=== PATIENT | male | born 1935 | race Caucasian/White ===

== ENCOUNTER 2019-10-06 12:22 | Inpatient (IN) | payer MEDICARE, OTHER ==
[2019-10-06] VITALS (13 sets, daily range): BP systolic 126–143; BP diastolic 75–106
[2019-10-06] MEDS ORDERED: AMIODARONE HCL 150 MG in IV 1 EA IV STA ×2 (12:45→15:21)
[2019-10-06] MEDS ORDERED: NS 2,060 ML in IV 1 EA IV ONE (13:00)
[2019-10-06 13:07] LABS: HEMATOCRIT 55.6 % (42.0-52.0); HEMOGLOBIN 19.9 g/dl (13.5-17.5); MEAN CORPUSCULAR HEMOGLOBIN 33.1 pg (27.0-33.0); MEAN CORPUSCULAR HGB CONC 35.8 g/dl (32.0-36.5); MEAN CORPUSCULAR VOLUME 92.5 fl (80.0-96.0); PLATELET COUNT, AUTOMATED 260 10^3/uL (150-450); RED BLOOD COUNT 6.01 10^6/uL (4.30-6.10)
[2019-10-06 13:21] LABS: INR 1.77; PARTIAL THROMBOPLASTIN TIME 27.9 SECONDS (25.0-38.4); PROTHROMBIN TIME 20.4 SECONDS (11.8-14.0)
[2019-10-06 13:23] LABS: WHITE BLOOD COUNT 40.6 10^3/uL (4.0-10.0)
[2019-10-06 13:24] LABS: ABG BASE EXCESS -12.2 (-2.0-2.0); ABG HCO3 9.7 MEQ/L (22.0-26.0); ABG O2 SATURATION 96.6 % (95.0-99.0); ABG PARTIAL PRESSURE O2 89.2 mmHg (75.0-100.0); ABG STANDARD HCO3 15.4 MEQ/L (22.0-26.0); ABG TOTAL CO2 10.3 MEQ/L (23.0-31.0); ABG pH (ARTERIAL) 7.357 UNITS (7.350-7.450)
[2019-10-06 13:27] LABS: ABG PARTIAL PRESSURE CO2 17.7 mmHg (35.0-45.0)
[2019-10-06] MEDS ORDERED: PIPERACILLIN/TAZOBACTAM SOD 3.375 GM in D5W MINI-BAG PLUS 50 ML IV ONE ×2 (13:30→15:45)
[2019-10-06] MEDS ORDERED: NS 1,000 ML IV ONE ×3 (13:30→18:45)
[2019-10-06 13:50] LABS: LYMPHOCYTES 4 % (16-44); MONOCYTES 2 % (0-5); NEUTROPHILS 88 % (28-66); PLATELET ESTIMATE NORMAL (NORMAL)
[2019-10-06 13:51] LABS: ANISOCYTOSIS 1+
[2019-10-06 14:30] LABS: CREATININE,RANDOM URINE 97.5 MG/DL
[2019-10-06] MEDS ORDERED: SODIUM BICARBONATE 75 MEQ in NS 0.45% 1,000 ML IV SCH (14:30)
--- NOTE | 2019-10-06 14:36 | REP ---
CT BRAIN WITHOUT CONTRAST: HISTORY: Possible fall. No comparison CT study. FINDINGS: Preliminary digital junior mechanical engineer radiograph is unremarkable. The patient is edentulous. On bone window settings, there is heavy vascular calcification in the distal internal carotid arteries bilaterally. The bony calvarium is intact. No skull fractures seen. No scalp hematoma is appreciated. On soft tissue window settings, there is mild to moderate generalized volume loss. There is no evidence of intracranial hemorrhage. No acute infarction, mass, or midline shift is seen. There are some small vessel changes in the periventricular white matter in the frontal lobes, left more so than right. IMPRESSION: No skull fracture or acute intracranial injury. Vascular calcification and generalized volume loss. Electronically Signed by Vishnu Fernandez MD 10/06/2019 05:16 P
--- NOTE | 2019-10-06 14:37 | REP ---
CT STUDY OF THE CERVICAL SPINE WITHOUT CONTRAST: HISTORY: Injury in a fall. No comparison cervical spine CT study. TECHNIQUE: Helical scanning is acquired and overlapping 2 mm high resolution axial images were generated and reviewed at bone and soft tissue window settings. Coronal and sagittal multiplanar re-formations images are generated. CT FINDINGS: There are degenerative disc and osteoarthritic facet changes. There is degenerative change between the dens and the anterior arch of C1. There is no evidence of cervical spine element fracture. No skull base fracture is seen. Cervical vertebral body heights are preserved. Alignment is normal. Facet joints are normally aligned bilaterally at each cervical level on multiplanar re-formations images. There is no evidence of intraspinal or paraspinal hematoma. No extra vertebral abnormality is seen. IMPRESSION: Degenerative spondylosis changes. Otherwise negative CT study of the cervical spine without contrast. No fracture seen. Electronically Signed by Vishnu Fernandez MD 10/06/2019 05:18 P
--- NOTE | 2019-10-06 14:37 | REP ---
CT STUDY OF THE CHEST WITHOUT CONTRAST: HISTORY: Injury in a fall. FINDINGS: Preliminary digital cable mechanic radiograph of the chest demonstrates monitoring electrodes. The patient's arms apparently could not be raised out of the scanned field. There is no evidence of mediastinal hematoma. Thoracic aorta is normal in contour and caliber. There is a small quantity of pericardial fluid. This is seen adjacent to the ascending aorta. There is mild fluid seen in the esophagus as well. No mass lesion is observed. There is no evidence of pneumothorax or hemothorax. Minimal linear fibrosis changes are seen in the lower lobes bilaterally. There are degenerative disc changes in the thoracic spine. There is no evidence of sternal, thoracic spine, shoulder girdle, or rib fracture. IMPRESSION: No active cardiopulmonary disease. Fluid-filled esophagus. Question reflux. There is an air containing bolus in the left lower lobe superior segment. No traumatic abnormality noted. Electronically Signed by Vishnu Fernandez MD 10/06/2019 05:18 P
--- NOTE | 2019-10-06 14:41 | REP ---
CT ABDOMEN AND PELVIS WITHOUT IV OR ORAL CONTRAST: HISTORY: Abdominal pain. History of a fall. No comparison study. FINDINGS: Preliminary digital canteen manager radiograph demonstrates gaseous distension of small and large bowel loops, consistent with ileus. The patient's arms apparently could not be raised out of the scan field. Axial CT images demonstrate a peripherally calcified hepatic cyst in the central liver 4.3 cm in greatest diameter. Gallbladder is normal in appearance. Spleen is normal in size, homogeneous in texture. No adrenal lesion is seen. No evidence of hydronephrosis, cyst, or mass in either kidney. No retroperitoneal mass or adenopathy is observed. A Carvalho catheter is noted in place in the urinary bladder. Bladder fonseca appear diffusely thickened. The prostate is moderately enlarged. There are left posterior bladder diverticula. There is perivesical fat streaking along the superior aspect of the urinary bladder leading upwards to the umbilicus along the course of the urachal duct. There is an umbilical hernia transmitting a small quantity of fat at the cranial margin of this indurated perivesical fat. There is also edematous fat along the left pelvic sidewall. A normal appendix is seen. There is diverticulosis of the sigmoid colon. There is no evidence of free intraperitoneal air. No other abnormal fluid collection is seen. IMPRESSION: Ileus pattern in the bowel gas. Diffuse thickening of the bladder wall with Carvalho catheter in place. Left pelvic sidewall and perivesical fat streaking extending along the course of the urachal duct. Question bladder injury. Bladder diverticula. Correlation with clinical history. There is an umbilical hernia transmitting a small quantity of fat. Left colonic diverticulosis. Electronically Signed by Vishnu Fernandez MD 10/06/2019 05:19 P
[2019-10-06] MEDS ORDERED: PIPERACILLIN/TAZOBACTAM SOD 3.375 GM in D5W MINI-BAG PLUS 50 ML IV SCH (15:30)
[2019-10-06] MEDS: SODIUM BICARBONATE 75 MEQ in NS 0.45% 1,000 ML IV SCH (15:30)
[2019-10-06 15:34] LABS: ALBUMIN 1.8 GM/DL (3.2-5.2); ALT/SGPT 37 U/L (12-78); AMYLASE 90 U/L (25-115); BILIRUBIN,DIRECT 0.9 MG/DL (0.0-0.2); BILIRUBIN,TOTAL 1.5 MG/DL (0.2-1.0); CPK CREATINE PHOSPHOKINASE 77 U/L (39-308); LIPASE 17 U/L (73-393); MB/CK RELATIVE INDEX 6.49 (< OR =4); TOTAL PROTEIN 4.9 GM/DL (6.4-8.2); TROPONIN I < 0.02 NG/ML (< 0.10)
[2019-10-06] MEDS ORDERED: VANCOMYCIN INTERMITTENT/PULSE DOSING BY CLINICAL PHARMACIST PER DOSING PROTOCOL XX SCH (15:45)
[2019-10-06] MEDS ORDERED: PIPERACILLIN/TAZOBACTAM SOD 2.25 GM in D5W MINI-BAG PLUS 50 ML IV SCH (15:45)
[2019-10-06] MEDS ORDERED: VANCOMYCIN HCL 1,000 MG, VIAL MATE ADAPTER 1 EACH in D5W 250 ML IV ONE (16:00)
--- NOTE | 2019-10-06 16:45 | HPEPDOC ---
General Date of Admission Oct 06, 2019 at 15:21 Date of Service: Oct 06, 2019 Chief Complaint The patient is a 84-year-old male admitted Who was brought ER with confusion / weakness History of Present Illness Patient is an 84 year old female with a PMHx Remote history of Angina, HTN, Hx of PNA and Prior alcohol abuse history who presented to [facility] ER. Patient had EMS visit him yesterday after he had some confusion and couldnt get into bed. Patients had EMS called to evaluate. Patient was found to be oriented and refused to be taken. Today patient was having confusion, slurred speech and weakness. EMS was called for evaluation and patient was taken to ER for further evaluation. Patient is a poor historian and the majority of the medical information was collected through healthcare proxy, patients , Bella Raines. 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 Review of Systems Other systems 10 point review of systems complete, all negative otherwise stated in HPI Vital Signs - Vitals: BP 124/86, HR 149, RR 22, Sat 96%NC2L, Temp 97.8F - General: Lying in bed, appears to be in pain Awake / Alert; not oriented to person, place or time - HEENT: NC, AT, PERRLA - CVS: Tachycardic, +S1S2 - Lungs: Poor inspiratory effort bilaterally, No appreciable wheezing / rales / rhonchi - Abdomen: Soft, Non-distended, Non-tender - Extremities: No lower extremity edema, No calf tenderness - Neuro: Moving all 4 extremities - Skin: No visible rashes Laboratory Data Labs 24H Laboratory Tests 2 10/06/19 12:45: Neutrophils (%) (Auto) , Nucleated Red Blood Cells % (auto) 0.1H, Neutrophils 88H, Band Neutrophils 6, Lymphocytes (Manual) 4L, Monocytes (Manual) 2, Anisocytosis 1+, Platelet Estimate NORMAL, Prothrombin Time 20.4H, Prothromb Time International Ratio 1.77, Activated Partial Thromboplast Time 27.9, Lactic Acid Level 6.1*H 10/06/19 13:04: Blood Gas Bicarbonate Standard 15.4L, Arterial Blood pH 7.357, Arterial Blood Partial Pressure CO2 17.7*L, Arterial Blood Partial Pressure O2 89.2, Arterial Blood Total CO2 10.3L, Arterial Blood HCO3 9.7L, Arterial Blood Base Excess - 12.2L, Arterial Blood Oxygen Saturation 96.6 10/06/19 13:28: Urine Random Creatinine 97.5, Urine Random Sodium 42 10/06/19 13:34: POC Glucose (Misc Panel) 176H, POC Sodium (Misc Panel) 137, POC Potassium (Misc Panel) 4.2, POC Chloride (Misc Panel) 104, POC Total CO2 (Misc Panel) 13.0L, POC Blood Urea Nitrogen (Misc Panel > 140H, POC Ionized Calcium (Misc Panel) 3.7L, POC Creatinine (Misc Panel) 6.9H, POC Hematocrit (Misc Panel) 54.0H 10/06/19 14:13: Urine Color YELLOW, Urine Appearance TURBIDH, Urine pH 6.0, Urine Specific [place] 1.013, Urine Protein 2+H, Urine Glucose (UA) NEGATIVE, Urine Ketones NEGATIVE, Urine Blood 3+H, Urine Nitrite NEGATIVE, Urine Bilirubin NEGATIVE, Urine Urobilinogen 0.2, Urine Leukocyte Esterase 2+H, Urine WBC (Auto) TNTCH, Urine RBC (Auto) 89H, Urine Hyaline Casts (Auto) 0, Urine Bacteria (Auto) 3+H, Urine Squamous Epithelial Cells 0, Urine Sperm (Auto) 10/06/19 14:43: Total Bilirubin 1.5H, Direct Bilirubin 0.9H, Aspartate Amino Transf (AST/SGOT) 33, Alanine Aminotransferase (ALT/SGPT) 37, Alkaline Phosphatase 89, Total Creatine Kinase 77, Creatine Kinase MB 5.0H, Creatine Kinase MB Relative Index 6.49H, Troponin I < 0.02, Total Protein 4.9L, Albumin 1.8L, Albumin/Globulin Ra fabio 0.6, Amylase Level 90, Lipase 17L 10/06/19 16:14: CBC/BMP Laboratory Tests 10/06/19 12:45 Microbiology Microbiology 10/06/19 Urine Culture, Received Pending 10/06/19 Blood Culture, Received Pending 10/06/19 Blood Culture, Received Pending Plan / VTE VTE Prophylaxis Ordered?: Yes Plan Plan Sepsis - Patient presented to the emergency room after he was found to be confused and weak at home - EMS had visited him yesterday and patient had refused to come to the emergency room for further evaluation - Currently patient has leukocytosis of 40.6 with neutrophil predominance and bandemia - Urine analysis noted to be significantly abnormal - CT Chest 10/05: No active cardiopulmonary disease. Fluid-filled esophagus. Question reflux. There is an air containing bolus in the left lower lobe superior segment. No traumatic abnormality noted. - CT abdomen / pelvis 10/05: Ileus pattern in the bowel gas. Diffuse thickening of the bladder wall with Carvalho catheter in place. Left pelvic sidewall and perivesical fat streaking extending along the course of the urachal duct. Question bladder injury. Bladder diverticula. Correlation with clinical history. There is an umbilical hernia transmitting a small quantity of fat. Left colonic diverticulosis. - Will check blood cultures, urine cultures atone and repeat lactic acid - Will start sepsis protocol with aggressive IV fluid hydration and broad- spectrum antibiotics with vancomycin and Zosyn Acute renal failure - No baseline kidney function to compare against - Patient has significant elevation of creatinine with acidosis - s/p Carvalho catheter placement - c/w IV fluid hydration and bicarbonate drip - Nephrology has been consulted Acute metabolic encephalopathy - likely 2/2 above (Uremia) - Patient is not oriented to person, place or time - Physical reveals he is moving all 4 extremities - CT head 10/05: No skull fracture or acute intracranial injury. Vascular calcif ication and generalized volume loss. - CT cervical spine 10/05: Degenerative spondylosis changes. Otherwise negative CT study of the cervical spine without contrast. No fracture seen. - See above Atrial fibrillation - Emergency room, patient was found to have a significant elevated heart rate in 200s - EKG does reveal atrophic relation - s/p Amiodarone x 1 dose; rate has improved - Will check ECHO - Will give additional dose of Amiodarone - Will trend troponins and continue with telemetry monitoring - Discussed with Cardiology, Dr. Singh, will be on consultation; Will start Eliquis; Metabolic acidosis - likely 2/2 Lactic acidosis and renal failure - c/w IV fluid hydration and bicarbonate drip DVT prophylaxis - Will start Heparin Code status: - Discussed case in detail with healthcare proxy/; patient is currently full code ARTIE AUGUSTE MD Oct 06, 2019 16:45
[2019-10-06 17:21] LABS: ALBUMIN 1.7 GM/DL (3.2-5.2); ALT/SGPT 38 U/L (12-78); BILIRUBIN,TOTAL 1.5 MG/DL (0.2-1.0); BLOOD UREA NITROGEN 149 MG/DL (7-18); CALCIUM LEVEL 7.8 MG/DL (8.8-10.2); CARBON DIOXIDE LEVEL 13 MEQ/L (21-32); CHLORIDE LEVEL 107 MEQ/L (98-107); CK-MB VALUE MASS 5.7 NG/ML (<3.6); CPK CREATINE PHOSPHOKINASE 94 U/L (39-308); CREATININE FOR GFR 6.27 MG/DL (0.70-1.30); GLOMERULAR FILTRATION RATE 9.2 (>35); GLUCOSE, FASTING 176 MG/DL (70-100); MB/CK RELATIVE INDEX 6.06 (< OR =4); POTASSIUM SERUM 4.2 MEQ/L (3.5-5.1); SODIUM LEVEL 139 MEQ/L (136-145); TOTAL PROTEIN 4.8 GM/DL (6.4-8.2); TROPONIN I < 0.02 NG/ML (< 0.10)
[2019-10-06 17:39] LABS: BASO # 0.2 10^3/uL (0.0-0.2); BASO % 0.5 % (0.0-1.0); HEMATOCRIT 48.7 % (42.0-52.0); LYMPH # 0.8 10^3/uL (1.5-5.0); MEAN CORPUSCULAR HEMOGLOBIN 32.6 pg (27.0-33.0); MEAN CORPUSCULAR HGB CONC 35.1 g/dl (32.0-36.5); MEAN CORPUSCULAR VOLUME 92.8 fl (80.0-96.0); MONO # 1.8 10^3/uL (0.0-0.8); MONO % 4.8 % (0.0-5.0); NEUTROPHILS # 33.4 10^3/uL (1.5-8.5); NEUTROPHILS % 89.8 % (36.0-66.0); PLATELET COUNT, AUTOMATED 214 10^3/uL (150-450); RED BLOOD COUNT 5.25 10^6/uL (4.30-6.10)
[2019-10-06 17:41] LABS: WHITE BLOOD COUNT 37.2 10^3/uL (4.0-10.0)
[2019-10-06 17:42] LABS: HEMOGLOBIN 17.1 g/dl (13.5-17.5)
[2019-10-06 17:58] LABS: HEMOGLOBIN A1c 5.9 %
[2019-10-06 17:59] LABS: MAGNESIUM LEVEL 2.5 MG/DL (1.8-2.4); PHOSPHORUS LEVEL 5.5 MG/DL (2.5-4.9)
[2019-10-06] MEDS ORDERED: METOPROLOL 5 MG/5 ML VIAL IV STA (19:18)
[2019-10-06] MEDS ORDERED: AMIODARONE HCL 360 MG in IV 1 EA IV SCH (19:30)
[2019-10-06 20:00] LABS: CHOLESTEROL LEVEL 95 MG/DL (<200); CHOLESTEROL RISK RATIO 10.555 (<5); HDL CHOLESTEROL 9 MG/DL (>40); LDL CHOLESTEROL 57 MG/DL (<100); NON-HDL-C 86 MG/DL; TRIGLYCERIDES LEVEL 145 MG/DL (<150)
[2019-10-06] MEDS: PIPERACILLIN/TAZOBACTAM SOD 2.25 GM in D5W MINI-BAG PLUS 50 ML IV SCH (20:31)
[2019-10-06] MEDS: APIXABAN 2.5 MG TAB (ELIQUIS) PO SCH (20:31)
[2019-10-06 21:47] LABS: BLOOD UREA NITROGEN 141 MG/DL (7-18); CALCIUM LEVEL 6.7 MG/DL (8.8-10.2); CARBON DIOXIDE LEVEL 17 MEQ/L (21-32); CHLORIDE LEVEL 112 MEQ/L (98-107); CK-MB VALUE MASS 6.5 NG/ML (<3.6); CPK CREATINE PHOSPHOKINASE 65 U/L (39-308); CREATININE FOR GFR 4.98 MG/DL (0.70-1.30); GLOMERULAR FILTRATION RATE 11.9 (>35); GLUCOSE, FASTING 199 MG/DL (70-100); MAGNESIUM LEVEL 2.3 MG/DL (1.8-2.4); PHOSPHORUS LEVEL 4.5 MG/DL (2.5-4.9); POTASSIUM SERUM 3.6 MEQ/L (3.5-5.1); SODIUM LEVEL 143 MEQ/L (136-145); TROPONIN I < 0.02 NG/ML (< 0.10)
[2019-10-06] MEDS ORDERED: HEPARIN SOD (PORCINE) 5000UNITS/ML VIAL (J1644 PER 1000UNITS) SC SCH (22:00)
[2019-10-07] VITALS (37 sets, daily range): BP systolic 93–178; BP diastolic 60–126
[2019-10-07] MEDS: SODIUM BICARBONATE 75 MEQ in NS 0.45% 1,000 ML IV SCH ×3 (00:26→16:08)
--- NOTE | 2019-10-07 01:22 | ECGEPIP ---
[facility] - ED Test Date: 2019-10-06 Pat Name: NINO VILLALOBOS Department: Room: - Gender: Male Helper Teacher: aaron langford : 1935 Requested By: TYLER Peoples Order Number: [id number] Reading MD: Lionel Jack Measurements Intervals [place] Rate: 179 P: VT: 0 QRS: -19 QRSD: 94 T: 94 QT: 244 QTc: 422 Interpretive Statements ATRIAL FIBRILLATION WITH RAPID VENTRICULAR RESPONSE SEPTAL MYOCARDIAL INFARCTION, PROBABLY OLD Comparison tracing not on file Electronically Signed on 10-07-2019 1:22:41 EDT by Lionel Jack
[2019-10-07] MEDS: AMIODARONE HCL 360 MG in IV 1 EA IV SCH ×3 (01:33→16:07)
[2019-10-07 01:40] LABS: CALCIUM LEVEL 7.1 MG/DL (8.8-10.2); CREATININE FOR GFR 4.56 MG/DL (0.70-1.30); GLOMERULAR FILTRATION RATE 13.2 (>35); MAGNESIUM LEVEL 2.3 MG/DL (1.8-2.4); PHOSPHORUS LEVEL 4.2 MG/DL (2.5-4.9); POTASSIUM SERUM 3.5 MEQ/L (3.5-5.1)
[2019-10-07 05:19] LABS: HEMATOCRIT 46.8 % (42.0-52.0); HEMOGLOBIN 16.6 g/dl (13.5-17.5); MEAN CORPUSCULAR HEMOGLOBIN 31.8 pg (27.0-33.0); MEAN CORPUSCULAR HGB CONC 35.5 g/dl (32.0-36.5); MEAN CORPUSCULAR VOLUME 89.7 fl (80.0-96.0); PLATELET COUNT, AUTOMATED 184 10^3/uL (150-450); RED BLOOD COUNT 5.22 10^6/uL (4.30-6.10)
[2019-10-07 05:22] LABS: WHITE BLOOD COUNT 34.9 10^3/uL (4.0-10.0)
[2019-10-07] MEDS: PIPERACILLIN/TAZOBACTAM SOD 2.25 GM in D5W MINI-BAG PLUS 50 ML IV SCH ×3 (05:26→21:26)
[2019-10-07 05:45] LABS: LYMPHOCYTES 1 % (16-44); MONOCYTES 6 % (0-5); NEUTROPHILS 92 % (28-66)
[2019-10-07 05:46] LABS: CRENATED RBC 1+; PLATELET ESTIMATE NORMAL (NORMAL); TOXIC VACUOLATION 1+
[2019-10-07 05:49] LABS: ALBUMIN 1.6 GM/DL (3.2-5.2); BILIRUBIN,TOTAL 1.1 MG/DL (0.2-1.0); CALCIUM LEVEL 7.1 MG/DL (8.8-10.2); CREATININE FOR GFR 4.22 MG/DL (0.70-1.30); GLOMERULAR FILTRATION RATE 14.5 (>35); MAGNESIUM LEVEL 2.2 MG/DL (1.8-2.4); POTASSIUM SERUM 3.4 MEQ/L (3.5-5.1); TOTAL PROTEIN 4.6 GM/DL (6.4-8.2); VANCOMYCIN RANDOM 10.7 UG/ML
[2019-10-07] MEDS ORDERED: VANCOMYCIN HCL 1,000 MG, VIAL MATE ADAPTER 1 EACH in D5W 250 ML IV ONE (06:00)
--- NOTE | 2019-10-07 08:06 | CR ---
DATE OF CONSULTATION: 10/06/2019 REQUESTING PHYSICIAN: Dr. Jack in the emergency room. CONSULTING PHYSICIAN: Dr. Mccord REASON FOR CONSULTATION: Management of renal failure and metabolic acidosis. CHIEF COMPLAINT: The patient was brought into the emergency room with confusion and weakness. NOTE: History was obtained from the patient's chart and from the ER physician. The patient himself was unable to provide any reliable history. HISTORY OF PRESENT ILLNESS: Mr. Marino Raines is an 84-year-old male with past medical history of hypertension, angina, and history of alcohol abuse in the past. He was having progressive weakness and confusion. He was unable to get into the bed yesterday. His called EMS yesterday, but when EMS arrived to evaluate him he refused to go with the ambulance and again today the patient was getting more and more confused with slurred speech, weakness and inability to walk, so the patient's called EMS again and the patient was brought to the emergency room. In the emergency room, the patient was confused and obtunded. He was very tachycardia with pulse rate close to 200. He was found to have urinary retention on clinical exam. A Carvalho catheter was placed. Very cloudy urine came out through the Carvalho catheter. Further lab evaluation in the emergency room showed that the patient was in acute renal failure with a creatinine of 6.27 and a BUN of 149. He was in severe sepsis with a white cell count of 40.6. The patient was in metabolic acidosis with a pH of 7.37, pCO2 of 37 and bicarb of 9.7 only on the ABG. The emergency room physician called the nephrology service for an emergent consult. I discussed the patient myself with the ER physician Dr. Jack. Decision was made to initially hydrate the patient according to sepsis protocol and after that start the patient on bicarb containing fluids. The patient needed my immediate attention. I saw and evaluated the patient myself at the bedside in the intensive care unit (ICU) today evening. Since the initial bolus of hydration, the patient is starting to make more urine and his urine is getting more clear. He was given initial empiric IV antibiotics including Zosyn and vancomycin. PAST MEDICAL HISTORY: Past medical history of angina, history of hypertension and not taking any medications, history of pneumonia, prior history of alcohol abuse, and he has not seen a physician in more than 30 years. PAST SURGICAL HISTORY: History of lower back mass which was resected in the 1970s. ALLERGIES: NO KNOWN DRUG ALLERGIES. FAMILY HISTORY: No known family history of end-stage renal disease. SOCIAL HISTORY: The patient lives with his . He has not seen a physician in three decades. 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 There is remote history of alcohol abuse in the past. REVIEW OF SYSTEMS: I was unable to do any reliable review of systems in the patient. He is obtunded, answers very few questions, he came in with confusion, and he was brought to the ER by EMS. PHYSICAL EXAMINATION: General: The patient is awake, but very obtunded. Follows some commands. He is not able to do conversation. Vital Signs: Temperature at this time is 97 degrees Fahrenheit, blood pressure is 130/90, pulse is 131, respiratory rate of 26, saturating 98% on 2 liters via nasal cannula. Head and Neck Exam: Extraocular muscles intact. Pupils are equally round and reactive to light. Mucous membranes are very dry. Neck is supple. There is no jugular venous distention (JVD). Cardiovascular: S1, S2. Tachycardia. No edema of the bilateral lower extremities. Respiratory: No active rales or rhonchi. Chest is clear to auscultation bilaterally. Abdomen is soft. It is tender to deep palpation in the suprapubic region and the patient is not allowing the clinical exam at this time. Genitourinary: He has an indwelling Carvalho catheter. Urine in the bag is getting clear. There is some debris in the Carvalho catheter. Musculoskeletal: No clubbing or cyanosis at this time. Skin: No rashes or ulcers. HEALTHCARE FINANCIAL ANALYST: The patient is obtunded and confused. He moves extremities and follows very few commands. LAB REVIEW: CBC done on arrival showed a WBC of 40.6. Repeat CBC done showed a WBC of 37.2, hemoglobin 17.1 and platelets of 214. INR is 1.77. Urinalysis done initially showed it was very turbid with 2+ protein, 3+ blood, 2+ leukocyte esterase, too numerous to count WBCs and 3+ bacteria. ABG done in the ER showed a pH of 7.35, pCO2 of 17.7, pO2 of 89, bicarb is 9.7, and O2 sat was 96%. BMP showed sodium 139, potassium 4.2, chloride 107, bicarb 13, BUN 149, creatinine 6.2, glucose 176, lactic acid 6.1, calcium 7.8, total bilirubin 1.5, AST 33, ALT 37, alkaline phosphatase 89. Troponin was less than 0.02. Albumin was 1.8. Amylase was 90. Lipase was 17. Lactic acid initially was 6.1 and repeat one was 4.1 after hydration. Hemoglobin A1c is 5.9. Phosphorus 5.5. Magnesium is 2.5. Microbiology: Blood culture and urine culture are pending. IMAGING STUDIES: CT scan of the cervical spine did not show any acute pathology apart from degenerative spondylosis. CT of the chest was done which showed no acute cardiopulmonary disease. CT scan of the head was done which showed no skull fracture or acute intracranial injury. CT scan of the abdomen and pelvis was done which showed ileus pattern in the bowel gas, diffuse thickening of the bladder wall with Carvalho catheter in place. There were bladder diverticula. HOME MEDICATIONS: The patient was not taking any home medications. CURRENT INPATIENT MEDICATIONS: The patient has been given amiodarone 150 mg IV x2 doses. He has been started on amiodarone infusion because of atrial fibrillation. He has been given normal saline at 3 liter bolus IV. He is also getting half-normal saline with the 75 mEq of bicarbonate at 100 mL an hour. I have increased the rate to 150 mL an hour. The patient is getting Zosyn 2.25 grams IV every 8 hours. He was given vancomycin 1 gram IV x1 dose. He has been started on Eliquis 2.5 mg twice a day. He was also given metoprolol 5 mg IV x1 dose. ASSESSMENT: 84-year-old male with severe sepsis secondary to urinary tract infection and obstructive uropathy, acute renal failure, severe metabolic acidosis, and atrial fibrillation with rapid ventricular rate. PLAN: 1. Severe sepsis. The patient got 3 liters of normal saline bolus. He is getting IV bicarb containing fluid. I have increased the rate to 150 mL an hour. He is not requiring any pressors. He is empirically covered with vancomycin and Zosyn. White cell count is improving. 2. Acute renal failure. It is secondary to obstructive uropathy. The patient got a Carvalho catheter placed. There is no urgent need of dialysis. Patient is making urine after fluid hydration and placement of Carvalho catheter. 3. High anion gap metabolic acidosis. It is secondary to a combination of acute renal failure and lactic acidosis. The patient is getting bicarb containing fluids. With improvement in the blood pressure, his lactic acidosis should get better. With improvement in the renal function, his serum bicarb level should get better as well. 4. Urinary tract infection with obstructive uropathy. The patient has an indwelling Carvalho catheter at this time. He is empirically covered with antibiotics. Urine cultures are pending. Urine is getting more clear with fluid hydration and antibiotics. 5. Atrial fibrillation with rapid ventricular rate. The patient has been given IV amiodarone boluses and he has been started on amiodarone infusion. He is anticoagulated with Eliquis. He was already seen by cardiology today evening and I appreciate their recommendations. 6. Metabolic encephalopathy. It is secondary to a combination of sepsis secondary to urinary tract infection, metabolic acidosis and acute renal failure with uremia. I am hopeful that with improvement in his renal function and sepsis, his mental status should improve over the next 24-48 hours. Thank you for involving me in the care of this patient. I shall be happy to follow the patient along with you tomorrow morning. Total critical care time spent in the management of this patient today evening in the ICU was 1 hour and 15 minutes, excluding all the procedures. JEAN-PAUL
[2019-10-07] MEDS: APIXABAN 2.5 MG TAB (ELIQUIS) PO SCH ×2 (08:21→21:27)
[2019-10-07] MEDS: METOPROLOL 5 MG/5 ML VIAL IV SCH ×3 (08:21→19:17)
[2019-10-07 08:28] LABS: AMPHETAMINES LEVEL URINE NEGATIVE (NEGATIVE); BARBITURATES URINE NEGATIVE (NEGATIVE); BENZODIAZEPINES URINE NEGATIVE (NEGATIVE); CANNABINOIDS URINE NEGATIVE (NEGATIVE); COCAINE METABOLITE URINE NEGATIVE (NEGATIVE); METHADONE URINE NEGATIVE (NEGATIVE); OPIATES URINE NEGATIVE (NEGATIVE); PHENCYCLIDINE URINE NEGATIVE (NEGATIVE)
[2019-10-07] MEDS: KCL 10MEQ/100ML SWI (KRUN) 10 MEQ in IV 1 EA IV SCH ×2 (11:05→13:10)
--- NOTE | 2019-10-07 12:20 | REP ---
PORTABLE CHEST SEMI-ERECT AP VIEW: HISTORY: Shortness of breath. Sepsis. Comparison chest x-ray: July 20, 2008. FINDINGS: There is an air density beneath the right hemidiaphragm on today's semi-erect AP radiograph. This is a change from the CT study findings from October 06, 2019. Possible free intraperitoneal air. No infiltrate is seen. Heart is borderline. Lungs are exposed at a relatively low level of inspiration. There is a skin fold projecting along the left lateral chest. IMPRESSION: Possible pneumoperitoneum under the right hemidiaphragm as a new finding. Question free air. Otherwise no acute disease. These findings were telephoned to the referring provider at the time of this dictation. Electronically Signed by Vishnu Fernandez MD 10/07/2019 01:36 P
--- NOTE | 2019-10-07 14:21 | REP ---
CT ABDOMEN AND PELVIS WITHOUT ORAL CONTRAST: HISTORY: Possible bowel perforation. Evidence of free subdiaphragmatic air under the right hemidiaphragm on today's chest x-ray. Comparison is made with the previous day's CT study of the abdomen and pelvis. FINDINGS: Digital preliminary barge engineer radiograph demonstrates mild persistent ileus although this appears somewhat improved. Axial CT images show no evidence of free intraperitoneal air. Lung window settings on coronal and sagittal MPR images demonstrate that the radiographic appearance is due to a fissure in the right lower lobe projecting just over the right hemidiaphragm and not a collection of peritoneal air or subpulmonic pneumothorax. The liver and spleen are unchanged. There is a mild ileus pattern in the bowel gas slightly improved. There is no distension of the stomach today. There is left colonic diverticulosis. There is some fluid in the pericolic gutter in the left lower quadrant. Bladder diverticula are seen. There is some air and a Carvalho catheter in the urinary bladder. There is diffuse bladder wall thickening. Some perivesical fat streaking persists. Umbilical hernia transmitting a small quantity of abdominal fat is again seen. IMPRESSION: There is no evidence of free intraperitoneal air. A atypically oriented pleural fissure produces a false positive appearance of free subdiaphragmatic air in the right lung base on today's chest x-ray. Ileus pattern in the bowel gas somewhat improved. Other findings unchanged. Electronically Signed by Vishnu Fernandez MD 10/07/2019 03:01 P
--- NOTE | 2019-10-07 14:21 | REP ---
CT CHEST WITHOUT CONTRAST: HISTORY: Question free subdiaphragmatic air. CT FINDINGS: There is no evidence of pneumothorax. A sliver of pleural air is seen in the posterior pleural angles bilaterally. There is discoid atelectasis in the right lower lobe. There is no evidence of free intraperitoneal air in the upper abdomen. False positive portable chest x-ray due to an atypically positioned fissure in the right base. Cardiomegaly is observed. No pericardial effusion is seen. No hilar or mediastinal mass or adenopathy is observed. IMPRESSION: No evidence of free air. Discoid atelectasis right base. Tiny sliver of pleural fluid bilaterally. Otherwise no acute disease. Cardiomegaly is observed. Electronically Signed by Vishnu Fernandez MD 10/07/2019 03:02 P
--- NOTE | 2019-10-07 14:43 | IPNPDOC ---
Text Note Date of Service The patient was seen on 10/07/19. NOTE Subjective: Patient awake but not oriented in the morning. He follows simple commands. Objective: VITAL SIGNS: Please see below. GENERAL: Ill looking male, obtunded HEENT: NCAT, anicteric sclera, ALMA NECK: supple, no JVD CARDIOVASCULAR EXAMINATION: NS1S2, regular rate/rhythm RESPIRATORY EXAMINATION: CTA b/l, no wheezes/rales/rhonchi ABDOMINAL EXAMINATION: Tender over left lower quadrant, no rebound EXTREMITIES: no cyanosis, clubbing, edema SKIN: Right shoulder open wound 3-4 cm stage II NEUROLOGICAL EXAMINATION: Follows simple commands, no nuchal rigidity Patient is 84 years old male with past history of coronary artery diseases, hypertension, alcoholism presented to hospital with severe sepsis and altered mental status. Patient was found to have pyuria and acute kidney injury. Severe sepsis Patient had tachycardia, leukocytosis, pyuria and blood culture positive for gram-positive cocci Continue IV fluid Continue vancomycin IV and Zosyn IV Lactic acidosis improved CT negative for active cardiopulmonary diseases CT of abdomen and pelvis showed Diffuse thickening of the bladder wall with bladder diverticula We will repeat blood culture Appreciate/agree with infectious diseases consult SHARRON Post renal. 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 If patient continues to be confused will proceed with spinal tap Most likely secondary to sepsis complicated by kidney failure There is also possibility for alcohol withdrawal given history of ETOH abuse [facility] I will check urine tox VS,Fishbone, I+O VS, Fishbone, I+O Laboratory Tests 10/06/19 16:14 10/06/19 17:20 10/06/19 21:03 10/07/19 01:00 10/07/19 05:03 Vital Signs Date Time Temp Pulse Resp B/P (MAP) Pulse Ox O2 Delivery O2 Flow Rate FiO2 10/07/19 10:01 122 124/61 (82) 97 Room Air 10/07/19 08:05 97.4 26 10/06/19 23:00 2.0 I&O- Last 24 Hours up to 6 AM 10/07/19 06:00 Intake Total 5211.6 ml Output Total 2215 ml Balance 2996.6 ml ELIZA PINEDA DO Oct 07, 2019 14:43
--- NOTE | 2019-10-07 16:01 | CCN ---
DATE: 10/07/2019 SUBJECTIVE: The patient was seen and examined at the bedside today morning in the ICU. He continues to been on IV fluid hydration. Last 24-hour events were noted. The patient's blood cultures times two came back positive for gram-positive cocci. He continues to be in atrial fibrillation with RVR with IV amiodarone infusion. He was going to get his echocardiogram done when I saw him in the morning. He continues to be obtunded, answers very few questions. However, he is nonoliguric and making almost 100 mL of urine per hour. Renal function is very slowly improving and creatinine is slightly trending down. OBJECTIVE: Vital signs: Temperature is 97.4 degrees Fahrenheit, blood pressure 124/61, pulse is 122, respiratory rate of 26, saturating 96% on room air. Intake and output: Urine output recorded is 1.8 liters yesterday, 750 mL so far today since overnight. Weight in the bed scale is 71.2 kg. PHYSICAL EXAMINATION: General: The patient is very obtunded and drowsy. He is oriented times one only. Head and neck exam: Pupils are equally round and reactive to light. Mucous membranes are very dry. He has a dry tongue. Neck is supple. There is no JVD. Cardiovascular: S1, S2, tachycardia, irregularly irregular rate. No edema of the bilateral lower extremities. Respiratory: Mildly decreased breath sounds at the bases. He does not have any active rales or rhonchi. He has secretions in the upper respiratory airway. Abdomen: Soft, is tender to deep palpation. The patient does not let us examine his belly. Genitourinary: He has an indwelling Carvalho catheter. Urine in the bag is clear. Musculoskeletal: No clubbing or cyanosis. Pulses are 2+. GLASSWARE SELECTOR: Patient is obtunded, otherwise he moves extremities and follows few commands. LABORATORY REVIEW: CBC showed WBC of 34.9, hemoglobin 16.6, platelets of 184. BMP done today morning showed sodium 144, potassium 3.4, chloride 112, bicarbonate 17, BUN 138, creatinine is 4.2, glucose 165, lactic acid today morning is 1.9, total bilirubin is 1.1, albumin is 1.6. Microbiology: Blood cultures two out of two are growing gram-positive cocci in pairs and chains and clusters. Urine culture is still pending. IMAGING STUDIES: Repeat chest x-ray was done today morning. CURRENT INPATIENT MEDICATIONS: The patient's medications were all reviewed by myself. He continues to be on IV amiodarone infusion. I have ordered 2 runs of IV KCl today morning. He continues to be on IV bicarbonate containing fluid. I have decreased the fluid rate to 100 mL/hour. He also got another dose of vancomycin today. The patient was also started on metoprolol 5 mg IV every 6 hours today morning. ASSESSMENT/PLAN: 1. Severe sepsis secondary to gram-positive cocci bacteremia. The patient continues to be on IV fluid hydration. He is not requiring pressors at this time. He continues to be on vancomycin and Zosyn which adequately covers for gram positive infection. Final sensitivity results are still pending. Leukocytosis is slightly getting better. 2. Acute nonoliguric renal failure. The patient had obstructive uropathy and he has severe sepsis now. Renal function is very slowly improving. Continue the IV fluid hydration. However, I have decreased the fluid rate to 100 mL/hour now. Continue the Carvalho catheter. No urgent need to dialyze the patient today. 3. High anion gap metabolic acidosis. It is secondary to renal failure. The patient continues to be on IV bicarbonate containing fluid. Lactic acidosis has improved. 4. Hypokalemia. The patient has been given potassium chloride 10 mEq times two doses. 5. Atrial fibrillation with rapid ventricular rate. The patient is on amiodarone infusion and he is also getting every 6 hours IV metoprolol. He is anticoagulated with Eliquis and he is being seen by cardiology. 6. Urinary tract infection with obstructive uropathy. He continues to be on IV antibiotics. He has a Carvalho catheter. Urine is clearing now. 7. Abdominal pain and ileus on the abdominal imaging. The patient still has tenderness on the abdominal exam. I am going to have the NGT placed and NGT will be attached to low intermittent suctioning. 8. Metabolic encephalopathy. The patient is still encephalopathic because of combination of metabolic acidosis, gram-positive bacteremia, and acute renal failure. Total critical care time spent in the management of this patient today morning in the ICU excluding all the procedures was 50 minutes.
[2019-10-07] MEDS ORDERED: FLUCONAZOLE 200 MG in IV 1 EA IV ONE (17:00)
--- NOTE | 2019-10-07 18:05 | CR ---
DATE OF CONSULTATION: 10/07/2019 Asked to consult by Dr. Palencia for evaluation of gram-positive bacteremia and confusion. HISTORY OF PRESENT ILLNESS: Mr. Raines is an 84-year-old white gentleman who was brought in by ambulance because he was very confused with slurred speech and weakness. The day prior to admission she had also called the ambulance for a similar episode, but the patient refused to go to the hospital, as by the time the emergency medical services (EMS) had been there, he was doing better. The patient is not able to give me any history, as he just responds yes or no to a few questions. He has a mild cough. He has a Carvalho catheter in place with cloudy urine, and he is in acute kidney injury. The patient has had no fever or chills since admission. He has an abscess on his right upper back. He has erythema and a rash around his groin area and ulceration around his penis. He has not gotten care since 2008. PAST MEDICAL HISTORY: 1. Angina in 1989. 2. Hypertension, not treated with medication. 3. History of pneumonia. 4. history of alcohol abuse, but the patient quit. PAST SURGICAL HISTORY: Back surgery in 1969. HOME MEDICATIONS: None. Currently: - metoprolol 5 mg intravenous (IV) every 6 hours - amiodarone IV - Zosyn 2.25 grams IV every 8 hours - apixaban 2.5 mg by mouth twice a day - Tylenol as needed - sodium bicarb IV. ALLERGIES: No known drug allergies. LABORATORY DATA: White count was 40.6 on October 05 and today was 34.9, hemoglobin 16.6, hematocrit 46.8, platelets 184, 92% neutrophils, 1% bands, 6% monocytes. Sodium 144, potassium 3.4, chloride 112, bicarbonate 17, BUN 138, creatinine 4.22, glucose 165, lactic acid 2.3, down to 1.9, calcium 7.1, phosphorus 4, magnesium 2.2. AST 30, ALT 37, alkaline phosphatase 84, total protein 4.6, albumin 1.6. Blood cultures, two sets, were done on October 05 and are positive for gram- positive cocci in pairs, chains, and clusters. Urine culture is pending. Blood culture from October 06 is pending. Urinalysis: Leukocytes and positive blood. CT abdomen and pelvis shows an ileus pattern in the bowel somewhat improved from the day before. CT chest: No evidence of free air. Discoid atelectasis at the right base with small pleural fluid bilaterally. No acute disease. Cardiomegaly is noted. PHYSICAL EXAMINATION: He is an elderly gentleman. Eyes are open. He does not seem to be in any distress but does not respond appropriately. Temperature is 97, pulse 136, in atrial fibrillation, respirations 24, blood pressure 161/199; was up to 178/115. Oxygen saturation 95% on room air. HEART: Normal S1, S2, irregular. Distant. No murmurs appreciated. LUNGS: A few exterior rhonchi bilaterally. No wheezes or crackles. ABDOMEN: Soft, mildly distended, tender in the lower quadrant. Bowel sounds present. GROIN: Bilateral erythematous rashes. Scaly rash around the penile area with ulceration. A small condyloma at the right groin. Perirectal area: No ulcerations noted. There is a healed scar in the lumbosacral area. EXTREMITIES: No clubbing, cyanosis, or edema. No calf tenderness. No rashes. No petechial lesions. NEUROLOGIC: Cranial nerves: Right eye with lateral deviation. Otherwise, cranial nerves seem to be intact. He does move both the upper and lower extremities. The patient responds yes or no to some questions and few words. He definitely has generalized stiffness but not necessarily only his neck, but also he has some kind of rigidity of his upper arms as well. SKIN: No rashes noted. Poor hygiene. Rash in the groin area suggestive of candidiasis. Right upper back has an ulcerated wound with three different openings with purulent discharge, measuring about 2 cm with no fluctuance. There is pus draining. HEAD/ENT: No jugular venous distention (JVD). No bruits. Oropharynx very dry. No lesions noted. The patient has no teeth. He has an nasogastric (NG) tube in place with bloody, black drainage. IMPRESSION: This is an 84-year-old gentleman, admitted with acute kidney injury, dehydration, and sepsis. The patient looks like he has a urinary tract infection with cloudy urine and bacteremia with gram-positive cocci in pairs, chains, and clusters. Most likely the patient will have Enterococcus faecalis on blood cultures. He has been on IV vancomycin and Zosyn, which is appropriate for the time being until we have final identification of pathogen. His mental status changes are probably related to sepsis and not to meningitis. He does not seem to be having any headache. His confusion is probably also related to sepsis. He also has an ileus, and NG tube had been placed. The patient may benefit from an IV proton pump inhibitor (PPI), as drainage looks brown, discolored, possibly old blood. PLAN: 1. Continue with IV vancomycin and Zosyn until final identification of blood cultures tomorrow and urine culture. 2. The patient does not need a lumbar puncture. If mental status does not improve, would suggest obtaining MRI of brain without contrast, as his creatinine is quite high. 3. The patient needs treatment of candidiasis. He will receive one dose of Diflucan 200 mg IV followed by Mycostatin powder to the groin area. Wound culture from his back was obtained as well. Thank you for consultation. JEAN-PAUL
[2019-10-07] MEDS: NITROGLYCERIN 2% OINT 1 GM *U/D* PKT TOP SCH (19:42)
[2019-10-07 20:38] LABS: ALBUMIN 1.6 GM/DL (3.2-5.2); CALCIUM LEVEL 7.6 MG/DL (8.8-10.2); CREATININE FOR GFR 3.07 MG/DL (0.70-1.30); GLOMERULAR FILTRATION RATE 20.9 (>35); PHOSPHORUS LEVEL 3.8 MG/DL (2.5-4.9); POTASSIUM SERUM 3.3 MEQ/L (3.5-5.1)
[2019-10-07] MEDS ORDERED: METOPROLOL 5 MG/5 ML VIAL IV STA (21:14)
[2019-10-07] MEDS ORDERED: METOPROLOL 5 MG/5 ML VIAL As Ordered ONE (21:20)
[2019-10-07] MEDS: NYSTATIN 100,000 UNITS/GM TOPICAL PWD 15 GM TOP SCH (21:27)
--- NOTE | 2019-10-07 23:51 | ECHO ---
DATE OF PROCEDURE: 10/07/2019 DATE OF : 1935 AGE: 84 REFERRING PHYSICIAN: Dr. Waqas Ramirez PATIENT LOCATION: Room 3202 REASON FOR THE STUDY: Atrial fibrillation, sepsis. 2D MEASUREMENTS: IVS: 1.3 cm LV: 3.5 cm LVPW: 1.2 cm LA: 4.4 cm Aorta: 3.0 cm IVC: 2.1 cm DOPPLER MEASUREMENTS Peak velocity across the aortic valve: 1.3 meters per second Peak velocity across the LVOT: 0.7 meters per second. Maximum tricuspid valve velocity: 3.0 meters per second. 2D COMMENTS: 1. Normal left ventricular size with mildly increased left ventricular wall thickness. Left ventricular systolic function is mildly to moderately depressed, left ventricular ejection fraction (LVEF) is estimated at 40-45%. 2. Mildly enlarged left atrium. The right atrium and the right ventricle appeared to be normal in size. 3. The atrial septum appeared to be normal without evidence of defect or shunt 4. Normal aortic root. 5. No pericardial effusion seen. 6. Mildly calcified aortic valve with normal leaflet excursion. Mildly calcified mitral annulus with normal anterior mitral valve leaflet motion. Normal tricuspid valve and pulmonic valve. The proximal pulmonary artery branches were not well visualized. 7. The inferior vena cava was mildly enlarged, central venous pressure might be elevated. DOPPLER: It detects moderate mitral regurgitation, mild tricuspid regurgitation. The calculated pulmonary artery systolic pressure varies between 40-50 mmHg. Assessment of the left ventricular diastolic function was limited in view of the underlying atrial fibrillation. IMPRESSION: 1. Mildly to moderately depressed global left ventricular systolic function with diffuse hypokinesis but normal left ventricular size and preserved left ventricular wall thickness. 2. Mildly enlarged left atrium with mitral annulus calcification and moderate mitral regurgitation. 3. Aortic valve sclerosis without stenosis or aortic regurgitation. 4. Mild tricuspid regurgitation with probably moderate pulmonary hypertension. MTDD
[2019-10-08] VITALS (20 sets, daily range): BP systolic 143–177; BP diastolic 82–110
[2019-10-08] MEDS: METOPROLOL 5 MG/5 ML VIAL IV SCH ×7 (00:06→23:59)
[2019-10-08] MEDS: NITROGLYCERIN 2% OINT 1 GM *U/D* PKT TOP SCH ×4 (00:07→18:17)
[2019-10-08] MEDS: SODIUM BICARBONATE 75 MEQ in NS 0.45% 1,000 ML IV SCH (02:42)
[2019-10-08] MEDS: PIPERACILLIN/TAZOBACTAM SOD 2.25 GM in D5W MINI-BAG PLUS 50 ML IV SCH (04:08)
[2019-10-08 05:04] LABS: HEMATOCRIT 46.5 % (42.0-52.0); HEMOGLOBIN 16.6 g/dl (13.5-17.5); MEAN CORPUSCULAR HEMOGLOBIN 31.7 pg (27.0-33.0); MEAN CORPUSCULAR HGB CONC 35.7 g/dl (32.0-36.5); MEAN CORPUSCULAR VOLUME 88.9 fl (80.0-96.0); PLATELET COUNT, AUTOMATED 127 10^3/uL (150-450); RED BLOOD COUNT 5.23 10^6/uL (4.30-6.10); WHITE BLOOD COUNT 28.2 10^3/uL (4.0-10.0)
[2019-10-08 05:29] LABS: ALBUMIN 1.4 GM/DL (3.2-5.2); BILIRUBIN,TOTAL 1.4 MG/DL (0.2-1.0); CALCIUM LEVEL 7.4 MG/DL (8.8-10.2); CREATININE FOR GFR 2.59 MG/DL (0.70-1.30); GLOMERULAR FILTRATION RATE 25.4 (>35); MAGNESIUM LEVEL 2.1 MG/DL (1.8-2.4); POTASSIUM SERUM 3.3 MEQ/L (3.5-5.1); TOTAL PROTEIN 4.7 GM/DL (6.4-8.2); VANCOMYCIN RANDOM 12.1 UG/ML
[2019-10-08 05:43] LABS: MONOCYTES 4 % (0-5); NEUTROPHILS 96 % (28-66)
[2019-10-08 05:47] LABS: ANISOCYTOSIS 1+; PLATELET ESTIMATE DECREASED (NORMAL); POIKILOCYTOSIS 1+; TOXIC VACUOLATION 1+
[2019-10-08 05:48] LABS: TOXIC GRANULATION 1+
[2019-10-08] MEDS ORDERED: VANCOMYCIN HCL 1,000 MG, VIAL MATE ADAPTER 1 EACH in D5W 250 ML IV ONE (06:00)
--- NOTE | 2019-10-08 07:52 | IPNPDOC ---
Text Note Date of Service The patient was seen on 10/08/19. NOTE No acute events overnight. He is still not answering any of my questions, and he is pushing me away when I press on his abdomen. VSSAF no pressors NAD abd - soft, TTP diffuse, no rebound, positive guarding labs - below A) 84y/o male with gram positive bacteremia likely secondary to pyelonephritis that is slowly resolving LUCIANO resolving ileus secondary to above P)npo IVF abx NGT to LIS await return of bowel function Burton Shah DO VS,Lamin, I+O VS, Lamin, I+O Laboratory Tests 10/07/19 19:58 10/08/19 04:19 Vital Signs Date Time Temp Pulse Resp B/P (MAP) Pulse Ox O2 Delivery O2 Flow Rate FiO2 10/08/19 07:33 134 151/104 10/08/19 06:00 22 95 Room Air 10/08/19 04:00 98.2 10/06/19 23:00 2.0 I&O- Last 24 Hours up to 6 AM 10/08/19 06:00 Intake Total 3465 ml Output Total 2815 ml Balance 650 ml CHU SHAH DO Oct 08, 2019 07:52
[2019-10-08] MEDS ORDERED: KCL 10MEQ/100ML SWI (KRUN) 10 MEQ in IV 1 EA IV ONE (08:00)
--- NOTE | 2019-10-08 08:27 | REP ---
Portable chest x-ray: Single view. History: Check NG tube placement. Findings: Portable upright AP view centered at the diaphragms demonstrates a nasogastric tube in good position in the left upper quadrant. Dilated air-filled small bowel loops persist in the central abdomen. There is no evidence of free subdiaphragmatic air on today's radiograph. Electronically Signed by Vishnu Fernandez MD 10/08/2019 08:18 A
[2019-10-08] MEDS: PANTOPRAZOLE 40MG VIAL (C9113 PER 1) IV SCH ×2 (09:12→19:50)
[2019-10-08] MEDS: NYSTATIN 100,000 UNITS/GM TOPICAL PWD 15 GM TOP SCH ×2 (09:12→19:51)
[2019-10-08] MEDS: APIXABAN 2.5 MG TAB (ELIQUIS) PO SCH (09:13)
[2019-10-08] MEDS: AMIODARONE HCL 150 MG in IV 1 EA IV SCH ×2 (09:13→19:51)
--- NOTE | 2019-10-08 09:25 | IPN ---
DATE: 10/08/2019 INPATIENT CARDIAC PROGRESS NOTE: Mr. Marino Raines was seen earlier this evening, he was supine in bed in no acute distress and his nurse was at bedside. He was initially seen on 10/06/2019 for atrial fibrillation with a rapid ventricular rate. He was started on IV amiodarone. He has been nothing by mouth. His heart rate has improved, but he continues to be tachycardiac and earlier in the morning of 10/07/2019 he was started on IV beta-raul. He continues to be on the IV amiodarone. When I saw him this evening, his blood pressure was markedly elevated and his heart rate was about 130 beats per minute. He appears to be more alert and awake. He continues to have discomfort in his lower abdomen on palpation. There is no report of chest pain. There is no syncope or near syncope. There is no focal manifestation. When I saw him, he was alert and awake with mild shortness of breath at rest, but in no distress. Blood pressure was 162/110 with a pulse that varied between 123-132, respirations 22 and his maximum temperature was 97 degrees Fahrenheit with an oxygen saturation of 97% on room air. He had a positive fluid balance for 10/06/2019 of about 2.5 liters. Examination of the head, atraumatic. Neck is supple, and no jugular venous distention (JVD) appreciated. The lungs did not reveal any wheezing or crackles. Heart examination revealed irregular heart sounds, tachycardiac. The point of maximum impulse (PMI) is slightly displaced inferiorly. There is no rub. Abdomen is distended and tender. Extremities: No pedal edema. Neurological examination was not assessed. LABORATORY DATA: Complete blood count (CBC) done today revealed a WBC of 34.9, hemoglobin 16.6, hematocrit 46.8, and platelets 154,000. On admission, WBC was 40.6. BMP today revealed a sodium of 144 with a potassium of 3.4, chloride 112, CO2 17, BUN 13, creatinine 4.2, GFR 14.5, and glucose 165. Serum calcium was 7.1. Serum magnesium was 2.2. Liver enzymes revealed a total bilirubin of 1.1, AST 30, ALT 37, alkaline phosphatase 84, total protein 4.6, albumin 1.6. Toxicology has been negative. MRSA was not detected. IMPRESSION: 1. Atrial fibrillation with uncontrolled ventricular rate. 2. Uncontrolled hypertension. 3. Sepsis with gram-positive cocci and bacteremia. 4. Acute renal failure. 5. Electrolytes abnormalities with hypokalemia. 6. Abdominal pain. 7. Urosepsis. Mr. Raines's heart rate continues to be elevated and he will continue with the IV amiodarone, but I have increased his beta-raul and this hopefully will help in controlling his heart rate and his blood pressure. He was started yesterday on apixaban for prevention of thromboembolic events and will continue same. In order to better control his blood pressure, I have started on nitro paste. We are unable to give IV angiotensin-converting enzyme (RAE) inhibitor at this present time in view of his underlying renal function. We will see how he responds to the nitrate and the beta-raul. Not mentioned above, he had an echocardiogram done and it will be reviewed and further recommendation will be given. It was a pleasure to participate in the care of Mr. Marino Raines for his underlying cardiac condition. I will continue to monitor him along issue while in the hospital. Please do not hesitate to call if any questions. JEAN-PAUL
[2019-10-08] MEDS: KCL 20MEQ IN D5/0.45NS 1000ML 1,000 ML IV SCH ×2 (10:35→18:15)
--- NOTE | 2019-10-08 10:35 | IPNPDOC ---
Text Note Date of Service The patient was seen on 10/08/19. NOTE Subjective: No any acute events overnight. NG tube was placed, Patient pulled it out, NG tube was replaced, serosanguineous discharge. Patient awake but not oriented in the morning. He follows simple commands. Objective: VITAL SIGNS: Please see below. GENERAL: Ill looking male, obtunded HEENT: NCAT, anicteric sclera, ALMA NECK: supple, no JVD CARDIOVASCULAR EXAMINATION: NS1S2, regular rate/rhythm RESPIRATORY EXAMINATION: CTA b/l, no wheezes/rales/rhonchi ABDOMINAL EXAMINATION: Tender over left lower quadrant, no rebound EXTREMITIES: no cyanosis, clubbing, edema SKIN: Right shoulder open wound 3-4 cm stage II, rash in the groin area NEUROLOGICAL EXAMINATION: Follows simple commands, no nuchal rigidity, right lateral eye deviation with bilateral horizontal nystagmus Patient is 84 years old male with past history of coronary artery diseases, hypertension, alcoholism presented to hospital with severe sepsis and altered mental status. Patient was found to have pyuria and acute kidney injury. Severe sepsis Patient had tachycardia, leukocytosis, pyuria and blood culture positive for Staphylococcus aureus UA positive for staph aureus Continue IV fluid Continue vancomycin IV and Zosyn IV CT negative for active cardiopulmonary diseases CT of abdomen and pelvis showed Diffuse thickening of the bladder wall with bladder diverticula Await wound culture of the right shoulder SHARRON Post renal. 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 Dr. Beltran recommended MRI of the brain if patient continues to be encephalopathic. There is right eye deviation with horizontal nystagmus. Will proceed with MRI CT head negative for stroke or bleeding. Most likely secondary to sepsis complicated by kidney failure There is also possibility for alcohol withdrawal given history of ETOH abuse urine tox negative for alcohol Candidiasis Diflucan 200 mg IV followed by Mycostatin powder to the groin area Ileus NG tube was placed, serosanguineous discharge PPI started Nothing by mouth for now VS,Fishbone, I+O VS, Fishbone, I+O Laboratory Tests 10/07/19 19:58 10/08/19 04:19 Vital Signs Date Time Temp Pulse Resp B/P (MAP) Pulse Ox O2 Delivery O2 Flow Rate FiO2 10/08/19 09:00 134 158/95 (116) 96 Room Air 10/08/19 08:00 98.7 21 10/06/19 23:00 2.0 I&O- Last 24 Hours up to 6 AM 10/08/19 06:00 Intake Total 3465 ml Output Total 2815 ml Balance 650 ml ELIZA PINEDA DO Oct 08, 2019 10:35
[2019-10-08] MEDS: amLODIPine 5 MG TAB PO SCH (10:49)
--- NOTE | 2019-10-08 11:33 | CR ---
DATE OF CONSULTATION: 10/07/2019 REASON FOR CONSULTATION: Leukocytosis and possible free air. HISTORY OF PRESENT ILLNESS: The patient is an 84-year-old male who does not seek medical care very frequently. He presented to the emergency room by ambulance after his called them for him being very confused and not being able to get back into bed. They showed up the first time and he refused care and then [facility] ([facility] was called a second time and he was brought back in. He is very poor historian and most of the information was obtained in the emergency room by his . I also called her to talk to her myself to confirm all the history. Per the , he is commonly confused, frequently does not know what month or year it is or even the day of the week. He only seeks medical care if absolutely necessary. Does not followup with anyone on a regular basis. He became slightly confused at home and that is why she called the ambulance I was called in today because chest x-ray this morning shows free air underneath the right side of the diaphragm. Emergent CT abdomen, pelvis, and chest was then obtained. I have reviewed the films with the radiologist and the free air finding was an over read on the chest x-ray and actually was just placement of the fissure on the right that made it appeared like there was free air there. PAST MEDICAL HISTORY: 1. Angina. 2. Hypertension. 3. Pneumonia. 4. Alcohol abuse. PAST SURGICAL HISTORY: Low back mass resection. FAMILY HISTORY: Unable to be obtained. SOCIAL HISTORY: Denies drug, alcohol, or tobacco abuse. REVIEW OF SYSTEMS: Unable to obtain at this time. ALLERGIES: NONE. HOME MEDICATIONS: Please see med rec. PHYSICAL EXAMINATION: GENERL: The patient is awake and alert, not oriented to person, place or time currently. VITAL SIGNS: Temperature 97.3, pulse 125, respirations 24, blood pressure 134/90, positive 97% room air. HEENT: Pupils equal, round, react to light and accommodation. HEART: S1, S2, tachycardiac. LUNGS: Clear to auscultation bilaterally. ABDOMEN: Soft, distended. Tender to palpation diffusely. Positive guarding. EXTREMITIES: Bilateral lower extremity edema. LABORATORY DATA: White count 34.9, hemoglobin 16.6, platelets 184, neutrophils 92. Potassium 3.4, creatinine 4.22, total bilirubin 1.1, albumin 1.6. IMAGING: The chest x-ray shows possible pneumoperitoneum under the right hemidiaphragm, questionable free air, otherwise no acute disease. CT abdomen and pelvis that was just completed shows no evidence of free air, atypical oriented pleural fissure produces a false-positive appearance of free subdiaphragmatic air on the chest x-ray. Ileus pattern of bowel gas is somewhat improving. Other findings are unchanged. ASSESSMENT/PLAN: The patient is an 84-year-old male with gram positive bacteremia likely secondary to pyelonephritis. There was an x-ray suspicious for pneumoperitoneum but CT confirms that it was false. He is definitely distended, tender abdomen showing signs of ileus likely secondary to his infection. Recommendation is continue with IV fluids, antibiotics, place a nasogastric (NG) tube to low mid suction, continue to treat his infection and once his infection is cleared up and electrolytes are stable his ileus will likely resolve on its own. There is no indication for any surgical intervention at this time. Thank you for the consult and I follow the patient with you.
[2019-10-08] MEDS: NAFCILLIN SOD 2 GM in D5W MINI-BAG PLUS 50 ML IV SCH ×3 (12:23→19:48)
[2019-10-08 14:23] LABS: HEMATOCRIT 44.8 % (42.0-52.0); HEMOGLOBIN 16.3 g/dl (13.5-17.5)
--- NOTE | 2019-10-08 16:06 | IPN ---
DATE OF SERVICE: 10/08/2019 SUBJECTIVE: The patient was seen and examined at the bedside today morning in the progressive care unit. He has been downgraded out of the intensive care unit (ICU). Last 24-hour events were noted. The patient was found to have persistent small bowel ileus. He got the nasogastric (NG) tube placed, which was attached to low intermittent suctioning. He continues to be on IV fluid hydration. Renal function is gradually improving. Creatinine is down to 2.5 today. He continues to have good urine output of more than 100 mL/h. Leukocytosis is also getting better. Cultures all came back positive for Staphylococcus aureus in the urine and blood cultures. Blood pressures are persistently high and he is persistently in atrial fibrillation (AFib) with heart rate in 120s to 130s. OBJECTIVE: Vital Signs: Temperature is 97.7 degrees Fahrenheit, blood pressure 172/108, pulse is 120, respiratory rate of 20, saturating 94% on room air. Intake/Output: Urine output recorded is 2.3 liters yesterday, 1.2 liters so far today since overnight. Weight in the bed scale is 75 kg. PHYSICAL EXAMINATION: General: The patient is still drowsy, answers very few questions, laying in bed, has a nasogastric tube (NGT) which is attached to suctioning. There is some blood in the NG tube. Mucous membranes are moist today. Neck is supple. There is no jugular venous distention (JVD). Cardiovascular: S1, S2, regular rate. No edema of the bilateral lower extremities. Respiratory: Chest is clear to auscultation bilaterally. Bilateral equal air entry. No rales or rhonchi. Abdomen is soft, decreased bowel sounds. Tenderness is decreased today as compared with yesterday. He has mild tenderness in the left lower quadrant to deep palpation today. Genitourinary: He has an indwelling Carvalho catheter. Urine in the bag is much more clear today. Musculoskeletal: No clubbing or cyanosis. Pulses are 2+. 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 LAB REVIEW: Complete blood count (CBC) showed WBC of 28.2, hemoglobin is 16.6, platelets are 127. Basic metabolic panel (BMP) showed sodium 145, potassium 3.3, chloride 111, bicarbonate 23, BUN 100, creatinine is 2.5, calcium 7.4, total bilirubin 1.4, AST 43, ALT 35, alkaline phosphatase is 102, albumin is 1.4. MICROBIOLOGY: Blood cultures and urine cultures from 10/06/2019 all came back positive for Staphylococcus aureus, which is sensitive to vancomycin. CURRENT INPATIENT MEDICATIONS: The patient's medications were all reviewed by myself. He has been started on fluconazole. He continues to been IV fluid but I have changed the IV fluids to KCl 20 mEq in D5 half-normal saline at 125 mL/h. He has been started on nafcillin 2 gram IV every 4 hour. Zosyn has been stopped. He is on amlodipine 5 mg daily. Metoprolol has been changed to 5 mg IV every 4 hours. No other change in the medications today as compared with yesterday. ASSESSMENT/PLAN: 1. Sepsis secondary to Staphylococcus aureus bacteremia and urinary tract infection (UTI). The patient's antibiotic has been changed to nafcillin. He already got a dose of vancomycin today as well. Zosyn has been stopped. Clinically, he is much more stable. Leukocytosis is slowly improving. 2. Acute nonoliguric renal failure. It was secondary to Staphylococcus aureus pyelonephritis and obstructive uropathy. The patient is adequately covered with IV antibiotics. He has an indwelling Carvalho catheter. Urine output is very good. He continues to been IV fluid hydration. Renal function is gradually improving. 3. Metabolic acidosis. It is significantly better with improvement in the renal function and IV bicarb containing fluid. Bicarb is being stopped now. 4. Hypokalemia. The patient has persistent hypokalemia. He was given IV potassium. I have added the potassium to the IV fluids now. 5. Atrial fibrillation with rapid ventricular rate. The patient is on amiodarone and metoprolol as per cardiology recommendations. Anticoagulation is with Eliquis. 6. Abdominal pain and ileus. The patient was seen by surgical service. He continues to be on IV fluids. He has an NGT, which is attached to low intermittent suctioning. Clinically, he is better today as compared with yesterday. 7. Metabolic encephalopathy. It is secondary to combination of acute renal failure, bacteremia and sepsis. Clinically, he is better today as compared with yesterday. [facility]
--- NOTE | 2019-10-08 18:59 | IPN ---
DATE OF CONSULTATION: 10/08/2019 INFECTIOUS DISEASE PROGRESS NOTE Mr. Raines seems to be doing better. He was transferred from intensive care unit (ICU) to progressive care unit (PCU). He seems to be a little bit more aware and tried to make conversation. He is not oriented. He does follow commands. Nasogastric (NG) tube was replaced because he pulled it out. It has bloody drainage from his right nostril. He remains afebrile throughout this admission for the past 48 hours. Temperature is 97.7, pulse 130, respirations 20, blood pressure 150/101, oxygen saturation (O2 sat) 94% on room air. Heart: Normal S1, S2, irregular, distant. Lungs: A few expiratory rhonchi. Good air entry. No wheezes or crackles. Abdomen is soft, nontender. No hepatosplenomegaly. Extremities: No clubbing, cyanosis or edema. No calf tenderness. No rashes. Genitourinary (): Bilateral groin erythema with scaling and penile excoriation with few ulcerations. He has a Carvalho catheter in place. Urine output has improved with an output of 2375 yesterday, today 1590. It is less cloudy. NG tube in the left nostril. Right nostril has bloody discharge. The patient does not have any neck stiffness today. He had good upper extremity strength. MEDICATIONS: - nafcillin 2 grams IV every 4 hours day #1 - vancomycin was discontinued - amiodarone 150 mg IV every 12 hours - metoprolol 5 mg IV every 4 hours LABORATORY DATA: White count 28.2, hemoglobin 16.6, hematocrit 46.5, platelets 127, 96% neutrophils, 4% monocytes. Sodium 145, potassium 3.3, chloride 111, bicarbonate 23, BUN 100, creatinine 2.59, glucose 111, calcium 7.4, magnesium 2.1, bilirubin 1.4, AST 43, ALT 35, alkaline phosphatase 102, total protein 4.7, albumin 1.4. Blood cultures were positive for Staphylococcus (staph) aureus two sets on 10/06/2019. On 10/07/2019, blood culture was negative. Urine catheter, Carvalho catheter also had staph aureus, methicillin-sensitive Staphylococcus aureus (MSSA), resistant to penicillin, erythromycin. Wound culture from right side of the back is pending. Gram stain had few red cells, few epithelial cells, no organisms seen. Chest x-ray done on 10/08/2019 upright AP: NG tube in good position. Air-filled small bowel loops. No evidence of free subdiaphragmatic air. CT abdomen and pelvis done on 10/07/2019 shows no evidence of intraperitoneal air, ileus improved. IMPRESSION: 1. 84-year-old admitted with sepsis, acute kidney injury and dehydration with culture positive for staph aureus. Urine culture is positive for MSSA. Blood culture susceptibility are still pending. Source of infection could be urinary origin, but endocarditis needs to be ruled out due to the fact that he had bacteremia. The good news is that he is afebrile. He has no hardware, and he has no defibrillators. He also had clearance of his bacteremia within 24 hours. The patient will be switched from vancomycin and Zosyn to nafcillin 2 grams IV every 4 hours. The patient will need a TE to rule out endocarditis. 2. Mucocutaneous candidiasis. The patient received one dose of fluconazole IV, is currently on Nystatin powder in the groin area. 3. Atrial fibrillation with rapid ventricular response, on IV amiodarone and metoprolol. 4. 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 I am not sure if this is old or new. This needs to be discussed with his family. But due to confusion and staph aureus bacteremia, I would suggest getting an MRI of brain to rule out metastatic infection from staph aureus bacteremia. Head CT done on 10/06/2019 shows no acute findings. PLAN: Start nafcillin 2 grams IV every 4 hours, currently day #2 of appropriate antibiotics. First negative culture was 10/07/2019. Obtain MRI of brain once the patient clinically able to tolerate an MRI and kidney function improves. Transesophageal echocardiogram for next week.
[2019-10-08 20:25] LABS: HEMATOCRIT 45.9 % (42.0-52.0); HEMOGLOBIN 16.2 g/dl (13.5-17.5)
[2019-10-09] VITALS: BP 158/90
[2019-10-09] MEDS: NAFCILLIN SOD 2 GM in D5W MINI-BAG PLUS 50 ML IV SCH ×6 (00:01→20:18)
[2019-10-09 02:08] LABS: HEMATOCRIT 48.7 % (42.0-52.0); HEMOGLOBIN 17.3 g/dl (13.5-17.5)
[2019-10-09] MEDS: KCL 20MEQ IN D5/0.45NS 1000ML 1,000 ML IV SCH (02:20)
[2019-10-09] MEDS: METOPROLOL 5 MG/5 ML VIAL IV SCH ×3 (03:39→11:46)
[2019-10-09 04:00] VITALS: BP 172/98
[2019-10-09 06:22] LABS: BASO # 0.2 10^3/uL (0.0-0.2); BASO % 0.8 % (0.0-1.0); EOS # 0.1 10^3/uL (0.0-0.5); EOS % 0.4 % (0.0-3.0); HEMATOCRIT 49.3 % (42.0-52.0); HEMOGLOBIN 17.5 g/dl (13.5-17.5); LYMPH # 0.8 10^3/uL (1.5-5.0); MEAN CORPUSCULAR HEMOGLOBIN 32.1 pg (27.0-33.0); MEAN CORPUSCULAR HGB CONC 35.5 g/dl (32.0-36.5); MEAN CORPUSCULAR VOLUME 90.3 fl (80.0-96.0); MONO # 0.7 10^3/uL (0.0-0.8); MONO % 3.8 % (0.0-5.0); NEUTROPHILS # 16.3 10^3/uL (1.5-8.5); PLATELET COUNT, AUTOMATED 109 10^3/uL (150-450); RED BLOOD COUNT 5.46 10^6/uL (4.30-6.10); WHITE BLOOD COUNT 18.9 10^3/uL (4.0-10.0)
[2019-10-09] MEDS: NITROGLYCERIN 2% OINT 1 GM *U/D* PKT TOP SCH ×3 (06:37→11:44)
[2019-10-09 06:45] LABS: ALBUMIN 1.5 GM/DL (3.2-5.2); BILIRUBIN,TOTAL 3.4 MG/DL (0.2-1.0); CALCIUM LEVEL 7.2 MG/DL (8.8-10.2); CREATININE FOR GFR 1.93 MG/DL (0.70-1.30); GLOMERULAR FILTRATION RATE 35.7 (>35); TOTAL PROTEIN 4.9 GM/DL (6.4-8.2)
[2019-10-09 08:00] VITALS: BP 152/94
[2019-10-09] MEDS: PANTOPRAZOLE 40MG VIAL (C9113 PER 1) IV SCH ×2 (08:57→20:18)
[2019-10-09] MEDS: AMIODARONE HCL 150 MG in IV 1 EA IV SCH (08:59)
[2019-10-09] MEDS: NYSTATIN 100,000 UNITS/GM TOPICAL PWD 15 GM TOP SCH ×2 (09:00→20:18)
[2019-10-09] MEDS: amLODIPine 5 MG TAB PO SCH (09:02)
[2019-10-09] MEDS: KCL 10MEQ/100ML SWI (KRUN) 10 MEQ in IV 1 EA IV SCH ×3 (10:30→13:18)
--- NOTE | 2019-10-09 11:28 | IPNPDOC ---
Text Note Date of Service The patient was seen on 10/09/19. NOTE Subjective: No any acute events overnight. No discharge from NG tube Patient awake but not oriented in the morning. He follows simple commands. Abdomen tender on the palpation Objective: VITAL SIGNS: Please see below. GENERAL: Ill looking male, obtunded HEENT: NCAT, anicteric sclera, [place] NECK: supple, no JVD CARDIOVASCULAR EXAMINATION: NS1S2, regular rate/rhythm RESPIRATORY EXAMINATION: CTA b/l, no wheezes/rales/rhonchi ABDOMINAL EXAMINATION: Tender over left lower quadrant and middle abdomen, no rebound EXTREMITIES: no cyanosis, clubbing, edema SKIN: Right shoulder open wound 3-4 cm stage II, rash in the groin area NEUROLOGICAL EXAMINATION: Follows simple commands, no nuchal rigidity, right lateral eye deviation with bilateral horizontal nystagmus Patient is 84 years old male with past history of coronary artery diseases, hypertension, alcoholism presented to hospital with severe sepsis and altered mental status. Patient was found to have pyuria and acute kidney injury. Severe sepsis Patient had tachycardia, leukocytosis, pyuria and blood culture positive for Staphylococcus aureus UA positive for staph aureus MSSA Blood culture positive for staph aureus MSSA Continue IV fluid Antibiotics was changed to nafcillin 2 grams IV every [address] negative for active cardiopulmonary diseases CT of abdomen and pelvis showed Diffuse thickening of the bladder wall with bladder diverticula wound culture of the right shoulder showed MSSA Transthoracic echo did not show valves vegetations We'll proceed with ISMAEL SHARRON Post renal. Carvalho catheter was placed Improved Continue IV volume expansion Metabolic acidosis Resolved Secondary to uremia and lactic acidosis Patient received treatment with bicarbonate Continue to monitor UTI Possible source of infection, bladder has diverticulum Carvalho in place Continue antibiotic therapy Atrial fibrillation with rapid ventricular rate Continue amiodarone, continue Lopressor Patient remains tachycardic with heart rate of 120-130 Eliquis on hold for today due to nosebleed after traumatic NG tube reinsertion Consultant Teacher follows the patient Metabolic encephalopathy Patient continues to be encephalopathic, most likely secondary to sepsis. Dr. Beltran recommended MRI of the brain if patient continues to be encephalopathic Right lateral eye deviation with bilateral horizontal nystagmus can be attributed to Wernicke encephalopathy or septic emboli. To rule out stroke will proceed with MRI CT head which was done on the admission negative for stroke or bleeding Differential diagnosis also includes metabolic encephalopathy due to uremia Thiamin, B12 Candidiasis Diflucan 200 mg IV followed by Nystatin powder to the groin area Ileus Today abdomen tender on palpation. No rigidity NG tube was placed, no discharge today PPI started Nothing by mouth for now We'll repeat abdominal x-ray Appreciate/agree with surgical consult Elevated total bilirubin We'll proceed with right upper quadrant ultrasound CT of abdomen and pelvis was negative for common bile dilatation and cholecystitis Hypokalemia. The patient has persistent hypokalemia. He was given IV potassium. VS,Fishbone, I+O VS, Fishbone, I+O Laboratory Tests 10/08/19 14:14 10/08/19 20:00 10/09/19 01:55 10/09/19 05:21 Vital Signs Date Time Temp Pulse Resp B/P (MAP) Pulse Ox O2 Delivery O2 Flow Rate FiO2 10/09/19 09:02 130 152/94 10/09/19 08:00 98.3 18 93 Room Air 10/06/19 23:00 2.0 I&O- Last 24 Hours up to 6 AM 10/09/19 06:00 Intake Total 3270 ml Output Total 3160 ml Balance 110 ml ELIZA PINEDA DO Oct 09, 2019 11:28
[2019-10-09 11:31] VITALS: BP 154/92
[2019-10-09] MEDS: THIAMINE 100 MG TAB PO SCH ×2 (11:44→20:18)
[2019-10-09] MEDS: FOLIC ACID 1 MG TAB PO SCH (11:45)
[2019-10-09] MEDS: MULTIVITAMINS/MINERALS THERAP 1 TAB PO SCH (11:45)
[2019-10-09] MEDS: METOPROLOL SUCC (TopROL XL) 50MG **XL** TAB PO SCH ×2 (13:25→20:18)
--- NOTE | 2019-10-09 14:01 | REP ---
KUB: TWO VIEWS. HISTORY: Ileus. Comparison is made with the CT images from October 07, 2019. FINDINGS: There are multiple loops of air-filled small bowel in the central abdomen again noted, consistent with ileus versus small bowel obstruction. An NG tube is seen in the left upper quadrant. There is air and stool in a nondistended colon proximally and distally. There is no visible free air. IMPRESSION: Persistent central abdominal small bowel dilation. Electronically Signed by Vishnu Fernandez MD 10/09/2019 02:05 P
--- NOTE | 2019-10-09 14:02 | REP ---
RIGHT UPPER QUADRANT SONOGRAPHY: HISTORY: Elevated total bilirubin. Comparison CT imaging, October 07, 2019. SONOGRAPHIC FINDINGS: Scanning through the right upper quadrant of the abdomen demonstrates a normal sized thin-walled gallbladder without evidence of stone or polyp. There is sludge in the gallbladder lumen and a small right pleural effusion is noted. There is no evidence of ascites. No pancreatic abnormality is seen. Increased echogenicity is seen in the liver, question fatty infiltration. No liver mass lesion is seen. Common bile duct is normal measured 0.4 cm in greatest diameter. Right renal dimensions are 10.5 x 5.5 x 5.7 cm. No right renal abnormality is observed. IMPRESSION: Sludge in the gallbladder, no stone or polyp. Small right pleural effusion. Question fatty infiltration of the liver. Otherwise negative. Electronically Signed by Vishnu Fernandez MD 10/09/2019 02:05 P
[2019-10-09 14:09] LABS: HEMOGLOBIN 17.4 g/dl (13.5-17.5)
[2019-10-09] MEDS: KCL 20MEQ IN D5W 1000ML 1,000 ML IV SCH ×2 (14:24→22:00)
[2019-10-09 19:49] LABS: HEMATOCRIT 49.4 % (42.0-52.0)
[2019-10-09 20:00] VITALS: BP 152/102
[2019-10-09] MEDS: APIXABAN 2.5 MG TAB (ELIQUIS) PO SCH (20:19)
[2019-10-10] VITALS: BP 154/102
[2019-10-10] MEDS: NAFCILLIN SOD 2 GM in D5W MINI-BAG PLUS 50 ML IV SCH ×7 (00:19→23:14)
[2019-10-10 02:15] LABS: HEMATOCRIT 49.9 % (42.0-52.0); HEMOGLOBIN 17.3 g/dl (13.5-17.5)
[2019-10-10 04:00] VITALS: BP 157/104
[2019-10-10 06:01] LABS: HEMATOCRIT 49.1 % (42.0-52.0); HEMOGLOBIN 17.1 g/dl (13.5-17.5); MEAN CORPUSCULAR HEMOGLOBIN 31.8 pg (27.0-33.0); MEAN CORPUSCULAR HGB CONC 34.8 g/dl (32.0-36.5); MEAN CORPUSCULAR VOLUME 91.4 fl (80.0-96.0); PLATELET COUNT, AUTOMATED 108 10^3/uL (150-450); RED BLOOD COUNT 5.37 10^6/uL (4.30-6.10); WHITE BLOOD COUNT 19.8 10^3/uL (4.0-10.0)
[2019-10-10 06:32] LABS: ALBUMIN 1.2 GM/DL (3.2-5.2); BILIRUBIN,TOTAL 3.4 MG/DL (0.2-1.0); CALCIUM LEVEL 7.1 MG/DL (8.8-10.2); CREATININE FOR GFR 1.52 MG/DL (0.70-1.30); MAGNESIUM LEVEL 1.8 MG/DL (1.8-2.4); POTASSIUM SERUM 2.9 MEQ/L (3.5-5.1); TOTAL PROTEIN 4.7 GM/DL (6.4-8.2)
[2019-10-10] MEDS: KCL 10MEQ/100ML SWI (KRUN) 10 MEQ in IV 1 EA IV SCH ×4 (06:43→10:28)
[2019-10-10 07:27] LABS: ANISOCYTOSIS 1+; ATYPICAL LYMPH 1 % (0-5); EOSINOPHILS 1 % (0-3); LYMPHOCYTES 7 % (16-44); METAMYELOCYTES 1 % (0-0); MONOCYTES 3 % (0-5); NEUTROPHILS 87 % (28-66); PLATELET ESTIMATE DECREASED (NORMAL)
--- NOTE | 2019-10-10 07:31 | IPN ---
DATE OF SERVICE: 10/09/2019 SUBJECTIVE: The patient was seen and examined at the bedside today morning. The patient is afebrile. He has high blood pressure and tachycardia because of atrial fibrillation. He continues to have a very good urine output. Renal function continues to improve, creatinine is down to 1.9 today. The patient has become hypernatremic and he persistently has hypokalemia. The patient still has abdominal pain and tenderness and he has NGT attached to suctioning and he is nothing by mouth at this time. He continues to be on IV fluid hydration. OBJECTIVE: Vital Signs: Temperature is 98.3 degrees Fahrenheit, blood pressure 152/94, pulse is 130, respiratory rate of 18, saturating 93% on room air. Intake and Output: Urine output recorded as 2.9 liters yesterday, 1.5 liters so far today since overnight. Weight in the bed scale is 81.5 kg. PHYSICAL EXAMINATION: General: The patient is awake, very hard of hearing, follows very few commands. Head and Neck Exam: He has an NGT which is attached to suctioning. Mucous membranes are dry. Neck is supple. There is no jugular venous distention. Cardiovascular: S1, S2. Tachycardia, irregularly irregular heart rate. No edema of the bilateral lower extremities. Respiratory: Chest is clear to auscultation bilaterally. Bilateral equal air entry. No rales or rhonchi. Abdomen: Slightly distended, tender to palpation all over and he resists the physical exam. Decreased bowel sounds. Genitourinary: He has an indwelling Carvalho catheter. Urine in the bag is slightly cloudy today, but he has a good urine output. Musculoskeletal: No clubbing or cyanosis. Pulses are 2+. TRANSPORTATION DIRECTOR: The patient has a squint of the right eye, otherwise he follows the commands and moves his extremities. LAB REVIEW: CBC showed WBC of 18.6, hemoglobin 17.5 and platelets are 109. BMP showed sodium 149, potassium 3, chloride 113, bicarb 26, BUN 68, creatinine is 1.9 and it was 2.5 yesterday, calcium 7.2, magnesium is 2, total bilirubin is 3.4 and it was 1.4 yesterday, AST 37, ALT is 30, alkaline phosphatase is 110, albumin is 1.5. Microbiology: Wound culture also came back positive for Staph aureus which is methicillin-sensitive as well. CURRENT INPATIENT MEDICATIONS: The patient's medications were all reviewed by myself. His IV vancomycin and Zosyn have been stopped. He continues to be on IV amiodarone. He has been started on nafcillin 2 grams IV every 4 hours. I have changed his IV fluid to KCl 20 mEq in D5W at 100 mL an hour and he was also started on potassium chloride 10 mEq IV every 1 hour for a total of three doses. ASSESSMENT/PLAN: 1. Acute nonoliguric renal failure. It was secondary to severe sepsis and Staph aureus pyelonephritis and obstructive uropathy. The patient has an indwelling Carvalho catheter. He continues to be on IV fluid hydration. Renal function continues to improve. IV fluids have been changed as mentioned below. 2. Hypernatremia. The patient's IV fluid is being changed to D5W with 20 mEq of KCl at 100 mL an hour. 3. Hypokalemia. The patient will be given KCl 10 mEq IV x3 doses and he is also getting potassium and IV fluids as well. 4. Sepsis secondary to Staph aureus bacteremia and Staph aureus urinary tract infection. The patient's Zosyn and vancomycin were stopped and Staph aureus is methicillin-sensitive so he is currently getting IV Ancef. 5. Elevated liver enzymes. The patient's total bilirubin level went up after he was started on IV Ancef. If the liver enzymes remain high, his antibiotic might need to be switched. Continue to monitor the liver function for now. 6. Atrial fibrillation with rapid ventricular rate. The patient continues to be on IV amiodarone and anticoagulated with Eliquis. He is also on metoprolol 5 mg IV every 4 hours. 7. Hypertension. His blood pressure is better controlled. He is currently on amlodipine 5 mg daily, metoprolol IV and nitroglycerin paste. 8. Abdominal pain and ileus. The patient still has NGT attached to suctioning. IV fluids have been changed as mentioned above. He still has tenderness on clinical exam. [facility]
[2019-10-10 07:35] VITALS: BP 132/94
[2019-10-10 08:45] LABS: HEMOGLOBIN 18.9 g/dl (13.5-17.5)
[2019-10-10] MEDS: MULTIVITAMINS/MINERALS THERAP 1 TAB PO SCH (09:28)
[2019-10-10] MEDS: PANTOPRAZOLE 40MG VIAL (C9113 PER 1) IV SCH ×2 (09:28→20:20)
[2019-10-10] MEDS: METOPROLOL SUCC (TopROL XL) 50MG **XL** TAB PO SCH (09:28)
[2019-10-10] MEDS: THIAMINE 100 MG TAB PO SCH ×2 (09:28→20:19)
[2019-10-10] MEDS: FOLIC ACID 1 MG TAB PO SCH (09:28)
[2019-10-10] MEDS: APIXABAN 2.5 MG TAB (ELIQUIS) PO SCH ×2 (09:28→20:19)
[2019-10-10] MEDS: NYSTATIN 100,000 UNITS/GM TOPICAL PWD 15 GM TOP SCH ×2 (09:29→20:20)
[2019-10-10] MEDS: amLODIPine 5 MG TAB PO SCH (09:29)
--- NOTE | 2019-10-10 10:40 | CR ---
DATE OF CONSULTATION: 10/09/2019 REASON FOR CONSULTATION: Abdominal discomfort. HISTORY OF PRESENT ILLNESS: The patient is an 84-year-old man who was admitted on October 06, 2019 with a history of confusion and weakness. He was found to be in acute renal failure with evidence for sepsis. He was admitted by the hospitalist service and started on antibiotics. He has grown staphylococcus aureus from his blood and urine. He has been responding well to antibiotic therapy currently with nafcillin. His creatinine has been improving nicely from a maximum of 6.3 at the time of admission to 1.9 today. The patient was described as having some abdominal tenderness earlier during his stay, and a CT scan had suggested a "ileus pattern" to his abdominal findings. A nasogastric tube was placed by Dr. Mccord on 10/07/2019, and this has remained to suction. I am now consulted that the patient was noted to apparently still have some tenderness today. ALLERGIES: No known allergies are recorded. MEDICATIONS: Are as listed in the medical record. He remains on his Eliquis and is also taking Protonix, Norvasc, nafcillin, thiamine, folate, multivitamin, and Toprol XL. He is receiving D5 with some potassium. His medical history is significant for atrial fibrillation with a past history of angina. He had a diagnosis of acute encephalopathy at the time of admission. He had marked acute renal failure, which is improving. He also had positive blood cultures and urine culture for staphylococcus. His white blood cell count at the time of admission was approximately 40,000 and this has improved significantly. SURGICAL HISTORY: Is significant for resection of a lower back mass. SOCIAL HISTORY: Patient is and lives with his . He apparently is not one to keep close followup with a physician. His history and physical suggests a remote history of alcohol abuse. FAMILY HISTORY: Is noncontributory, as recorded in the history and physical. REVIEW OF SYSTEMS: Is really unobtainable from the patient at this time. PHYSICAL EXAM: The patient is lying quietly on the hospital bed. He has a nasogastric tube in place. I attempted to speak with the patient and he does try to speak, but his words are not intelligible. He appears to be trying to answer my questions but, again, I cannot understand any answers from him. He is not, however, alert and dozes off when he is left undisturbed for a very short period of time. His most recent vital signs show him to be afebrile this afternoon with a pulse of approximately 110, blood pressure of 178/106 most recently, and normal room air oxygen saturation most recently. His skin turgor is good. Sclerae are anicteric. Mucous membranes appear moist. Heart exam shows a tachycardia which seems regular. His lungs show good bilateral breath sounds, but he does have some rhonchi. Abdomen is mildly distended. He does have some bowel sounds present. There is no definite tympany to percussion or tenderness to percussion. On palpation of the abdomen, he did seem to have some mild tenderness in his lower midabdomen based on him attempting to gently push my hand away, but the remainder of the abdomen did not elicit any particular response. There is no palpable mass. Laboratory studies today showed a white count of 19,000, which has improved markedly from 41,000 on 10/06/2019. His hemoglobin is 18 with a hematocrit of 49 and platelet count is 109,000. Differential count shows 86% neutrophils and 4% lymphocytes. Chemistry profile today shows a sodium 149, potassium 3.0, chloride 113, CO2 of 26, BUN of 68, and a creatinine of 1.9. Glucose is 167. Total bilirubin is 3.4, which is elevated from 1.4 yesterday, but the other liver function tests remain normal. Total protein is 4.9 with an albumin of 1.5, and he has a lipase of 612. This was 17 at the time of admission. Patient had an abdominal x-ray today, which showed multiple loops of air-filled small bowel in the mid abdomen. The bowel is certainly air-filled but does not appear significantly distended. There is no sign of any free air. He had an abdominal and liver ultrasound done today as well which the radiologist interpreted as showing some sludge in the gallbladder without any evidence of stone or polyp and possibly some fatty infiltration of the liver. A CT scan from 10/07/2019 was reviewed. This does show some mildly distended air-filled small bowel, which the radiologist indicated looked consistent with a mild ileus pattern that seemed to be slightly improved over prior imaging. IMPRESSION: 1. Mild abdominal tenderness without evidence of acute abdomen. 2. Staphylococcus aureus bacteremia with sepsis. 3. Acute kidney injury, improving. 4. Metabolic encephalopathy. 5. Atrial fibrillation. RECOMMENDATIONS: At this point, I do not believe there is any need for further evaluation of the abdomen with additional imaging or surgical intervention. His x-rays would suggest that there are some stable findings of some air throughout the small bowel. He has fairly mild tenderness identified on exam by me. Given his apparent encephalopathy, it is difficult to gain a clear picture of his abdominal status, but he did respond to pressure in the lower abdomen with some mild attempts to push my hand away. He therefore seems to be aware enough that his degree of tenderness would seem to be fairly minor. The CT scan had shown no dramatic findings other than the ileus pattern and some significant thickening of his bladder. I think it would be reasonable to remove his nasogastric (NG) tube. This should improve his comfort certainly. I would not recommend initiating a diet given his altered mental state, but if his sensorium clears, then a trial of clear liquids would be reasonable. I will be happy to follow the patient while we see how he responds to his ongoing treatment. I did speak with Dr. Palencia of the hospitalist service about the NG tube, and he plans to remove this. JEAN-PAUL
--- NOTE | 2019-10-10 11:34 | IPNPDOC ---
Text Note Date of Service The patient was seen on 10/10/19. NOTE Subjective: No any acute events overnight. Patient pulled out NG yesterday Patient more awake but not oriented in the morning. He follows simple commands. Objective: VITAL SIGNS: Please see below. GENERAL: Ill looking male, obtunded HEENT: NCAT, anicteric sclera, ALMA NECK: supple, no JVD CARDIOVASCULAR EXAMINATION: NS1S2, regular rate/rhythm RESPIRATORY EXAMINATION: CTA b/l, no wheezes/rales/rhonchi ABDOMINAL EXAMINATION: Nontender, nondistended EXTREMITIES: no cyanosis, clubbing, edema SKIN: Right shoulder open wound 3-4 cm stage II, rash in the groin area NEUROLOGICAL EXAMINATION: Follows simple commands, no nuchal rigidity, right lateral eye deviation with bilateral horizontal nystagmus Patient is 84 years old male with past history of coronary artery diseases, hypertension, alcoholism presented to hospital with severe sepsis and altered mental status. Patient was found to have pyuria and acute kidney injury. Severe sepsis Patient had tachycardia, leukocytosis, pyuria and blood culture positive for Staphylococcus aureus UA positive for staph aureus MSSA Blood culture positive for staph aureus MSSA, wound culture positive for MSSA Continue IV fluid Antibiotics was changed to nafcillin 2 grams IV every [address] negative for active cardiopulmonary diseases CT of abdomen and pelvis showed Diffuse thickening of the bladder wall with bladder diverticula wound culture of the right shoulder showed MSSA Transthoracic echo did not show valves vegetations We'll proceed with ISMAEL SHARRON/ Acute nonoliguric renal failure Post renal. Carvalho catheter was placed Improved Continue IV volume expansion Metabolic acidosis Resolved Secondary to uremia and lactic acidosis Patient received treatment with bicarbonate Continue to monitor UTI Possible source of infection, bladder has diverticulum Carvalho in place Continue antibiotic therapy Atrial fibrillation with rapid ventricular rate amiodarone was changed to raul, continue Lopressor Patient remains tachycardic with heart rate of 120-130 Eliquis on hold for today due to nosebleed after traumatic NG tube reinsertion [facility] follows the patient Metabolic encephalopathy Patient continues to be encephalopathic, most likely secondary to sepsis. Dr. Beltran recommended MRI of the brain if patient continues to be encephalopathic Right lateral eye deviation with bilateral horizontal nystagmus can be attributed to Wernicke encephalopathy or septic emboli. 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 CT head which was done on the admission negative for stroke or bleeding Differential diagnosis also includes metabolic encephalopathy due to uremia Thiamin, B12 Candidiasis Diflucan 200 mg IV followed by Nystatin powder to the groin area Ileus resolved Today abdomen non tender on palpation. No rigidity Continue PPI Elevated total bilirubin right upper quadrant ultrasound did not show CBD dilatation or cholecystitis Could be attributed to nafcillin. Continue to monitor CT of abdomen and pelvis was negative for common bile dilatation and cholecystitis Hypokalemia. Could be secondary to nafcillin The patient has persistent hypokalemia. He was given IV potassium. Continue to monitor BMP Continue replacement VS,Fishbone, I+O VS, Fishbone, I+O Laboratory Tests 10/09/19 13:56 10/09/19 19:33 10/10/19 02:05 10/10/19 05:24 10/10/19 08:34 Vital Signs Date Time Temp Pulse Resp B/P (MAP) Pulse Ox O2 Delivery O2 Flow Rate FiO2 10/10/19 09:29 132 132/94 10/10/19 07:35 98.6 18 93 Room Air 10/06/19 23:00 2.0 I&O- Last 24 Hours up to 6 AM 10/10/19 06:00 Intake Total 2250 ml Output Total 3275 ml Balance -1025 ml ELIZA PINEDA DO Oct 10, 2019 11:34
[2019-10-10 11:45] VITALS: BP 165/104
[2019-10-10] MEDS: POTASSIUM CHLORIDE INJ 40 MEQ in D5W 1,000 ML IV SCH ×2 (11:51→23:09)
[2019-10-10] MEDS ORDERED: METOPROLOL SUCC (TopROL XL) 50MG **XL** TAB PO ONE (14:00)
[2019-10-10 14:04] LABS: ALBUMIN 1.3 GM/DL (3.2-5.2); BILIRUBIN,TOTAL 3.2 MG/DL (0.2-1.0); CALCIUM LEVEL 7.6 MG/DL (8.8-10.2); CREATININE FOR GFR 1.42 MG/DL (0.70-1.30); GLOMERULAR FILTRATION RATE 50.8 (>35); PHOSPHORUS LEVEL 2.9 MG/DL (2.5-4.9); POTASSIUM SERUM 3.3 MEQ/L (3.5-5.1); TOTAL PROTEIN 5.9 GM/DL (6.4-8.2)
[2019-10-10 15:49] VITALS: BP 137/92
[2019-10-10 19:28] LABS: ALBUMIN 1.2 GM/DL (3.2-5.2); BILIRUBIN,TOTAL 2.8 MG/DL (0.2-1.0); CALCIUM LEVEL 7.7 MG/DL (8.8-10.2); CREATININE FOR GFR 1.44 MG/DL (0.70-1.30); POTASSIUM SERUM 3.1 MEQ/L (3.5-5.1); TOTAL PROTEIN 5.7 GM/DL (6.4-8.2)
[2019-10-10 20:00] VITALS: BP 132/89
[2019-10-10] MEDS ORDERED: POTASSIUM CHLORIDE 10% LIQ 20 MEQ/15 ML UDC PO ONE (20:00)
[2019-10-10] MEDS ORDERED: METOPROLOL SUCC (TopROL XL) 100MG *XL* TAB PO SCH (21:00)
[2019-10-10 23:45] LABS: ALBUMIN 1.1 GM/DL (3.2-5.2); BILIRUBIN,TOTAL 2.9 MG/DL (0.2-1.0); CREATININE FOR GFR 1.49 MG/DL (0.70-1.30); GLOMERULAR FILTRATION RATE 48.1 (>35); POTASSIUM SERUM 4.1 MEQ/L (3.5-5.1); TOTAL PROTEIN 4.9 GM/DL (6.4-8.2)
[2019-10-11] VITALS: BP 130/80
[2019-10-11] MEDS ORDERED: POTASSIUM CHLORIDE 10% LIQ 20 MEQ/15 ML UDC PO ONE
[2019-10-11] MEDS: NAFCILLIN SOD 2 GM in D5W MINI-BAG PLUS 50 ML IV SCH ×4 (03:58→16:22)
[2019-10-11 04:00] VITALS: BP 160/86
[2019-10-11 05:21] LABS: HEMATOCRIT 48.4 % (42.0-52.0); HEMOGLOBIN 16.6 g/dl (13.5-17.5); MEAN CORPUSCULAR HEMOGLOBIN 31.4 pg (27.0-33.0); MEAN CORPUSCULAR HGB CONC 34.3 g/dl (32.0-36.5); MEAN CORPUSCULAR VOLUME 91.7 fl (80.0-96.0); PLATELET COUNT, AUTOMATED 122 10^3/uL (150-450); RED BLOOD COUNT 5.28 10^6/uL (4.30-6.10); WHITE BLOOD COUNT 23.5 10^3/uL (4.0-10.0)
[2019-10-11 05:46] LABS: ALBUMIN 1.2 GM/DL (3.2-5.2); CALCIUM LEVEL 7.3 MG/DL (8.8-10.2); CREATININE FOR GFR 1.49 MG/DL (0.70-1.30); GLOMERULAR FILTRATION RATE 48.1 (>35); MAGNESIUM LEVEL 1.8 MG/DL (1.8-2.4); POTASSIUM SERUM 4.1 MEQ/L (3.5-5.1); TOTAL PROTEIN 5.2 GM/DL (6.4-8.2)
[2019-10-11 05:59] LABS: LYMPHOCYTES 5 % (16-44); MONOCYTES 6 % (0-5); MYELOCYTES 1 % (0-0); NEUTROPHILS 87 % (28-66)
[2019-10-11 06:00] LABS: PLATELET ESTIMATE DECREASED (NORMAL)
[2019-10-11] MEDS ORDERED: METOPROLOL TART 50 MG TAB PO SCH (06:00)
[2019-10-11 06:01] LABS: TEAR DROP CELLS 1+
[2019-10-11 08:00] VITALS: BP 139/99
[2019-10-11] MEDS: NYSTATIN 100,000 UNITS/GM TOPICAL PWD 15 GM TOP SCH ×2 (08:27→21:27)
[2019-10-11] MEDS: THIAMINE 100 MG TAB PO SCH ×2 (09:00→21:00)
[2019-10-11] MEDS: MULTIVITAMINS/MINERALS THERAP 1 TAB PO SCH (09:00)
[2019-10-11] MEDS: amLODIPine 5 MG TAB PO SCH (09:00)
[2019-10-11] MEDS ORDERED: AMIODARONE 200 MG TAB (PACERONE) PO SCH (09:00)
[2019-10-11] MEDS: APIXABAN 2.5 MG TAB (ELIQUIS) PO SCH (09:00)
[2019-10-11] MEDS: FOLIC ACID 1 MG TAB PO SCH (09:00)
[2019-10-11] MEDS: AMIODARONE HCL 150 MG in IV 1 EA IV SCH ×2 (09:12→21:27)
--- NOTE | 2019-10-11 09:31 | IPN ---
DATE: 10/10/2019 HISTORY: The patient is an 84-year-old man who had been admitted with sepsis with confusion and acute renal failure. He had positive urine and blood cultures for Staphylococcus. His renal function has been improving. I was asked to see him yesterday for some abdominal tenderness. He did have some mild scattered tenderness. His apparent associated encephalopathy had made it difficult for me to interpret his findings somewhat. Vital signs today show that he remains quite tachycardiac much of the time up to 110-130. His blood pressure is in the normal range and he has remained afebrile over the past 24 hours. Intake and output show that yesterday he had 2400 recorded in with 3300 out. PHYSICAL EXAMINATION: The patient is sitting propped up in bed. I spoke with him and he does respond appropriately but his speech is somewhat garbled and I cannot understand what he is saying. The abdomen is perhaps mildly full but not truly distended. There is no tympany to percussion. There does not appear to be any significant tenderness to percussion. On palpation, he does seem to push me away on palpation in the left lower quadrant but this is not a vigorous response. The abdomen is soft and there is no mass appreciated. Laboratory studies include a complete blood count (CBC) that shows a white count of 20,000, hemoglobin 17, hematocrit of 49, and a platelet count of 108,000. Differential count shows 87% neutrophils, 7% lymphocytes, 3% monocytes. His chemistry profile shows a sodium of 147, potassium 2.9, chloride 111, CO2 of 28, BUN of 48, creatinine 1.5, and a glucose of 158. His total protein is 4.7 with an albumin of 1.2. IMPRESSION: The patient's abdomen exam is very similar to yesterday with some very mild tenderness identified. He does have bowel sounds present and the abdomen is not markedly distended. RECOMMENDATIONS: At this point, he has tolerated having the NG nasogastric (NG) out. He has apparently been taking some medications orally. I do not know if his mental status is adequate to begin an oral diet or if a speech therapy evaluation with swallowing evaluation would be appropriate. I will defer this decision to the hospitalist. As far as I am concerned, he could be started on at least some liquids to see how he does with this. [facility]
--- NOTE | 2019-10-11 10:00 | IPN ---
DATE OF SERVICE: 10/10/2019 SUBJECTIVE: The patient was seen and examined at the bedside today morning. Last 24-hour events were noted. The patient pulled out his nasogastric (NG) tube himself. He continues to be on intravenous (IV) fluid hydration. Renal function continues to improve. The patient still has persistent hypokalemia. Renal function is gradually improving. OBJECTIVE: Vital signs: Temperature is 98.7 degrees Fahrenheit, blood pressure 165/104, pulse is 128, respiratory rate of 18, saturating 97% on room air. Intake and output: Urine output recorded is 3.2 liters yesterday, 2.2 liters so far today since overnight. Weight in the bed scale is 73 kg. PHYSICAL EXAMINATION: General: The patient is awake, smiling, and does not talk but does follow a few commands. Head and neck examination: The patient has right eye squint. Pupils are equally round and reactive to light. Mucous membranes are moist. Neck is supple. There is no jugular venous distention (JVD). Cardiovascular: S1, S2, tachycardia and irregular rate. No edema of the bilateral lower extremities. Respiratory: Chest is clear to auscultation bilaterally. Bilateral equal air entry. No rales or rhonchi. Abdomen: Soft, decreased bowel sounds. Otherwise nontender today. Genitourinary: He has an indwelling Carvalho catheter. Urine in the bag is slightly cloudy. Musculoskeletal: No clubbing or cyanosis. Pulses are 2+. Central nervous system ([employer]): The patient follows a few commands and moves extremities. LABORATORY REVIEW: Complete blood count (CBC) showed a WBC of 19.8, hemoglobin is 18.9, platelets of 109. Basic metabolic profile (BMP) showed sodium 147, potassium 2.9, chloride 111, bicarbonate 28, BUN 48, creatinine is 1.52, calcium 7.1, total bilirubin 3.4. CURRENT INPATIENT MEDICATIONS: The patient's medications were all reviewed by me. I have changed his IV fluid to D5W with 40 mEq of KCl at 125 mL/h. He is also getting KCl 10 mEq IV times four runs today morning. He has been started on metoprolol XL 100 mg by mouth twice a day. No others change in the medications today as compared with yesterday. ASSESSMENT AND PLAN: 1. Acute nonoliguric renal failure. The patient's renal function continues to improve. He continues to be on IV fluid hydration. Fluids are being changed daily according to the patient's electrolytes. 2. Hypernatremia. The patient's IV fluid has been changed to D5W with 40 mEq of KCl at 125 mL/h. Potassium level is slowly improving. 3. Hypokalemia. The patient was given 40 mEq of IV potassium today morning. I have also increased the potassium in the IV fluids. If needed, now we can give him the potassium orally since he started eating. 4. Staphylococcus aureus bacteremia and urinary tract infection. The patient is getting IV Ancef. Repeat cultures are negative. 5. Elevated liver enzymes. It is likely that Ancef might be causing that. Total bilirubin is slightly high. 6. Atrial fibrillation with rapid ventricular rate. The patient's metoprolol dose has been increased. He continues to be on Eliquis. 7. Hypertension. Blood pressure is improving with the combination of amlodipine and metoprolol. 8. Abdominal pain and ileus. The patient pulled his nasogastric tube out. He is starting to eat. I am going to start the patient on honey-thick liquids because of risk of aspiration. [facility]
[2019-10-11] MEDS: PANTOPRAZOLE 40MG VIAL (C9113 PER 1) IV SCH ×2 (11:08→21:27)
--- NOTE | 2019-10-11 11:25 | REP ---
Portable chest x-ray: AP semi-erect view. History: Evaluate for infiltrate. Comparison chest x-ray October 08, 2019 and October 07, 2019. Findings: There is a skin fold noted on the right. Slight fissural thickening is seen just above the right hemidiaphragm unchanged. Increased markings are seen in the left lower lobe behind the heart compared with the prior study partially obscuring left hemidiaphragm. Heart is somewhat increased in size. Lungs are exposed at a low level of inspiration. Impression: Increased parenchymal markings behind the heart in the left lower lobe partially obscuring left hemidiaphragm. This may be a new infiltrate. Electronically Signed by Vishnu Fernandez MD 10/11/2019 08:31 A
--- NOTE | 2019-10-11 11:38 | IPN ---
DATE OF SERVICE: 10/11/2019 Mr. Raines was seen and examined at the bedside this morning. Speech therapy is there to do swallow evaluation, as his nasogastric (NG) tube is now out, and there is concern for possible aspiration and whether or not he can swallow his medications. Upon observing his behavior, the patient is very minimally responsive, very lethargic. However, he is better than he was on Friday in terms of his mentation. He has a lot of secretions, and he is repeatedly coughing, which seems to be as though he cannot maintain his secretions on his own. While we were in the room, speech therapy recommended nothing by mouth for now, as it was difficult to perform the swallow evaluation. The patient did not respond to any of our questions and remained lethargic during the entire examination. Objectively, his vital signs: Temperature 97.5, pulse of 120, respiratory rate of 18, blood pressure 139/99, pulse oximetry is 93% on room air. In reviewing his heart rate over the past 24 hours, he has been in the 110s-130s, irregular heart rate during that time. He has a net negative balance of negative 825 mL. Yesterday, he made about 2700 mL of urine, and his current weight is 72.9 kg. Generally, he is sitting up in bed. He is calm, somewhat cooperative but unresponsive, very lethargic, frequently coughing. His extraocular movements are intact. His pupils are equally round and reactive to light. Mucous membranes are moist. Neck is supple with no thyromegaly, no lymphadenopathy. Cardiovascular: He is irregularly irregular. No discernable murmurs, rubs, or gallops. No jugular venous distention is appreciated. Lungs: He had some rhonchorous breath sounds at the bases bilaterally. Abdomen is distended, nontender to palpation. Extremities: No clubbing, cyanosis, or edema. Unable to assess neurologic or psychiatric examination. LABORATORIES: Today: His white blood cell count has gone up to 23.5 from 19.8 yesterday. His hemoglobin is 16.6, and his hematocrit is 48.4. Platelet count is 122. His sodium is 145. His potassium is 4.1. Chloride is 112. BUN is 36, and creatinine is 1.49. His total bilirubin has gone up from 2.8 to 3.0 today. His liver enzymes have normalized to 26 and 19, AST and ALT, respectively, and alkaline phosphatase is 83. On microbiology, he has two positive blood cultures with Staphylococcus aureus, a positive urine culture with Staphylococcus aureus, and a positive wound culture gram stain with Staphylococcus aureus, as well. There was a chest x-ray done this morning, which just shows poor inspiratory effort, positive infiltrates on the left lower lobe versus fluid overload. Otherwise, essentially normal. His bowel is quite distended but otherwise normal. He did have a liver ultrasound done on 10/09/2019, which showed a sludge in the gallbladder with no stone or polyp, a small right pleural effusion, questionable fatty infiltration in the liver. ASSESSMENT: This is an 84-year-old male who came in with altered mental status, found to have possible ileus, now with sepsis and bacteremia. PLAN: 1. Atrial fibrillation with rapid ventricular response (RVR). We had originally switched this patient to be on metoprolol tartrate 50 every 6 and amiodarone 400 mg by mouth twice a day. However, given the results of his swallow evaluation this morning, it was recommended that he is nothing by mouth at this time. Therefore, he will only be on amiodarone 150 mg intravenous (IV) twice a day to be given over 2 hours at a time. We will wait and see what his further subsequent swallow evaluation shows to determine whether we should put him back on an oral beta raul or not. 2. Uncontrolled hypertension. In terms of his blood pressure, he has been around the 150s-160s systolic. He is currently unable to get his 5 mg of amlodipine daily. We will see how his blood pressure does throughout the day today and will have to add an IV medication as needed. 3. Sepsis with gram-positive cocci and bacteremia. Continue with nafcillin. Will hold off on ISMAEL at this point in time. 4. Acute renal failure with urosepsis. His creatinine and blood urea nitrogen (BUN) seem to have improved over time. We will continue to watch this patient pretty closely. Feel free to call us with any questions. Addendum MD Job: Patient was seen and examined with . Agree with her note above. ISMAEL would be associated with high risk and would not change immediate management. [facility]
[2019-10-11] MEDS: POTASSIUM CHLORIDE INJ 40 MEQ in D5W 1,000 ML IV SCH ×2 (11:40→22:53)
[2019-10-11 12:00] VITALS: BP 140/96
[2019-10-11] MEDS ORDERED: ENOXAPARIN 100MG/1ML SYRINGE (J1650 PER 10MG) SC SCH (13:00)
--- NOTE | 2019-10-11 13:02 | IPNPDOC ---
Text Note Date of Service The patient was seen on 10/11/19. NOTE Subjective: No any acute events overnight, patient continues to be confused, encephalopathic. Patient does not have any fever, follows simple commands Objective: VITAL SIGNS: Please see below. GENERAL: Ill looking male, obtunded HEENT: NCAT, anicteric sclera, ALMA NECK: supple, no JVD CARDIOVASCULAR EXAMINATION: NS1S2, regular rate/rhythm RESPIRATORY EXAMINATION: CTA b/l, no wheezes/rales/rhonchi ABDOMINAL EXAMINATION: Nontender, nondistended EXTREMITIES: no cyanosis, clubbing, edema SKIN: Right shoulder open wound 3-4 cm stage II, rash in the groin area NEUROLOGICAL EXAMINATION: Follows simple commands, no nuchal rigidity, right lateral eye deviation with bilateral horizontal nystagmus Patient is 84 years old male with past history of coronary artery diseases, h ypertension, alcoholism presented to hospital with severe sepsis and altered mental status. Patient was found to have pyuria and acute kidney injury. Severe sepsis Patient had tachycardia, leukocytosis, pyuria and blood culture positive for Staphylococcus aureus UA positive for staph aureus MSSA Blood culture positive for staph aureus MSSA, wound culture positive for MSSA Continue IV fluid Antibiotics was changed to nafcillin 2 grams IV every [address] negative for active cardiopulmonary diseases CT of abdomen and pelvis showed Diffuse thickening of the bladder wall with bladder diverticula wound culture of the right shoulder showed MSSA Transthoracic echo did not show valves vegetations We'll proceed with ISMAEL after initial stabilization SHARRON/ Acute nonoliguric renal failure Post renal. Carvalho catheter was placed Improved Continue IV volume expansion Metabolic acidosis Resolved Secondary to uremia and lactic acidosis Patient received treatment with bicarbonate Continue to monitor UTI Possible source of infection, bladder has diverticulum Carvalho in place Continue antibiotic therapy Atrial fibrillation with rapid ventricular rate Restarted amiodarone due to nothing by mouth status Patient remains tachycardic with heart rate of 120-130 Eliquis on hold for today due to nosebleed after traumatic NG tube reinsertion, also patient developed hematuria Tire Retreader follows the patient Metabolic encephalopathy Patient continues to be encephalopathic, most likely secondary to sepsis. Dr. Beltran recommended MRI of the brain if patient continues to be encephalopathic Right lateral eye deviation with bilateral horizontal nystagmus can be attributed to Wernicke encephalopathy or septic emboli. 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 CT head which was done on the admission negative for stroke or bleeding Differential diagnosis also includes metabolic encephalopathy due to uremia We'll check Thiamin, B12, copper level. On 10/11/19 speech specialist recommended nothing by mouth due to altered mental status Candidiasis Diflucan 200 mg IV followed by Nystatin powder to the groin area Ileus resolved Today abdomen non tender on palpation. No rigidity Continue PPI Elevated total bilirubin right upper quadrant ultrasound did not show CBD dilatation or cholecystitis Could be attributed to nafcillin. Continue to monitor CT of abdomen and pelvis was negative for common bile dilatation and cholecystitis Hypokalemia. Could be secondary to nafcillin Replenished Continue to monitor BMP VS,Fishbone, I+O VS, Fishbone, I+O Laboratory Tests 10/10/19 13:02 10/10/19 18:51 10/10/19 23:08 10/11/19 04:46 Vital Signs Date Time Temp Pulse Resp B/P (MAP) Pulse Ox O2 Delivery O2 Flow Rate FiO2 10/11/19 12:00 97.9 130 16 140/96 (111) 94 Room Air 10/06/19 23:00 2.0 I&O- Last 24 Hours up to 6 AM 10/11/19 06:00 Intake Total 1470 ml Output Total 2275 ml Balance -805 ml ELIZA PINEDA DO Oct 11, 2019 13:02
[2019-10-11 16:00] VITALS: BP 122/84
[2019-10-11] MEDS: ceFAZolin SOD 2 GM in IV 1 EA IV SCH (17:59)
[2019-10-11 20:00] VITALS: BP 137/93
--- NOTE | 2019-10-11 21:24 | IPN ---
DATE: 10/11/2019 Mr. Raines seems to be doing a little better. He seems to be able to verbalize a few words more than last week. He has no nausea, vomiting or diarrhea. His nasogastric (NG) tube was removed. The patient is resting comfortably. He does not seem to be in any pain. He still has a Carvalho catheter in place with cloudy, bloody urine. Temperature is 96.9, pulse 134, in atrial fibrillation, respirations 18, blood pressure 122/84, oxygen saturation (O2 saturation ) 95% on room air. Heart: Normal S1, S2, irregular, distant, tachycardiac. Lungs: Anteriorly clear. No wheezes, rales or rhonchi. Abdomen: Slightly distended, soft, nontender. Genitourinary (): Carvalho catheter in place with bloody, cloudy urine. Extremities: No clubbing or cyanosis. Trace ankle edema. Neurologic Exam: He is alert. He opens his eyes. He tries to respond. He is stiff whenever he tries to move his arms. LABORATORY DATA: White count is 23.5, hemoglobin 16.6, hematocrit 48.4, platelets 122. Sodium 145, potassium 4.1, chloride 112, bicarb 26, BUN 36, creatinine 1.49 down from 6.27, calcium 7.3, magnesium 1.8, bilirubin 3, which has increased from 1.5, AST 26, ALT 19, alkaline phosphatase 83, total protein 5.2, albumin 1.2, vitamin B12 of 1179. Liver ultrasound shows sludge in the gallbladder. No stone or polyps. Small right pleural effusion, questionable fatty liver. Chest x-ray 10/11/2019 shows increased parenchymal markings behind the heart in the left lower lobe, obscuring the left hemidiaphragm, concerning for new infiltrate. Blood cultures, two sets, on 10/06/2019 were staph aureus, methicillin-sensitive Staphylococcus aureus (MSSA). Urine culture had MSSA. Blood culture on 10/07/2019 was negative. Back culture from an abscess on the right shoulder blade was positive for MSSA. Repeat blood cultures done on 10/11/2019 are pending and urine culture is pending. Urinalysis on 10/06/2019 had many white cells. Urine culture has again many white cells and many red cells. IMPRESSION: 1. MSSA bacteremia with sepsis, on IV nafcillin. The patient has clinically improved except that he has persistent leukocytosis. Source of infection could be of urinary origin, although endocarditis is still in the differential, and therefore, needs to be ruled out. 2. Atrial fibrillation with rapid ventricular response, on IV amiodarone, followed up with Dr. Wan. 3. Urinary tract infection with MSSA, on IV nafcillin. 4. Mild thrombocytopenia, could be infectious related or medication related. Will switch nafcillin to IV cefazolin. 5. New left lower lobe infiltrate on chest x-ray, although patient not hypoxic and not coughing. I doubt this is pneumonia. PLAN: Discontinue IV nafcillin, switched to IV cefazolin. MRI of brain if the patient continues to be encephalopathic to rule out any septic emboli. I would still suggest to get a transesophageal echocardiogram (ISMAEL) once the patient is clinically stable.
--- NOTE | 2019-10-11 21:24 | REPVR ---
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 COMPARISON: No relevant prior studies available. FINDINGS: Superior to the right orbital rim anteriorly there is a 2 x 2 x 1 mm radiodensity within the superficial soft tissues. This is not intra orbital and lies within the superficial forehead soft tissues. No osseous abnormality of concern. No abnormal opacification of paranasal sinuses. No osseous orbital deformity or evidence of a displaced nasal bone fracture IMPRESSION: 2 mm radiodensity suggesting a small metallic foreign body within the supraorbital right forehead soft tissues. This is not intra orbital and should not preclude MRI. Electronically signed by: Pal Yanez On 10/11/2019 21:23:28 PM
[2019-10-12] VITALS: BP 138/88
[2019-10-12] MEDS: ceFAZolin SOD 2 GM in IV 1 EA IV SCH ×3 (03:05→18:03)
[2019-10-12 05:36] LABS: HEMATOCRIT 45.6 % (42.0-52.0); HEMOGLOBIN 15.9 g/dl (13.5-17.5); MEAN CORPUSCULAR HEMOGLOBIN 31.9 pg (27.0-33.0); MEAN CORPUSCULAR HGB CONC 34.9 g/dl (32.0-36.5); MEAN CORPUSCULAR VOLUME 91.4 fl (80.0-96.0); PLATELET COUNT, AUTOMATED 158 10^3/uL (150-450); RED BLOOD COUNT 4.99 10^6/uL (4.30-6.10)
[2019-10-12 05:59] LABS: ERYTHROCYTE SEDIMENTATION RATE 37 mm/hr (0-20)
[2019-10-12 06:05] LABS: ALBUMIN 1.1 GM/DL (3.2-5.2); BILIRUBIN,TOTAL 1.7 MG/DL (0.2-1.0); CALCIUM LEVEL 7.1 MG/DL (8.8-10.2); CREATININE FOR GFR 1.37 MG/DL (0.70-1.30); MAGNESIUM LEVEL 1.6 MG/DL (1.8-2.4); TOTAL PROTEIN 5.2 GM/DL (6.4-8.2)
[2019-10-12 06:26] LABS: ANISOCYTOSIS 1+; EOSINOPHILS 1 % (0-3); LYMPHOCYTES 10 % (16-44); METAMYELOCYTES 2 % (0-0); MONOCYTES 4 % (0-5); NEUTROPHILS 83 % (28-66); PLATELET ESTIMATE NORMAL (NORMAL)
[2019-10-12 08:00] VITALS: BP 140/80
[2019-10-12] MEDS: PANTOPRAZOLE 40MG VIAL (C9113 PER 1) IV SCH ×2 (08:48→21:26)
[2019-10-12] MEDS: AMIODARONE HCL 150 MG in IV 1 EA IV SCH ×2 (08:48→21:27)
[2019-10-12] MEDS: NYSTATIN 100,000 UNITS/GM TOPICAL PWD 15 GM TOP SCH (08:49)
[2019-10-12] MEDS ORDERED: atenoloL 25 MG TAB PO SCH ×2 (09:00)
[2019-10-12] MEDS: FOLIC ACID 1 MG TAB PO SCH (09:00)
[2019-10-12] MEDS: MULTIVITAMINS/MINERALS THERAP 1 TAB PO SCH (09:00)
--- NOTE | 2019-10-12 10:15 | IPN ---
DATE OF SERVICE: 10/11/2019 SUBJECTIVE: The patient was seen and examined at the bedside today morning. The patient is awake, smiling, but does not want to communicate. He does not follow much commands. He was seen by speech and swallow and his diet was stopped. He was made nothing by mouth (n.p.o.) again because he was not very cooperative. He continues to been IV fluid hydration. Hypokalemia is significantly better. Renal function is stable and improving. OBJECTIVE: Vital Signs: Temperature is 97.7 degrees Fahrenheit, blood pressure 137/93, pulse is 101, respiratory rate of 18, saturating 96% on room air. Intake and Output: Urine output recorded as 2.7 liters yesterday, 1.5 liters so far today since overnight. Weight in the bed scale is 72.9 kg. PHYSICAL EXAMINATION: General: The patient is alert, but does not communicate. Head and Neck Exam: The patient has a squint of the right eye. Pupils are equally round and reactive to light. Mucous membranes are moist. Neck is supple. There is no jugular venous distention (JVD). Cardiovascular: S1, S2. Regular rate. No edema of the bilateral lower extremities. Respiratory: Chest is clear to auscultation bilaterally. Bilateral equal air entry. No rales or rhonchi. Abdomen is distended again with decreased breath sounds and tympanitic percussion note. Genitourinary: He has an indwelling Carvalho catheter, urine in the bag is clear. Musculoskeletal: No clubbing or cyanosis. Pulses are 2+. LIVE SOURCE OPERATOR: The patient is awake, but does not follow much commands and he is unable to communicate. LAB REVIEW: CBC showed WBC of 23.5, hemoglobin 16.6 and platelets of 122. Repeat urinalysis done today showed it was cloudy with 3+ blood, 3+ leukocyte esterase, and too numerous to count white blood cells (WBCs). BMP today morning showed sodium 145, potassium 4.1, chloride 112, bicarb 26, BUN 36, creatinine is 1.4 and it was 1.4 yesterday as well. X-RAYS: The patient got a chest x-ray done which showed increased parenchymal markings behind the heart in the left lower lobe partially obscuring the left karel diaphragm. This may be a new infiltrate. CURRENT INPATIENT MEDICATIONS: The patient continues to be on IV amiodarone. His antibiotics have been changed to Ancef 2 grams IV every 8 hours. His IV fluids are D5W with 40 mEq of KCl at 125 mL an hour. Eliquis has been stopped. Lovenox has been stopped as well. ASSESSMENT/PLAN: 1. Acute nonoliguric renal failure. Function has improved. Creatinine has plateaued. Continue gentle IV fluid hydration since the patient is not eating much. 2. Hypokalemia. It has improved with oral and IV potassium. Continue current potassium of 40 mEq and IV fluids. 3. Recent sepsis secondary to Staph aureus bacteremia and Staph aureus urinary tract infection (UTI). The patient is getting nafcillin, which has been changed to Ancef by infectious disease today. 4. Hypertension. Blood pressure is controlled with amlodipine. Metoprolol has been stopped because the patient is n.p.o. 5. Atrial fibrillation with rapid ventricular rate. He is on amiodarone IV. Oral anticoagulation has been stopped. 6. Ileus. The patient pulled his NG tube. He had bowel movements today. He is n.p.o. because he failed his swallow evaluation. Continue IV D5W at this time.
--- NOTE | 2019-10-12 10:44 | IPN ---
DATE OF SERVICE: 10/12/2019 Mr. Raines was seen and examined at the bedside this morning. He is still grunting and not quite understandable with his responses, but he is responding to verbal and sternal rub stimuli. He is tracking with his eyes and somewhat communicating but not back to what we suspect is his baseline. He is still nothing by mouth given speech therapy's recommendations yesterday. Otherwise, his heart rate is much better controlled. No issues reported from nursing overnight. Objectively, his vital signs: Temperature 98.9, pulse is 126, respiratory rate is 18, blood pressure is 140/80, pulse oximetry is 96% on room air. He has a net negative output with about 1500 mL of urine yesterday, and his current weight is 72.9 kg. PHYSICAL EXAMINATION: General: He is sitting up in bed. Calm, somewhat cooperative, responsive but unintelligible speech, lethargic. HEENT examination: His extraocular movements are intact. His pupils are equally round and reactive to light. Mucous membranes are moist. Neck is supple with no thyromegaly, no lymphadenopathy. Cardiovascular: He is irregularly irregular. No discernable murmurs, rubs, or gallops. No jugular venous distention is appreciated. Lungs: Clear to auscultation with some rhonchi scattered throughout his lungs bilaterally. Abdomen is somewhat distended but nontender to palpation. Extremities: No clubbing, cyanosis, or edema. Unable to assess neurologic or psychiatric examination. LABORATORIES: Today: His white blood cell count has come up to 26 from 23.5 yesterday. His hemoglobin is 15.9, and his hematocrit is 45.6. Platelet count is 158. Chemistries: His sodium is 142. His potassium is 4.0. Chloride is 111. BUN is 29, and creatinine is 1.37. His total bilirubin is 1.7. Magnesium is 1.6. His CRP is 18. A vitamin B1 is pending. Vitamin B12 is elevated at 1179. Also, a plasma copper is pending. On microbiology, he did have another urine culture which grew Staphylococcus aureus. He did have a chest x-ray done yesterday morning, which showed increased parenchymal markings behind the heart in the left lower lobe partially obscuring the left hemidiaphragm, may be possible new infiltrate; and he did have a foreign body localization x-ray done yesterday, which found a 2 mm radiodensity suggesting a small metallic foreign body within the supraorbital right forehead soft tissue. ASSESSMENT: This is an 84-year-old male who came in with altered mental status, found to have possible ileus, now with urosepsis and bacteremia with a concerning ongoing atrial fibrillation with rapid ventricular response (RVR). PLAN: 1. Atrial fibrillation with rapid ventricular response. Continue with the intravenous (IV) amiodarone 150 mg twice daily given over 2 hours at a time. We are unable to give any beta blockers at this time, as he is unable to swallow; but to my knowledge, speech therapy will be returning to him today to do another swallow study. His mental status has somewhat improved, so he may be able to swallow; and if so, we will restart his oral beta blockers. 2. Uncontrolled hypertension. At this time, he is unable to get his oral amlodipine. His blood pressures, however, have been within normal limits. So, we will continue to monitor it. 3. Sepsis with gram-positive cocci and bacteremia. Nafcillin has been changed to cefazolin by Dr. Beltran. Agree with this change. Given his thrombocytopenia, we will continue to monitor him. He may need a transesophageal echocardiogram (ISMAEL) at some point in time, but he is currently not alert and awake enough for this procedure because we cannot truly rule out endocarditis at this time. 4. Acute renal failure with urosepsis. Renal function has improved over time. We will continue to watch this patient pretty closely. Feel free to call us with any questions. Addendum Jayme Wan MD: Patient was seen and examined with . Agree with her note. ROBD
[2019-10-12 12:00] VITALS: BP 140/86
--- NOTE | 2019-10-12 12:39 | REP ---
MRI BRAIN WITHOUT CONTRAST: HISTORY: Altered mental status. Rule out septic emboli. Comparison head CT study October 06, 2019. TECHNIQUE: Axial and sagittal imaging planes are utilized for T1- and T2-weighted scans. Sequences include spin-echo, fast spin echo, FLAIR, and diffusion weighted sequences. MRI FINDINGS: Bony calvarium is intact. Craniocervical junction and upper cervical cord are unremarkable. There is considerable motion artifact on several of the sequences. There is no MR evidence of significant paranasal sinus or intraorbital disease. There is generalized volume loss. Small vessel changes are seen in the periventricular white matter. Diffusion weighted scans show no focus of restricted diffusion to suggest an acute ischemia. There is no evidence of intracranial hemorrhage. No extra-axial fluid collection or mass is seen. IMPRESSION: There is some motion artifact. Generalized volume loss and small vessel changes. No acute intracranial abnormalities seen. Electronically Signed by Vishnu Fernandez MD 10/12/2019 12:44 P
[2019-10-12] MEDS ORDERED: ATENOLOL 12.5MG PER 1/2 TABLET PO ONE (14:00)
[2019-10-12] MEDS: METOPROLOL 5 MG/5 ML VIAL IV SCH ×3 (15:02→23:53)
[2019-10-12 16:00] VITALS: BP 144/86
[2019-10-12] MEDS ORDERED: ISOVUE-370 76% 100ML VIAL As Ordered ONE (17:16)
--- NOTE | 2019-10-12 17:35 | IPN ---
DATE: 10/12/2019 Patient this morning appears to be confused, unable to obtain review of systems. He opens his eyes, smiles and closes his eyes back, still atrial fibrillation with rapid ventricular response (RVR), on amiodarone IV twice a day. The patient continues to have abdominal distention, no pain. Temperature 98.9, pulse 126, respiratory rate 18, blood pressure 140/80, 96% on room air. Generally, patient is confused, only smiles, does not converse, with incomprehensible speech. No jugular venous distention (JVD), no thyromegaly. Heart: S1, S2, irregularly irregular and tachycardic. Lungs: Clear to auscultation. No wheezing, rales, or rhonchi. Abdomen: Distended, tympanitic, soft, nontender. Positive bowel sounds. Extremities: No cyanosis, clubbing or pitting edema. Skin: Stage 2 open wound on the right shoulder 3-4 cm and some erythema in the groin. Neurologic: Bilateral horizontal nystagmus, following simple commands. LABORATORY DATA: White count 26, hemoglobin 15, hematocrit 45, platelet count 158. Sodium 142, potassium 4, chloride 111, bicarbonate 24, BUN 29, creatinine 1.37, glucose of 135. Urine culture: Staphylococcus aureus. Blood culture: Staphylococcus aureus. ASSESSMENT AND PLAN: This is an 84-year-old male admitted on 10/06/2019 with confusion and weakness, history of coronary artery disease, hypertension, pneumonia and alcohol abuse, found to have urinary tract infection, Staphylococcus aureus UTI, acute kidney injury, pyelonephritis with methicillin-sensitive Staphylococcus aureus (MSSA) bacteremia, and acute encephalopathy with atrial fibrillation with RVR, and a new left lower lobe infiltrate and chronic thrombocytopenia. CURRENT ISSUES: 1. Acute encephalopathy. 2. MSSA bacteremia. 3. Sepsis secondary to MSSA bacteremia, left lower lobe infiltrate. 4. Atrial fibrillation with RVR. 5. Urinary tract infection with MSSA. 6. Thrombocytopenia. 7. Acute kidney injury secondary to sepsis. 8. Hypertension. 9. Ileus. 10. Hyponatremia. 11. Hypokalemia. 12. Elevated liver function test. PLAN: Due to patient's confusion, will obtain an MRI of the brain. He is currently non-anticoagulated due to thrombocytopenia of 108 to 127. He is kept on amiodarone for rate control, currently still irregular and has not converted to sinus rhythm. Dr. Elder Singh had seen him on the 10/08/2019. Will discontinue patient's Norvasc and start on beta-blockade due to uncontrolled rate. Obtain a transesophageal echocardiogram to rule out endocarditis once the patient is medically stable. Currently he has ejection fraction of 40% with moderate pulmonary hypertension with mild to moderately depressed left ventricular systolic function, diffuse hypokinesis. [facility]
--- NOTE | 2019-10-12 18:15 | REPVR ---
PROCEDURE INFORMATION: Exam: CT Abdomen And Pelvis With Contrast Exam date and time: 10/12/2019 5:34 PM Age: 84 years old Clinical indication: Abdominal pain; Additional info: Leukocytosis mssa bacteremia TECHNIQUE: Imaging protocol: Computed tomography of the abdomen and pelvis with intravenous contrast. Radiation optimization: All CT scans at this facility use at least one of these dose optimization techniques: automated exposure control; mA and/or kV adjustment per patient size (includes targeted exams where dose is matched to clinical indication); or iterative reconstruction. Contrast material: ISO 370; Contrast volume: 100 ml; Contrast route: INTRAVENOUS (IV); COMPARISON: CT ABD PELVIS W/O CONTRAST 10/07/2019 12:34 PM FINDINGS: Lungs: Bibasilar compressive atelectasis. Pleural space: Small bilateral pleural effusions. Liver: Redemonstration of a 4.2 cm partially calcified cyst in the hepatic dome, possibly post infectious. Clinical correlation needed. 10 mm cyst left lobe of the liver with subcentimeter cyst seen in the anterior hepatic dome. Liver otherwise unremarkable. Gallbladder and bile ducts: Hydropic sludge filled gallbladder. Pancreas: Normal. No ductal dilation. Spleen: Normal. No splenomegaly. Adrenals: There is bilateral adrenal hyperplasia. Kidneys and ureters: Normal. No hydronephrosis. Stomach and bowel: Moderate diverticulosis is present in the distal colon. No diverticulitis. Appendix: No evidence of appendicitis. Intraperitoneal space: Unremarkable. No free air. No significant fluid collection. Vasculature: The aorta demonstrates mild atherosclerotic calcification. Lymph nodes: Unremarkable. No enlarged lymph nodes. Bladder: A Carvalho catheter within a partially collapsed urinary bladder is demonstrated. There is diffuse thickening of the bladder wall, a prominent left posterolateral bladder diverticulum and extensive perivesicular inflammatory changes consistent with acute cystitis. Thickening of the bladder wall may be in part related to chronic bladder outlet obstruction. Occult neoplasm not excluded. Air locules within the bladder may be iatrogenic or post infectious. Reproductive: The prostate gland demonstrates mild hyperplasia. Bones/joints: Moderate to severe central spinal stenosis L3-L4, L4-L5 with bilateral facet joint arthropathy at L5-S1. Soft tissues: There is mild soft tissue edema demonstrated in the abdominal wall, flanks and buttock regions consistent with anasarca. There is a small umbilical hernia. There is no evidence of incarceration. Note is made of traction of a urachal remanent into the umbilicus with the intra-abdominal component surrounded by inflammation. Soft tissue thickening at the base of the rectal remnant may be inflammatory although a urachal neoplasm not absolutely excluded. IMPRESSION: 1. Small bilateral pleural effusions. 2. Redemonstration of a 4.2 cm partially calcified cyst in the hepatic dome, possibly post infectious. Clinical correlation needed. 3. There is bilateral adrenal hyperplasia. 4. Findings consistent with acute cystitis in combination with changes of chronic bladder outlet obstruction. Occult bladder neoplasm not excluded. 5. Mild prostatic hyperplasia. 6. Anasarca. 7. There is a small umbilical hernia. There is no evidence of incarceration. Note is made of traction of a urachal remanent into the umbilicus with the intra-abdominal component surrounded by inflammation. Soft tissue thickening at the base of the rectal remnant may be inflammatory although a urachal neoplasm not absolutely excluded. 8. Moderate diverticulosis is present in the distal colon. No diverticulitis. 9. Hydropic sludge filled gallbladder. Electronically signed by: Sharad Melara On 10/12/2019 18:15:23 PM
[2019-10-12 20:00] VITALS: BP 160/74
[2019-10-12] MEDS: CLOTRIMAZOLE 1% TOPICAL CREAM 30GM TOP SCH (21:26)
--- NOTE | 2019-10-12 22:37 | IPN ---
DATE: 10/12/2019 HISTORY: The patient was admitted with mental status changes and signs of sepsis back on 10/06/2019. He had some abdominal pain, and I had been asked to evaluate him several days ago. He has grown Staphylococcus (staph) aureus from his blood, his urine, and a small wound on his back. His speech has generally remained garbled. He continues with an elevated white count. He has atrial fibrillation (fib) with a fairly rapid heart rate at this time. Vital signs: Show that he has been afebrile over the past 24 hours. His pulse has ranged between 101 and 138 over the last 24 hours. Blood pressure is acceptable, and his room air oxygen saturation is normal. Intake and output show that yesterday he had 1000 in with 1600 out. He has a Carvalho catheter in place. He is recorded as having one bowel movement yesterday. PHYSICAL EXAMINATION: When I went to see the patient today, his was actually in the room. We did have a chance to discuss what his baseline is and apparently at baseline he is ambulatory under his own power and is readily communicative with clear speech. As we discussed this, the patient actually became more interactive, and I was able to understand his speech today for the first time. He welcomed Dr. Beltran into the room when she arrived and was chatting with us about his hospital stay and the care he has received. His physical exam today shows that his heart rate remains irregular, and he is tachycardiac. He still has a suggestion of some rhonchi, but he did clear his own secretions with cough while I was seeing him today. His abdomen remains somewhat distended. He does have some tympany to percussion in the mid and upper abdomen. He denies any pain. On palpation, the abdomen is soft, and there is a little bit of voluntary guarding in the lower abdomen. Laboratory studies show a white count of 26,000 with a differential showing 83% neutrophils, 10% lymphocytes and 4% monocytes. His hemoglobin is 16 with a hematocrit of 46 and platelet count of 158,000. Chemistry profile shows a sodium of 142, potassium 4.0, chloride 111, CO2 of 24, BUN of 29, creatinine 1.4 and a glucose of 135. Magnesium is 1.6 with a total bilirubin now down to 1.7. His CRP is 18 this morning. He has a repeat urine culture from 10/11/2019, which is still growing staph aureus. He had an MRI of the brain earlier today, which showed some motion artifact and some chronic changes, but no acute intracranial abnormality. IMPRESSION: The patient's mental state appears much clearer today and he has been able to communicate with me for the first time. He denies any abdominal pain, but the abdomen remains distended and he has a little bit of voluntary guarding in the lower abdomen. His white count has now started climbing and yesterday was 23 and today is 26,000. I remain somewhat concerned that there could be more than just his bladder infection going on in his lower abdomen. PLAN: Dr. Beltran of infectious disease and I discussed possibly obtaining a repeat CT scan of the abdomen and pelvis to try to eliminate the possibility of some undetected intra-abdominal, probably pelvic process. We agreed that she will order a scan. He will continue on antibiotics. We should be thinking about nutrition for this man as he has been here now for 6 days and has not been receiving any nutritional support. If his mental status has cleared, then an oral diet may be appropriate. I note that the speech therapist has recommended a swallowing study before instituting oral nutrition. JEAN-PAUL
--- NOTE | 2019-10-12 22:58 | IPN ---
DATE: 10/12/2019 Marino seems to be doing much better today. He is nothing by mouth and asked for some drink. He is alert, oriented. His , Bella, of 32 years is at the bedside. She states that at baseline he is independent and not incontinent of urine or stool. He is pretty functional. He denies any nausea, vomiting, diarrhea, headache, abdominal pain. He was able to sit up on his own. The ulcer that has been on his right shoulder has been there for a year with purulent drainage. He had a new lesion on his forehead that he had bumped his head in the garage about a week prior to admission. LABORATORY DATA: White count is 26, hemoglobin 15.9, hematocrit 45.6, platelets 158. His white count has increased again from a couple days ago at 20,000, 83% neutrophils, 10% lymphocytes, 2% metamyelocytes. ESR 37. Sodium 142, potassium 4, chloride 111, bicarbonate 24, BUN 24, creatinine 1.37, glucose 135, calcium 7.1, magnesium 1.6, bilirubin 1.7, AST 26, ALT 15, alkaline phosphatase 75. Blood cultures were positive on 10/06/2019, negative on 10/07/2019 and 10/11/2019. Urine culture again is positive for Staphylococcus (staph) aureus. On physical exam, temperature is 98.7, pulse 138, atrial fibrillation, respirations 18, blood pressure 140/86, oxygen saturation (O2 sat) 93 heart normal s1-2 tachycardiac, regular. Lungs: Clear. No wheezes, rales or rhonchi, although he has a lot of rhonchorous sounds from the mouth area. Abdomen: Soft, distended, diminished breath sounds. Tender in the lower quadrant. Genitourinary (): With an indwelling Carvalho catheter with still cloudy urine. He has ulcerations at the penile tip, he has a lesion in the right groin area, which has been there forever according to his . Skin: He has a forehead lesion, two ulcers measuring each 1 cm, right shoulder has also three ulcerated lesions that have minimal purulent discharge. Extremities: No clubbing, cyanosis or edema. Pulses: 2+ pulses. Neurologic Exam: Follows command. He is able to communicate today. He has strabismus right eye. IMPRESSION: 1. Methicillin-sensitive Staphylococcus aureus (MSSA) bacteremia, on IV cefazolin 2 grams every 8 hours, previously on IV nafcillin. Blood cultures have been negative since 10/07/2019. 2. Urinary tract infection with persistent pyuria in the urine. Will discontinue Carvalho catheter today. May need to consult with urology. 3. Persistent abdominal pain and leukocytosis. Will obtain CT abdomen and pelvis for followup to see if there is any reason for this consistent leukocytosis, and rule out a possible abscess. 4. Penile ulcers. Will switch from Nystatin powder to Lotrimin cream. They also could be herpetic nature. PLAN: Continue IV cefazolin. Will discuss with cardiology transesophageal echocardiogram (ISMAEL) to rule out endocarditis. CT abdomen and pelvis will be done tomorrow to rule out abscess. ROBD
[2019-10-12] MEDS: POTASSIUM CHLORIDE INJ 40 MEQ in D5W 1,000 ML IV SCH (23:37)
[2019-10-13] VITALS: BP 142/100
[2019-10-13] MEDS: ceFAZolin SOD 2 GM in IV 1 EA IV SCH ×3 (02:28→18:06)
[2019-10-13 04:00] VITALS: BP 136/70
[2019-10-13] MEDS: METOPROLOL 5 MG/5 ML VIAL IV SCH ×4 (05:13→23:26)
[2019-10-13 05:33] LABS: HEMATOCRIT 47.8 % (42.0-52.0); HEMOGLOBIN 15.9 g/dl (13.5-17.5); MEAN CORPUSCULAR HEMOGLOBIN 30.9 pg (27.0-33.0); MEAN CORPUSCULAR HGB CONC 33.3 g/dl (32.0-36.5); PLATELET COUNT, AUTOMATED 234 10^3/uL (150-450); RED BLOOD COUNT 5.14 10^6/uL (4.30-6.10)
[2019-10-13 05:34] LABS: WHITE BLOOD COUNT 36.3 10^3/uL (4.0-10.0)
[2019-10-13 05:53] LABS: LYMPHOCYTES 6 % (16-44); METAMYELOCYTES 2 % (0-0); MONOCYTES 1 % (0-5); NEUTROPHILS 90 % (28-66); PLATELET ESTIMATE NORMAL (NORMAL)
[2019-10-13 05:54] LABS: ALBUMIN 1.3 GM/DL (3.2-5.2); ANISOCYTOSIS 1+; BILIRUBIN,TOTAL 2.4 MG/DL (0.2-1.0); CALCIUM LEVEL 7.4 MG/DL (8.8-10.2); CREATININE FOR GFR 1.53 MG/DL (0.70-1.30); GLOMERULAR FILTRATION RATE 46.6 (>35); MAGNESIUM LEVEL 1.6 MG/DL (1.8-2.4); POTASSIUM SERUM 4.5 MEQ/L (3.5-5.1); TOTAL PROTEIN 5.8 GM/DL (6.4-8.2)
[2019-10-13] MEDS ORDERED: VARIBAR PUDDING 40% w/v 230ML TUBE As Ordered ONE ×2 (07:50→15:05)
[2019-10-13] MEDS ORDERED: VARIBAR NECTAR 40% w/v 240ML SUSP BTL As Ordered ONE ×2 (07:50→15:05)
[2019-10-13] MEDS ORDERED: E-Z-PAQUE 96% w/w SUSP 176GM BTL As Ordered ONE ×2 (07:51→15:06)
[2019-10-13] MEDS ORDERED: BARIUM SULFATE 700 MG TABLET (E-Z-DISK) As Ordered ONE ×2 (07:51→15:06)
[2019-10-13 08:00] VITALS: BP 161/94
[2019-10-13] MEDS: MULTIVITAMINS/MINERALS THERAP 1 TAB PO SCH (09:00)
[2019-10-13] MEDS: FOLIC ACID 1 MG TAB PO SCH (09:00)
--- NOTE | 2019-10-13 09:27 | REP ---
CT CHEST WITHOUT CONTRAST: HISTORY: Sepsis. Rule out pneumonia. COMPARISON PORTABLE CHEST X-RAY: October 11, 2019. CT FINDINGS: There are small bilateral pleural effusions with mild compressive atelectasis in the lower lobes bilaterally. No CT evidence of inflammatory infiltrate to suggest emanuel pneumonia. There is no evidence of pleural effusion. There is a small amount of ascites in the upper abdomen around the liver and spleen. No hilar or mediastinal mass or adenopathy is observed. Cardiomegaly is observed. Partial calcification in the wall of a hepatic cyst is again noted unchanged. No bony destructive lesion. IMPRESSION: Small bilateral pleural effusions. Mild upper abdominal ascites. Cardiomegaly. No other acute abnormality. Electronically Signed by Vishnu Fernandez MD 10/13/2019 02:55 P
--- NOTE | 2019-10-13 09:35 | IPN ---
DATE OF SERVICE: 10/12/2019 SUBJECTIVE: The patient was seen and examined at the bedside today morning. He is afebrile, hemodynamically stable. Renal function is stable. Creatinine is down to 1.3. The patient has no oral intake; however with the IV fluids he has good urine output. His electrolytes are within the acceptable range now. OBJECTIVE: VITAL SIGNS: Temperature is 98 degrees Fahrenheit, blood pressure 160/74, pulse is 119, respiratory rate of 18, saturating 97% on room air. INTAKE/OUTPUT: Urine output recorded is 1.5 liters yesterday, 2.1 liters so far today since overnight. Weight in the bed scale was 72.9 kg yesterday. PHYSICAL EXAMINATION: GENERAL: The patient is awake, nonverbal, follows few commands, utters few words, laying in bed. HEAD/NECK EXAM: The patient has a squint in the right eye. Mucous membranes are moist. Neck is supple. There is no jugular venous distention (JVD). CARDIOVASCULAR: S1, S2, regular rate. No edema of the bilateral lower extremities. RESPIRATORY: Chest is clear to auscultation bilaterally. Bilateral equal air entry. No rales or rhonchi. ABDOMEN: Slightly distended with decreased bowel sounds, tympanitic percussion and mildly tender to deep palpation. GENITOURINARY: He has an indwelling Carvalho catheter. MUSCULOSKELETAL: No clubbing or cyanosis. Pulses are 2+. CENTRAL NERVOUS SYSTEM (MACHINE INSPECTOR): The patient is awake. He does not communicate but he moves extremities. LAB REVIEW: Complete blood count (CBC) showed WBC of 26, hemoglobin is 15.9, platelets of 158. Basic metabolic panel (BMP) showed sodium 142, potassium 4, chloride 111, bicarbonate 24, BUN 29, creatinine is 1.37, it was 1.49 yesterday, calcium 7.1, magnesium is 1.6, total bilirubin 1.7, C-reactive protein is 18. MICROBIOLOGY: Repeat urine culture from 10/11/2019 is still growing Staphylococcus aureus, which is 40,000 colonies. IMAGING: An MRI of the brain was done today, which showed generalized volume loss, no acute intracranial abnormality. CT scan of the abdomen and pelvis was done with contrast. It showed bilateral adrenal hyperplasiam, acute cystitis in combination with chronic bladder outlet obstruction, Occult bladder neoplasm not excluded, mild prostatic hyperplasia and anasarca. There was a small umbilical hernia. No evidence of incarceration. CURRENT INPATIENT MEDICATIONS: The patient is currently on IV Ancef. His IV fluids have been decreased to D5W with 40 mEq of KCl at 80 mL/h. Amlodipine and atenolol have been stopped. He is currently on Lopressor 5 mg IV every 6 hours. ASSESSMENT/PLAN: 1. Acute renal failure. Renal function has improved back to baseline. It was secondary to urinary tract infection (UTI) and chronic bladder outlet obstruction. He continues to be on IV fluid hydration because of poor oral intake. 2. Hypokalemia. Potassium has improved with IV potassium containing fluid. 3. Staphylococcus aureus UTI. The patient continues to be on Ancef. He also had bacteremia. Dose and duration of antibiotic is as per Infectious Disease (ID) recommendations. 4. Hypertension. Atenolol and amlodipine have been stopped. He is currently on IV metoprolol. Blood pressures are acceptable. 5. Atrial fibrillation with rapid ventricular response (RVR). The patient is currently on IV amiodarone, IV metoprolol. Anticoagulation is on hold because the patient is nothing by mouth (n.p.o) 7. Ileus. The patient got the CT scan done, which just showed signs of cystitis, but bladder mass could not be ruled out. The patient is still n.p.o. Continue IV fluid hydration until the patient starts to tolerate oral diet. DISPOSITION: The patient's renal function has plateaued. Electrolytes are within the acceptable range. Nephrology service is going to sign off at this moment. Please call nephrology service for any help in the management of this patient during this hospitalization. The patient will need to followup with nephrology service within 1 week after discharge from the hospital. JEAN-PAUL
[2019-10-13] MEDS: PANTOPRAZOLE 40MG VIAL (C9113 PER 1) IV SCH ×2 (09:37→20:13)
[2019-10-13] MEDS: AMIODARONE HCL 150 MG in IV 1 EA IV SCH ×2 (09:37→20:13)
[2019-10-13] MEDS: CLOTRIMAZOLE 1% TOPICAL CREAM 30GM TOP SCH ×2 (09:38→20:14)
--- NOTE | 2019-10-13 10:33 | IPN ---
DATE: 10/13/2019 Patient remains encephalopathic, opens his eyes, unable to speak. MRI of the brain showed no septic emboli or cerebrovascular accident (CVA) done on 10/12/2019. Patient responds to his name, opens his eyes but does not follow commands. He has spontaneous movements but unable to complete a review of systems. He remains tachycardic with irregular rhythm. Ventricular rate of 121-137. Has been kept nothing by mouth status due to aspiration risk. Despite IV amiodarone 150 twice a day and status post amiodarone drip protocol, patient has not responded. Per Dr. Wan of cardiology environmental communications specialist, no other treatment. No plans for transesophageal echocardiogram (ISMAEL) due to altered mental status and sepsis and risk of intubation if we proceed with ISMAEL. PHYSICAL EXAMINATION: Temperature 97.8, pulse 137 irregularly irregular, atrial fibrillation on telemetry. Respiratory 20, blood pressure 161/94, 97% on room air. Generally, patient is confused, awake, alert, oriented to himself only. Quickly reverts back to sleeping. He currently has no jugular venous distention (JVD). No thyromegaly. No cervical lymphadenopathy. No use of respiratory accessory muscles. Lungs are diminished with fine crackles at bilateral bases. Abdomen is distended, tympanitic. Extremities: No pitting edema. White count 36.3, pulse 15, respiratory 47, platelet count 234, creatinine 1.453. ASSESSMENT/PLAN: This is an 84-year-old male admitted on 10/06/2019 with confusion and weakness. History of coronary artery disease, hypertension, pneumonia and alcohol abuse, felt to be encephalopathic. Urine culture grew out Staphylococcus aureus with Staphylococcus aureus bacteremia, sensitive to oxacillin with methicillin sensitive Staphylococcus aureus (MSSA) sepsis and possible clinical endocarditis. Patient's brain MRI had no septic embolic. CT of the abdomen and pelvis shows small bilateral effusions, bilateral adrenal hyperplasia, acute cystitis, mild prostatic hyperplasia and anasarca. No incarceration of the umbilical hernia. No diverticulitis, hydropic sludge filled gallbladder. Patient developed atrial fibrillation with rapid ventricular rate (RVR) refractory to IV amiodarone unable to give oral intake due to confusion, awaiting cookie swallow. ACUTE ISSUES: 1. Methicillin sensitive Staphylococcus aureus (MSSA) bacteremia secondary to cystitis currently on IV cefazolin 2 grams every 8 hours. White count is still elevated, afebrile. 2. Urinary tract infection (UTI) with cystitis: Carvalho catheter has been discontinued. Creatinine appears stable. 3. Acute kidney injury: Managed by licensed bondsman, Dr. Guerra, improved back to baseline. This is thought to be secondary to UTI and chronic bladder outlet obstructions, status post IV fluids. 4. Atrial fibrillation with RVR: On IV metoprolol with IV amiodarone without any improvement. Per Dr. Wan, patient needs to be resumed on oral intake once stable and no signs of aspiration. For now, IV metoprolol as needed. 5. Ileus: Patient has been kept nothing by mouth still on IV fluids, awaiting swallow evaluation. Will need to start either orogastric tube feedings as well as potentially a feeding tube via PEG or comfort measures only. He is currently not a candidate for total parenteral nutrition (TPN) due to bacteremia with worsening white count. 5. Acute encephalopathy secondary to sepsis. No septic emboli in the brain has been noted. He is currently supported with IV antibiotics, appropriate for his microbiology result and sensitivities but remains encephalopathic. [facility]
[2019-10-13 12:00] VITALS: BP 165/105
--- NOTE | 2019-10-13 12:35 | REP ---
Portable chest x-ray: Single view. History: NG tube placement. Comparison chest x-ray: October 11, 2019. Findings: Nasogastric tube has been passed and is seen looped in the gastric fundus. There is slight fissural thickening at the right base as before. No new infiltrate. Impression: NG tube appears in good position. Electronically Signed by Vishnu Fernandez MD 10/13/2019 12:26 P
[2019-10-13] MEDS ORDERED: METOPROLOL 5 MG/5 ML VIAL IV STA (12:36)
[2019-10-13] MEDS ORDERED: MAG SULF 1GM/100ML (MAG RUN) 1 GM in IV 1 EA IV ONE (13:00)
[2019-10-13] MEDS: amLODIPine 5 MG TAB PO SCH (13:09)
[2019-10-13] MEDS: atenoloL 25 MG TAB NG SCH ×2 (13:09→20:13)
--- NOTE | 2019-10-13 13:50 | IPN ---
DATE: 10/13/2019 Mr. Raines was seen and examined at the bedside this morning after returning from CT. His breathing seems to be much worse and he is unable to manage his own secretions with a lot of upper airway noises heard. He is still grunting and not quite responding to questions. He seems to still be altered. He does not seem to be oriented to person, place or time. He has very unintelligible speech this morning. Both myself and Dr. Wan attempted to speak with the patient who was not responding to either of our questions. He is currently in atrial fibrillation and nursing notes that he has not been eating for the past several days due to his failed swallow evaluation. They are concerned about feeding at this time, otherwise no changes noted overnight. Objectively, his vital signs are temperature 96.9, pulse is 118, respiratory rate is 26, blood pressure 165/105, and pulse oximetry is 92% on room air. He has a net positive balance of 480. He made about 2100 mL of urine yesterday. Generally, he is laying flat in bed, calm, cooperative, in no acute distress. Appears stated age. HEENT Examination: Extraocular movements are intact. Pupils are equally round and reactive to light. His mucous membranes are moist. Neck is supple with no thyromegaly, no lymphadenopathy. Cardiovascular: He is irregularly irregular, but no discernable murmurs, rubs, or gallops. No jugular venous distention is appreciated. Lungs: He has significant upper airway noises and some scattered wheezing and rhonchi throughout his lungs bilaterally. Abdomen is somewhat distended, but seems to be nontender to palpation. Positive bowel sounds. No masses or organomegaly. Extremities: He has no clubbing, cyanosis or edema. Unable to assess neurologic or psychiatric examination at this time. LABORATORIES: His white blood cell count has risen to 36.3 from 26 yesterday. Hemoglobin is 15.9 hematocrit is 47.8, and platelet count is 234. Chemistries: His sodium is 136, potassium 4.5, carbon dioxide 20, BUN 27, and creatinine is 1.53 up from 1.37 yesterday. His lactic acid was found to be 1.5. Magnesium level is 1.6. Total bilirubin is up to 2.4 from 1.7 yesterday. CRP was found to be 18 and total protein is 5.8. IMAGING: He did have a chest CT done this morning which showed small bilateral pleural effusions, mild upper abdominal ascites, cardiomegaly, with no other acute abnormalities. In addition, he did have a chest x-ray done which showed NG tube that had been passed into the stomach appearing in good position. ASSESSMENT: This is an 84-year-old male who came in with altered mental status, found to have possible ileus, now with urosepsis and bacteremia, currently concerning ongoing atrial fibrillation with rapid ventricular response (RVR). PLAN: 1. Atrial fibrillation with rapid ventricular response. It appears his rate continues to be high. This is quite challenging as he is unable to take any oral medications for rate control. However, he is on amiodarone 150 mg twice daily. We are hoping now that he has an NG tube that we can possibly write for him to have a beta raul as well to get better control. 2. Uncontrolled hypertension. Now that he has the NG tube we may be able to do amlodipine as well. 3. Sepsis with gram-positive cocci and bacteremia. Continue on cefazolin per Dr. Beltran. As stated before, this patient is at high risk of respiratory distress at this time, especially with his upper airway secretions and a transesophageal echocardiogram (ISMAEL) at this point in time would be too risky. We will wait to see how his respiratory status improves and will then reconsider him for ISMAEL. 4. Acute renal failure with urosepsis. His renal function has improved. We will continue to watch this patient pretty closely. Feel free to call us with any questions.
--- NOTE | 2019-10-13 15:15 | IPNPDOC ---
Date Seen The patient was seen on 10/13/19. Progress Note PROTEIN CALORIE MALNUTRITION ALBUMIN 1.2 -due to poor oral intake with npo status, ileus, and only ivfluids. -ng tube placed, repair miller consulted for tube feeding recommendations -failed swallow evaluation with aspiration risk. re-consult speech therapist in 5days. -continue ASA for h/o CVA. VS, I&O, 24H, Fishbone Vital Signs/I&O Vital Signs Date Time Temp Pulse Resp B/P (MAP) Pulse Ox O2 Delivery O2 Flow Rate FiO2 10/13/19 13:09 118 165/105 10/13/19 12:00 96.9 26 92 Room Air I&O- Last 24 Hours up to 6 AM 10/13/19 06:00 Intake Total 1750 ml Output Total 1350 ml Balance 400 ml Laboratory Data 24H LABS Laboratory Tests 2 10/13/19 04:46: Immature Granulocyte % (Auto) , Neutrophils (%) (Auto) , Nucleated Red Blood Becky ls % (auto) 0.0, Neutrophils 90H, Band Neutrophils 1, Lymphocytes (Manual) 6L, Monocytes (Manual) 1, Metamyelocytes 2H, Anisocytosis 1+, Platelet Estimate NORMAL, Anion Gap 8, Glomerular Filtration Rate 46.6, Calcium Level 7.4L, Magnesium Level 1.6L, Total Bilirubin 2.4H, Aspartate Amino Transf (AST/SGOT) 32, Alanine Aminotransferase (ALT/SGPT) 8L, Alkaline Phosphatase 78, Total Protein 5.8L, Albumin 1.3L, Albumin/Globulin Ratio 0.3 10/13/19 10:40: Lactic Acid Level 1.5 CBC/BMP Laboratory Tests 10/13/19 04:46 Microbiology Microbiology 10/11/19 Urine Culture - Final, Complete Staphylococcus Aureus 10/11/19 Blood Culture - Preliminary, Resulted No Growth after 48 hours. All Specime... 10/07/19 Gram Stain - Final, Complete 10/07/19 Wound Culture - Final, Complete Staphylococcus Aureus 10/07/19 Blood Culture - Final, Complete NO GROWTH AFTER 5 DAYS 10/06/19 Urine Culture - Final, Complete Staphylococcus Aureus 10/06/19 Blood Culture - Final, Complete Staphylococcus Aureus 10/06/19 Blood Culture - Final, Complete Staphylococcus Aureus KOLE BARBOSA MD Oct 13, 2019 15:15
[2019-10-13 16:00] VITALS: BP 141/92
[2019-10-13] MEDS ORDERED: SALIVA SUBSTITUTE(MOUTHKOTE) BTL MT PRN (16:45)
[2019-10-13] MEDS: SALIVA SUBSTITUTE(MOUTHKOTE) BTL MT SCH ×2 (17:00→20:13)
[2019-10-13] MEDS: POTASSIUM CHLORIDE INJ 40 MEQ in D5W 1,000 ML IV SCH ×2 (18:06→23:00)
[2019-10-13 20:00] VITALS: BP 132/68
--- NOTE | 2019-10-13 20:04 | REP ---
Examination Requested: Cookie Swallow Reason For Exam: Dysphasia The procedure was performed by ANUJ Wen, under the direct supervision of Dr. Angelo. The procedure was performed with Tammy Mendenhall from speech pathology present. 5 ml aliquots of pudding, and honey thick consistency barium was administered. No aspiration or penetration was visualized throughout the course of the exam. The detailed report of this examination will be provided by speech pathology. 0.9 minutes of fluoroscopy time was utilized for this procedure. Reviewed by ANUJ Osei 10/13/2019 04:08 P Electronically Signed by Adrián Angelo MD 10/13/2019 07:55 P
[2019-10-13] MEDS ORDERED: atenoloL 25 MG TAB NG ONE (21:45)
[2019-10-14] VITALS: BP 158/88
[2019-10-14] MEDS: SALIVA SUBSTITUTE(MOUTHKOTE) BTL MT SCH ×6 (01:00→21:31)
[2019-10-14] MEDS: ceFAZolin SOD 2 GM in IV 1 EA IV SCH ×3 (02:17→18:46)
[2019-10-14 04:00] VITALS: BP 134/84
[2019-10-14] MEDS: METOPROLOL 5 MG/5 ML VIAL IV SCH (05:34)
[2019-10-14 06:00] LABS: BASO # 0.2 10^3/uL (0.0-0.2); BASO % 0.5 % (0.0-1.0); EOS # 0.2 10^3/uL (0.0-0.5); EOS % 0.7 % (0.0-3.0); HEMATOCRIT 40.5 % (42.0-52.0); LYMPH % 5.6 % (24.0-44.0); MEAN CORPUSCULAR HEMOGLOBIN 31.2 pg (27.0-33.0); MEAN CORPUSCULAR HGB CONC 33.6 g/dl (32.0-36.5); MEAN CORPUSCULAR VOLUME 92.9 fl (80.0-96.0); MONO # 1.2 10^3/uL (0.0-0.8); MONO % 3.5 % (0.0-5.0); NEUTROPHILS # 29.9 10^3/uL (1.5-8.5); NEUTROPHILS % 85.3 % (36.0-66.0); PLATELET COUNT, AUTOMATED 308 10^3/uL (150-450); RED BLOOD COUNT 4.36 10^6/uL (4.30-6.10)
[2019-10-14 06:11] LABS: HEMOGLOBIN 13.6 g/dl (13.5-17.5)
[2019-10-14 06:19] LABS: CALCIUM LEVEL 7.2 MG/DL (8.8-10.2); CREATININE FOR GFR 1.52 MG/DL (0.70-1.30); POTASSIUM SERUM 4.2 MEQ/L (3.5-5.1)
[2019-10-14] MEDS ORDERED: atenoloL 50 MG TAB NG STA (06:53)
[2019-10-14 07:07] VITALS: BP 139/80
[2019-10-14] MEDS ORDERED: atenoloL 50 MG TAB PO SCH (09:00)
[2019-10-14] MEDS: amLODIPine 5 MG TAB PO SCH (09:00)
[2019-10-14 09:04] LABS: FREE THYROXINE INDEX 2.2 % (1.4-3.8); THYROID STIMULATING HORMONE 2.09 uIU/ML (0.358-3.740); THYROXINE (T4) 6.4 UG/DL (4.5-12.0)
[2019-10-14] MEDS: AMIODARONE 200 MG TAB (PACERONE) PO SCH ×2 (10:12→21:31)
[2019-10-14] MEDS: THIAMINE 200MG/2ML VIAL (J3411 PER 100MG) IV SCH (10:13)
[2019-10-14] MEDS: MULTIVITAMINS/MINERALS THERAP 1 TAB PO SCH (10:13)
[2019-10-14] MEDS: PANTOPRAZOLE 40MG VIAL (C9113 PER 1) IV SCH ×2 (10:13→21:31)
[2019-10-14] MEDS: FOLIC ACID 1 MG in NS 50 ML IV SCH (10:14)
[2019-10-14] MEDS: POTASSIUM CHLORIDE INJ 40 MEQ in D5W 1,000 ML IV SCH (10:14)
[2019-10-14] MEDS: CLOTRIMAZOLE 1% TOPICAL CREAM 30GM TOP SCH ×2 (10:15→21:32)
--- NOTE | 2019-10-14 10:52 | IPN ---
DATE OF SERVICE: 10/14/2019 Mr. Raines was seen and examined at the bedside this morning. He seems to have much clearer mental status, and he is more conversive, and his speech is more intelligible. He now has a nasogastric (NG) tube, as well. He still has a lot of loud upper airway noises. He denies any pain, difficulty breathing, or any discomfort at this time. He is still in atrial fibrillation but had no events overnight that were reported to us. Objectively, his vital signs: Temperature of 97.3, pulse of 107, respiratory rate of 22, blood pressure is 139/80, pulse oximetry is 98% on room air. He is net positive 280. He made 700 mL of urine yesterday. Generally, he is laying flat in bed, calm, cooperative, no acute distress. He appears stated age. HEENT examination: Extraocular movements are intact. Pupils are equally round and reactive to light. His mucous membranes are moist. Neck is supple with no thyromegaly, no lymphadenopathy. Cardiovascular: He is irregularly irregular. Difficult to auscultate heart sounds due to loud breath sounds from upper airway congestion. No discernable murmurs, rubs, or gallops, though, and no jugular venous distention is appreciated. Lungs: Significant upper airway noises. Some scattered wheezing and rhonchi throughout his lungs bilaterally. Abdomen is somewhat distended but softer than yesterday. Nontender to palpation. Positive bowel sounds. No masses or organomegaly. Extremities: He has no clubbing, cyanosis, or edema. Unable to assess neurologic or psychiatric examination at this time. LABORATORIES: White blood cell count is down to 35 from 36.3 yesterday. Hemoglobin is 13.6. Hematocrit is 40.5, and platelet count is 305. On chemistries, his sodium is 136, potassium is 4.2, chloride is 108, BUN is 32, creatinine is 1.52, calcium is 7.2. His thyroid laboratories were checked, and TSH was 2.090, which is normal. Free T4 was 2.2. No other growth on blood cultures. He did undergo an esophagus x-ray yesterday, which showed no aspiration with swallowing. ASSESSMENT: This is an 84-year-old male who came in to the emergency department (ED) with altered mental status, found to have possible ileus, now with urosepsis and bacteremia, currently concerning for ongoing atrial fibrillation with rapid ventricular response (RVR). PLAN: 1. Atrial fibrillation (AFib) with rapid ventricular response. He was started on atenolol 100 mg yesterday, which seems to have improved his rate immensely, and he is in the low 100s now. We will continue this atenolol at this dose. I have switched his amiodarone from intravenous (IV) 150 mg twice a day to oral which can be crushed in his NG tube 200 mg twice a day for the time being. 2. Uncontrolled hypertension. I have started him on amlodipine 5 mg daily, which has improved his blood pressure at this time. 3. Sepsis with gram-positive cocci and bacteremia. Continue cefazolin per Dr. Beltran. As stated before, the patient is at high risk of respiratory distress at this time, especially with his upper airway secretions, and transesophageal echocardiogram (SIMAEL) at this point would be too risky. We will wait to see how his respiratory status improves and will then reconsider him for a ISMAEL at a later time. 4. Acute renal failure with sepsis. His renal function has resolved. We will continue to watch the patient pretty closely. Feel free to call us with any questions.
[2019-10-14 12:00] VITALS: BP 144/95
--- NOTE | 2019-10-14 14:50 | IPNPDOC ---
Date Seen The patient was seen on 10/14/19. Progress Note Attempted to reach the to discuss patient's clinical status KATE, , but no answer x 2. VS, I&O, 24H, Lamin Vital Signs/I&O Vital Signs Date Time Temp Pulse Resp B/P (MAP) Pulse Ox O2 Delivery O2 Flow Rate FiO2 10/14/19 12:00 97.6 97 24 144/95 (111) 95 Room Air I&O- Last 24 Hours up to 6 AM 10/14/19 06:00 Intake Total 1030 ml Output Total 1450 ml Balance -420 ml Laboratory Data 24H LABS Laboratory Tests 2 10/14/19 05:16: Immature Granulocyte % (Auto) 4.4H, Neutrophils (%) (Auto) 85.3H, Lymphocytes (%) (Auto) 5.6L, Monocytes (%) (Auto) 3.5, Eosinophils (%) (Auto) 0.7, Basophils (%) (Auto) 0.5, Neutrophils # (Auto) 29.9H, Lymphocytes # (Auto) 2.0, Monocytes # (Auto) 1.2H, Eosinophils # (Auto) 0.2, Basophils # (Auto) 0.2, Nucleated Red Blood Cells % (auto) 0.0, Anion Gap 7L, Glomerular Filtration Rate 47.0, Calcium Level 7.2L, Thyroid Stimulating Hormone (TSH) 2.090, Free Thyroxine Index 2.2, Thyroxine (T4) 6.4, Triiodothyronine (T3) Uptake 34 CBC/BMP Laboratory Tests 10/14/19 05:16 Microbiology Microbiology 10/14/19 Blood Culture, Received Pending 10/11/19 Urine Culture - Final, Complete Staphylococcus Aureus 10/11/19 Blood Culture - Preliminary, Resulted No Growth after 72 hours. All specime... 10/07/19 Gram Stain - Final, Complete 10/07/19 Wound Culture - Final, Complete Staphylococcus Aureus 10/07/19 Blood Culture - Final, Complete NO GROWTH AFTER 5 DAYS 10/06/19 Urine Culture - Final, Complete Staphylococcus Aureus 10/06/19 Blood Culture - Final, Complete Staphylococcus Aureus 10/06/19 Blood Culture - Final, Complete Staphylococcus Aureus KOLE BARBOSA MD Oct 14, 2019 14:50
[2019-10-14 16:00] VITALS: BP 148/89
--- NOTE | 2019-10-14 16:09 | EEG ---
DATE OF PROCEDURE: 10/13/2019 REFERRING PHYSICIAN: Dr. Waqas Ramirez DIAGNOSIS: Altered mental status. EEG NUMBER: [id number] HISTORY: The patient is an 84-year-old man who was admitted at [facility] due to altered mental status. He is currently taking amiodarone, cefazolin, folic acid, atenolol, Protonix, metoprolol. TECHNICAL DESCRIPTION: This digital EEG was recorded by 21 scalp, ear and two EKG electrodes and was reviewed in bipolar and referential montages following reformatting in 10-20 international electrode placement system. INTERPRETATION: The patient was noted to be in mostly drowsy and confused state throughout this EEG. Background rhythm consisted of 2-3 hertz delta activity measuring 15-40 microvolts in amplitude, which was symmetric bilaterally. Almost continuous FT2 and F4 electrode artifacts were noted. No clear sleep stages were identified. Hyperventilation could not be performed. Photic stimulation remained unremarkable. EKG revealed atrial fibrillation. No focal, lateralizing, or epileptiform abnormalities were seen. No relevant clinical activity was noted. CONCLUSION: This EEG in mostly drowsy and confused state is abnormal due to presence of generalized slowing consistent with nonspecific diffuse cerebral dysfunction suggesting a moderate-severe encephalopathy due to multiple potential causes, including toxic, metabolic, infectious, medication related or multifocal structural brain abnormalities. Clinical correlation is recommended. Edited 10/14/2019 [facility]
--- NOTE | 2019-10-14 17:04 | IPN ---
DATE: 10/14/2019 Patient is responding more appropriately, still with some slurring of speech. Daughter was at the bedside yesterday afternoon around 4:30 to about 6:00 pm. Yesterday, patient's daughter said that his bedside mentation is at baseline. She said that he uses certain words at home as his personal expressions, which may be interpreted as unintelligible. However, she was able to converse with him, says that he is very hard of hearing to begin with, and he was appropriate. He wanted to go home, for the patient to remove his mitts, and to remove the nasogastric tube. 4 loose BM Patient had urine retention yesterday with 725 mL postvoid residual that had needed catheterization. Overnight patient remained in atrial fibrillation, rate had been about 90 to about 110s. Blood pressure was 130 to 160, diuresing well, which was positive. He had been net negative from 10/09/2019 to 10/12/2019. Yesterday was positive 810, current weight is 72.8 kg with a peak weight of 81.5 kg and admission weight of 68.8 kg. Patient was afebrile. Temperature 97.3, pulse 107, respiratory rate 22, blood pressure 139/89, 98% on room air. Generally, patient is awake, alert, oriented to himself. He is much more cooperative and answering questions this morning, but still fairly selective and usually closes his eyes and does not interact. Nasogastric tube in place. Moist mucous membranes. Patient has gurgling. No stridor on exam. Lungs diminished with bibasilar crackles. Heart: S1, S2, irregularly irregular and tachycardic. Abdomen is distended, tympanitic, positive bowel sounds, hyperactive. Extremities: No cyanosis or clubbing. LABORATORY DATA: Reviewed. Notable for 35,000 white count. Hemoglobin 13, hematocrit of 40, platelet count of 308. Sodium 136, potassium 4.2, chloride 108, bicarbonate 21, BUN 32, creatinine 1.5, glucose of 135. ASSESSMENT AND PLAN: This is an 84-year-old male with protein-calorie malnutrition, albumin of 1.2, coronary artery disease, hypertension, pneumonia, alcohol abuse, presented with confusion and weakness, was found to be encephalopathic secondary to urosepsis . Patient had urine culture grow out methicillin-sensitive Staphylococcus aureus (MSSA) with blood culture positive MSSA as well as the wound culture on left shoulder. Patient had been changed to nafcillin with still persistent white count of 35,000. CT, chest, abdomen and pelvis: Unremarkable for any abscess formation. MRI of the brain: Had no septic emboli. IMPRESSION: 1. Acute encephalopathy secondary to sepsis from cystitis, urinary tract infection and methicillin-sensitive Staphylococcus aureus bacteremia. EEG consistent with diffuse encephalopathy without epileptiform activity. supportive care with iv abx for cystitis, mssa bacteremia, s/p ivfluids for renal failure, and with NG tube in place, rate control with atenolol and amiodarone for Afib w rvr. MRI brain-chronic changes without acute cva despite Afib. 2. Sepsis secondary to MSSA bacteremia, cystitis with staph aureus, wound cx with MSSA. Currently onIV nafcillin, managed by infectious disease specialist. No plans for transesophageal echocardiogram due to respiratory status and risk of ventilatory failure. 3. Acute kidney injury superimposed on chronic bladder outlet obstruction. Back to baseline creatinine, managed by account resolution specialist. Repeat chest x-ray shows small bilateral pleural effusions. Fluid management per nephrology. Patient's weight has slightly decreased from the peak weight of 81 kg. will hold off on urology consult for cystoscopy until pt's respiratory status and AFib are improved. 4. Atrial fibrillation with rapid ventricular response (RVR), now with nasogastric tube. Change to atenolol 100 mg daily and amiodarone 200 mg twice a day. Patient received atenolol 25 mg twice a day yesterday with no improvement; therefore, the evening dose was changed to 50 mg. Total dose yesterday of atenolol was 75 mg. He was given 100 mg this morning via the nasogastric tube. 5. Aspiration secondary to acute encephalopathy. EEG is still pending. It was completed yesterday. 6. Ileus. Currently with nasogastric tube feedings per neurology professor and continue with nasogastric medication administration. 7. Acute hypoxic respiratory failure requiring supplemental oxygen. due to sepsis, cystitis. not medically stable for cystoscopy. 8. chronic bladder outlet obstruction predisposing to UTI, cystitis. urology consult once stable. 9. Loose BM. 4yesterday. monitor for Cdiff. high risk due to prolonged abx use. Diet: NPO due to aspiration risk. NG tube placed. neurology professor assisting in tube feed recommendations. Activity: ambulate tid. oob to chair TID. MTDD
--- NOTE | 2019-10-14 18:36 | REP ---
Portable chest x-ray: Sitting AP view. History: Shortness of breath. Comparison study: October 13, 2019. Findings: An NG tube is seen in the gastric fundus. Monitoring electrodes are noted. There is some fissural thickening at the right base. Pulmonary vasculature is slightly cephalized. No infiltrate is seen. Electronically Signed by Vishnu Fernandez MD 10/14/2019 06:28 P
[2019-10-14] MEDS: LACTOBACILLUS ACIDOPHILUS CAP (BACID) PO SCH ×2 (18:46→23:57)
--- NOTE | 2019-10-14 18:59 | IPN ---
DATE: 10/14/2019 Mr. Raines is more confused than 48 hours ago. He has a nasogastric (NG) tube for tube feeding but has not tolerated his tube feeds. He has a Carvalho catheter again. He had urinary retention after the catheter was removed for 24 hours and therefore, it was replaced. He had soft stools but no diarrhea, brown colored. He has had no fever or chills. Temperature is 97.4, pulse 81, respirations 24, blood pressure 148/89, oxygen saturation (O2 sat) was 95% earlier today, currently is 85%. Heart: Normal S1, S2, irregular. No murmurs appreciated. Lungs: Diffuse expiratory rhonchi with mostly upper airway sounds. No wheezes appreciated. Abdomen: Distended, soft, NG tube in place with greenish, bilious, phlegmy-looking material in the canister. Bowel sounds are present. Extremities: No clubbing, cyanosis or edema. Skin: He has an abscess on the forehead that is healing with bloody discharge. A right abscess on the scapula has minimal purulent discharge. LABS: White count 35, hemoglobin 13.6, hematocrit 40.5, platelets 308, 85% neutrophils, 6% lymphocytes, 3% monocytes. Sodium 136, potassium 4.2, chloride 108, bicarbonate 21, BUN 32, creatinine 1.52, glucose 135, lactic acid 1.5, calcium 7.2, TSH 2.09, free T4 2.2. Blood cultures were positive on 10/06/2019 times two. Wound culture, urine culture are all positive for methicillin-sensitive Staphylococcus aureus (MSSA). CT abdomen and pelvis done on 10/12/2019 shows small bilateral pleural effusion, 4.2 cm calcified cyst in the hepatic dome, possibly post infectious, bilateral adrenal hyperplasia, acute cystitis with chronic bladder outlet obstruction, occult neoplasm cannot be ruled out, mild BPH, anasarca, umbilical hernia, moderate diverticulosis. CT chest: Small bilateral pleural effusion with no acute abnormalities, no pneumonia. Esophageal x-ray done on 10/13/2019: No aspiration was noted. IMPRESSION: 1. Staph aureus sepsis with positive urine cultures, positive skin abscess culture, positive cloudy urine and urinary obstruction. The patient continues on IV cefazolin. 2. Worsening Leukocytosis Differential diagnosis would include occult abscess versus Clostridium difficile (C difficile) versus reactive. Repeat blood cultures have been ordered for 10/14/[address] abdomen with concern for acute cystitis and bladder neoplasm. Consult urology. Patient will need cystoscopy. PLAN: Continue with IV cefazolin. Repeat blood cultures tomorrow. Continue with IV cefazolin 2 grams every 8 hours. If cultures reveal any other pathogen, will need to broad-spectrum antibiotic. if diarrhea worsens, please send for C diff. At some point, the patient will eventually need transesophageal echocardiogram (ISMAEL) once clinically stable. MTDD
[2019-10-14 20:00] VITALS: BP 128/75
[2019-10-15] VITALS: BP 141/87
[2019-10-15] MEDS: POTASSIUM CHLORIDE INJ 40 MEQ in D5W 1,000 ML IV SCH ×2 (00:10→15:56)
[2019-10-15] MEDS: SALIVA SUBSTITUTE(MOUTHKOTE) BTL MT SCH ×6 (00:10→20:21)
[2019-10-15] MEDS: ceFAZolin SOD 2 GM in IV 1 EA IV SCH ×3 (02:14→17:28)
[2019-10-15 04:00] VITALS: BP 146/78
[2019-10-15 04:43] LABS: BASO # 0.1 10^3/uL (0.0-0.2); BASO % 0.3 % (0.0-1.0); EOS # 0.3 10^3/uL (0.0-0.5); EOS % 0.8 % (0.0-3.0); HEMATOCRIT 35.4 % (42.0-52.0); LYMPH # 1.8 10^3/uL (1.5-5.0); LYMPH % 5.7 % (24.0-44.0); MEAN CORPUSCULAR HEMOGLOBIN 31.6 pg (27.0-33.0); MEAN CORPUSCULAR HGB CONC 33.9 g/dl (32.0-36.5); MEAN CORPUSCULAR VOLUME 93.2 fl (80.0-96.0); MONO # 1.4 10^3/uL (0.0-0.8); MONO % 4.2 % (0.0-5.0); NEUTROPHILS # 27.4 10^3/uL (1.5-8.5); NEUTROPHILS % 84.3 % (36.0-66.0); PLATELET COUNT, AUTOMATED 394 10^3/uL (150-450)
[2019-10-15 04:47] LABS: WHITE BLOOD COUNT 32.5 10^3/uL (4.0-10.0)
[2019-10-15 05:15] LABS: C REACTIVE PROTEIN QUANTITATIV 19.1 MG/DL (0.00-0.30); CREATININE FOR GFR 1.35 MG/DL (0.70-1.30); GLOMERULAR FILTRATION RATE 53.9 (>35); POTASSIUM SERUM 4.5 MEQ/L (3.5-5.1)
[2019-10-15] MEDS: LACTOBACILLUS ACIDOPHILUS CAP (BACID) PO SCH ×3 (05:51→17:28)
[2019-10-15 08:40] VITALS: BP 168/89
--- NOTE | 2019-10-15 09:01 | IPN ---
DATE: 10/15/2019 This is the first day, I could have a discussion with Mr. Raines. He seems to be oriented to place and person, not to time, which is not surprising. He tells me that he is feeling much better. He denies any pain and he denies any dyspnea. Vital Signs: Blood pressure 146/78. Heart rate has been in 70s to 90s. It is atrial fibrillation. There were no ventricular arrhythmia. No kayla arrhythmias. No really fast heart rates. Jugular venous pulse (JVP) does not look high. Lungs have loud upper airway sounds in the form of rhonchi. I do not appreciate any fine crackles. I do not appreciate any wheezing. Heart exam is not much easier appreciated when his heart rate is not as tachycardiac. I do not appreciate any murmurs, gallop or rub. Abdomen is still mildly distended. Soft. Bowel sounds are present. No obvious guarding, even though he seems to be little tender in the epigastrium and also in the suprapubic area. Extremities are free of edema. Neurologically, he is oriented x2. He moves all four extremities. I did not do any formal testing of DTRs or sensing. Skin is intact and no evidence for skin lesions on his soles or palms. No splinter hemorrhages. Laboratories: Basic metabolic panel with sodium 138, potassium 4.5, BUN 27, creatinine 1.35 and glucose 166. C-reactive protein is 19. CBC with WBC count 32.5, hemoglobin 12.0, hematocrit 35 and platelet count 394,000. Microbiology: The blood culture that was last positive was from October 05. All subsequent blood cultures so far have been negative. Urine culture is still positive for Staph aureus from October 10. ASSESSMENT/PLAN: Mr. Raines is an 84-year-old man who presented with Staph aureus sepsis, the source of which at this point is not completely clear, but fortunately his condition is starting to improve. I do plan tentatively to perform transesophageal echocardiogram next week to rule out endocarditis. It would not change immediate management as I do not believe that the patient is a candidate for surgical intervention. I do not appreciate any murmur by physical examination and there was no obvious vegetation or large insufficiency of the valve by transthoracic echocardiogram so hopefully this is not going to be the situation. The remaining issues remain with the primary team and infectious disease (ID). There were abnormalities on CT of the abdomen and there will have to be some additional urologic evaluation, but again the timing of which is probably not imminent. As far as the atrial fibrillation is concerned, he is at this point well rate controlled on atenolol 100 mg daily. Because he has no prior history of atrial fibrillation from before, we started him on amiodarone with the hope for eventual conversion to sinus rhythm. I do not see any anticoagulation on his medication list. The enoxaparin was discontinued on the . I do recommend that chronic anticoagulation is started. Because his oral intake is questionable, I think at this point I would probably suggest to use reduced dose Xarelto.
[2019-10-15] MEDS: PANTOPRAZOLE 40MG VIAL (C9113 PER 1) IV SCH ×2 (10:14→20:20)
[2019-10-15] MEDS: THIAMINE 200MG/2ML VIAL (J3411 PER 100MG) IV SCH (10:14)
[2019-10-15] MEDS: AMIODARONE 200 MG TAB (PACERONE) PO SCH ×2 (10:15→20:21)
[2019-10-15] MEDS: FOLIC ACID 1 MG in NS 50 ML IV SCH (10:15)
[2019-10-15] MEDS: MULTIVITAMINS/MINERALS THERAP 1 TAB PO SCH (10:15)
[2019-10-15] MEDS: atenoloL 50 MG TAB NG SCH (10:16)
[2019-10-15] MEDS: amLODIPine 5 MG TAB PO SCH (10:16)
[2019-10-15] MEDS: CLOTRIMAZOLE 1% TOPICAL CREAM 30GM TOP SCH ×2 (10:17→20:21)
[2019-10-15 12:00] VITALS: BP 139/72
[2019-10-15 16:00] VITALS: BP 128/58
[2019-10-15] MEDS: RIVAROXABAN 15 MG TAB (XARELTO) TF SCH (17:28)
[2019-10-15 20:00] VITALS: BP 141/77
[2019-10-16] VITALS: BP 136/80
[2019-10-16] MEDS: LACTOBACILLUS ACIDOPHILUS CAP (BACID) PO SCH ×4 (01:00→16:55)
[2019-10-16] MEDS: SALIVA SUBSTITUTE(MOUTHKOTE) BTL MT SCH ×6 (01:00→20:00)
[2019-10-16] MEDS: ceFAZolin SOD 2 GM in IV 1 EA IV SCH ×3 (01:00→16:56)
[2019-10-16 04:00] VITALS: BP 134/74
[2019-10-16 04:40] LABS: HEMATOCRIT 35.1 % (42.0-52.0); HEMOGLOBIN 11.7 g/dl (13.5-17.5); MEAN CORPUSCULAR HEMOGLOBIN 31.5 pg (27.0-33.0); MEAN CORPUSCULAR HGB CONC 33.3 g/dl (32.0-36.5); MEAN CORPUSCULAR VOLUME 94.6 fl (80.0-96.0); PLATELET COUNT, AUTOMATED 451 10^3/uL (150-450); RED BLOOD COUNT 3.71 10^6/uL (4.30-6.10); WHITE BLOOD COUNT 29.3 10^3/uL (4.0-10.0)
[2019-10-16 04:57] LABS: ANISOCYTOSIS 1+; BASOPHILS 1 % (0-1); EOSINOPHILS 1 % (0-3); LYMPHOCYTES 12 % (16-44); MONOCYTES 3 % (0-5); NEUTROPHILS 83 % (28-66); PLATELET ESTIMATE INCREASED (NORMAL)
[2019-10-16 04:59] LABS: CALCIUM LEVEL 7.2 MG/DL (8.8-10.2); CREATININE FOR GFR 1.26 MG/DL (0.70-1.30); GLOMERULAR FILTRATION RATE 58.3 (>35); POTASSIUM SERUM 4.9 MEQ/L (3.5-5.1)
[2019-10-16] MEDS: POTASSIUM CHLORIDE INJ 40 MEQ in D5W 1,000 ML IV SCH (05:38)
--- NOTE | 2019-10-16 07:53 | IPN ---
DATE: 10/15/2019 Patient is increasingly more alert. He is able to speak this morning, although selective and prefers to go to sleep, but says that he is doing okay. We have not been able to remove the mitts due to risk of him pulling out the nasogastric tube. With the nasogastric (NG) tube, we have been able to give tube feedings as well as administer amiodarone and atenolol with improvement in heart rate and blood pressure remains stable. He had five loose bowel movements yesterday with persistently elevated white count. PHYSICAL EXAM: Vital signs: Temperature 97.6, pulse 80, irregular, respiratory rate 18, blood pressure 146/78, 94% on room air. Generally, patient is much more appropriate but still disoriented. Mitts and nasogastric tube in place. Appears disheveled, his stated age. No cervical lymphadenopathy or thyromegaly. Lungs: Diminished with bilateral rhonchi. Heart: S1, S2, irregularly irregular. Abdomen is ditended, tympanitic. Extremities: No pitting edema. LABORATORY DATA: White count 32.5, hemoglobin 12, hematocrit 35, platelet count 394. Sodium 138, potassium 4.5, chloride 109, bicarbonate 22, BUN 27, creatinine 1.35, glucose of 166, C-reactive protein 19.1. Blood culture 10/15/2019 pending, 10/14/2019 no growth. Urine on 10/11/2019: Staphylococcus (staph) aureus. ASSESSMENT AND PLAN: This is an 84-year-old male with protein-calorie malnutrition, albumin of 1.2, coronary artery disease, hypertension, pneumonia, alcohol abuse, brought in due to confusion, found to have urosepsis and bacteremia due to urinary tract infection (UTI) and wound in the left shoulder. CURRENT ISSUES: 1. Acute encephalopathy secondary to sepsis from cystitis UTI, methicillin-sensitive Staphylococcus aureus (MSSA) bacteremia, MSSA in the wound culture in the left shoulder. Patient is on full supportive care, currently on IV nafcillin. Patient is too sick to undergo a transesophageal echocardiogram. EEG was negative. Did not have any acute epileptiform activity. His atrial fibrillation is improved and better rate controlled. MRI of the brain performed was negative for acute CVA or septic emboli. 2. Atrial fibrillation with rapid ventricular response (RVR), improved on nasogastric tube administration of atenolol and amiodarone. He remains with atrial fibrillation but significantly improved on atenolol 100 mg daily and amiodarone 200 mg twice a day 3. Hypertension, on Norvasc and low dose lisinopril, managed by cardiology. 4. Acute kidney injury with chronic bladder outlet obstruction and sepsis. Renal function has returned to baseline. Chest x-ray, however, shows slight fluid overload with small bilateral pleural effusions. 5. Sepsis with MSSA bacteremia and cystitis with chronic bladder outlet obstruction. Patient is medically unstable to undergo cystoscopy at this time. Will defer to cardiology for clearance for procedure to figure out if patient has potential tumor. 6. Worsening leukocytosis. Currently on appropriate treatment for MSSA bacteremia, cystitis, and with persistent loose stools. PCR Clostridium difficile (C diff) to be checked today. 7. Deconditioning. Physical therapy (PT), occupational therapy (OT), ambulate and activity as tolerated. 8. Ileus. Currently on tube feedings. Encourage ambulation. No signs of bowel obstruction. 9. Diet. Nothing by mouth, on tube feedings. Haircutter following. 10. Deep vein thrombosis (DVT) prophylaxis. Compression stockings. MTDD
[2019-10-16 08:00] VITALS: BP 122/70
[2019-10-16] MEDS: PANTOPRAZOLE 40MG VIAL (C9113 PER 1) IV SCH ×2 (09:22→20:00)
[2019-10-16] MEDS: FOLIC ACID 1 MG in NS 50 ML IV SCH (09:22)
[2019-10-16] MEDS: MULTIVITAMINS/MINERALS THERAP 1 TAB PO SCH (09:23)
[2019-10-16] MEDS: THIAMINE 200MG/2ML VIAL (J3411 PER 100MG) IV SCH (09:23)
[2019-10-16] MEDS: atenoloL 50 MG TAB NG SCH (09:23)
[2019-10-16] MEDS: AMIODARONE 200 MG TAB (PACERONE) PO SCH ×2 (09:24→20:01)
[2019-10-16] MEDS: amLODIPine 5 MG TAB PO SCH (09:24)
[2019-10-16] MEDS: CLOTRIMAZOLE 1% TOPICAL CREAM 30GM TOP SCH ×2 (09:25→20:01)
[2019-10-16] MEDS ORDERED: SLF 3 ML SYR IV PRN (10:45)
[2019-10-16 12:00] VITALS: BP 118/68
[2019-10-16] MEDS ORDERED: FUROSEMIDE 20MG/2ML VIAL (J1940) IV ONE (13:00)
[2019-10-16] MEDS: SLF 3 ML SYR IV SCH ×2 (13:34→20:01)
--- NOTE | 2019-10-16 14:25 | IPN ---
DATE: 10/16/2019 The patient is much more alert but still insisting on removing his nasogastric tube. The family had been visiting from 2:00 to 6:00 p.m. everyday. His atrial fibrillation is rate controlled currently at 85 to 91, still irregular on atenolol via nasogastric tube. Patient has had no fevers, or chills. Decreasing white count. He did have some loose stools on 10/14/2019 but on 10/15/2019 only had two bowel movements both of which were formed. Repeat urine culture on 10/11/2019 still grew out Staphylococcus aureus. Repeat blood cultures on 10/06, and have all been negative. Urine culture on 10/15/2019 was cleared showing no growth. White count is decreasing to 29.3. Patient denies any nausea or vomiting. He does not like his NG tube and wants it out. He wants his mittens off. He is much more alert in the mid afternoon and early evening. He has been encouraged to ambulate. Temperature 97.8, pulse 85, respiratory rate 18, blood pressure 118/68, 97% in room air. Generally, awake, alert, oriented to himself. He is objective with his review of systems and often answers or refuses to follow commands. Nasogastric tube in place. Patient has bilateral hand mitts on. Denies any respiratory distress. No nausea or vomiting. Lungs diminished. Bilateral rhonchi. Heart: S1, S2, irregularly irregular. Abdomen is distended. Positive bowel sounds. No guarding. Slight tenderness on deep palpation. Extremities: No pitting edema. LABORATORY DATA: White count 29.3, hemoglobin 11, hematocrit 35, platelet count 451. Sodium 136, potassium 4.9 chloride 107, bicarbonate 22, BUN 25, creatinine 1.26, glucose 176. C-reactive protein 19.1 from previous 18. Microbiology: Urine culture 10/15/2019: No growth. Blood culture 10/15/2019: No growth. Chest x-ray 10/14/2019: NG tube in gastric fundus. Fissural thickening of the right base. Pulmonary vasculature is slightly cephalized. No infiltrate is seen. ASSESSMENT/PLAN: This is an 84-year-old male with severe protein calorie malnutrition, albumin of 1.2, coronary artery disease (CAD), hypertension, pneumonia, alcohol abuse, presented with confusion and weakness found to have encephalopathy secondary to urosepsis with methicillin sensitive Staphylococcus aureus (MSSA), urinary tract infection and methicillin sensitive Staphylococcus aureus (MSSA) bacteremia. Patient developed renal failure, worsening encephalopathy now with the following issues. IMPRESSION: 1. Sepsis secondary to methicillin sensitive Staphylococcus aureus (MSSA) cystitis, methicillin sensitive Staphylococcus aureus (MSSA) bacteremia. Wound culture official with methicillin sensitive Staphylococcus aureus (MSSA). Infections disease specialist has been consulted. Currently cefazolin 2 grams IV every 8 hours. Transesophageal echo to be arranged by Dr. Wan at some point next week. MRI of the brain had no septic emboli. 2. Atrial fibrillation with rapid ventricular rate (RVR): Better controlled with nasogastric and administration of atenolol and amiodarone 200 twice a day. 3. Hypertension: Controlled on current dose of atenolol. Systolic pressure runs between 118 to 134 systolic. 4. Chronic bladder wall obstruction: Cannot rule out bladder tumor. Will discuss with cardiology when timing of cystoscopy would be appropriate. Patient remains with nasogastric tube and encephalopathic. 5. Ileus: Currently on tube feedings. Will recheck swallow evaluation in the morning and discontinue nasogastric tube if patient is able to take oral intake with absence of aspiration. 6. Deep venous thrombosis prophylaxis: Currently on renally dosed Eliquis. 7. Acute encephalopathy: EEG is negative. MTDD
[2019-10-16] MEDS: LEVALBUTEROL 1.25 MG/0.5 ML CONCENTRATE NEB INH SCH ×3 (15:09→23:33)
[2019-10-16 16:00] VITALS: BP 118/60
--- NOTE | 2019-10-16 16:43 | IPNPDOC ---
Date Seen The patient was seen on 10/16/19. Progress Note Per Dr. Almodovar, urologist talent acquisition project manager, , CT findings "thickened bladder wall. . . cannot exclude bladder neoplasm, " in the setting of a UTI on admission, and a cho catheter placed after antibiotics were started, is unlikely to be a neoplasm. plan: per urology, nothing to do. repeat urine culture is negative. blood cultures negative on 10/06,10/10, 10/13, 10/14. VS, I&O, 24H, [facility] Vital Signs/I&O Vital Signs Date Time Temp Pulse Resp B/P (MAP) Pulse Ox O2 Delivery O2 Flow Rate FiO2 10/16/19 16:00 98.3 91 20 118/60 (79) 98 Room Air I&O- Last 24 Hours up to 6 AM 10/16/19 06:00 Intake Total 1210 ml Output Total 1600 ml Balance -390 ml Laboratory Data 24H LABS Laboratory Tests 2 10/16/19 04:14: Immature Granulocyte % (Auto) , Neutrophils (%) (Auto) , Nucleated Red Blood Cells % (auto) 0.0, Neutrophils 83H, Lymphocytes (Manual) 12L, Monocytes (Manual) 3, Eosinophils (Manual) 1, Basophils (Manual) 1, Anisocytosis 1+, Platelet Estimate INCREASED, Anion Gap 6L, Glomerular Filtration Rate 58.3, Calcium Level 7.2L 10/16/19 11:15: CBC/BMP Laboratory Tests 10/16/19 04:14 Microbiology Microbiology 10/15/19 Urine Culture - Final, Complete 10/15/19 Blood Culture - Preliminary, Resulted No growth after 24 hours . All specim... 10/14/19 Blood Culture - Preliminary, Resulted No Growth after 48 hours. All Specime... 10/11/19 Urine Culture - Final, Complete Staphylococcus Aureus 10/11/19 Blood Culture - Final, Complete NO GROWTH AFTER 5 DAYS 10/07/19 Gram Stain - Final, Complete 10/07/19 Wound Culture - Final, Complete Staphylococcus Aureus 10/07/19 Blood Culture - Final, Complete NO GROWTH AFTER 5 DAYS 10/06/19 Urine Culture - Final, Complete Staphylococcus Aureus 10/06/19 Blood Culture - Final, Complete Staphylococcus Aureus 10/06/19 Blood Culture - Final, Complete Staphylococcus Aureus KOLE BARBOSA MD Oct 16, 2019 16:41
[2019-10-16] MEDS: RIVAROXABAN 15 MG TAB (XARELTO) TF SCH (16:55)
[2019-10-16 20:00] VITALS: BP 142/73
[2019-10-17] VITALS: BP 123/89
[2019-10-17] MEDS: SALIVA SUBSTITUTE(MOUTHKOTE) BTL MT SCH ×6 (00:11→20:37)
[2019-10-17] MEDS: LACTOBACILLUS ACIDOPHILUS CAP (BACID) PO SCH ×4 (00:11→17:41)
[2019-10-17] MEDS: ceFAZolin SOD 2 GM in IV 1 EA IV SCH ×3 (02:44→17:41)
[2019-10-17 04:00] VITALS: BP 115/71
[2019-10-17] MEDS: LEVALBUTEROL 1.25 MG/0.5 ML CONCENTRATE NEB INH SCH ×6 (04:56→23:28)
[2019-10-17 05:09] LABS: HEMATOCRIT 33.3 % (42.0-52.0); HEMOGLOBIN 11.2 g/dl (13.5-17.5); MEAN CORPUSCULAR HEMOGLOBIN 31.5 pg (27.0-33.0); MEAN CORPUSCULAR HGB CONC 33.6 g/dl (32.0-36.5); MEAN CORPUSCULAR VOLUME 93.8 fl (80.0-96.0); PLATELET COUNT, AUTOMATED 483 10^3/uL (150-450); RED BLOOD COUNT 3.55 10^6/uL (4.30-6.10); WHITE BLOOD COUNT 25.2 10^3/uL (4.0-10.0)
[2019-10-17 05:26] LABS: BLOOD UREA NITROGEN 26 MG/DL (7-18); CALCIUM LEVEL 7.4 MG/DL (8.8-10.2); CARBON DIOXIDE LEVEL 24 MEQ/L (21-32); CHLORIDE LEVEL 106 MEQ/L (98-107); CREATININE FOR GFR 1.17 MG/DL (0.70-1.30); GLOMERULAR FILTRATION RATE > 60.0 (>35); GLUCOSE, FASTING 137 MG/DL (70-100); POTASSIUM SERUM 4.5 MEQ/L (3.5-5.1); SODIUM LEVEL 137 MEQ/L (136-145)
[2019-10-17] MEDS: SLF 3 ML SYR IV SCH ×3 (05:32→20:38)
[2019-10-17 05:37] LABS: EOSINOPHILS 1 % (0-3); LYMPHOCYTES 4 % (16-44); METAMYELOCYTES 1 % (0-0); MONOCYTES 7 % (0-5); NEUTROPHILS 86 % (28-66); PLATELET ESTIMATE INCREASED (NORMAL)
[2019-10-17 05:38] LABS: ANISOCYTOSIS 1+
[2019-10-17 08:00] VITALS: BP 130/68
[2019-10-17 08:21] LABS: MAGNESIUM LEVEL 1.6 MG/DL (1.8-2.4)
[2019-10-17] MEDS ORDERED: FUROSEMIDE 20MG/2ML VIAL (J1940) IV ONE (09:00)
[2019-10-17] MEDS: amLODIPine 5 MG TAB PO SCH (09:00)
[2019-10-17] MEDS: PANTOPRAZOLE 40MG VIAL (C9113 PER 1) IV SCH ×2 (09:16→20:37)
[2019-10-17] MEDS: METOCLOPRAMIDE INJ 10MG/2ML VIAL (J2765 PER 1) IV SCH ×3 (09:16→20:37)
[2019-10-17] MEDS: THIAMINE 100 MG TAB PO SCH (09:17)
[2019-10-17] MEDS: FOLIC ACID 1 MG TAB PO SCH (09:17)
[2019-10-17] MEDS: AMIODARONE 200 MG TAB (PACERONE) PO SCH ×2 (09:17→20:38)
[2019-10-17] MEDS: MULTIVITAMINS/MINERALS THERAP 1 TAB PO SCH (09:17)
[2019-10-17] MEDS: CLOTRIMAZOLE 1% TOPICAL CREAM 30GM TOP SCH ×2 (09:18→20:38)
[2019-10-17] MEDS: atenoloL 50 MG TAB NG SCH (09:23)
--- NOTE | 2019-10-17 09:40 | REP ---
Clinical: Bladder outlet obstruction. Rule out mass. Technique: Real time jenkins scale and color evaluation using curved array transducer. Findings: The bladder is under distended and a Carvalho catheter is identified. Bladder wall is trabeculated suggesting elements of chronic outlet obstruction. There is an apparent mass along the posterior wall measuring 4.1 x 2.9 x 3.8 cm which does not necessarily appear related to the prostate gland and correlation is recommended. Electronically Signed by Beto Bliss MD 10/17/2019 09:31 A
--- NOTE | 2019-10-17 10:08 | IPN ---
DATE: 10/17/2019 SUBJECTIVE: Per nursing, patient continues to have increased residuals 250 to 500 with 70 mL per hour not being tolerated well, requiring suctioning with risk of aspiration. Patient's tube feedings have been decreased to 40 mL per hour until residual has improved. Reglan has been given to assist in the ileus and gastroparesis. Patient is much more alert and is able to respond appropriately to conversation but still not following commands. He usually does better in the mid afternoon and late afternoon, and is back to normal mentation when the family is here from 2 o'clock to 6:00 p.m. was present yesterday, and patient had sat on the stretcher chair about 3 hours yesterday but has not ambulated well. This morning, the patient has had no fever or chills. Denies any nausea or vomiting. No abdominal pain. No chest pain, pressure, tightness or shortness of breath. He continues to have gurgling sounds, and is on aspiration risk precautions with head of bed elevated at greater than 30 degrees. Patient has had no fever. Per Dr. Almodovar, urologist front end specialist yesterday, since the patient has normal creatinine, has a Carvalho catheter that is draining well with no signs of any bleeding, and white count is improving on current antibiotics with decreasing white count to 25,000 from peak of 40,000 on admission, that there is no indication for acute cystoscopy even if there is a question of bladder neoplasm. Now that the patient is anticoagulation on Xarelto without any signs of bleeding, there is no acute indication for cystoscopy, he recommended reevaluation and re-consultation should things change. At this time, urology is recommending outpatient followup for possible bladder tumor and to continue with Carvalho catheter as an outpatient. Dr. Almodovar is available on consult anytime the entire weekend until Friday, and his partner will be available on Friday should the patient's clinical situation change. OBJECTIVE PHYSICAL EXAMINATION Vital Signs: Temperature 98.2, pulse 94, respiratory rate 20, blood pressure 115/70, 100% on room air, nasogastric tube in place, two mitts in place. No jugular venous distention (JVD) or thyromegaly. Patient has coarse breath sounds. Air entry is equal but diminished. Heart: S1, S2, irregularly irregular. Abdomen is distended but tympanitic. No rebound or guarding. Positive bowel sounds. Extremities: No cyanosis or clubbing. Input and output: Input of 920, output of 2575, negative 1655, overnight, 75 kg from admission weight of 68.8. LABORATORY DATA/IMAGING STUDIES:PLS SEE BELOW ASSESSMENT AND PLAN: This is an 84-year-old male with a history of chewing tobacco, alcohol use - whiskey daily, has only seen physicians twice in his life, history of coronary artery disease, hypertension, previous pneumonia, severe protein-calorie malnutrition, albumin of 1.2, was admitted due to confusion and weakness. Evaluation showed urosepsis, bladder obstruction with renal failure with the following acute issues: 1.Sepsis secondary to methicillin-sensitive Staphylococcus aureus (MSSA) cystitis, MSSA bacteremia, rule out endocarditis. 2.Acute on chronic renal failure due to chronic bladder outlet obstruction with admission creatinine of 6 3.Slight fluid overload secondary to IV fluid hydration with cephalization on chest x-ray and elevated BNP level. 4.New onset of atrial fibrillation with rapid ventricular rate, controlled. 5.Hypertension. 6.Acute encephalopathy secondary to sepsis. 7.Atrial fibrillation with rapid ventricular response 8.Ileus. 9.Dysphagia with Aspiration requiring NG tube and tube feedings. 10.Electrolyte abnormalities with low magnesium. 11.Hemodilutional anemia. 12.Chronic Bladder outlet obstruction 13. Acute encephalopathy due to sepsis, renal failure, Afib w RVR PLAN: Patient is responding clinically with decreasing white count on current cefazolin 2 grams IV every 8 hours. Patient has MSSA in the wound in the back, the urine culture and the bladder. Patient was not medically stable to undergo transesophageal echocardiogram the past week, but per Dr. Wan, will schedule this week to rule out endocarditis. At this time, the patient has been afebrile. Repeat blood cultures on 10/07/2019, , 10/14/2019 and 10/15/2019 have all been negative. Repeat urine culture on 10/15/2019 was normal. Patient's white count is decreasing from peak of 40,000 to 25.2. Despite having multiple bowel movements, they have been formed and Clostridium difficile (C diff) by PCR has not been sent. Patient's acute on chronic renal failure has resolved and currently back to baseline creatinine of 1. He had chronic bladder wall obstruction and with Carvalho catheter placement and IV fluids, patient's creatinine was improved to 1.26 and nephrology had signed off. Due to aspiration risk and confusion, patient underwent a swallow evaluation, which showed aspiration. Currently on tube feedings via nasogastric tube. Since the patient's mentation has improved, MRI of the brain was negative for septic emboli and EEG being negative, family is saying that he is back to his baseline mentation. Patient will repeat a swallow evaluation tomorrow. If the patient is not an aspiration risk, we may discontinue his nasogastric tube and his mitts. Mittens were placed because patient wanted to remove the nasogastric tube and leave against medical advice (AMA). At this time, we will reevaluate in the morning. Family was aware of the patient wanting to leave now, but they agree and have convinced him to stay for further treatment. Patient has responded well to amiodarone 200 mg twice a day and atenolol 100 mg daily. Pulse rate has been less than 100 on telemetry, blood pressure has been 115/71 to 142/73. Patient has had increasing residuals; therefore, will decrease tube feedings to goal of 40 instead of 70 mL per hour, and try to adjust with Reglan to increase motility. He has been encouraged to sit on a stretcher chair most of the day and to begin to ambulate with assistance. JEAN-PAUL
--- NOTE | 2019-10-17 11:41 | IPN ---
DATE: 10/17/2019 Mr. Raines unfortunately looks worse today than he did yesterday. He is much less oriented and appears somnolent. I was able to wake him up and he would appropriately answer a question or two and then he seems to lose interest very rapidly Vital signs: Blood pressure 130/68. Heart rate has been from 80s to low 100s. He is afebrile. Saturation is 100% on room air. Weight was not recorded this morning yet. He is alert but not oriented today. Lungs reveal loud rhonchi but no crackles or wheezing. Upper airway sounds basically unchanged from previous days. Heart exam reveals irregularly irregular rhythm. I still do not appreciate any obvious murmur even though a loud respiratory sound make it hard to auscultate properly. Abdomen is soft and distended. I do not appreciate any guarding. Bowel sounds are present. Extremities are free of edema. LABORATORY: WBC count is down to 25,000, hemoglobin 11.42, hematocrit 33.3 and platelet count 483,000. Basic metabolic panel remains essentially normal. ASSESSMENT/PLAN: Mr. Raines is an elderly man who presented with bacteremia. At this point the source is not completely clear. He also has atrial fibrillation. As far the atrial fibrillation is concerned, the rate is reasonably well-controlled on current combination of amiodarone and atenolol and he is anticoagulated with Xarelto. As far as the bacteremia is concerned, I still consider performing transesophageal echocardiogram but I am afraid that with his current condition, the procedure would carry a very high risk of leading to intubation and I do not consider it is safe. It certainly would not change immediate management. Even though his mental status seems to be little worse today than it was yesterday, I am encouraged that his white cell count seems to keep improving. I do not have any new recommendations. Management of remaining issue with primary team. JEAN-PAUL
[2019-10-17 12:00] VITALS: BP 117/69
[2019-10-17 16:00] VITALS: BP 108/62
[2019-10-17] MEDS: RIVAROXABAN 15 MG TAB (XARELTO) TF SCH (17:41)
[2019-10-17 20:00] VITALS: BP 118/66
--- NOTE | 2019-10-17 23:09 | IPN ---
DATE: 10/16/2019 Mr. Raines is still reasonably well oriented today, definitely to the person and to the place. He denies any chest pain. Denies shortness of breath, and he even tells me that he is feeling good. This is in spite of him being basically bedridden with mittens on and a nasogastric (NG) tube in place. Telemetry monitoring reveals a rate controlled atrial fibrillation without much variation in his heart rate. Blood pressure 118/68. He has been afebrile. Saturation 97% on room air. Weight was recorded as 75 kg. His JVP does not look high. Lungs are reasonably clear. He has very loud upper respiratory sounds with rhonchi, but no crackles; no wheezing. Air movement is good. Heart exam reveals irregularly irregular rhythm. It is a little difficult to auscultate because he cannot hold his breath due to his mental status, but I do not appreciate any murmur as such. Abdomen is slightly distended, soft. No guarding. Extremities are free of edema. Neurologic examination, as far as the orientation, definitely there is improvement compared to the first week. He moves all four extremities. LABORATORIES: WBC count finally is trending down and is 29,000 today. Hemoglobin 11.7, hematocrit 35, platelet count 451,000. Basic metabolic panel: Sodium 136, potassium 4.9, BUN 25, creatinine 1.3, glucose 176. ASSESSMENT AND PLAN: Mr. Raines is an 84-year-old man who presented with altered mental status and was found to have overwhelming Staphylococcus aureus bacteremia. The source is still unclear. He had a positive urine culture, blood culture, as well as culture from the ulcer on his right upper back. There was a suspicion for endocarditis, which is persistent. I personally think it is less likely that he has endocarditis. He does not have any peripheral stigmata, but it certainly is still strongly in differential diagnosis. I tentatively plan to perform transesophageal echocardiogram (IS[facility]) on him later this week. It would not change immediate management. As far as the atrial fibrillation is concerned, he is rate controlled. He is still on combination of beta-raul and amiodarone; because he is relatively recent onset, we will attempt to convert him back to sinus rhythm. He is anticoagulated with Xarelto. No signs of feeding. Management of infectious disease (ID) issue remains with ID attending and primary team. There is a tentative plan to perform cystoscopy after he recovers from the current episode due to suspicion for potential bladder cancer. There is also concern about Clostridium difficile, but he now has formed stools and no bowel movements today, which is an argument against this condition.
[2019-10-18] VITALS: BP 116/86
[2019-10-18] MEDS: LACTOBACILLUS ACIDOPHILUS CAP (BACID) PO SCH ×4 (00:04→18:25)
[2019-10-18] MEDS: SALIVA SUBSTITUTE(MOUTHKOTE) BTL MT SCH ×6 (00:04→20:44)
[2019-10-18] MEDS: ceFAZolin SOD 2 GM in IV 1 EA IV SCH ×3 (01:51→18:25)
[2019-10-18] MEDS: METOCLOPRAMIDE INJ 10MG/2ML VIAL (J2765 PER 1) IV SCH ×4 (01:52→20:44)
[2019-10-18] MEDS: LEVALBUTEROL 1.25 MG/0.5 ML CONCENTRATE NEB INH SCH ×5 (03:34→19:48)
[2019-10-18 04:00] VITALS: BP 118/64
[2019-10-18] MEDS: SLF 3 ML SYR IV SCH ×3 (05:02→20:46)
[2019-10-18 05:07] LABS: HEMATOCRIT 31.1 % (42.0-52.0); HEMOGLOBIN 10.3 g/dl (13.5-17.5); MEAN CORPUSCULAR HEMOGLOBIN 31.5 pg (27.0-33.0); MEAN CORPUSCULAR HGB CONC 33.1 g/dl (32.0-36.5); MEAN CORPUSCULAR VOLUME 95.1 fl (80.0-96.0); PLATELET COUNT, AUTOMATED 466 10^3/uL (150-450); RED BLOOD COUNT 3.27 10^6/uL (4.30-6.10); WHITE BLOOD COUNT 16.6 10^3/uL (4.0-10.0)
[2019-10-18 05:31] LABS: CALCIUM LEVEL 7.4 MG/DL (8.8-10.2); CREATININE FOR GFR 1.26 MG/DL (0.70-1.30); GLOMERULAR FILTRATION RATE 58.3 (>35); POTASSIUM SERUM 4.3 MEQ/L (3.5-5.1)
[2019-10-18 05:33] LABS: ATYPICAL LYMPH 1 % (0-5); LYMPHOCYTES 11 % (16-44); METAMYELOCYTES 1 % (0-0); MONOCYTES 11 % (0-5); NEUTROPHILS 73 % (28-66); PLATELET ESTIMATE NORMAL (NORMAL)
[2019-10-18 05:34] LABS: ANISOCYTOSIS 1+; PLATELET CLUMPS SMALL AMT
--- NOTE | 2019-10-18 07:53 | IPNPDOC ---
Date Seen The patient was seen on 10/18/19. Progress Note MSSA SEPSIS/BACTEREMIA -ISMAEL WED per Dr. Wan. CHRONIC BLADDER OUTLET OBSTRUCTION/?bladder tumor -per Urology, Dr. Almodovar, outpt fu for cystoscopy, keep cho at discharge. -emergent cystoscopy ONLY IF: 1-worsening azotemia, renal function 2-intractable gross hematuria 3-worsening sepsis with increasing leukocytosis not responding to antibiotics. 4-nephrolithiasis with hydronephrosis and renal failure. -re-consult if any of the above conditions occur. VS, I&O, 24H, Fishbone Vital Signs/I&O Vital Signs Date Time Temp Pulse Resp B/P (MAP) Pulse Ox O2 Delivery O2 Flow Rate FiO2 10/18/19 04:00 97.2 104 18 118/64 (82) 98 Room Air I&O- Last 24 Hours up to 6 AM 10/18/19 06:00 Intake Total 510 ml Output Total 1650 ml Balance -1140 ml Laboratory Data 24H LABS Laboratory Tests 2 10/18/19 04:06: Immature Granulocyte % (Auto) , Neutrophils (%) (Auto) , Nucleated Red Blood Cells % (auto) 0.0, Neutrophils 73H, Band Neutrophils 3, Lymphocytes (Manual) 11L, Monocytes (Manual) 11H, Metamyelocytes 1H, Atypical Lymphocytes 1, Anisocytosis 1+, Platelet Estimate NORMAL, Clumped Platelets SMALL AMT, Anion Gap 7L, Glomerular Filtration Rate 58.3, Calcium Level 7.4L CBC/BMP Laboratory Tests 10/18/19 04:06 Microbiology Microbiology 10/15/19 Urine Culture - Final, Complete 10/15/19 Blood Culture - Preliminary, Resulted No Growth after 72 hours. All specime... 10/14/19 Blood Culture - Preliminary, Resulted No Growth after 72 hours. All specime... 10/11/19 Urine Culture - Final, Complete Staphylococcus Aureus 10/11/19 Blood Culture - Final, Complete NO GROWTH AFTER 5 DAYS KOLE BARBOSA MD Oct 18, 2019 07:53
[2019-10-18 08:15] VITALS: BP_SYST 140; BP_SYST 141; BP_DIAS 84
[2019-10-18] MEDS: PANTOPRAZOLE 40MG VIAL (C9113 PER 1) IV SCH (09:16)
[2019-10-18] MEDS: TAMSULOSIN 0.4 MG CAP PO SCH (09:18)
[2019-10-18] MEDS: AMIODARONE 200 MG TAB (PACERONE) PO SCH ×2 (09:18→20:46)
[2019-10-18] MEDS: FOLIC ACID 1 MG TAB PO SCH (09:18)
[2019-10-18] MEDS: guaiFENesin ER 600 MG TAB PO SCH ×2 (09:19→20:46)
[2019-10-18] MEDS: CETIRIZINE (ZyrTEC) 10 MG TAB PO SCH (09:20)
[2019-10-18] MEDS: MONTELUKAST 10 MG TAB PO SCH (09:20)
[2019-10-18] MEDS: MULTIVITAMINS/MINERALS THERAP 1 TAB PO SCH (09:20)
[2019-10-18] MEDS: THIAMINE 100 MG TAB PO SCH (09:20)
[2019-10-18] MEDS: amLODIPine 5 MG TAB PO SCH (09:22)
[2019-10-18] MEDS: CLOTRIMAZOLE 1% TOPICAL CREAM 30GM TOP SCH ×2 (09:22→20:44)
[2019-10-18] MEDS: atenoloL 50 MG TAB NG SCH (09:22)
[2019-10-18 12:07] VITALS: BP 114/65
[2019-10-18 16:13] VITALS: BP 95/84
[2019-10-18] MEDS: RIVAROXABAN 15 MG TAB (XARELTO) TF SCH (18:25)
[2019-10-18 20:00] VITALS: BP 125/74
[2019-10-18] MEDS: ACETAMINOPHEN TAB 650MG DOSE (2X325MG) PO PRN (20:45)
[2019-10-19] VITALS: BP 114/68
[2019-10-19] MEDS: LEVALBUTEROL 1.25 MG/0.5 ML CONCENTRATE NEB INH SCH ×6 (00:02→19:26)
[2019-10-19] MEDS: LACTOBACILLUS ACIDOPHILUS CAP (BACID) PO SCH ×4 (00:04→17:17)
[2019-10-19] MEDS: SALIVA SUBSTITUTE(MOUTHKOTE) BTL MT SCH ×6 (00:51→19:49)
[2019-10-19] MEDS: METOCLOPRAMIDE INJ 10MG/2ML VIAL (J2765 PER 1) IV SCH ×4 (02:19→19:49)
[2019-10-19] MEDS: ceFAZolin SOD 2 GM in IV 1 EA IV SCH ×3 (02:19→17:17)
[2019-10-19 04:00] VITALS: BP 101/63
[2019-10-19 05:51] LABS: HEMATOCRIT 30.6 % (42.0-52.0); HEMOGLOBIN 10.2 g/dl (13.5-17.5); MEAN CORPUSCULAR HGB CONC 33.3 g/dl (32.0-36.5); MEAN CORPUSCULAR VOLUME 95.9 fl (80.0-96.0); PLATELET COUNT, AUTOMATED 427 10^3/uL (150-450); RED BLOOD COUNT 3.19 10^6/uL (4.30-6.10); WHITE BLOOD COUNT 14.5 10^3/uL (4.0-10.0)
[2019-10-19 06:06] LABS: BLOOD UREA NITROGEN 27 MG/DL (7-18); CALCIUM LEVEL 7.6 MG/DL (8.8-10.2); CARBON DIOXIDE LEVEL 26 MEQ/L (21-32); CHLORIDE LEVEL 106 MEQ/L (98-107); CREATININE FOR GFR 1.07 MG/DL (0.70-1.30); GLOMERULAR FILTRATION RATE > 60.0 (>35); GLUCOSE, FASTING 119 MG/DL (70-100); POTASSIUM SERUM 4.1 MEQ/L (3.5-5.1); SODIUM LEVEL 137 MEQ/L (136-145)
[2019-10-19] MEDS: SLF 3 ML SYR IV SCH ×3 (06:15→19:50)
[2019-10-19 06:35] LABS: BASOPHILS 1 % (0-1); EOSINOPHILS 1 % (0-3); LYMPHOCYTES 5 % (16-44); METAMYELOCYTES 2 % (0-0); MONOCYTES 8 % (0-5); NEUTROPHILS 79 % (28-66)
[2019-10-19 06:36] LABS: ANISOCYTOSIS 1+; PLATELET ESTIMATE INCREASED (NORMAL)
--- NOTE | 2019-10-19 07:59 | IPN ---
DATE OF SERVICE: 10/18/2019 The patient is much more appropriate conversing this morning. I have encouraged him to get up and walk around with two person assistance. He says "how do I do it with mitts on hands." The patient wants the nasogastric tube and mitts taken off. We spoke about his atrial fibrillation (AFib) with rapid ventricular response (RVR) requiring the NG tube to administer atenolol and amiodarone. The patient otherwise, has had increasing residuals with the tube feedings had been decreased to 40 mL/h and given IV Reglan. The patient has had no fever, no chills. Per Dr. Almodovar, no need for emergent cystoscopy to evaluate for bladder tumors. The patient is urinating well with no obstructive issues, with white count decreasing and responding well to appropriate antibiotics and creatinine being normal. He says that even if the patient had a bladder tumor that can be done as an outpatient so long as he keeps the Carvalho catheter in and creatinine remains and responding to antibiotics. The patient remains afebrile with no chills. No other issues on telemetry. The patient remains in atrial fibrillation currently at 90-106. Vital Signs: Temperature 97.2, pulse 104, respiratory rate 18, blood pressure 118/64, 98% on room air. Irregularly irregular heart rate. Generally, the patient is awake, alert, oriented to himself. He is now responding well to questions. He has purposeful movements. He is more interactive. Nasogastric tube in place. No jugular venous distention (JVD). No thyromegaly. Moist mucous membranes. Appears disheveled and his stated age. Lungs are diminished with crackles bilaterally. Heart: S1, S2, irregularly irregular, tachycardic. Abdomen is distended, tympanitic. Extremities: Trace edema bilaterally. Input and output: Input of 920, output of 2575, negative 1655, overnight, 75 kg from admission weight of 68.8. White count 16.6, hemoglobin 10.3, hematocrit 31, platelet count 466. Sodium 135, potassium 4.3, chloride 104, bicarbonate 24, BUN 30, creatinine 1.26, glucose 181. ASSESSMENT AND PLAN: This is an 84-year-old male with history of alcohol abuse, chewing tobacco has only seen physicians twice in his life, history of coronary artery disease (CAD), hypertension, severe protein-calorie malnutrition admitted due to confusion and weakness. The patient was found to have methicillin-sensitive Staphylococcus aureus (MSSA) cystitis with chronic bladder obstruction and acute renal failure with a creatinine of 6 and has developed MSSA bacteremia. He was suffering from acute encephalopathy, evaluated with an MRI of the brain due to concerns of a septic emboli, which was negative. The patient was exhibited dysphagia and did not pass a swallow evaluation and currently on NG tube feedings. He developed atrial fibrillation, which is new onset. He had been put on anticoagulation, initially did not respond to amiodarone IV drip and since the NG tube has been placed he now is rate controlled and is not having tachycardia of rate of 160-150 beats per minute, currently at 90-110. He is now on atenolol 100 NG tube daily, amiodarone 200 twice a day. His blood pressure has been well maintained between 110-130 on amlodipine 5 daily and atenolol 100 daily. 1. MSSA cystitis, sepsis, MSSA bacteremia, rule out endocarditis. The patient is currently on cefazolin 2 grams intravenously every 8 hours responding well without any fevers, chills and decreasing white count from 25,000 to 16.6. Infectious disease specialist, Dr. Jamilah Beltran and Dr. Wan have been consulted. Plans are for a transesophageal echocardiogram to be scheduled by Dr. Wan to rule out endocarditis. Per Dr. Almodovar, despite having a chronic bladder obstruction and questionable bladder tumor since the patient is not exhibiting any emergent symptoms that require intervention he does not need to have a cystoscopy during this hospital admission. He noted that the patient's creatinine is normal. He is urinating well with a Carvalho catheter and his white count is decreasing. No signs of hematuria. Therefore, Dr. Almodovar, urologist on-call over the weekend suggested outpatient followup and to continue Carvalho catheter at hospital discharge. The patient may be started on Flomax. 2. Dysphagia due to increased secretions and unable to clear his secretions. The patient has been nothing by mouth status with aspiration risk. He has had a nasogastric tube placed, now on tube feedings and medications administered through the nasogastric tube, most importantly the atenolol and amiodarone for AFib rate control. The patient currently is anxious to remove the nasogastric tube and the mitts. Therefore, swallow therapist, speech therapist will re-evaluate him today. If he passes his swallow evaluation, nasogastric tube will be discontinued and mitts removed, and the patient is encouraged to increase ambulation and to start on recommended diet. 3. Chronic bladder obstruction with acute kidney injury. The patient presented with a creatinine of 6.27 improved to 1.26 on 10/16/2019 after significant fluid hydration managed by nephrology, who has now signed off. The patient's creatinine remains stable at 1.16. He currently had a negative had a negative balance for the past 3 days and has done quite well. Per Dr. Almodovar, urologist, despite findings on CT abdomen and pelvis there is no emergent need for cystoscopy or evaluation of the bladder tumor as the patient is urinating well with no obstruction, normal kidney function, afebrile with good response to IV antibiotics. He suggested outpatient followup in the clinic for the cystoscopy once the patient is discharged from the hospital but to continue the Carvalho catheter at hospital discharge in order to evaluate as outpatient. Should the patient develop hematuria, worsening renal failure, worsening sepsis not responding to antibiotics, he had suggested consulting again. 4. New onset atrial fibrillation with rapid ventricular rate. Currently improved on nasogastric tube administration of the amiodarone 200 twice a day and atenolol 100 daily. The patient's blood pressure is currently systolic of 116 to 108 to 130. Holding parameters have been made for atenolol for systolic pressure less than 100. The patient is currently on Norvasc. Amiodarone is to continue at 200 twice a day. He is now on Xarelto 15 mg tube feedings daily per Dr. Wan. 5. Slight fluid overload secondary to IV fluid hydration with cephalization on chest x-ray and elevated brain natriuretic peptide (BNP) status post IV Lasix 20 mg daily for the past 3 days and has been net negative. 6. Hemodilutional anemia. No signs of any acute gastrointestinal (GI) bleed or any hematuria. 7. Chronic bladder outlet obstruction. Outpatient followup despite CT abdomen and pelvis showing possible bladder neoplasm, per Dr. Almodovar, no emergent immediate to do a cystoscopy as the patient's creatinine is normal, no gross hematuria, responding to IV antibiotics with decreasing white count. Should the patient develop worsening renal failure, worsening sepsis without response to antibiotics or worsening azotemia, Dr. Scooby will be available for immediate consult. 8. Acute encephalopathy due to sepsis from cystitis, MSSA bacteremia, renal failure, AFib with RVR resolved. The patient is now back to his baseline mentation, appropriate when he speaks and questions when he can remove the nasogastric tube and mitts. Says this morning "how can I walk if I have mitts."
[2019-10-19 08:00] VITALS: BP 158/66
[2019-10-19] MEDS: PANTOPRAZOLE 40MG VIAL (C9113 PER 1) IV SCH (09:36)
[2019-10-19] MEDS: CLOTRIMAZOLE 1% TOPICAL CREAM 30GM TOP SCH ×2 (09:36→19:50)
[2019-10-19] MEDS: FOLIC ACID 1 MG TAB PO SCH (09:37)
[2019-10-19] MEDS: MULTIVITAMINS/MINERALS THERAP 1 TAB PO SCH (09:37)
[2019-10-19] MEDS: atenoloL 50 MG TAB NG SCH (09:37)
[2019-10-19] MEDS: AMIODARONE 200 MG TAB (PACERONE) PO SCH ×2 (09:37→19:49)
[2019-10-19] MEDS: TAMSULOSIN 0.4 MG CAP PO SCH (09:37)
[2019-10-19] MEDS: amLODIPine 5 MG TAB PO SCH (09:38)
[2019-10-19] MEDS: THIAMINE 100 MG TAB PO SCH (09:38)
[2019-10-19] MEDS: MONTELUKAST 10 MG TAB PO SCH (09:38)
[2019-10-19] MEDS: CETIRIZINE (ZyrTEC) 10 MG TAB PO SCH (09:38)
[2019-10-19] MEDS: guaiFENesin ER 600 MG TAB PO SCH ×2 (09:38→19:49)
--- NOTE | 2019-10-19 11:18 | IPN ---
DATE: 10/19/2019 Mr. Raines remains about the same. When I walked into the room, he was slouched in the bed, head actually lower than his hips, as he was laying on pillows, and with the help of nursing aides, we were able to sit him up a little more upright. He is very talkative, but I cannot understand what he is saying. It does not seem that his answers are anyhow appropriate to my questions, but he seems to be smiling. He does not appear in any distress. Blood pressure 158/66 and has been usually lower than that. Heart rate between 70s to low 100s, atrial fibrillation. He remains afebrile. His fluid balance was recorded as negative 1899 yesterday, but it is because the intake was not well recorded. Weight is 71.9 kg. He to my judgment is not oriented and probably pleasantly confused. His jugular venous pulse (JVP) does not look high. Lungs are reasonably clear. The presence of upper airway sounds is still present, but better than previous days. Heart exam reveals irregular rhythm. I do not appreciate any murmur. Abdomen is slightly tender, but bowel sounds are present. The extremities do not have significant edema. Laboratories: WBC count 14.5, hemoglobin 10.2, hematocrit 30.6 and platelet count 427,000. Basic metabolic panel is normal. ASSESSMENT/PLAN: Mr. Raines is an 84-year-old man who presented with overwhelming Staph sepsis where he grew Staphylococcus from his wound on the upper chest as well as from his urine and from blood. Fortunately, since the , the blood cultures have been negative and urine culture last positive was on and none since. His white cell count finally is also coming down and I think he is overall clearly improving. Having said that, I was asked to perform transesophageal echocardiogram. I am still very reluctant to proceed and with the nasogastric (NG) tube in place and the uncertainty about his ability to swallow, I do not really see any villa. I think that he is clinically improving and in general not a candidate for surgery. I am going to wait until his feeding issues are resolved, if it needs to be even until next week. Otherwise, I do not have much else for recommendations. He is in atrial fibrillation and the rate is controlled. He is on combination of atenolol and amiodarone and is anticoagulated with Xarelto. The heart rate has to be monitored. I am less optimistic that he will resume sinus rhythm at this point, but I still think it is worthwhile to continue amiodarone at least one more week.
--- NOTE | 2019-10-19 11:56 | IPNPDOC ---
Text Note Date of Service The patient was seen on 10/19/19. NOTE Subjective: Patient is an 84-year-old male who does not follow up with any physicians, reported PMHx of Alcohol abuse, CAD, HTN, Severe protein calorie m alnutrition who presented to the hospital with Confusion / Weakness and was found to have MSSA bacteremia / cystitis. Patient was also found to have acute renal failure. Patient had an MRI of his brain completed because of suspected encephalopathy, results of which were negative. Patient also exhibited dysphagia and did not pass swallow evaluation and subsequently an NG tube was placed for feeding. Throughout hospital course, patient had developed atrial fibrillation and cardiology was called on consultation. Patient was seen and examined at the bedside. Patient appears to be conversant, however, it is difficult to understand when he's trying to say. He does not appear to be in any distress. Objective: Vitals (See below) General: Lying in bed, appears comfortable, awake / alert HEENT: NC, AT, + NG tube CVS: +S1S2 Lungs: Fair air entry b/l, -w/r/r Abdomen: Soft, ND, NT Extremities: - Edema, - Calf tenderness Assessment and plan: s/p Sepsis 2/2 MSSA bacteremia - possibly 2/2 MSSA cystitis, rule out endocarditis - She is hemodynamically stable and afebrile - Leukocytosis trending down - Blood cultures 10/05: Staph aureus; Blood cultures 10/06, 10/10, 10/13, 10/14 have remained negative - Urine cultures 10/05, 10/10: Staph aureus; Urine culture 10/14: Negative - Back culture 10/06: Staph aureus - TTE 10/06: 1. Mildly to moderately depressed global left ventricular systolic function with diffuse hypokinesis but normal left ventricular size and preserved left ventricular wall thickness. 2. Mildly enlarged left atrium with mitral annulus calcification and moderate mitral regurgitation. 3. Aortic valve sclerosis without stenosis or aortic regurgitation. 4. Mild tricuspid regurgitation with probably moderate pulmonary hypertension. - c/w Cefazolin - Infectious disease and Cardiology on consultation; plan for ISMAEL once NG tube has been removed Chronic bladder outlet obstruction - Case was discussed with Urology initially, no urgent need for intervention was noted - c/w Tamsulosin - Will have outpatient follow up with Urology, Dr. Almodovar Dysphagia - possibly 2/2 increased secretions - s/p NG tube placement for medications / feedings - Speech therapy on board; s/p Acute renal failure - Cr of 6.27 on admission; has trended down to normal currenlty - Nephrology has signed off s/p Acute metabolic encephalopathy - Awake / Alert - No focal deficits - MRI brain 10/11: There is some motion artifact. Generalized volume loss and small vessel changes. No acute intracranial abnormalities seen. New onset atrial fibrillation with rapid ventricular rate - Currently is rate controlled - c/w rate / rhythm control with amiodarone / atenolol - c/w full anticoagulation with Xarelto HTN - BP well controlled - c/w Atenolol, Amlodipine s/p Fluid overload - Saturating well on room air - Currently appears to be euvolemic - s/p IV fluids and Furosemide Normocytic anemia - possibly 2/2 dilutional etiolgoy - No signs of any acute gastrointestinal (GI) bleed or any hematuria - Has remained stable Alcohol abuse - c/w Thiamine, Folate, MVI GI prophylaxis - c/w Protonix DVT prophylaxis - c/w full anticoagulation with Xarelto VS,Fishbone, I+O VS, Fishbone, I+O Laboratory Tests 10/19/19 05:21 Vital Signs Date Time Temp Pulse Resp B/P (MAP) Pulse Ox O2 Delivery O2 Flow Rate FiO2 10/19/19 09:38 106 158/66 10/19/19 08:00 97.6 20 97 Room Air I&O- Last 24 Hours up to 6 AM 10/19/19 05:59 Intake Total 0 ml Output Total 1575 ml Balance -1575 ml ARTIE AUGUSTE MD Oct 19, 2019 11:56
[2019-10-19 12:00] VITALS: BP 103/65
[2019-10-19] MEDS ORDERED: OXYMETAZOLINE NASAL SPRAY (AFRIN) PRN (15:00)
[2019-10-19 16:00] VITALS: BP 109/59
[2019-10-19] MEDS: RIVAROXABAN 15 MG TAB (XARELTO) TF SCH (17:17)
[2019-10-19] MEDS: ACETAMINOPHEN TAB 650MG DOSE (2X325MG) PO PRN (19:49)
[2019-10-19 20:00] VITALS: BP 125/63
[2019-10-20] VITALS: BP 118/64
[2019-10-20] MEDS: LACTOBACILLUS ACIDOPHILUS CAP (BACID) PO SCH ×4 (00:10→17:09)
[2019-10-20] MEDS: SALIVA SUBSTITUTE(MOUTHKOTE) BTL MT SCH ×6 (00:10→21:38)
[2019-10-20] MEDS: LEVALBUTEROL 1.25 MG/0.5 ML CONCENTRATE NEB INH SCH ×7 (01:05→23:51)
[2019-10-20] MEDS: ceFAZolin SOD 2 GM in IV 1 EA IV SCH ×3 (02:04→17:10)
[2019-10-20] MEDS: METOCLOPRAMIDE INJ 10MG/2ML VIAL (J2765 PER 1) IV SCH ×4 (02:04→21:38)
[2019-10-20 04:00] VITALS: BP 129/71
[2019-10-20 04:29] LABS: HEMATOCRIT 29.2 % (42.0-52.0); HEMOGLOBIN 9.6 g/dl (13.5-17.5); MEAN CORPUSCULAR HEMOGLOBIN 31.9 pg (27.0-33.0); MEAN CORPUSCULAR HGB CONC 32.9 g/dl (32.0-36.5); PLATELET COUNT, AUTOMATED 428 10^3/uL (150-450); RED BLOOD COUNT 3.01 10^6/uL (4.30-6.10); WHITE BLOOD COUNT 11.5 10^3/uL (4.0-10.0)
[2019-10-20 04:43] LABS: BLOOD UREA NITROGEN 25 MG/DL (7-18); CALCIUM LEVEL 7.4 MG/DL (8.8-10.2); CARBON DIOXIDE LEVEL 26 MEQ/L (21-32); CHLORIDE LEVEL 106 MEQ/L (98-107); CREATININE FOR GFR 1.02 MG/DL (0.70-1.30); GLOMERULAR FILTRATION RATE > 60.0 (>35); GLUCOSE, FASTING 154 MG/DL (70-100); POTASSIUM SERUM 4.1 MEQ/L (3.5-5.1); SODIUM LEVEL 137 MEQ/L (136-145)
[2019-10-20 05:08] LABS: BASOPHILS 1 % (0-1); EOSINOPHILS 1 % (0-3); LYMPHOCYTES 9 % (16-44); MONOCYTES 7 % (0-5); MYELOCYTES 4 % (0-0); NEUTROPHILS 77 % (28-66)
[2019-10-20 05:09] LABS: ANISOCYTOSIS 1+; PLATELET ESTIMATE INCREASED (NORMAL)
[2019-10-20] MEDS: SLF 3 ML SYR IV SCH ×3 (05:32→21:39)
[2019-10-20 08:00] VITALS: BP 124/88
[2019-10-20] MEDS: MONTELUKAST 10 MG TAB PO SCH (09:35)
[2019-10-20] MEDS: amLODIPine 5 MG TAB PO SCH (09:35)
[2019-10-20] MEDS: PANTOPRAZOLE 40MG VIAL (C9113 PER 1) IV SCH (09:35)
[2019-10-20] MEDS: TAMSULOSIN 0.4 MG CAP PO SCH (09:35)
[2019-10-20] MEDS: MULTIVITAMINS/MINERALS THERAP 1 TAB PO SCH (09:35)
[2019-10-20] MEDS: FOLIC ACID 1 MG TAB PO SCH (09:36)
[2019-10-20] MEDS: AMIODARONE 200 MG TAB (PACERONE) PO SCH ×2 (09:36→21:39)
[2019-10-20] MEDS: guaiFENesin ER 600 MG TAB PO SCH ×2 (09:36→21:39)
[2019-10-20] MEDS: atenoloL 50 MG TAB NG SCH (09:36)
[2019-10-20] MEDS: CETIRIZINE (ZyrTEC) 10 MG TAB PO SCH (09:36)
[2019-10-20] MEDS: CLOTRIMAZOLE 1% TOPICAL CREAM 30GM TOP SCH ×2 (09:37→21:39)
[2019-10-20] MEDS: THIAMINE 100 MG TAB PO SCH (09:37)
--- NOTE | 2019-10-20 09:54 | IPNPDOC ---
Text Note Date of Service The patient was seen on 10/20/19. NOTE Subjective: Patient is an 84-year-old male who does not follow up with any physicians, reported PMHx of Alcohol abuse, CAD, HTN, Severe protein calorie ma lnutrition who presented to the hospital with Confusion / Weakness and was found to have MSSA bacteremia / cystitis. Patient was also found to have acute renal failure. Patient had an MRI of his brain completed because of suspected encephalopathy, results of which were negative. Patient also exhibited dysphagia and did not pass swallow evaluation and subsequently an NG tube was placed for feeding. Throughout hospital course, patient had developed atrial fibrillation and cardiology was called on consultation. Patient was seen and examined at the bedside. Patient is not oriented to place or time. Patient thinks that he is in [place] and occurred years 1988. He is aware of. His main and patient was able to cough on command.. He denies any chest pain, nausea, belly pain or diarrhea. Objective: Vitals (See below) General: Sitting up in chair, appears comfortable, awake and alert, follows commands HEENT: NC, AT, + NG tube CVS: +S1S2 Lungs: Fair air entry b/l, no evidence of rhonchi, crackles or wheezing Abdomen: Soft, nondistended and nontender Extremities: No evidence of edema, - Calf tenderness Assessment and plan: s/p Sepsis 2/2 MSSA bacteremia - possibly 2/2 MSSA cystitis, rule out endocarditis - Remains hemodynamically stable and afebrile - Leukocytosis continues to improve - Blood cultures 10/05: Staph aureus; Blood cultures 10/06, 10/10, 10/13, 10/14 have remained negative - Urine cultures 10/05, 10/10: Staph aureus; Urine culture 10/14: Negative - Back culture 10/06: Staph aureus - TTE 10/06: 1. Mildly to moderately depressed global left ventricular systolic function with diffuse hypokinesis but normal left ventricular size and preserved left ventricular wall thickness. 2. Mildly enlarged left atrium with mitral an nulus calcification and moderate mitral regurgitation. 3. Aortic valve sclerosis without stenosis or aortic regurgitation. 4. Mild tricuspid regurgitation with probably moderate pulmonary hypertension. - c/w Cefazolin - Infectious disease and Cardiology on consultation; plan for ISMAEL once NG tube has been removed Chronic bladder outlet obstruction - Case was discussed with Urology initially, no urgent need for intervention was noted - c/w Tamsulosin - Will have outpatient follow up with Urology, Dr. Almodovar Dysphagia - possibly 2/2 increased secretions - s/p NG tube placement for medications / feedings - Speech therapy on board; currently working on continued evaluation until NG t ube can be removed s/p Acute renal failure - Cr of 6.27 on admission; has trended down to normal - Nephrology has signed off s/p Acute metabolic encephalopathy - Awake / Alert - No focal deficits - MRI brain 10/11: There is some motion artifact. Generalized volume loss and small vessel changes. No acute intracranial abnormalities seen. New onset atrial fibrillation with rapid ventricular rate - Currently is rate controlled - c/w rate / rhythm control with amiodarone / atenolol - c/w full anticoagulation with Xarelto HTN - BP well controlled - c/w Atenolol, Amlodipine s/p Fluid overload - Saturating well on room air - Currently appears to be euvolemic - s/p IV fluids and Furosemide Normocytic anemia - possibly 2/2 dilutional etiolgoy - No signs of any acute gastrointestinal (GI) bleed or any hematuria - Has remained stable Alcohol abuse - c/w Thiamine, Folate, MVI GI prophylaxis - c/w Protonix DVT prophylaxis - c/w full anticoagulation with Xarelto Disposition: - Patient will ultimately require ISMAEL once NG tube was removed - May required continued rehabilitation/long-term placement VS,Fishbone, I+O VS, Fishbone, I+O Laboratory Tests 10/20/19 03:33 Vital Signs Date Time Temp Pulse Resp B/P (MAP) Pulse Ox O2 Delivery O2 Flow Rate FiO2 10/20/19 09:35 87 124/88 10/20/19 08:00 97.7 20 98 Room Air I&O- Last 24 Hours up to 6 AM 10/20/19 06:00 Intake Total 450 ml Output Total 1600 ml Balance -1150 ml ARTIE AUGUSTE MD Oct 20, 2019 09:54
[2019-10-20 12:00] VITALS: BP 120/75
[2019-10-20 15:29] VITALS: BP 118/78
[2019-10-20] MEDS: RIVAROXABAN 15 MG TAB (XARELTO) TF SCH (17:09)
[2019-10-20 20:00] VITALS: BP 110/60
[2019-10-21] VITALS: BP 128/80
[2019-10-21] MEDS: SALIVA SUBSTITUTE(MOUTHKOTE) BTL MT SCH ×6 (00:23→21:21)
[2019-10-21] MEDS: LACTOBACILLUS ACIDOPHILUS CAP (BACID) PO SCH ×4 (00:23→18:56)
[2019-10-21] MEDS: ceFAZolin SOD 2 GM in IV 1 EA IV SCH ×3 (02:18→18:57)
[2019-10-21] MEDS: METOCLOPRAMIDE INJ 10MG/2ML VIAL (J2765 PER 1) IV SCH ×4 (02:19→21:20)
[2019-10-21 04:00] VITALS: BP 91/55
[2019-10-21] MEDS: LEVALBUTEROL 1.25 MG/0.5 ML CONCENTRATE NEB INH SCH ×5 (05:49→20:22)
[2019-10-21] MEDS: SLF 3 ML SYR IV SCH ×3 (05:53→21:19)
[2019-10-21 06:46] LABS: HEMATOCRIT 30.4 % (42.0-52.0); MEAN CORPUSCULAR HEMOGLOBIN 32.6 pg (27.0-33.0); MEAN CORPUSCULAR HGB CONC 32.9 g/dl (32.0-36.5); PLATELET COUNT, AUTOMATED 390 10^3/uL (150-450); RED BLOOD COUNT 3.07 10^6/uL (4.30-6.10); WHITE BLOOD COUNT 11.7 10^3/uL (4.0-10.0)
[2019-10-21 07:11] LABS: BASOPHILS 1 % (0-1); EOSINOPHILS 4 % (0-3); LYMPHOCYTES 23 % (16-44); METAMYELOCYTES 2 % (0-0); MONOCYTES 1 % (0-5); NEUTROPHILS 69 % (28-66); PLATELET ESTIMATE NORMAL (NORMAL)
[2019-10-21 07:12] VITALS: BP 99/56
[2019-10-21 07:25] LABS: BLOOD UREA NITROGEN 23 MG/DL (7-18); CALCIUM LEVEL 7.6 MG/DL (8.8-10.2); CARBON DIOXIDE LEVEL 26 MEQ/L (21-32); CHLORIDE LEVEL 108 MEQ/L (98-107); CREATININE FOR GFR 0.94 MG/DL (0.70-1.30); FERRITIN 3710 NG/ML (26-388); GLOMERULAR FILTRATION RATE > 60.0 (>35); GLUCOSE, FASTING 111 MG/DL (70-100); IRON (FE) 88 UG/DL (65-175); PERCENT SATURATION 69.8 % (19.7-50.0); POTASSIUM SERUM 4.3 MEQ/L (3.5-5.1); SODIUM LEVEL 139 MEQ/L (136-145); TOTAL IRON BINDING CAPACITY 126 UG/DL (250-450)
[2019-10-21 07:38] LABS: MAGNESIUM LEVEL 1.8 MG/DL (1.8-2.4)
--- NOTE | 2019-10-21 08:13 | IPN ---
DATE: 10/21/2019 Mr. Raines appears about the same. He seems to be little more oriented today and he answers some questions seemingly appropriately but still is very hard of hearing and is very difficult to understand. Apparently he failed swallowing evaluation and there is tentative plan for a percutaneous endoscopic gastrotomy (PEG) tube placement. Vital Signs: Blood pressure 99/56, heart rate has been in 90s. He is still in atrial fibrillation is afebrile. Saturation 97% on room air. Weight is 73.6 kg. He is alert, probably oriented, even though due to difficulty in communication. I am not certain of this. Heart exam reveals irregular rhythm without obvious gallop, rub or murmur. Lungs are reasonably clear. His prior very loud rhonchi and upper airway sounds are less prominent. Abdomen is soft. No obvious guarding. No peripheral edema. He moves all four extremities. LABORATORY: CBC reveals WBC count 11.7, hemoglobin 10, hematocrit 30, platelet count 390,000. Basic metabolic panel is normal. ASSESSMENT/PLAN: Mr. Raines is an 84-year-old man who presented with Staphylococcus bacteremia of unclear source in my opinion most likely urinary due to underlying obstruction. He also developed atrial fibrillation with rapid ventricular rate (RVR) that is now well controlled with combination of beta raul and amiodarone. He has been anticoagulated with rivaroxaban. I still am supposed to do transesophageal echocardiogram but due to his difficulty with swallowing and presence of nasogastric (NG) tube and his disorientation, I was avoiding the procedure because I did not think it would make a change in his clinical status but he is slowly improving. In this situation I believe once the PEG tube is in place, we can probably proceed with the procedure tentatively sometimes next week. I am still somewhat hesitant to whether to do this as I cannot imagine it would make significant change in his prognosis or management but will tentatively look into this next week. Otherwise, I do not have any new recommendations.
--- NOTE | 2019-10-21 10:12 | IPNPDOC ---
Text Note Date of Service The patient was seen on 10/21/19. NOTE Subjective: Patient is an 84-year-old male who does not follow up with any physicians, reported PMHx of Alcohol abuse, CAD, HTN, Severe protein calorie ma lnutrition who presented to the hospital with Confusion / Weakness and was found to have MSSA bacteremia / cystitis. Patient was also found to have acute renal failure. Patient had an MRI of his brain completed because of suspected encephalopathy, results of which were negative. Patient also exhibited dysphagia and did not pass swallow evaluation and subsequently an NG tube was placed for feeding. Throughout hospital course, patient had developed atrial fibrillation and cardiology was called on consultation. Patient was seen and examined at the bedside. Continue patient's mentation is relatively unchanged. He is awake and alert. Does not appear to be in any distress. Can follow instructions. Objective: Vitals (See below) General: Lying in bed, appears to be comfortable, awake and alert HEENT: NC, AT, + NG tube CVS: +S1S2 Lungs: Air entry appears to be fair bilaterally without evidence of rhonchi, crackles or wheezing Abdomen: Extremities: No evidence of edema, - Calf tenderness Assessment and plan: s/p Sepsis 2/2 MSSA bacteremia - possibly 2/2 MSSA cystitis, rule out endocarditis - Remains hemodynamically stable and afebrile - Leukocytosis has trended down / remains stable - Blood cultures 10/05: Staph aureus; Blood cultures 10/06, 10/10, 10/13, 10/14 have remained negative - Urine cultures 10/05, 10/10: Staph aureus; Urine culture 10/14: Negative - Back culture 10/06: Staph aureus - TTE 10/06: 1. Mildly to moderately depressed global left ventricular systolic function with diffuse hypokinesis but normal left ventricular size and preserved left ventricular wall thickness. 2. Mildly enlarged left atrium with mitral annulus calcification and moderate mitral regurgitation. 3. Aortic valve sclerosis without stenosis or aortic regurgitation. 4. Mild tricuspid regurgitation with probably moderate pulmonary hypertension. - c/w Cefazolin - Infectious disease and Cardiology on consultation; plan for ISMAEL once NG tube has been removed - Extensive discussion with daughter yesterday about goals of care and poor prognosis Chronic bladder outlet obstruction - Case was discussed with Urology initially, no urgent need for intervention was noted - c/w Tamsulosin - Will have outpatient follow up with Urology, Dr. Almodovar Dysphagia - possibly 2/2 increased secretions - s/p NG tube placement for medications / feedings - Consult interventional radiology, Dr. Moore for feeding tube placement likely for 10/25/2019 - Plan to discontinue Xarelto for Friday / Friday and keep patient NPO Friday / stop feeding tube Friday night s/p Acute renal failure - Cr of 6.27 on admission; has trended down to normal - Nephrology has signed off s/p Acute metabolic encephalopathy - Awake / Alert - No focal deficits - MRI brain 10/11: There is some motion artifact. Generalized volume loss and small vessel changes. No acute intracranial abnormalities seen. New onset atrial fibrillation with rapid ventricular rate - Currently is rate controlled - c/w rate / rhythm control with amiodarone / atenolol - c/w full anticoagulation with Xarelto (will discontinue on Friday - re: feeding tube placement for 10/25/2019) HTN - BP well controlled - c/w Atenolol, Amlodipine s/p Fluid overload - Saturating well on room air - Currently appears to be euvolemic - s/p IV fluids and Furosemide Normocytic anemia - possibly 2/2 dilutional etiolgoy - No signs of any acute gastrointestinal (GI) bleed or any hematuria - Has remained stable Alcohol abuse - c/w Thiamine, Folate, MVI GI prophylaxis - c/w Protonix DVT prophylaxis - c/w full anticoagulation with Xarelto Disposition: - Patient will ultimately require ISMAEL once NG tube was removed - Feeding tube placement onf 10/25/2019 - May required continued rehabilitation/long-term placement VS,Lamin, I+O VS, Geovannybone, I+O Laboratory Tests 10/21/19 06:33 Vital Signs Date Time Temp Pulse Resp B/P (MAP) Pulse Ox O2 Delivery O2 Flow Rate FiO2 10/21/19 07:12 97.7 90 20 99/56 (70) 97 Room Air I&O- Last 24 Hours up to 6 AM 10/21/19 06:00 Intake Total 100 ml Output Total 1050 ml Balance -950 ml ARTIE AUGUSTE MD Oct 21, 2019 10:12
[2019-10-21] MEDS: PANTOPRAZOLE 40MG VIAL (C9113 PER 1) IV SCH (11:18)
[2019-10-21] MEDS: CLOTRIMAZOLE 1% TOPICAL CREAM 30GM TOP SCH ×2 (11:19→21:22)
[2019-10-21] MEDS: guaiFENesin ER 600 MG TAB PO SCH ×2 (11:20→21:20)
[2019-10-21] MEDS: atenoloL 50 MG TAB NG SCH (11:20)
[2019-10-21] MEDS: FOLIC ACID 1 MG TAB PO SCH (11:20)
[2019-10-21] MEDS: AMIODARONE 200 MG TAB (PACERONE) PO SCH ×2 (11:21→21:20)
[2019-10-21] MEDS: CETIRIZINE (ZyrTEC) 10 MG TAB PO SCH (11:21)
[2019-10-21] MEDS: MONTELUKAST 10 MG TAB PO SCH (11:21)
[2019-10-21] MEDS: amLODIPine 5 MG TAB PO SCH (11:21)
[2019-10-21] MEDS: TAMSULOSIN 0.4 MG CAP PO SCH (11:21)
[2019-10-21] MEDS: THIAMINE 100 MG TAB PO SCH (11:21)
[2019-10-21] MEDS: MULTIVITAMINS/MINERALS THERAP 1 TAB PO SCH (11:22)
[2019-10-21 11:31] VITALS: BP 123/77
[2019-10-21 15:54] VITALS: BP 116/79
[2019-10-21] MEDS: RIVAROXABAN 15 MG TAB (XARELTO) TF SCH (18:56)
[2019-10-21 20:00] VITALS: BP 110/65
[2019-10-22] VITALS: BP 126/79
[2019-10-22] MEDS: SALIVA SUBSTITUTE(MOUTHKOTE) BTL MT SCH ×6 (00:04→22:09)
[2019-10-22] MEDS: LACTOBACILLUS ACIDOPHILUS CAP (BACID) PO SCH ×4 (00:04→18:17)
[2019-10-22] MEDS: LEVALBUTEROL 1.25 MG/0.5 ML CONCENTRATE NEB INH SCH ×6 (00:10→19:54)
[2019-10-22] MEDS: ceFAZolin SOD 2 GM in IV 1 EA IV SCH ×3 (02:16→18:17)
[2019-10-22] MEDS: METOCLOPRAMIDE INJ 10MG/2ML VIAL (J2765 PER 1) IV SCH ×4 (02:16→22:06)
[2019-10-22 04:00] VITALS: BP 145/58
[2019-10-22] MEDS: SLF 3 ML SYR IV SCH ×3 (05:46→22:07)
[2019-10-22 07:23] VITALS: BP 128/71
[2019-10-22 08:04] LABS: HEMATOCRIT 29.3 % (42.0-52.0); HEMOGLOBIN 9.5 g/dl (13.5-17.5); MEAN CORPUSCULAR HEMOGLOBIN 32.9 pg (27.0-33.0); MEAN CORPUSCULAR HGB CONC 32.4 g/dl (32.0-36.5); MEAN CORPUSCULAR VOLUME 101.4 fl (80.0-96.0); RED BLOOD COUNT 2.89 10^6/uL (4.30-6.10); WHITE BLOOD COUNT 11.3 10^3/uL (4.0-10.0)
[2019-10-22 08:20] LABS: BLOOD UREA NITROGEN 22 MG/DL (7-18); CALCIUM LEVEL 7.4 MG/DL (8.8-10.2); CARBON DIOXIDE LEVEL 26 MEQ/L (21-32); CHLORIDE LEVEL 108 MEQ/L (98-107); CREATININE FOR GFR 0.99 MG/DL (0.70-1.30); GLOMERULAR FILTRATION RATE > 60.0 (>35); GLUCOSE, FASTING 176 MG/DL (70-100); MAGNESIUM LEVEL 1.8 MG/DL (1.8-2.4); POTASSIUM SERUM 4.7 MEQ/L (3.5-5.1); SODIUM LEVEL 140 MEQ/L (136-145)
[2019-10-22] MEDS: PANTOPRAZOLE 40MG VIAL (C9113 PER 1) IV SCH (08:30)
[2019-10-22] MEDS: THIAMINE 100 MG TAB PO SCH (08:30)
[2019-10-22] MEDS: CETIRIZINE (ZyrTEC) 10 MG TAB PO SCH (08:31)
[2019-10-22] MEDS: FOLIC ACID 1 MG TAB PO SCH (08:31)
[2019-10-22] MEDS: atenoloL 50 MG TAB NG SCH (08:31)
[2019-10-22] MEDS: AMIODARONE 200 MG TAB (PACERONE) PO SCH ×2 (08:32→22:08)
[2019-10-22] MEDS: MULTIVITAMINS/MINERALS THERAP 1 TAB PO SCH (08:32)
[2019-10-22] MEDS: TAMSULOSIN 0.4 MG CAP PO SCH (08:32)
[2019-10-22] MEDS: MONTELUKAST 10 MG TAB PO SCH (08:32)
[2019-10-22] MEDS: amLODIPine 5 MG TAB PO SCH (08:33)
[2019-10-22 08:34] LABS: PLATELET COUNT, AUTOMATED 266 10^3/uL (150-450)
[2019-10-22] MEDS: guaiFENesin ER 600 MG TAB PO SCH ×2 (08:34→22:08)
[2019-10-22] MEDS: CLOTRIMAZOLE 1% TOPICAL CREAM 30GM TOP SCH ×2 (08:35→22:07)
[2019-10-22 08:37] LABS: EOSINOPHILS 2 % (0-3); LYMPHOCYTES 20 % (16-44); METAMYELOCYTES 2 % (0-0); MONOCYTES 1 % (0-5); MYELOCYTES 1 % (0-0); NEUTROPHILS 67 % (28-66)
[2019-10-22 08:38] LABS: PLATELET ESTIMATE NORMAL (NORMAL)
[2019-10-22 09:10] LABS: VITAMIN B1 LEVEL WHOLE BLOOD 475.2 nmol/L (66.5-200.0)
--- NOTE | 2019-10-22 10:30 | IPNPDOC ---
Text Note Date of Service The patient was seen on 10/22/19. NOTE Subjective: Patient is an 84-year-old male who does not follow up with any physicians, reported PMHx of Alcohol abuse, CAD, HTN, Severe protein calorie ma lnutrition who presented to the hospital with Confusion / Weakness and was found to have MSSA bacteremia / cystitis. Patient was also found to have acute renal failure. Patient had an MRI of his brain completed because of suspected encephalopathy, results of which were negative. Patient also exhibited dysphagia and did not pass swallow evaluation and subsequently an NG tube was placed for feeding. Throughout hospital course, patient had developed atrial fibrillation and cardiology was called on consultation. Patient was seen and examined at the bedside. Currently has no change in mentation. Denies any chest pain, and appears to be comfortable. Objective: Vitals (See below) General: Lying in bed, appears to be comfortable, awake and alert HEENT: NC, AT, + NG tube CVS: +S1S2 Lungs: There appears to be fair air entry bilaterally, without auscultated rhonchi, crackles or wheezing Abdomen: Without any significant distention or tenderness, and remained soft Extremities: Lower extremities are free of any pitting edema, - Calf tenderness Assessment and plan: s/p Sepsis 2/2 MSSA bacteremia - possibly 2/2 MSSA cystitis, rule out endo carditis - Hemodynamically stable and afebrile - Leukocytosis continues to improve / CRP trending down - Blood cultures 10/05: Staph aureus; Blood cultures 10/06, 10/10, 10/13, 10/14 have remained negative - Urine cultures 10/05, 10/10: Staph aureus; Urine culture 10/14: Negative - Back culture 10/06: Staph aureus - TTE 10/06: 1. Mildly to moderately depressed global left ventricular systolic function with diffuse hypokinesis but normal left ventricular size and preserved left ventricular wall thickness. 2. Mildly enlarged left atrium with mitral annulus calcification and moderate mitral regurgitation. 3. Aortic valve sclerosis without stenosis or aortic regurgitation. 4. Mild tricuspid regurgita tion with probably moderate pulmonary hypertension. - c/w Cefazolin - Infectious disease and Cardiology on consultation; plan for ISMAEL once NG tube has been removed - likely next week - Discussion with daughter on 10/19, and 10/20, about goals of care and poor prognosis Chronic bladder outlet obstruction - Case was discussed with Urology initially, no urgent need for intervention was noted - c/w Tamsulosin - Will have outpatient follow up with Urology, Dr. Almodovar Dysphagia - possibly 2/2 increased secretions - s/p NG tube placement for medications / feedings - Consult interventional radiology, Dr. Moore for feeding tube placement likely for 10/25/2019 - Plan to discontinue Xarelto for Friday / Friday and keep patient NPO Friday / stop feeding tube Friday s/p Acute renal failure - Cr of 6.27 on admission; has trended down to normal - Nephrology has signed off s/p Acute metabolic encephalopathy; possibly component of delirium on dementia - Awake / Alert - No focal deficits - MRI brain 10/11: There is some motion artifact. Generalized volume loss and sm all vessel changes. No acute intracranial abnormalities seen. - Will likely require ongoing assistance - Will have outpatient follow-up with neurology New onset atrial fibrillation with rapid ventricular rate - Currently is rate controlled - c/w rate / rhythm control with amiodarone / atenolol - c/w full anticoagulation with Xarelto (will discontinue on Friday - re: feeding tube placement for 10/25/2019) HTN - BP well controlled - c/w Atenolol, Amlodipine s/p Fluid overload - Saturating well on room air - Currently appears to be euvolemic - s/p IV fluids and Furosemide Normocytic anemia - possibly 2/2 dilutional etiolgoy - No signs of any acute gastrointestinal (GI) bleed or any hematuria - Has remained stable Alcohol abuse - c/w Thiamine, Folate, MVI GI prophylaxis - c/w Protonix DVT prophylaxis - c/w full anticoagulation with Xarelto Disposition: - Patient will ultimately require ISMAEL once NG tube was removed - Feeding tube placement on 10/25/2019; will hold anticoagulation / feeding in preparation - May required continued rehabilitation/long-term placement VS,Fishbone, I+O VS, Fishbone, I+O Laboratory Tests 10/22/19 07:20 Vital Signs Date Time Temp Pulse Resp B/P (MAP) Pulse Ox O2 Delivery O2 Flow Rate FiO2 10/22/19 08:31 91 128/71 10/22/19 07:23 98.2 22 100 Room Air I&O- Last 24 Hours up to 6 AM 10/22/19 06:00 Intake Total 250 ml Output Total 1650 ml Balance -1400 ml ARTIE AUGUSTE MD Oct 22, 2019 10:30
[2019-10-22 12:00] VITALS: BP 140/83
[2019-10-22 16:03] VITALS: BP 111/63
[2019-10-22] MEDS: RIVAROXABAN 15 MG TAB (XARELTO) TF SCH (18:17)
[2019-10-22 20:00] VITALS: BP 135/76
[2019-10-23] VITALS: BP 151/75
[2019-10-23] MEDS: LACTOBACILLUS ACIDOPHILUS CAP (BACID) PO SCH ×4 (00:52→17:52)
[2019-10-23] MEDS: SALIVA SUBSTITUTE(MOUTHKOTE) BTL MT SCH ×6 (00:53→21:00)
[2019-10-23] MEDS: ceFAZolin SOD 2 GM in IV 1 EA IV SCH ×3 (01:08→17:52)
[2019-10-23] MEDS: METOCLOPRAMIDE INJ 10MG/2ML VIAL (J2765 PER 1) IV SCH ×4 (03:29→21:41)
[2019-10-23] MEDS: LEVALBUTEROL 1.25 MG/0.5 ML CONCENTRATE NEB INH SCH ×6 (03:58→20:08)
[2019-10-23 04:00] VITALS: BP 129/63
[2019-10-23] MEDS: SLF 3 ML SYR IV SCH ×3 (06:48→21:43)
[2019-10-23 07:24] VITALS: BP 144/79
[2019-10-23 07:44] LABS: HEMATOCRIT 29.5 % (42.0-52.0); HEMOGLOBIN 9.3 g/dl (13.5-17.5); MEAN CORPUSCULAR HEMOGLOBIN 32.2 pg (27.0-33.0); MEAN CORPUSCULAR HGB CONC 31.5 g/dl (32.0-36.5); MEAN CORPUSCULAR VOLUME 102.1 fl (80.0-96.0); PLATELET COUNT, AUTOMATED 339 10^3/uL (150-450); RED BLOOD COUNT 2.89 10^6/uL (4.30-6.10)
[2019-10-23 08:18] LABS: BLOOD UREA NITROGEN 22 MG/DL (7-18); C REACTIVE PROTEIN QUANTITATIV 9.67 MG/DL (0.00-0.30); CALCIUM LEVEL 7.6 MG/DL (8.8-10.2); CARBON DIOXIDE LEVEL 27 MEQ/L (21-32); CHLORIDE LEVEL 107 MEQ/L (98-107); CREATININE FOR GFR 0.96 MG/DL (0.70-1.30); GLOMERULAR FILTRATION RATE > 60.0 (>35); GLUCOSE, FASTING 168 MG/DL (70-100); MAGNESIUM LEVEL 1.7 MG/DL (1.8-2.4); POTASSIUM SERUM 4.3 MEQ/L (3.5-5.1); SODIUM LEVEL 141 MEQ/L (136-145)
[2019-10-23 08:24] LABS: ANISOCYTOSIS 2+; EOSINOPHILS 2 % (0-3); LYMPHOCYTES 14 % (16-44); METAMYELOCYTES 1 % (0-0); MONOCYTES 9 % (0-5); MYELOCYTES 2 % (0-0); NEUTROPHILS 71 % (28-66); PLATELET ESTIMATE NORMAL (NORMAL)
[2019-10-23 08:25] LABS: POLYCHROMASIA 1+
[2019-10-23] MEDS: guaiFENesin ER 600 MG TAB PO SCH ×2 (09:00→21:00)
[2019-10-23] MEDS: MULTIVITAMINS/MINERALS THERAP 1 TAB PO SCH (09:38)
[2019-10-23] MEDS: PANTOPRAZOLE 40MG VIAL (C9113 PER 1) IV SCH (09:38)
[2019-10-23] MEDS: CETIRIZINE (ZyrTEC) 10 MG TAB PO SCH (09:38)
[2019-10-23] MEDS: THIAMINE 100 MG TAB PO SCH (09:39)
[2019-10-23] MEDS: FOLIC ACID 1 MG TAB PO SCH (09:39)
[2019-10-23] MEDS: MONTELUKAST 10 MG TAB PO SCH (09:39)
[2019-10-23] MEDS: TAMSULOSIN 0.4 MG CAP PO SCH (09:39)
[2019-10-23] MEDS: AMIODARONE 200 MG TAB (PACERONE) PO SCH ×2 (09:40→21:40)
[2019-10-23] MEDS: atenoloL 50 MG TAB NG SCH (09:40)
[2019-10-23] MEDS: amLODIPine 5 MG TAB PO SCH (09:40)
[2019-10-23] MEDS: CLOTRIMAZOLE 1% TOPICAL CREAM 30GM TOP SCH ×2 (09:41→21:43)
--- NOTE | 2019-10-23 11:03 | IPNPDOC ---
Text Note Date of Service The patient was seen on 10/23/19. NOTE Subjective: Patient is an 84-year-old male who does not follow up with any physicians, reported PMHx of Alcohol abuse, CAD, HTN, Severe protein calorie ma lnutrition who presented to the hospital with Confusion / Weakness and was found to have MSSA bacteremia / cystitis. Patient was also found to have acute renal failure. Patient had an MRI of his brain completed because of suspected encephalopathy, results of which were negative. Patient also exhibited dysphagia and did not pass swallow evaluation and subsequently an NG tube was placed for feeding. Throughout hospital course, patient had developed atrial fibrillation and cardiology was called on consultation. Patient was seen and examined at the bedside. Patient appears to have periods of lucency in which she can answer questions appropriately. Currently, he is oriented to person, but not to time or place. Patient did report with the present was she denies any chest pain, palpitations or cough. Denies nausea, vomiting. Denies abdominal pain. Objective: Vitals (See below) General: Lying in bed, remains comfortable, awake and alert HEENT: NC, AT, + NG tube CVS: +S1S2 Lungs: The patient is here bilaterally without evidence of wheezing, crackles or rhonchi Abdomen: Soft, without any distention or tenderness Extremities: No edema appreciated at lower extremities, - Calf tenderness Assessment and plan: s/p Sepsis 2/2 MSSA bacteremia - possibly 2/2 MSSA cystitis, rule out endocarditis - Hemodynamically stable and afebrile - Leukocytosis stable and CRP continues to trend down - Blood cultures 10/05: Staph aureus; Blood cultures 10/06, 10/10, 10/13, 10/14 have remained negative - Urine cultures 10/05, 10/10: Staph aureus; Urine culture 10/14: Negative - Back culture 10/06: Staph aureus - TTE 10/06: 1. Mildly to moderately depressed global left ventricular systolic function with diffuse hypokinesis but normal left ventricular size and preserved left ventricular wall thickness. 2. Mildly enlarged left atrium with mitral annulus calcification and moderate mitral regurgitation. 3. Aortic valve sclerosis without stenosis or aortic regurgitation. 4. Mild tricuspid regurgitation with probably moderate pulmonary hypertension. - c/w Cefazolin - Infectious disease and Cardiology on consultation; plan for ISMAEL once NG tube has been removed - likely next week - Discussion with daughter on 10/19, and 10/20, about goals of care and poor prognosis Chronic bladder outlet obstruction - Case was discussed with Urology initially, no urgent need for intervention was noted - c/w Tamsulosin - Outpatient follow up with Urology, Dr. Almodovar Dysphagia - possibly 2/2 increased secretions - s/p NG tube placement for medications / feedings - Consult interventional radiology, Dr. Moore for feeding tube placement likely for 10/25/2019 - Will hold Xarelto today - Anticipate feeding tube placement on Friday with IR s/p Acute renal failure - Cr of 6.27 on admission; has trended down to normal - Nephrology has signed off s/p Acute metabolic encephalopathy; possibly component of delirium on dementia - Awake / Alert - No focal deficits - MRI brain 10/11: There is some motion artifact. Generalized volume loss and small vessel changes. No acute intracranial abnormalities seen. - Will likely require ongoing assistance and outpatient follow-up with neurology New onset atrial fibrillation with rapid ventricular rate - Currently is rate controlled - c/w rate / rhythm control with amiodarone / atenolol - c/w full anticoagulation with Xarelto (will discontinue on Friday - re: feeding tube placement for 10/25/2019) HTN - BP well controlled - c/w Atenolol, Amlodipine s/p Fluid overload - Saturating well on room air - Currently appears to be euvolemic - s/p IV fluids and Furosemide Normocytic anemia - possibly 2/2 dilutional etiolgoy - No signs of any acute gastrointestinal (GI) bleed or any hematuria - Has remained stable Alcohol abuse - c/w Thiamine, Folate, MVI GI prophylaxis - c/w Protonix DVT prophylaxis - c/w full anticoagulation with Xarelto Disposition: - Patient will ultimately require ISMAEL once NG tube was removed - Feeding tube placement on 10/25/2019; will hold anticoagulation / feeding in preparation - May required continued rehabilitation/long-term placement VS,Fishbone, I+O VS, Fishbone, I+O Laboratory Tests 10/23/19 07:31 Vital Signs Date Time Temp Pulse Resp B/P (MAP) Pulse Ox O2 Delivery O2 Flow Rate FiO2 10/23/19 09:40 93 144/79 10/23/19 07:24 98.1 22 100 Room Air I&O- Last 24 Hours up to 6 AM 10/23/19 06:00 Intake Total 1040 ml Output Total 1601 ml Balance -561 ml ARTIE AUGUSTE MD Oct 23, 2019 11:02
[2019-10-23 12:00] VITALS: BP 125/78
[2019-10-23 16:00] VITALS: BP 98/66
[2019-10-23 20:00] VITALS: BP 114/82
[2019-10-24] VITALS: BP 135/69
[2019-10-24] MEDS: LACTOBACILLUS ACIDOPHILUS CAP (BACID) PO SCH ×4 (00:29→17:58)
[2019-10-24] MEDS: ceFAZolin SOD 2 GM in IV 1 EA IV SCH ×3 (02:45→17:58)
[2019-10-24] MEDS: METOCLOPRAMIDE INJ 10MG/2ML VIAL (J2765 PER 1) IV SCH ×4 (02:45→20:57)
[2019-10-24 04:00] VITALS: BP 107/63
[2019-10-24] MEDS: LEVALBUTEROL 1.25 MG/0.5 ML CONCENTRATE NEB INH SCH ×7 (04:04→23:34)
[2019-10-24 04:19] LABS: HEMATOCRIT 30.7 % (42.0-52.0); HEMOGLOBIN 9.4 g/dl (13.5-17.5); MEAN CORPUSCULAR HEMOGLOBIN 32.1 pg (27.0-33.0); MEAN CORPUSCULAR HGB CONC 30.6 g/dl (32.0-36.5); MEAN CORPUSCULAR VOLUME 104.8 fl (80.0-96.0); PLATELET COUNT, AUTOMATED 328 10^3/uL (150-450); RED BLOOD COUNT 2.93 10^6/uL (4.30-6.10); WHITE BLOOD COUNT 12.1 10^3/uL (4.0-10.0)
[2019-10-24 04:38] LABS: BLOOD UREA NITROGEN 22 MG/DL (7-18); C REACTIVE PROTEIN QUANTITATIV 8.95 MG/DL (0.00-0.30); CALCIUM LEVEL 7.3 MG/DL (8.8-10.2); CARBON DIOXIDE LEVEL 29 MEQ/L (21-32); CHLORIDE LEVEL 106 MEQ/L (98-107); CREATININE FOR GFR 0.95 MG/DL (0.70-1.30); GLOMERULAR FILTRATION RATE > 60.0 (>35); GLUCOSE, FASTING 153 MG/DL (70-100); MAGNESIUM LEVEL 1.7 MG/DL (1.8-2.4); POTASSIUM SERUM 4.5 MEQ/L (3.5-5.1); SODIUM LEVEL 140 MEQ/L (136-145)
[2019-10-24] MEDS: SALIVA SUBSTITUTE(MOUTHKOTE) BTL MT SCH ×6 (05:00→20:57)
[2019-10-24 05:21] LABS: ATYPICAL LYMPH 1 % (0-5); EOSINOPHILS 2 % (0-3); LYMPHOCYTES 11 % (16-44); METAMYELOCYTES 6 % (0-0); MONOCYTES 8 % (0-5); MYELOCYTES 3 % (0-0); NEUTROPHILS 68 % (28-66)
[2019-10-24 05:22] LABS: ANISOCYTOSIS 2+; PLATELET ESTIMATE NORMAL (NORMAL); POLYCHROMASIA 1+
[2019-10-24 05:23] LABS: HYPOCHROMASIA 1+
[2019-10-24] MEDS: SLF 3 ML SYR IV SCH ×3 (05:47→20:57)
[2019-10-24 07:50] VITALS: BP 137/83
[2019-10-24] MEDS ORDERED: MAG SULF 1GM/100ML (MAG RUN) 1 GM in IV 1 EA IV ONE (09:00)
[2019-10-24] MEDS: amLODIPine 5 MG TAB PO SCH (09:00)
--- NOTE | 2019-10-24 09:56 | IPNPDOC ---
Text Note Date of Service The patient was seen on 10/24/19. NOTE Subjective: Patient is an 84-year-old male who does not follow up with any physicians, reported PMHx of Alcohol abuse, CAD, HTN, Severe protein calorie ma lnutrition who presented to the hospital with Confusion / Weakness and was found to have MSSA bacteremia / cystitis. Patient was also found to have acute renal failure. Patient had an MRI of his brain completed because of suspected encephalopathy, results of which were negative. Patient also exhibited dysphagia and did not pass swallow evaluation and subsequently an NG tube was placed for feeding. Throughout hospital course, patient had developed atrial fibrillation and cardiology was called on consultation. Patient was seen and examined at the bedside. I was able to have a conversation with the patient his morning he did report his name, place and date. Did not appear to be in any distress. Has been tolerating his NG tube feeds; will hold them this evening for anticipation of feeding tube placement tomorrow morning. Objective: Vitals (See below) General: Lying in bed, appears to be comfortable, awake, alert and oriented 3 HEENT: NC, AT, + NG tube CVS: +S1S2 Lungs: Poor respiratory effort but there does not appear to be any wheezing, rhonchi or crackles Abdomen: NT, ND and remains soft Extremities: LE are free of edema, - Calf tenderness Assessment and plan: s/p Sepsis 2/2 MSSA bacteremia - possibly 2/2 MSSA cystitis, rule out endocarditis - Hemodynamically stable and afebrile - Leukocytosis remains elevated / CRP still trending down - Blood cultures 10/05: Staph aureus; Blood cultures 10/06, 10/10, 10/13, 10/14 have remained negative - Urine cultures 10/05, 10/10: Staph aureus; Urine culture 10/14: Negative - Back culture 10/06: Staph aureus - TTE 10/06: 1. Mildly to moderately depressed global left ventricular systolic function with diffuse hypokinesis but normal left ventricular size and preserved left ventricular wall thickness. 2. Mildly enlarged left atrium with mitral annulus calcification and moderate mitral regurgitation. 3. Aortic valve sclerosis without stenosis or aortic regurgitation. 4. Mild tricuspid regurgitation with probably moderate pulmonary hypertension. - c/w Cefazolin - Infectious disease and Cardiology on consultation; plan for ISMAEL once NG tube has been removed - likely next week Chronic bladder outlet obstruction - Case was discussed with Urology initially, no urgent need for intervention was noted - c/w Tamsulosin - Outpatient follow up with Urology, Dr. Almodovar Dysphagia - possibly 2/2 increased secretions - s/p NG tube placement for medications / feedings - Consulted interventional radiology, Dr. Moore for feeding tube placement likely for 10/25/2019 - Will continue to hold Xarelto - Will keep NPO post-midnight / hold-tube feedings s/p Acute renal failure - Cr of 6.27 on admission; has trended down to normal - Nephrology has signed off s/p Acute metabolic encephalopathy; possibly component of delirium on dementia - Awake / Alert - No focal deficits - MRI brain 10/11: There is some motion artifact. Generalized volume loss and small vessel changes. No acute intracranial abnormalities seen. - Will likely require ongoing assistance and outpatient follow-up with neurology New onset atrial fibrillation with rapid ventricular rate - Currently is rate controlled - c/w rate / rhythm control with amiodarone / atenolol - Will hold Xarelto (re: feeding tube placement for 10/25/2019) HTN - BP well controlled - c/w Atenolol and Amlodipine s/p Fluid overload - Saturating well on room air - Currently appears to be euvolemic - s/p IV fluids and Furosemide Normocytic anemia - possibly 2/2 dilutional etiology - No signs of any acute gastrointestinal (GI) bleed or any hematuria - Has remained stable Alcohol abuse - c/w Thiamine, Folate, MVI GI prophylaxis - c/w Protonix DVT prophylaxis - Will hold Xarelto - c/w TEDs/Sequentials Disposition: - Patient will ultimately require ISMAEL once NG tube was removed - Feeding tube placement on 10/25/2019; will hold anticoagulation / feeding in preparation - May required continued rehabilitation/long-term placement VS,Fishbone, I+O VS, Fishbone, I+O Laboratory Tests 10/24/19 03:44 Vital Signs Date Time Temp Pulse Resp B/P (MAP) Pulse Ox O2 Delivery O2 Flow Rate FiO2 10/24/19 07:50 97.0 90 18 137/83 (101) 100 Room Air I&O- Last 24 Hours up to 6 AM 10/24/19 06:00 Intake Total 1740 ml Output Total 1825 ml Balance -85 ml ARTIE AUGUSTE MD Oct 24, 2019 09:56
[2019-10-24] MEDS: PANTOPRAZOLE 40MG VIAL (C9113 PER 1) IV SCH (10:10)
[2019-10-24] MEDS: AMIODARONE 200 MG TAB (PACERONE) PO SCH ×2 (10:12→20:57)
[2019-10-24] MEDS: THIAMINE 100 MG TAB PO SCH (10:12)
[2019-10-24] MEDS: CETIRIZINE (ZyrTEC) 10 MG TAB PO SCH (10:13)
[2019-10-24] MEDS: atenoloL 50 MG TAB NG SCH (10:13)
[2019-10-24] MEDS: CLOTRIMAZOLE 1% TOPICAL CREAM 30GM TOP SCH ×2 (10:14→20:57)
[2019-10-24] MEDS: FOLIC ACID 1 MG TAB PO SCH (10:14)
[2019-10-24] MEDS: MONTELUKAST 10 MG TAB PO SCH (10:14)
[2019-10-24] MEDS: TAMSULOSIN 0.4 MG CAP PO SCH (10:14)
[2019-10-24] MEDS: MULTIVITAMINS/MINERALS THERAP 1 TAB PO SCH (10:14)
[2019-10-24 12:00] VITALS: BP 121/73
[2019-10-24 15:53] VITALS: BP 105/60
[2019-10-24 20:00] VITALS: BP 115/72
[2019-10-25] VITALS (8 sets, daily range): BP systolic 107–132; BP diastolic 58–95
[2019-10-25] MEDS: SALIVA SUBSTITUTE(MOUTHKOTE) BTL MT SCH ×6 (00:30→20:38)
[2019-10-25] MEDS: LACTOBACILLUS ACIDOPHILUS CAP (BACID) PO SCH ×5 (00:30→23:47)
[2019-10-25] MEDS: ceFAZolin SOD 2 GM in IV 1 EA IV SCH ×3 (02:58→17:51)
[2019-10-25] MEDS: METOCLOPRAMIDE INJ 10MG/2ML VIAL (J2765 PER 1) IV SCH ×4 (02:58→20:37)
[2019-10-25] MEDS: LEVALBUTEROL 1.25 MG/0.5 ML CONCENTRATE NEB INH SCH ×5 (03:36→19:58)
[2019-10-25] MEDS: SLF 3 ML SYR IV SCH ×3 (05:09→20:38)
[2019-10-25 05:26] LABS: HEMATOCRIT 31.3 % (42.0-52.0); HEMOGLOBIN 9.7 g/dl (13.5-17.5); MEAN CORPUSCULAR HEMOGLOBIN 32.6 pg (27.0-33.0); PLATELET COUNT, AUTOMATED 348 10^3/uL (150-450); RED BLOOD COUNT 2.98 10^6/uL (4.30-6.10); WHITE BLOOD COUNT 12.2 10^3/uL (4.0-10.0)
[2019-10-25 05:41] LABS: ANISOCYTOSIS 2+; ATYPICAL LYMPH 1 % (0-5); BASOPHILS 1 % (0-1); EOSINOPHILS 2 % (0-3); LYMPHOCYTES 20 % (16-44); MONOCYTES 8 % (0-5); NEUTROPHILS 68 % (28-66); PLATELET ESTIMATE NORMAL (NORMAL); POIKILOCYTOSIS 1+; POLYCHROMASIA 2+
[2019-10-25 05:45] LABS: BLOOD UREA NITROGEN 22 MG/DL (7-18); C REACTIVE PROTEIN QUANTITATIV 7.86 MG/DL (0.00-0.30); CALCIUM LEVEL 7.7 MG/DL (8.8-10.2); CARBON DIOXIDE LEVEL 28 MEQ/L (21-32); CHLORIDE LEVEL 105 MEQ/L (98-107); CREATININE FOR GFR 1.01 MG/DL (0.70-1.30); GLOMERULAR FILTRATION RATE > 60.0 (>35); GLUCOSE, FASTING 96 MG/DL (70-100); POTASSIUM SERUM 4.6 MEQ/L (3.5-5.1); SODIUM LEVEL 137 MEQ/L (136-145)
[2019-10-25] MEDS: CLOTRIMAZOLE 1% TOPICAL CREAM 30GM TOP SCH ×2 (08:41→20:38)
[2019-10-25] MEDS: THIAMINE 100 MG TAB PO SCH (08:42)
[2019-10-25] MEDS: AMIODARONE 200 MG TAB (PACERONE) PO SCH ×2 (08:42→20:19)
[2019-10-25] MEDS: amLODIPine 5 MG TAB PO SCH (08:42)
[2019-10-25] MEDS: CETIRIZINE (ZyrTEC) 10 MG TAB PO SCH (08:42)
[2019-10-25] MEDS: TAMSULOSIN 0.4 MG CAP PO SCH (08:43)
[2019-10-25] MEDS: MULTIVITAMINS/MINERALS THERAP 1 TAB PO SCH (08:43)
[2019-10-25] MEDS: FOLIC ACID 1 MG TAB PO SCH (08:43)
[2019-10-25] MEDS: MONTELUKAST 10 MG TAB PO SCH (08:43)
[2019-10-25] MEDS: atenoloL 50 MG TAB NG SCH (08:44)
[2019-10-25] MEDS: PANTOPRAZOLE 40MG VIAL (C9113 PER 1) IV SCH (08:45)
--- NOTE | 2019-10-25 10:46 | IPNPDOC ---
Text Note Date of Service The patient was seen on 10/25/19. NOTE Subjective: Patient is an 84-year-old male who does not follow up with any physicians, reported PMHx of Alcohol abuse, CAD, HTN, Severe protein calorie ma lnutrition who presented to the hospital with Confusion / Weakness and was found to have MSSA bacteremia / cystitis. Patient was also found to have acute renal failure. Patient had an MRI of his brain completed because of suspected encephalopathy, results of which were negative. Patient also exhibited dysphagia and did not pass swallow evaluation and subsequently an NG tube was placed for feeding. Throughout hospital course, patient had developed atrial fibrillation and cardiology was called on consultation. Patient was seen and examined at the bedside. Patient is more conversive. He is scheduled to receive a feeding tube today. He denies chest pain, shortness breath, palpitations. Has been tolerating tube feedings. Objective: Vitals (See below) General: Lying in bed, appears to be comfortable, awake and alert HEENT: NC, AT, + NG tube CVS: +S1S2 Lungs: Again has poor inspiratory effort and cough reflex. No significant wheezing, rhonchi or crackles Abdomen: Remains soft, without any distention or tenderness Extremities: No edema appreciated in lower extremities and there is no Tenderness Assessment and plan: s/p Sepsis 2/2 MSSA bacteremia - possibly 2/2 MSSA cystitis, rule out endocarditis - Hemodynamically stable and afebrile - Leukocytosis remains elevated / CRP still trending down - Blood cultures 10/05: Staph aureus; Blood cultures 10/06, 10/10, 10/13, 10/14 have remained negative - Urine cultures 10/05, 10/10: Staph aureus; Urine culture 10/14: Negative - Back culture 10/06: Staph aureus - TTE 10/06: 1. Mildly to moderately depressed global left ventricular systolic function with diffuse hypokinesis but normal left ventricular size and preserved left ventricular wall thickness. 2. Mildly enlarged left atrium with mitral annulus calcification and moderate mitral regurgitation. 3. Aortic valve sclerosis without stenosis or aortic regurgitation. 4. Mild tricuspid regurgitation with probably moderate pulmonary hypertension. - c/w Cefazolin - Infectious disease and Cardiology on consultation; plan for feeding tube today and likely ISMAEL this week Chronic bladder outlet obstruction - Case was discussed with Urology initially, no urgent need for intervention was noted - c/w Tamsulosin - Outpatient follow up with Urology, Dr. Almodovar Dysphagia - possibly 2/2 increased secretions - s/p NG tube placement for medications / feedings - Consulted interventional radiology, Dr. Moore for feeding tube placement likely for 10/25/2019 - Xarelto remains on hold - Patient is NPO with tube feedings held s/p Acute renal failure - Cr of 6.27 on admission; has trended down to normal - Nephrology has signed off s/p Acute metabolic encephalopathy; possibly component of delirium on dementia - Awake / Alert - No focal deficits - MRI brain 10/11: There is some motion artifact. Generalized volume loss and small vessel changes. No acute intracranial abnormalities seen. - Require ongoing assistance and outpatient follow-up with neurology New onset atrial fibrillation with rapid ventricular rate - Currently is rate controlled - c/w rate / rhythm control with amiodarone / atenolol - Will hold Xarelto (re: feeding tube placement for 10/25/2019) HTN - BP well controlled - c/w Atenolol and Amlodipine s/p Fluid overload - Saturating well on room air - Currently appears to be euvolemic - s/p IV fluids and Furosemide Normocytic anemia - possibly 2/2 dilutional etiology - No signs of any acute gastrointestinal (GI) bleed or any hematuria - Has remained stable Alcohol abuse - c/w Thiamine, Folate, MVI GI prophylaxis - c/w Protonix DVT prophylaxis - Will hold Xarelto - c/w TEDs/Sequentials Disposition: - Patient will ultimately require ISMAEL once NG tube was removed - Feeding tube placement today - May required continued rehabilitation/long-term placement VS,Lamin, I+O VS, Lamin, I+O Laboratory Tests 10/25/19 04:27 Vital Signs Date Time Temp Pulse Resp B/P (MAP) Pulse Ox O2 Delivery O2 Flow Rate FiO2 10/25/19 08:44 95 111/58 10/25/19 08:00 97.5 22 97 Room Air I&O- Last 24 Hours up to 6 AM 10/25/19 06:00 Intake Total 50 ml Output Total 2200 ml Balance -2150 ml ARTIE AUGUSTE MD Oct 25, 2019 10:46
[2019-10-25] MEDS ORDERED: ceFAZolin 2 GM/D5W 50 ML IV BAG (J0690 PER 500MG) As Ordered ONE (15:45)
[2019-10-25] MEDS ORDERED: fentaNYL 100 MCG/2 ML INJECTION (J3010) As Ordered ONE (16:06)
[2019-10-25] MEDS ORDERED: ISOVUE-300 61% 50ML VIAL As Ordered ONE (16:06)
[2019-10-25] MEDS ORDERED: diphenhydrAMINE 50MG/ML VIAL (J1200) As Ordered ONE (16:06)
[2019-10-25] MEDS ORDERED: MIDAZOLAM INJ 2MG/2ML VIAL (J2250 PER 1MG) As Ordered ONE (16:06)
[2019-10-25] MEDS ORDERED: LIDOCAINE 1% MDV 20ML VIAL As Ordered ONE (16:07)
[2019-10-25] MEDS ORDERED: GLUCAGON INJ 1MG VIAL As Ordered ONE (16:26)
--- NOTE | 2019-10-25 22:38 | IRMSE ---
[facility] IR Moderate Sedation Eval. Date and Time Date: Oct 25, 2019 Time: 12:50 ASA Classification ASA Classification: III-Severe systemic dis. Mallampati Score: II NPO: Yes Obstructive Sleep Apnea: No Interval Plan: moderate sedation CHRISTIANO GERBER MD Oct 25, 2019 22:38
--- NOTE | 2019-10-25 22:40 | POST-OPPD ---
Postoperative Procedure Note Date Of Procedure: Oct 25, 2019 Time Of Procedure: 16:33 PREOPERATIVE DIAGNOSIS: aspiration risk POSTOPERATIVE DIAGNOSIS: same FINDINGS: unremarkable stomach PROCEDURE: 18 F G tube placed. Feeding to start after 1600 hours FridayOctober 25. SURGEON: Oscar ANESTHESIA: mod sed ESTIMATED BLOOD LOSS: < 5 ml COMPLICATIONS: none POSTOPERATIVE CONDITION: stable CHRISTIANO GERBER MD Oct 25, 2019 22:40
[2019-10-26] VITALS: BP 139/84
[2019-10-26] MEDS: SALIVA SUBSTITUTE(MOUTHKOTE) BTL MT SCH ×6 (01:03→20:22)
[2019-10-26] MEDS: ceFAZolin SOD 2 GM in IV 1 EA IV SCH ×3 (03:20→17:47)
[2019-10-26] MEDS: METOCLOPRAMIDE INJ 10MG/2ML VIAL (J2765 PER 1) IV SCH ×4 (03:20→20:23)
[2019-10-26 04:00] VITALS: BP 129/80
[2019-10-26] MEDS: LEVALBUTEROL 1.25 MG/0.5 ML CONCENTRATE NEB INH SCH ×7 (04:00→22:52)
[2019-10-26 04:24] LABS: HEMATOCRIT 32.2 % (42.0-52.0); HEMOGLOBIN 10.2 g/dl (13.5-17.5); MEAN CORPUSCULAR HEMOGLOBIN 33.2 pg (27.0-33.0); MEAN CORPUSCULAR HGB CONC 31.7 g/dl (32.0-36.5); MEAN CORPUSCULAR VOLUME 104.9 fl (80.0-96.0); PLATELET COUNT, AUTOMATED 365 10^3/uL (150-450); RED BLOOD COUNT 3.07 10^6/uL (4.30-6.10); WHITE BLOOD COUNT 10.6 10^3/uL (4.0-10.0)
[2019-10-26 04:41] LABS: EOSINOPHILS 2 % (0-3); LYMPHOCYTES 14 % (16-44); METAMYELOCYTES 1 % (0-0); MONOCYTES 8 % (0-5); NEUTROPHILS 74 % (28-66)
[2019-10-26 04:42] LABS: ANISOCYTOSIS 2+; PLATELET ESTIMATE INCREASED (NORMAL); POLYCHROMASIA 1+
[2019-10-26 04:43] LABS: PLATELET CLUMPS SMALL AMT
[2019-10-26 04:46] LABS: BLOOD UREA NITROGEN 19 MG/DL (7-18); C REACTIVE PROTEIN QUANTITATIV 8.27 MG/DL (0.00-0.30); CALCIUM LEVEL 8.2 MG/DL (8.8-10.2); CARBON DIOXIDE LEVEL 26 MEQ/L (21-32); CHLORIDE LEVEL 108 MEQ/L (98-107); ERYTHROCYTE SEDIMENTATION RATE 105 mm/hr (0-20); GLOMERULAR FILTRATION RATE > 60.0 (>35); GLUCOSE, FASTING 82 MG/DL (70-100); MAGNESIUM LEVEL 1.9 MG/DL (1.8-2.4); POTASSIUM SERUM 4.7 MEQ/L (3.5-5.1); SODIUM LEVEL 141 MEQ/L (136-145)
[2019-10-26] MEDS: SLF 3 ML SYR IV SCH ×3 (05:27→20:23)
[2019-10-26] MEDS: LACTOBACILLUS ACIDOPHILUS CAP (BACID) PO SCH ×3 (05:27→17:46)
[2019-10-26 08:00] VITALS: BP 142/91
[2019-10-26] MEDS: PANTOPRAZOLE 40MG VIAL (C9113 PER 1) IV SCH (08:54)
--- NOTE | 2019-10-26 10:01 | IPN ---
DATE: 10/25/2019 Mr. Raines just came back from a G tube placement that was done by Dr. Moore and therefore is sedated, but according to his , Bella Raines, who is at the bedside, and his nurse, the patient was out of bed to a chair today and he is alert and oriented. He is able to converse. He has had no fever or chills. Due to persistent dysphagia and difficulty swallowing, the G tube was recommended. He still has a nasogastric (NG) tube in place which will be removed once the G tube is working. He has had no complaints. On physical exam, lying in bed. Opens his eyes when called. Heart: Normal S1 and S2 with no murmurs appreciated. Irregular rate is much better controlled. Lungs are clear. No wheezes, rales or rhonchi. Abdomen: Soft, nontender. No visceromegaly. Extremities: +1 ankle edema. No calf tenderness. No rashes. Skin: He has an abscess on his forehead which is healed, right shoulder blade abscess improvement, has healed and there is a scab. Groin bilateral with no erythema, candidiasis has resolved. Transthoracic echocardiogram done on 10/07/2019 showed mild to moderate depressed global left ventricular systolic function with diffuse hypokinesia, mildly enlarged left atrium with mitral annulus calcification. Labs: White count 12.2 down from 30,000 and 40,000 the first 2 weeks of admission. Hemoglobin 9.7, hematocrit 31.3, and platelets 348, 68% neutrophils, 20% lymphocytes, 8% monocytes, 2% eosinophils. Sodium 137, potassium 4.6, chloride 105, bicarb of 28, BUN 22, creatinine 1.01, glucose 96, calcium 7.7, magnesium 2. CRP 7.86 down from 19.1. Blood cultures on 10/14/2019 and 10/15/2019 were negative. Urine culture on 10/15/2019 was negative. IMPRESSION: 1. Methicillin-sensitive Staphylococcus aureus (MSSA) sepsis with positive urine culture and wound cultures. The patient is doing much better on IV cefazolin 2 grams every 8 hours. Source of bacteremia could have been of urinary origin, but due to complicated history and multiple comorbidities, concern for endocarditis, transesophageal echocardiogram (ISMAEL) hopefully will be done later this week, possibly on Friday. 2. Urinary tract infection with Carvalho catheter in place. There is a concern for a bladder mass. Cystoscopy to be done as an outpatient. 3. Multiple skin abscesses, have resolved. Culture positive for MSSA. 4. Dysphagia. The patient had a G tube placed today and will be fed by G tube. PLAN: Continue IV cefazolin. Antibiotic course will depend on the results of his ISMAEL. His first negative culture was on 10/07/2019 and so if transesophageal echocardiogram is negative, then IV antibiotic probably could be discontinued.
[2019-10-26] MEDS: MULTIVITAMINS/MINERALS THERAP 1 TAB PO SCH (10:13)
[2019-10-26] MEDS: TAMSULOSIN 0.4 MG CAP PO SCH (10:13)
[2019-10-26] MEDS: THIAMINE 100 MG TAB PO SCH (10:13)
[2019-10-26] MEDS: CETIRIZINE (ZyrTEC) 10 MG TAB PO SCH (10:13)
[2019-10-26] MEDS: amLODIPine 5 MG TAB PO SCH (10:14)
[2019-10-26] MEDS: atenoloL 50 MG TAB NG SCH (10:14)
[2019-10-26] MEDS: FOLIC ACID 1 MG TAB PO SCH (10:14)
[2019-10-26] MEDS: MONTELUKAST 10 MG TAB PO SCH (10:15)
[2019-10-26] MEDS: AMIODARONE 200 MG TAB (PACERONE) PO SCH ×2 (10:15→20:22)
[2019-10-26] MEDS: CLOTRIMAZOLE 1% TOPICAL CREAM 30GM TOP SCH ×2 (10:16→20:22)
--- NOTE | 2019-10-26 11:25 | IPNPDOC ---
Text Note Date of Service The patient was seen on 10/26/19. NOTE Subjective: Patient is an 84-year-old male who does not follow up with any physicians, reported PMHx of Alcohol abuse, CAD, HTN, Severe protein calorie ma lnutrition who presented to the hospital with Confusion / Weakness and was found to have MSSA bacteremia / cystitis. Patient was also found to have acute renal failure. Patient had an MRI of his brain completed because of suspected encephalopathy, results of which were negative. Patient also exhibited dysphagia and did not pass swallow evaluation and subsequently an NG tube was placed for feeding. Throughout hospital course, patient had developed atrial fibrillation and cardiology was called on consultation. Patient was seen and examined at the bedside. Patient has had percutaneous G- tube placed yesterday with interventional radiology NG tube will be removed later today. Patient denies any nausea, vomiting, abdominal pain, diarrhea, or urinary discomfort. Objective: Vitals (See below) General: Lying in bed, appears to be comfortable, awake, alert and oriented HEENT: NC, AT, + NG tube CVS: +S1S2 Lungs: Are bilaterally Abdomen: Remains soft, without any distention or tenderness Extremities: No edema appreciated in lower extremities and there is no Tender ness Assessment and plan: s/p Sepsis 2/2 MSSA bacteremia - possibly 2/2 MSSA cystitis, rule out endocarditis - Hemodynamically stable and afebrile - Leukocytosis and CRP appear to remain stable - Blood cultures 10/05: Staph aureus; Blood cultures 10/06, 10/10, 10/13, 10/14 have remained negative - Urine cultures 10/05, 10/10: Staph aureus; Urine culture 10/14: Negative - Back culture 10/06: Staph aureus - TTE 10/06: 1. Mildly to moderately depressed global left ventricular systolic function with diffuse hypokinesis but normal left ventricular size and preserved left ventricular wall thickness. 2. Mildly enlarged left atrium with mitral annulus calcification and moderate mitral regurgitation. 3. Aortic valve sclerosis without stenosis or aortic regurgitation. 4. Mild tricuspid regurgitation with probably moderate pulmonary hypertension. - c/w Cefazolin - Infectious disease on consultation - Discussed with cardiology; plans for transesophageal echocardiogram to be completed tomorrow Chronic bladder outlet obstruction - Case was discussed with Urology initially, no urgent need for intervention was noted - c/w Tamsulosin - Outpatient follow up with Urology, Dr. Almodovar Dysphagia - possibly 2/2 increased secretions - s/p NG tube placement for medications / feedings - will be removed today - s/p G tube placement likely for 10/25/2019 - c/w Speech therapy s/p Acute renal failure - Cr of 6.27 on admission; has trended down to normal - Nephrology has signed off s/p Acute metabolic encephalopathy; possibly component of delirium on dementia - Awake / Alert - No focal deficits - MRI brain 10/11: There is some motion artifact. Generalized volume loss and small vessel changes. No acute intracranial abnormalities seen. - Require ongoing assistance and outpatient follow-up with neurology New onset atrial fibrillation with rapid ventricular rate - Currently is rate controlled - c/w rate / rhythm control with amiodarone / atenolol - Will resume Xarelto today HTN - BP well controlled - c/w Atenolol and Amlodipine s/p Fluid overload - Saturating well on room air - Currently appears to be euvolemic - s/p IV fluids and Furosemide Normocytic anemia - possibly 2/2 dilutional etiology - No signs of any acute gastrointestinal (GI) bleed or any hematuria - Has remained stable Alcohol abuse - c/w Thiamine, Folate, MVI GI prophylaxis - c/w Protonix DVT prophylaxis - Will resume Xarelto Disposition: - Plan for ISMAEL tomorrow - May required continued rehabilitation/long-term placement VS,Geovannybone, I+O VS, Fishbone, I+O Laboratory Tests 10/26/19 03:48 Vital Signs Date Time Temp Pulse Resp B/P (MAP) Pulse Ox O2 Delivery O2 Flow Rate FiO2 10/26/19 10:14 88 139/90 10/26/19 08:00 97.7 20 95 10/26/19 04:00 Room Air 10/25/19 17:00 2 I&O- Last 24 Hours up to 6 AM 10/26/19 05:59 Intake Total 200 ml Output Total 1860 ml Balance -1660 ml ARTIE AUGUSTE MD Oct 26, 2019 11:25
[2019-10-26 12:00] VITALS: BP 127/76
[2019-10-26 16:00] VITALS: BP 120/77
[2019-10-26] MEDS: RIVAROXABAN 15 MG TAB (XARELTO) PO SCH (17:46)
[2019-10-26 20:00] VITALS: BP 134/69
--- NOTE | 2019-10-26 21:31 | IPN ---
DATE: 10/26/2019 Marino is doing well today. He wants his mitts removed, and his G-tube is being used for his tube feeds tonight. His nasogastric (NG) tube will be removed. He is out of bed to the chair for 3 hours this morning. He was able to walk to the chair. He has no complaints. He still has quite a bit of rhonchorous breath sounds. LABS: White count is 10.6, hemoglobin 10.2, hematocrit 32.2, platelets 365, 74% neutrophils, 14% lymphocytes, 8% monocytes. ESR 105. Sodium 141, potassium 4.7, chloride 108, bicarbonate 26, BUN 19, creatinine 1, glucose 82, calcium 8.2, magnesium 1.9, CRP 8.27. Blood cultures 10/14/2019 and 10/15/2019 were negative. Urine culture negative 10/15/2019. PHYSICAL EXAM: Temperature is 97.5, pulse 77, irregular, respiratory rate 20, blood pressure 120/77, oxygen saturation (O2 sat) 92% on room air. Heart: Normal S1, S2, distant with irregular. No murmurs appreciated. Lungs: Expiratory rhonchi bilaterally. No wheezes or crackles. Abdomen: Soft, nontender. No hepatosplenomegaly. G-tube in place. Back: No costovertebral angle (CVA) or lumbosacral tenderness. Extremities: No calf tenderness. Trace ankle edema bilaterally. IMPRESSION: 1. Staphylococcus (staph) aureus/methicillin-sensitive Staphylococcus aureus (MSSA) sepsis, on IV cefazolin 2 grams every 8 hours. Source of bacteremia probably of urinary origin. Concern still for endocarditis and transesophageal echocardiogram is scheduled for tomorrow. 2. Urinary tract infection with MSSA. Carvalho catheter in place. The patient is to be scheduled for outpatient cystoscopy for concern of a bladder mass. 3. Multiple skin abscesses with MSSA have resolved. 4. Dysphagia. The patient had a G-tube placed and will be starting tube feeds and NG tube was removed. PLAN: Transesophageal echocardiogram (ISMAEL) tomorrow and if negative, antibiotics could be discontinued as the patient has finished a 2-week course of IV antibiotics from first negative culture, which was on 10/07/2019. If ISMAEL is positive, the patient will need 6 weeks of IV antibiotics from first negative culture. Case has been discussed with Dr. Ramirez.
[2019-10-27] VITALS (7 sets, daily range): BP systolic 107–133; BP diastolic 63–80
[2019-10-27] MEDS: LACTOBACILLUS ACIDOPHILUS CAP (BACID) PO SCH ×5 (00:14→22:16)
[2019-10-27] MEDS: SALIVA SUBSTITUTE(MOUTHKOTE) BTL MT SCH ×6 (01:44→22:16)
[2019-10-27] MEDS: ceFAZolin SOD 2 GM in IV 1 EA IV SCH ×3 (02:54→18:12)
[2019-10-27] MEDS: METOCLOPRAMIDE INJ 10MG/2ML VIAL (J2765 PER 1) IV SCH ×4 (02:54→22:15)
[2019-10-27] MEDS: LEVALBUTEROL 1.25 MG/0.5 ML CONCENTRATE NEB INH SCH ×6 (04:00→23:57)
[2019-10-27] MEDS: SLF 3 ML SYR IV SCH ×3 (05:17→22:17)
[2019-10-27 05:41] LABS: HEMATOCRIT 37.4 % (42.0-52.0); HEMOGLOBIN 11.5 g/dl (13.5-17.5); MEAN CORPUSCULAR HEMOGLOBIN 32.6 pg (27.0-33.0); MEAN CORPUSCULAR HGB CONC 30.7 g/dl (32.0-36.5); MEAN CORPUSCULAR VOLUME 105.9 fl (80.0-96.0); PLATELET COUNT, AUTOMATED 381 10^3/uL (150-450); RED BLOOD COUNT 3.53 10^6/uL (4.30-6.10); WHITE BLOOD COUNT 13.3 10^3/uL (4.0-10.0)
[2019-10-27 05:57] LABS: BLOOD UREA NITROGEN 19 MG/DL (7-18); C REACTIVE PROTEIN QUANTITATIV 9.63 MG/DL (0.00-0.30); CALCIUM LEVEL 8.2 MG/DL (8.8-10.2); CARBON DIOXIDE LEVEL 25 MEQ/L (21-32); CHLORIDE LEVEL 107 MEQ/L (98-107); CREATININE FOR GFR 1.04 MG/DL (0.70-1.30); GLOMERULAR FILTRATION RATE > 60.0 (>35); GLUCOSE, FASTING 95 MG/DL (70-100); MAGNESIUM LEVEL 1.8 MG/DL (1.8-2.4); POTASSIUM SERUM 4.3 MEQ/L (3.5-5.1); SODIUM LEVEL 140 MEQ/L (136-145)
[2019-10-27 06:34] LABS: EOSINOPHILS 2 % (0-3); LYMPHOCYTES 9 % (16-44); MONOCYTES 4 % (0-5); MYELOCYTES 2 % (0-0); NEUTROPHILS 82 % (28-66)
[2019-10-27 06:35] LABS: POLYCHROMASIA 1+
[2019-10-27 06:36] LABS: ANISOCYTOSIS 2+; PLATELET ESTIMATE NORMAL (NORMAL)
[2019-10-27] MEDS: CETIRIZINE (ZyrTEC) 10 MG TAB PO SCH (09:26)
[2019-10-27] MEDS: PANTOPRAZOLE 40MG VIAL (C9113 PER 1) IV SCH (09:26)
[2019-10-27] MEDS: atenoloL 50 MG TAB NG SCH (09:27)
[2019-10-27] MEDS: MONTELUKAST 10 MG TAB PO SCH (09:27)
[2019-10-27] MEDS: THIAMINE 100 MG TAB PO SCH (09:27)
[2019-10-27] MEDS: AMIODARONE 200 MG TAB (PACERONE) PO SCH ×2 (09:27→22:16)
[2019-10-27] MEDS: CLOTRIMAZOLE 1% TOPICAL CREAM 30GM TOP SCH ×2 (09:28→22:17)
[2019-10-27] MEDS: FOLIC ACID 1 MG TAB PO SCH (09:28)
[2019-10-27] MEDS: MULTIVITAMINS/MINERALS THERAP 1 TAB PO SCH (09:28)
[2019-10-27] MEDS: amLODIPine 5 MG TAB PO SCH (09:29)
--- NOTE | 2019-10-27 10:19 | IPN ---
DATE OF SERVICE: 10/27/2019 Mr. Raines was quite sleepy this morning when I woke him up. He was very conversant. Unfortunately, I do not believe he is oriented, and many of his answers really do not make much sense, but yet he does not appear in any distress and appears quite comfortable. Vital signs: Blood pressure 112/65, heart rate is in 80s and 70s, atrial fibrillation. He has been afebrile. Saturation 95% on room air. Weight has not been recorded yet this morning. It was 65.8 kg yesterday. He is certainly alert but not oriented. His jugular venous pressure (JVP) is not high. Lungs still have some occasional wet rhonchi, mostly upper airway. I do not appreciate any wheezing or crackles. Heart examination reveals irregular rhythm without audible murmur, gallop, or rub. Abdomen has a percutaneous endoscopic gastrostomy (PEG) tube in place but is otherwise soft. Bowel sounds are present. Extremities are free of edema. Neurologically, besides orientation, he is moving all four extremities, and his speech even though not overly sensical does not seem garbled. LABORATORY: Complete blood count (CBC): WBC count 13, hemoglobin 11.5, hematocrit 37, platelet count 381,000. Basic metabolic panel is normal. CRP is 9.3. ASSESSMENT AND PLAN: Mr. Raines is an 84-year-old man who came with urinary obstruction and Staphylococcus aureus sepsis. He recovered with medical management for the most part. There is still a concern about possibility of endocarditis, and I was asked by Dr. Ramirez to proceed with a transesophageal echocardiogram (ISMAEL). I had an extensive discussion with his over the phone regarding the indication for the procedure and potential findings. I answered all her questions, and she will sign the consent form later on when she comes to the hospital today. I plan to proceed with the procedure this evening. We will keep him without feeding in preparation.
--- NOTE | 2019-10-27 13:41 | IPNPDOC ---
Text Note Date of Service The patient was seen on 10/27/19. NOTE Subjective: Patient is an 84-year-old male who does not follow up with any physicians, reported PMHx of Alcohol abuse, CAD, HTN, Severe protein calorie ma lnutrition who presented to the hospital with Confusion / Weakness and was found to have MSSA bacteremia / cystitis. Patient was also found to have acute renal failure. Patient had an MRI of his brain completed because of suspected encephalopathy, results of which were negative. Patient also exhibited dysphagia and did not pass swallow evaluation and subsequently an NG tube was placed for feeding. Throughout hospital course, patient had developed atrial fibrillation and cardiology was called on consultation. Patient was seen and examined at the bedside. , Currently patient is in preparation for a ISMAEL to be completed today with Dr. Wan. Patient denies any chest pain churns of breath, palpitations, has not expense any nausea, vomiting, abdominal pain, diarrhea. Objective: Vitals (See below) General: Lying in bed, he remains comfortable, is awake and alert HEENT: NC, AT CVS: +S1S2 Lungs: Air entry appears to be fair bilaterally without evidence of rhonchi, crackles or wheezing Abdomen: Remains soft, without any distention or tenderness Extremities: No lower extremity tenderness. No appreciable edema Assessment and plan: s/p Sepsis 2/2 MSSA bacteremia - possibly 2/2 MSSA cystitis, rule out endocarditis - Hemodynamically stable and afebrile - Leukocytosis and CRP appear to remain stable - Blood cultures 10/05: Staph aureus; Blood cultures 10/06, 10/10, 10/13, 10/14 have remained negative - Urine cultures 10/05, 10/10: Staph aureus; Urine culture 10/14: Negative - Back culture 10/06: Staph aureus - TTE 10/06: 1. Mildly to moderately depressed global left ventricular systolic function with diffuse hypokinesis but normal left ventricular size and preserved left ventricular wall thickness. 2. Mildly enlarged left atrium with mitral annulus calcification and moderate mitral regurgitation. 3. Aortic valve sclerosis without stenosis or aortic regurgitation. 4. Mild tricuspid regurgitation with probably moderate pulmonary hypertension. - c/w Cefazolin - Infectious disease on consultation - Discussed with cardiology; will have ISMAEL completed today; determine need for antibiotics there after Chronic bladder outlet obstruction - Case was discussed with Urology initially, no urgent need for intervention was noted - Discussed results of imaging with patient and family ( and daughter) advised about potential risk of malignancy in bladder and need for cystoscopy/biopsy as outpatient; they have verbalized understanding - c/w Tamsulosin - Outpatient follow up with Urology, Dr. Almodovar - concern for bladder mass Dysphagia - possibly 2/2 increased secretions - s/p NG tube placement for medications / feedings - will be removed today - s/p G tube placement likely for 10/25/2019 - c/w Speech therapy s/p Acute renal failure - Cr of 6.27 on admission; has trended down to normal - Nephrology has signed off s/p Acute metabolic encephalopathy; possibly component of delirium on dementia - Awake / Alert - No focal deficits - MRI brain 10/11: There is some motion artifact. Generalized volume loss and small vessel changes. No acute intracranial abnormalities seen. - Require ongoing assistance and outpatient follow-up with neurology New onset atrial fibrillation with rapid ventricular rate - Currently is rate controlled - c/w rate / rhythm control with amiodarone / atenolol - c/w Xarelto HTN - BP well controlled - c/w Atenolol and Amlodipine s/p Fluid overload - Saturating well on room air - Currently appears to be euvolemic - s/p IV fluids and Furosemide Normocytic anemia - possibly 2/2 dilutional etiology - No signs of any acute gastrointestinal (GI) bleed or any hematuria - Has remained stable Alcohol abuse - c/w Thiamine, Folate, MVI GI prophylaxis - c/w Protonix DVT prophylaxis - c//w full anticoagulation with Xarelto Disposition: - ISMAEL today; antibiotics to be determined thereafter - May required continued rehabilitation/long-term placement VS,Geovannybone, I+O VS, Fishbone, I+O Laboratory Tests 10/27/19 05:11 Vital Signs Date Time Temp Pulse Resp B/P (MAP) Pulse Ox O2 Delivery O2 Flow Rate FiO2 10/27/19 12:00 97.4 65 18 107/75 (86) 96 Room Air 10/25/19 17:00 2 I&O- Last 24 Hours up to 6 AM 10/27/19 05:59 Intake Total 100 ml Output Total 725 ml Balance -625 ml ARTIE AUGUSTE MD Oct 27, 2019 13:41
--- NOTE | 2019-10-27 16:07 | REP ---
IR Gastrostomy catheter placement with fluoroscopy guidance. IR Moderate sedation. Clinical information: Aspiration risk. Physician: Dr. Moore. Procedure: The patient and patient's healthcare proxy were advised of the benefits, risks and alternatives of the procedure and informed consent was obtained. The time-out was performed with verification of the patient's name, MRN, site of procedure and type of procedure to be performed. The patient was positioned in the supine position on the angiographic table. The site was prepped and draped in the usual sterile fashion. Moderate sedation was performed by the physician including the presence of an independent trained observer who assisted in monitoring the patient's level of consciousness and physiologic status. Following the administration of Versed and Fentanyl, the physician spent 60 minutes of continuous face to face time with the patient. A turpentine distiller radiograph reveals an NG tube in the expected location of the stomach. 1 mg of glucagon was administered intravenously. The stomach was insufflated and distended with air through the nasogastric tube. The soft tissues overlying the anticipated puncture site were anesthetized with lidocaine. A gastropexy needle was advanced into the stomach and positioning was confirmed with contrast injection. The gastropexy suture was deployed and secured in the usual fashion. A total of three gastropexy sutures were deployed under fluoroscopy guidance. An 18 gauge needle was advanced into the body of the stomach under fluoroscopy guidance. Contrast was injected through the needle documenting intragastric position. An Amplatz wire was advanced into the stomach. After serial dilation under fluoroscopy guidance, a 20-Jamaican peel-away sheath was advanced over the wire into the stomach under fluoroscopy guidance. An 18-Jamaican ForMune gastrostomy catheter was then advanced through the peel-away sheath under fluoroscopy guidance. Contrast was injected through the gastrostomy catheter confirming position within the stomach. The balloon was insufflated and retracted to the anterior stomach wall. The catheter bumper was positioned to sandwich the anterior abdominal wall. The catheter was placed gravity drainage. The patient tolerated the procedure well and was returned to the inpatient unit in stable condition. EBL: Less than 5 ml. Complications: None. Impression: 1. Successful percutaneous placement of 18-Jamaican gastrostomy catheter. Catheter to remain to gravity drainage for 24 hours. 2. Catheter may be used 24 hours past placement; 10/26/19 1600 hours. The gastropexy sutures will dissolve within 6 weeks and the buttons will fall-off. 3. Patient to follow up in IR clinic in 2 weeks. Thank you this referral. Electronically Signed by Remedios Moore MD 10/27/2019 04:06 P
[2019-10-27] MEDS ORDERED: ONDANSETRON 4MG/2ML VIAL As Ordered ONE (19:36)
[2019-10-27] MEDS ORDERED: propofoL 200 MG/20 ML VIAL As Ordered ONE (19:36)
[2019-10-27] MEDS ORDERED: LIDOCAINE 2% 100MG/5ML SDV (FOR ANES.) As Ordered ONE (19:36)
[2019-10-27] MEDS ORDERED: CETACAINE SPRAY 5GM As Ordered ONE (19:58)
[2019-10-27] MEDS ORDERED: NS 300 ML IV ONE (21:00)
[2019-10-27] MEDS: RIVAROXABAN 15 MG TAB (XARELTO) PO SCH (22:16)
[2019-10-28] VITALS: BP 124/73
[2019-10-28] MEDS: SALIVA SUBSTITUTE(MOUTHKOTE) BTL MT SCH ×6 (01:37→20:22)
[2019-10-28] MEDS: ceFAZolin SOD 2 GM in IV 1 EA IV SCH (01:45)
[2019-10-28] MEDS: METOCLOPRAMIDE INJ 10MG/2ML VIAL (J2765 PER 1) IV SCH ×4 (01:46→20:22)
[2019-10-28 04:00] VITALS: BP 103/60
[2019-10-28] MEDS: LEVALBUTEROL 1.25 MG/0.5 ML CONCENTRATE NEB INH SCH ×5 (04:00→20:00)
[2019-10-28] MEDS: LACTOBACILLUS ACIDOPHILUS CAP (BACID) PO SCH ×3 (05:38→18:03)
[2019-10-28] MEDS: SLF 3 ML SYR IV SCH ×3 (05:39→22:00)
[2019-10-28 05:56] LABS: HEMATOCRIT 32.1 % (42.0-52.0); MEAN CORPUSCULAR HEMOGLOBIN 32.7 pg (27.0-33.0); MEAN CORPUSCULAR HGB CONC 31.2 g/dl (32.0-36.5); MEAN CORPUSCULAR VOLUME 104.9 fl (80.0-96.0); PLATELET COUNT, AUTOMATED 404 10^3/uL (150-450); RED BLOOD COUNT 3.06 10^6/uL (4.30-6.10); WHITE BLOOD COUNT 11.7 10^3/uL (4.0-10.0)
[2019-10-28 06:17] LABS: BLOOD UREA NITROGEN 18 MG/DL (7-18); CALCIUM LEVEL 7.9 MG/DL (8.8-10.2); CARBON DIOXIDE LEVEL 23 MEQ/L (21-32); CHLORIDE LEVEL 110 MEQ/L (98-107); CREATININE FOR GFR 1.09 MG/DL (0.70-1.30); GLOMERULAR FILTRATION RATE > 60.0 (>35); GLUCOSE, FASTING 126 MG/DL (70-100); MAGNESIUM LEVEL 1.8 MG/DL (1.8-2.4); POTASSIUM SERUM 3.9 MEQ/L (3.5-5.1); SODIUM LEVEL 142 MEQ/L (136-145)
[2019-10-28 06:37] LABS: EOSINOPHILS 3 % (0-3); LYMPHOCYTES 22 % (16-44); METAMYELOCYTES 1 % (0-0); MONOCYTES 4 % (0-5); MYELOCYTES 3 % (0-0); NEUTROPHILS 67 % (28-66)
[2019-10-28 06:38] LABS: PLATELET ESTIMATE INCREASED (NORMAL)
[2019-10-28 06:39] LABS: ANISOCYTOSIS 2+
[2019-10-28 06:55] VITALS: BP 118/71
[2019-10-28 07:09] LABS: C REACTIVE PROTEIN QUANTITATIV 7.65 MG/DL (0.00-0.30)
--- NOTE | 2019-10-28 08:25 | T-ECHO ---
DATE OF PROCEDURE: 10/27/2019 REFERRING PHYSICIAN: Dr. Waqas Ramirez and Dr. Jamilah Beltran, infectious disease. ANESTHESIA: Ronak Rodriguez CRNA INDICATION: Staph aureus bacteremia, rule out endocarditis. BRIEF HISTORY: Mr. Raines is an 84-year-old man who came to the hospital now more than 10 days ago with altered mental status, febrile and was found to have acute renal failure and was septic. He grew Staphylococcus aureus from multiple sources including blood, urine and wound culture from his right shoulder. He was initially very sick but with conservative management improved. Though he continued to have trouble with swallowing and eventually a feeding tube was placed after consent was obtained from his family. I met with the patient on numerous occasions but also the morning of the procedure. Unfortunately, his mental status was not sufficient to provide consent and consequently I contacted his who, after I explained the rationale for the procedure and potential complications, gave me consent over the phone and then she physically came to the hospital and signed the consent form in person. PROCEDURE: The procedure was performed in the operating room. Anesthesia was provided by Ronak Rodriguez CRNA. After appropriate level sedation was accomplished which occurred after appropriate time-out was taken and all the monitors were applied, the patient's posterior pharynx was anesthetized using a lidocaine spray. A probe was then introduced into esophagus with minor difficulty. After appropriate images were obtained, it was withdrawn. There were no immediate complications and the patient tolerated the procedure relatively well. At the time of my dictation he is waking up from anesthesia. FINDINGS: Left ventricle has normal systolic function, I estimate EF of 60-65%. Right ventricle also appears to have normal systolic function and does not appear dilated. Both atria appear grossly normal. Mitral valve appears normal for patient's age. There are minimal degenerative abnormalities but no vegetations are seen. There is no prolapse or ruptured cordae. By color Doppler imaging, there is approximately [id number] mitral insufficiency. Aortic valve is minimally sclerotic but otherwise has normal mobility. No vegetations are seen and by color Doppler imaging there is no insufficiency and there is no stenosis. Tricuspid valve also appears structurally intact. Trace insufficiency seen. Unfortunately, the quality of TR jet was not adequate to make precise assessment of pulmonary artery pressure. Pulmonic valve also appears relatively normal. Trace insufficiency is visualized. Left atrial appendage is large and free of thrombi. There is normal flow in both left-sided and right-sided pulmonary veins. Atrial septum is intact based on 2D and color Doppler imaging. Aortic arch and descending aorta demonstrates significant atherosclerosis but I did not visualize any ulcers or protruding thrombi. CONCLUSION: 1. Preserved LV systolic function. 2. Preserved RV systolic function. 3. [id number] mitral insufficiency. 4. Remaining valves are functionally competent. 5. Intact atrial septum. 6. Left atrial appendage is free of thrombi. 7. Atherosclerosis of the aortic arch and descending aorta. 8. No evidence for vegetations and thus for endocarditis. MTDD
[2019-10-28] MEDS: amLODIPine 5 MG TAB PO SCH (09:00)
[2019-10-28] MEDS: THIAMINE 100 MG TAB PO SCH (09:24)
[2019-10-28] MEDS: PANTOPRAZOLE 40MG VIAL (C9113 PER 1) IV SCH (09:24)
[2019-10-28] MEDS: FOLIC ACID 1 MG TAB PO SCH (09:24)
[2019-10-28] MEDS: MONTELUKAST 10 MG TAB PO SCH (09:24)
[2019-10-28] MEDS: AMIODARONE 200 MG TAB (PACERONE) PO SCH ×2 (09:24→20:22)
[2019-10-28] MEDS: MULTIVITAMINS/MINERALS THERAP 1 TAB PO SCH (09:24)
[2019-10-28] MEDS: CETIRIZINE (ZyrTEC) 10 MG TAB PO SCH (09:24)
[2019-10-28] MEDS: atenoloL 50 MG TAB NG SCH (09:29)
[2019-10-28] MEDS: CLOTRIMAZOLE 1% TOPICAL CREAM 30GM TOP SCH ×2 (09:31→20:22)
--- NOTE | 2019-10-28 10:45 | IPNPDOC ---
Text Note Date of Service The patient was seen on 10/28/19. NOTE Subjective: Patient is an 84-year-old male who does not follow up with any physicians, reported PMHx of Alcohol abuse, CAD, HTN, Severe protein calorie ma lnutrition who presented to the hospital with Confusion / Weakness and was found to have MSSA bacteremia / cystitis. Patient was also found to have acute renal failure. Patient had an MRI of his brain completed because of suspected encephalopathy, results of which were negative. Patient also exhibited dysphagia and did not pass swallow evaluation and subsequently an NG tube was placed for feeding. Throughout hospital course, patient had developed atrial fibrillation and cardiology was called on consultation. Patient was seen and examined at the bedside. Patient appears to be much more awake, alert and oriented this morning and was conversive. Patient denies any nausea, vomiting, abdominal pain, diarrhea. He has Carvalho catheter in place. has been progressing with physical therapy; anticipate transition to rehabilitation tomorrow. Objective: Vitals (See below) General: Lying in bed, appears comfortable, conversive, awake, alert and oriented 3 HEENT: NC, AT CVS: +S1S2 Lungs: Air entry appears to be fair bilaterally without evidence of rhonchi, crackles or wheezing Abdomen: Nondistended, nontender, remains soft, + PEG tube Extremities: No lower extremity edema appreciated Assessment and plan: s/p Sepsis 2/2 MSSA bacteremia - possibly 2/2 MSSA cystitis, no evidence of endocarditis - Hemodynamically stable and afebrile - Leukocytosis / CRP continue to improve - Blood cultures 10/05: Staph aureus; Blood cultures 10/06, 10/10, 10/13, 10/14 have remained negative - Urine cultures 10/05, 10/10: Staph aureus; Urine culture 10/14: Negative - Back culture 10/06: Staph aureus - TTE 10/06: 1. Mildly to moderately depressed global left ventricular systolic function with diffuse hypokinesis but normal left ventricular size and preserved left ventricular wall thickness. 2. Mildly enlarged left atrium with mitral annulus calcification and moderate mitral regurgitation. 3. Aortic valve sclerosis without stenosis or aortic regurgitation. 4. Mild tricuspid regurgitation with probably moderate pulmonary hypertension. - ISMAEL 10/26: 1. Preserved LV systolic function. 2. Preserved RV systolic function. 3. Znje-yr-nhbdyusw mitral insufficiency. 4. Remaining valves are functionally competent. 5. Intact atrial septum. 6. Left atrial appendage is free of thrombi. 7. Atherosclerosis of the aortic arch and descending aorta. 8. No evidence for vegetations and thus for endocarditis. - s/p Cefazolin - Infectious disease and cardiology on consultation; Chronic bladder outlet obstruction - Case was discussed with Urology initially, no urgent need for intervention was noted - Discussed results of imaging with patient and family ( and daughter) advised about potential risk of malignancy in bladder and need for cystos copy/biopsy as outpatient; they have verbalized understanding - c/w Tamsulosin - Outpatient follow up with Urology, Dr. Almodovar - concern for bladder mass Dysphagia - possibly 2/2 increased secretions - s/p NG tube placement for medications / feedings - will be removed today - s/p G tube placement likely for 10/25/2019 - c/w Speech therapy s/p Acute renal failure - Cr of 6.27 on admission; has trended down to normal - Nephrology has signed off s/p Acute metabolic encephalopathy; possibly component of delirium on dementia - Awake / Alert - No focal deficits - MRI brain 10/11: There is some motion artifact. Generalized volume loss and small vessel changes. No acute intracranial abnormalities seen. - Require ongoing assistance and outpatient follow-up with neurology New onset atrial fibrillation with rapid ventricular rate - Currently is rate controlled - c/w rate / rhythm control with amiodarone / atenolol - c/w Xarelto HTN - BP well controlled - c/w Atenolol and Amlodipine s/p Fluid overload - Saturating well on room air - Currently appears to be euvolemic - s/p IV fluids and Furosemide Normocytic anemia - possibly 2/2 dilutional etiology - No signs of any acute gastrointestinal (GI) bleed or any hematuria - Has remained stable Alcohol abuse - c/w Thiamine, Folate, MVI GI prophylaxis - c/w Protonix DVT prophylaxis - c//w full anticoagulation with Xarelto Disposition: - c/w PT and OT - anticipate transition to rehabilitation tomorrow VSLamin, I+O VS, Lamin, I+O Laboratory Tests 10/28/19 05:18 Vital Signs Date Time Temp Pulse Resp B/P (MAP) Pulse Ox O2 Delivery O2 Flow Rate FiO2 10/28/19 09:00 105 111/65 7/9/20 06:55 98.1 18 96 Room Air 10/27/19 20:45 10 I&O- Last 24 Hours up to 6 AM 10/28/19 06:00 Intake Total 1285 ml Output Total 1075 ml Balance 210 ml ARTIE AUGUSTE MD Oct 28, 2019 10:45
[2019-10-28 12:00] VITALS: BP 108/58
[2019-10-28] MEDS ORDERED: VARIBAR PUDDING 40% w/v 230ML TUBE As Ordered ONE (12:14)
[2019-10-28] MEDS ORDERED: VARIBAR NECTAR 40% w/v 240ML SUSP BTL As Ordered ONE (12:15)
[2019-10-28] MEDS ORDERED: E-Z-PAQUE 96% w/w SUSP 176GM BTL As Ordered ONE (12:15)
--- NOTE | 2019-10-28 13:08 | IPN ---
DATE: 10/28/2019 Mr. Raines has been quite talkative this morning as usual, not all of it makes much sense, but he is clearly oriented to place and person. Denies any chest pain or shortness of breath. He tolerated the transesophageal echocardiogram last night without major difficulty, even though he was hypotensive after the procedure. I suspect it was a combination of administered sedation plus the fact that he his feeding was stopped for most of the day. His telemetry continues to reveal rate-controlled atrial fibrillation. Vital Signs: Blood pressure this morning 118/71. Heart rate has been in the 90s. He is afebrile. Saturation 96% on room air. Weight is recorded as 66.5 kg. Jugular venous pulse (JVP) is not high. Lungs are reasonably clear. The upper airway sounds that were always very prominent every day seem to be much better today. I do not appreciate any wheezing or crackles. Heart exam reveals irregularly irregular rhythm without gallop, rub or murmur. Abdomen has a feeding tube, but otherwise is soft. Extremities are free of edema. Neurologically, he moves all four extremities. His speech is intact. LABORATORIES: WBC count 11.7, hemoglobin 10, hematocrit 32 and platelet count is 404. Basic metabolic panel is normal, but for glucose of 126. ASSESSMENT/PLAN: Mr. Raines is an 84-year-old man who presented with Staph aureus bacteremia and urinary obstruction. He initially was septic and critically ill, but gradually improved. The source of the infection is not completely clear, but in my opinion was most likely of urinary origin related to prostatic hypertrophy and resulting obstruction. I performed ISMAEL on him yesterday to rule out presence of vegetations. Surprisingly, his valves look actually very good. He has mild to moderate mitral regurgitation, but no other significant valvular disease and I did not appreciate any vegetations. As far as cardiac management is concerned, he remains in atrial fibrillation and he has been on amiodarone. I do recommend to continue its administration for at least few more weeks. I would give him one more week of 200 twice a day. After which, I think we can give him just 200 mg daily. He also needs to continue chronic anticoagulation and rate control with atenolol. If he does not convert to sinus rhythm after another 4-6 weeks, then will have to make a decision whether to discontinue amiodarone or attempt cardioversion depending on his clinical condition. Otherwise, I do not have any additional recommendations to his management and I am going to sign off his care. I will tentatively schedule followup in our office in about 4-6 weeks.
[2019-10-28 16:00] VITALS: BP 102/61
[2019-10-28 18:00] VITALS: BP 142/27
[2019-10-28] MEDS: RIVAROXABAN 15 MG TAB (XARELTO) PO SCH (18:03)
[2019-10-28] MEDS: ACETAMINOPHEN TAB 650MG DOSE (2X325MG) PO PRN (20:40)
[2019-10-29 01:00] VITALS: BP 118/72
[2019-10-29] MEDS: METOCLOPRAMIDE INJ 10MG/2ML VIAL (J2765 PER 1) IV SCH ×2 (01:02→06:43)
[2019-10-29] MEDS: LACTOBACILLUS ACIDOPHILUS CAP (BACID) PO SCH ×2 (01:02→06:42)
[2019-10-29] MEDS: SALIVA SUBSTITUTE(MOUTHKOTE) BTL MT SCH ×3 (01:02→09:28)
[2019-10-29] MEDS: LEVALBUTEROL 1.25 MG/0.5 ML CONCENTRATE NEB INH SCH ×4 (04:00→11:01)
[2019-10-29 04:40] LABS: HEMATOCRIT 32.1 % (42.0-52.0); HEMOGLOBIN 9.8 g/dl (13.5-17.5); MEAN CORPUSCULAR HEMOGLOBIN 33.1 pg (27.0-33.0); MEAN CORPUSCULAR HGB CONC 30.5 g/dl (32.0-36.5); MEAN CORPUSCULAR VOLUME 108.4 fl (80.0-96.0); PLATELET COUNT, AUTOMATED 410 10^3/uL (150-450); RED BLOOD COUNT 2.96 10^6/uL (4.30-6.10); WHITE BLOOD COUNT 12.5 10^3/uL (4.0-10.0)
[2019-10-29 05:04] LABS: BLOOD UREA NITROGEN 16 MG/DL (7-18); CALCIUM LEVEL 8.3 MG/DL (8.8-10.2); CARBON DIOXIDE LEVEL 27 MEQ/L (21-32); CHLORIDE LEVEL 109 MEQ/L (98-107); CREATININE FOR GFR 1.08 MG/DL (0.70-1.30); GLOMERULAR FILTRATION RATE > 60.0 (>35); GLUCOSE, FASTING 120 MG/DL (70-100); POTASSIUM SERUM 5.1 MEQ/L (3.5-5.1); SODIUM LEVEL 142 MEQ/L (136-145)
[2019-10-29 05:17] LABS: BASOPHILS 1 % (0-1); EOSINOPHILS 4 % (0-3); LYMPHOCYTES 19 % (16-44); METAMYELOCYTES 1 % (0-0); MONOCYTES 6 % (0-5); MYELOCYTES 3 % (0-0); NEUTROPHILS 65 % (28-66)
[2019-10-29 05:18] LABS: PLATELET ESTIMATE NORMAL (NORMAL)
[2019-10-29] MEDS: SLF 3 ML SYR IV SCH (06:43)
[2019-10-29] MEDS ORDERED: THIA100TA PO (07:44)
[2019-10-29] MEDS ORDERED: ATEN50TA2 NG (07:44)
[2019-10-29] MEDS ORDERED: XARE15TA PO (07:44)
[2019-10-29] MEDS ORDERED: AMLO5TAB6 PO (07:44)
[2019-10-29] MEDS ORDERED: CETI10TA PO (07:44)
[2019-10-29] MEDS ORDERED: FOLI1TAB11 PO (07:44)
[2019-10-29] MEDS ORDERED: VITMTA PO (07:44)
[2019-10-29] MEDS ORDERED: LEVAINH INH (07:44)
[2019-10-29] MEDS ORDERED: PROT1TAB2 PO (07:44)
[2019-10-29] MEDS ORDERED: AMIO200T PO (07:44)
[2019-10-29] MEDS ORDERED: MONT10TA4 PO (07:44)
[2019-10-29 07:53] LABS: C REACTIVE PROTEIN QUANTITATIV 5.66 MG/DL (0.00-0.30)
[2019-10-29 08:00] VITALS: BP 125/76
[2019-10-29] MEDS: amLODIPine 5 MG TAB PO SCH ×2 (09:00→09:27)
[2019-10-29] MEDS: CETIRIZINE (ZyrTEC) 10 MG TAB PO SCH (09:25)
[2019-10-29] MEDS: FOLIC ACID 1 MG TAB PO SCH (09:25)
[2019-10-29] MEDS: PANTOPRAZOLE 40MG VIAL (C9113 PER 1) IV SCH (09:25)
[2019-10-29 09:26] VITALS: BP 125/76
[2019-10-29] MEDS: THIAMINE 100 MG TAB PO SCH (09:26)
[2019-10-29] MEDS: MULTIVITAMINS/MINERALS THERAP 1 TAB PO SCH (09:26)
[2019-10-29] MEDS: atenoloL 50 MG TAB NG SCH (09:26)
[2019-10-29] MEDS: MONTELUKAST 10 MG TAB PO SCH (09:27)
[2019-10-29] MEDS: AMIODARONE 200 MG TAB (PACERONE) PO SCH (09:27)
[2019-10-29] MEDS: CLOTRIMAZOLE 1% TOPICAL CREAM 30GM TOP SCH (09:29)
--- NOTE | 2019-10-29 09:50 | DS.PDOC ---
Discharge Summary General Date of Admission Oct 06, 2019 at 15:21 Date of Discharge 10/29/2019 Discharge Summary ADMITTING DIAGNOSES / DISCHARGE DIAGNOSES: s/p Sepsis 2/2 MSSA bacteremia - possibly 2/2 MSSA cystitis, no evidence of endocarditis Chronic bladder outlet obstruction Dysphagia - possibly 2/2 increased secretions s/p Acute renal failure s/p Acute metabolic encephalopathy; possibly component of delirium on dementia New onset atrial fibrillation with rapid ventricular rate HTN s/p Fluid overload Normocytic anemia - possibly 2/2 dilutional etiology Alcohol abuse GI prophylaxis DVT prophylaxis COMPLICATIONS/CHIEF COMPLAINT: Confusion / SHARRON / Sepsis HISTORY OF PRESENT ILLNESS: Patient is an 84-year-old male who does not follow up with any physicians, reported PMHx of Alcohol abuse, CAD, HTN, Severe protein calorie malnutrition who presented to the hospital with Confusion / Weakness and was found to have MSSA bacteremia / cystitis. Patient was also found to have acute renal failure. Patient had an MRI of his brain completed because of suspected encephalopathy, results of which were negative. Patient also exhibited dysphagia and did not pass swallow evaluation and s ubsequently an NG tube was placed for feeding. Throughout hospital course, patient had developed atrial fibrillation and cardiology was called on consultation. HOSPITAL COURSE: s/p Sepsis 2/2 MSSA bacteremia - possibly 2/2 MSSA cystitis, no evidence of endocarditis - Remains Hemodynamically stable and afebrile - Leukocytosis stable / CRP again continues to improve - Blood cultures 10/05: Staph aureus; Blood cultures 10/06, 10/10, 10/13, 10/14 have remained negative - Urine cultures 10/05, 10/10: Staph aureus; Urine culture 10/14: Negative - Back culture 10/06: Staph aureus - TTE 10/06: 1. Mildly to moderately depressed global left ventricular systolic function with diffuse hypokinesis but normal left ventricular size and preserved left ventricular wall thickness. 2. Mildly enlarged left atrium with mitral annulus calcification and moderate mitral regurgitation. 3. Aortic valve sclerosis without stenosis or aortic regurgitation. 4. Mild tricuspid regurgitation with probably moderate pulmonary hypertension. - ISMAEL 10/26: 1. Preserved LV systolic function. 2. Preserved RV systolic functio n. 3. Bxjf-vb-beydapoq mitral insufficiency. 4. Remaining valves are functionally competent. 5. Intact atrial septum. 6. Left atrial appendage is free of thrombi. 7. Atherosclerosis of the aortic arch and descending aorta. 8. No evidence for vegetations and thus for endocarditis. - s/p Cefazolin - Infectious disease and cardiology on consultation; Chronic bladder outlet obstruction - Case was discussed with Urology initially, no urgent need for intervention was noted - Discussed results of imaging with patient and family ( and daughter) advised about potential risk of malignancy in bladder and need for cystoscopy/biopsy as outpatient; they have verbalized understanding - c/w Tamsulosin - Outpatient follow up with Urology, Dr. Almodovar - concern for bladder mass; advised for need for cystoscopy - Will be discharged with Carvalho catheter in place Dysphagia - possibly 2/2 increased secretions - s/p NG tube placement for medications / feedings - will be removed today - s/p G tube placement likely for 10/25/2019 - c/w Speech therapy s/p Acute renal failure - Cr of 6.27 on admission; has trended down to normal - Nephrology has signed off; will have outpatient follow up s/p Acute metabolic encephalopathy; possibly component of delirium on dementia - Awake / Alert - No focal deficits - MRI brain 10/11: There is some motion artifact. Generalized volume loss and sm all vessel changes. No acute intracranial abnormalities seen. - Require ongoing assistance and outpatient follow-up with neurology New onset atrial fibrillation with rapid ventricular rate - Currently is rate controlled - c/w rate / rhythm control with amiodarone / atenolol - c/w Xarelto - Will have outpatient follow up with Dr. Wan; plans to adjust Amiodarone to daily dosing within 1 week HTN - BP well controlled - c/w Atenolol and Amlodipine s/p Fluid overload - Saturating well on room air - Currently appears to be euvolemic - s/p IV fluids and Furosemide Normocytic anemia - possibly 2/2 dilutional etiology - No signs of any acute gastrointestinal (GI) bleed or any hematuria - Has remained stable Alcohol abuse - c/w Thiamine, Folate, MVI GI prophylaxis - c/w Protonix DVT prophylaxis - c//w full anticoagulation with Xarelto DISCHARGE MEDICATIONS: Please see below. ALLERGIES: Please see below. PHYSICAL EXAMINATION ON DISCHARGE: Vitals (See below) General: Comfortable, Awake / Alert, Oriented x 3 HEENT: NC, AT CVS: +S1S2 Lungs: There appears to be fair air entry bilaterally. Auscultation is without rhonchi, crackles or wheezing Abdomen: Positive PEG tube, nondistended, nontender Extremities: LE are free of edema appreciated LABORATORY DATA: Please see below. ACTIVITY: [As tolerated]. DISCHARGE PLAN: Patient has been advised to follow-up with his primary care provider, Dr. Beltran, Dr. Wan, Dr. Almodovar, and Dr. Mccord within 7 days Advised to remain compliant with treatment plan and medications Return to the ER if you experience any problems DISPOSITION: [facility] DISCHARGE CONDITION: [Stable]. TIME SPENT ON DISCHARGE: 35 minutes Vital Signs/I&Os Vital Signs Date Time Temp Pulse Resp B/P (MAP) Pulse Ox O2 Delivery O2 Flow Rate FiO2 10/29/19 09:26 90 125/76 10/29/19 08:00 98.3 18 98 Room Air 10/27/19 20:45 10 I&O- Last 24 Hours up to 6 AM 10/29/19 06:00 Intake Total 1995 ml Output Total 1350 ml Balance 645 ml Laboratory Data Labs 24H Laboratory Tests 2 10/29/19 04:05: Immature Granulocyte % (Auto) , Neutrophils (%) (Auto) , Nucleated Red Blood Cells % (auto) 0.0, Neutrophils 65, Band Neutrophils 1, Lymphocytes (Manual) 19, Monocytes (Manual) 6H, Eosinophils (Manual) 4H, Basophils (Manual) 1, Metamyelocytes 1H, Myelocytes 3H, Anisocytosis , Macrocytosis 2+, Platelet E stimate NORMAL, Anion Gap 6L, Glomerular Filtration Rate > 60.0, Calcium Level 8.3L, Magnesium Level 2.0, C-Reactive Protein, Quantitative 5.66H CBC/BMP Laboratory Tests 10/29/19 04:05 Discharge Medications Scheduled Amiodarone HCl (Amiodarone HCl) 200 Mg Tablet, 200 MG PO BID Amlodipine Besylate (Amlodipine Besylate) 5 Mg Tablet, 5 MG PO DAILY Atenolol (Atenolol) 50 Mg Tablet, 100 MG NG DAILY Cetirizine HCl (Cetirizine HCl) 10 Mg Tablet, 10 MG PO DAILY Folic Acid (Folic Acid) 1 Mg Tablet, 1 MG PO DAILY Montelukast Sodium (Montelukast Sodium) 10 Mg Tablet, 10 MG PO DAILY Multivitamins (Thera M Plus Tablet) 1 Each Tablet, 1 TAB PO DAILY Pantoprazole Sodium (Protonix) 40 Mg Tablet.dr, 1 TAB PO DAILY Rivaroxaban (Xarelto) 15 Mg Tablet, 15 MG PO DAILY@18 Thiamine Hcl (Vitamin B-1) 100 Mg Tablet, 100 MG PO DAILY Scheduled PRN Levalbuterol Hydrochloride (Xopenex Hfa) 15 Gm Hfa.aer.ad, 2 PUFF INH Q4-6HP PRN for wheezing Allergies Coded Allergies: No Known Allergies (Unverified , 10/06/19) ARTIE AUGUSTE MD Oct 29, 2019 09:50
--- NOTE | 2019-10-29 23:58 | IPN ---
DATE: 10/29/2019 Marino is doing great. He is sitting in his chair. He is working with speech therapy and brushing his teeth. The patient had a cookie swallow done today and had no evidence of aspiration. The speech therapist does not expect him to be needing his G-tube. He is going to [facility] for rehab today. His last dose of IV cefazolin was on 10/27/2019. LABORATORY: White count 12.5, hemoglobin 9.8, hematocrit 32.1, platelets 410, 65% neutrophils, 19% lymphocytes, 6% monocytes, 4% eosinophils. Sodium 142, potassium 5.1, chloride 109, bicarbonate 27, BUN 16, creatinine 1.08, glucose 120, calcium 8.3, magnesium 2, CRP 5.66. On physical exam, temperature is 98.3, pulse 90, irregular, respirations 18, blood pressure 125/76, oxygen saturation (O2 sat) 98% on room air. Heart: Normal, S1, S2, distant, irregularly irregular. No murmurs appreciated. Lungs: Again diffuse expiratory rhonchi bilaterally. No crackles or wheezing. Abdomen: Distended, mildly tender around the G-tube. Bowel sounds present. No redness or purulence around the G-tube. Back: No costovertebral angle tenderness. Extremities: No clubbing, cyanosis or edema. IMPRESSION: 1. Staph aureus sepsis, methicillin-sensitive Staphylococcus aureus (MSSA), status post 3 weeks of IV cefazolin, discontinued on 10/27/2019. Transesophageal echocardiogram was negative for endocarditis. Source of infection was of urinary origin. The patient is doing well. 2. Chronic bladder outlet obstruction. The patient has a Carvalho catheter in place. There is concern of a bladder mass. The patient needs outpatient followup with urology and cystoscopy. 3. Dysphagia. Seems to have resolved and the patient has passed his cookie swallow and doubt the patient will need his G-tube for too long. PLAN: Monitor for fever, worsening white count and CRP. I would recommend doing a CBC, CRP next week and make sure that he does not have recurrent infection and bacteremia. If the patient has a fever or worsening white count or inflammatory marker, please repeat blood cultures next week. His end of cefazolin therapy was 10/27/2019.
--- NOTE | 2019-10-31 23:45 | REP ---
Examination Requested: Cookie Swallow Reason For Exam: Dysphasia The procedure was performed by ANUJ Wen, under the direct supervision of Dr. Angelo. The procedure was performed with Tammy Mendenhall from speech pathology present. 5 ml aliquots of thin, pudding, mixed fruit, soft food, honey, nectar, puree and pill consistency barium was administered. No penetration or aspiration was visualized during this exam. The detailed report of this examination will be provided by speech pathology. 2.9 minutes of fluoroscopy time was utilized for this procedure. Reviewed by ANUJ Osei 10/28/2019 01:30 P Electronically Signed by Adrián Angelo MD 10/31/2019 11:36 P
== END 2019-10-29 11:56 | DRG 871 ==
LOC: EDBD 12:22 → M ED 12:22 → M ED INP 15:21 → ENRESERV 15:41 → M ICU 16:22 → M PCU 10-08 10:08
PROVIDERS: ADMIT Internal Medicine; ATTEND Internal Medicine
PROC: 0DH63UZ Insertion of Feeding Device into Stomach, Percutaneous Approach (ICD-10-PCS; principal; 2019-10-25 15:00)
DX: A41.01 Sepsis due to Methicillin susceptible Staphylococcus aureus (principal); G93.41 Metabolic encephalopathy; J96.01 Acute respiratory failure with hypoxia; E43 Unspecified severe protein-calorie malnutrition; N17.9 Acute kidney failure, unspecified; N39.0 Urinary tract infection, site not specified; E87.2 Acidosis; K56.7 Ileus, unspecified; E87.0 Hyperosmolality and hypernatremia; B37.89 Other sites of candidiasis; R65.20 Severe sepsis without septic shock; I48.91 Unspecified atrial fibrillation; R13.10 Dysphagia, unspecified; F10.10 Alcohol abuse, uncomplicated; F03.90 Unspecified dementia, unspecified severity, without behavioral disturbance, psychotic disturbance, mood disturbance, and anxiety; I25.10 Atherosclerotic heart disease of native coronary artery without angina pectoris; D64.9 Anemia, unspecified; N32.0 Bladder-neck obstruction; Z79.899 Other long term (current) drug therapy; E87.6 Hypokalemia; D69.6 Thrombocytopenia, unspecified; N48.5 Ulcer of penis

== ENCOUNTER 2019-11-03 13:06 | Emergency (ER) | payer MEDICARE ==
[~2019-11-03] VITALS: Ht 167.6 cm; Wt 68.8 kg
[~2019-11-03 13:06] MED LIST: AMIO200T PO; AMLO5TAB6 PO; ATEN50TA2 NG; CETI10TA PO; FOLI1TAB11 PO; LEVAINH INH; MONT10TA4 PO; PROT1TAB2 PO; THIA100TA PO; VITMTA PO; XARE15TA PO
[2019-11-03] MEDS ORDERED: [UNRECOGNIZED DRUG - OTHER] MT (14:39)
[2019-11-03] MEDS ORDERED: MULTLIQ7 FT (14:39)
[2019-11-03] MEDS ORDERED: THIA100T7 FT (14:39)
[2019-11-03] MEDS ORDERED: ENEMENE PR (14:39)
[2019-11-03] MEDS ORDERED: MAGN400O53 PO (14:39)
[2019-11-03] MEDS ORDERED: XARE15TA FT (14:39)
[2019-11-03] MEDS ORDERED: APAP325T4 FT (14:39)
[2019-11-03] MEDS ORDERED: PROT40IN4 FT (14:39)
[2019-11-03] MEDS ORDERED: PANT-23 FT (14:39)
[2019-11-03] MEDS ORDERED: AMLO5TAB6 FT (14:39)
[2019-11-03] MEDS ORDERED: JEVILIQ7 FT (14:39)
[2019-11-03] MEDS ORDERED: METO5TAB2 FT (14:39)
[2019-11-03] MEDS ORDERED: MONT10TA4 FT (14:39)
[2019-11-03] MEDS ORDERED: VITMTA FT (14:39)
[2019-11-03] MEDS ORDERED: LORA-674 FT (14:39)
[2019-11-03] MEDS ORDERED: AMIO200T FT (14:39)
[2019-11-03] MEDS ORDERED: FOLI1TAB11 FT (14:39)
[2019-11-03] MEDS ORDERED: ATEN100T FT (14:39)
[2019-11-03] MEDS ORDERED: BISA10SU4 PR (14:39)
[2019-11-03] MEDS ORDERED: LEVAINH INH (14:39)
[2019-11-03] MEDS ORDERED: FLORCHW2 FT (14:39)
== END 2019-11-03 16:17 | disposition home or self-care (01) ==
LOC: M ED 13:06
DX: K94.23 Gastrostomy malfunction (principal); Z66 Do not resuscitate; Z79.899 Other long term (current) drug therapy; Z79.01 Long term (current) use of anticoagulants

== ENCOUNTER → 2019-11-04 | Outpatient (REF) ==
[~2019-11-04] MED LIST changes: +AMIO200T FT; +AMLO5TAB6 FT; +APAP325T4 FT; +ATEN100T FT; +BISA10SU4 PR; +ENEMENE PR; +FLORCHW2 FT; +FOLI1TAB11 FT; +JEVILIQ7 FT; +LORA-674 FT; +MAGN400O53 PO; +METO5TAB2 FT; +MONT10TA4 FT; +MULTLIQ7 FT; +PANT-23 FT; +PROT40IN4 FT; +THIA100T7 FT; +VITMTA FT; +XARE15TA FT; +[UNRECOGNIZED DRUG - OTHER] MT
[2019-11-04 10:10] LABS: BASO # 0.2 10^3/uL (0.0-0.2); BASO % 1.1 % (0.0-1.0); EOS # 0.2 10^3/uL (0.0-0.5); EOS % 1.4 % (0.0-3.0); HEMATOCRIT 42.2 % (42.0-52.0); HEMOGLOBIN 13.2 g/dl (13.5-17.5); LYMPH # 2.4 10^3/uL (1.5-5.0); LYMPH % 16.6 % (24.0-44.0); MEAN CORPUSCULAR HEMOGLOBIN 33.1 pg (27.0-33.0); MEAN CORPUSCULAR HGB CONC 31.3 g/dl (32.0-36.5); MEAN CORPUSCULAR VOLUME 105.8 fl (80.0-96.0); MONO % 6.8 % (0.0-5.0); NEUTROPHILS # 10.3 10^3/uL (1.5-8.5); NEUTROPHILS % 70.1 % (36.0-66.0); PLATELET COUNT, AUTOMATED 406 10^3/uL (150-450); RED BLOOD COUNT 3.99 10^6/uL (4.30-6.10); WHITE BLOOD COUNT 14.6 10^3/uL (4.0-10.0)
[2019-11-04 11:02] LABS: BLOOD UREA NITROGEN 23 MG/DL (7-18); CALCIUM LEVEL 8.6 MG/DL (8.8-10.2); CARBON DIOXIDE LEVEL 21 MEQ/L (21-32); CHLORIDE LEVEL 103 MEQ/L (98-107); CREATININE FOR GFR 1.12 MG/DL (0.70-1.30); GLOMERULAR FILTRATION RATE > 60.0 (>35); GLUCOSE, FASTING 155 MG/DL (70-100); PHOSPHORUS LEVEL 3.9 MG/DL (2.5-4.9); POTASSIUM SERUM 4.3 MEQ/L (3.5-5.1); SODIUM LEVEL 135 MEQ/L (136-145)
[2019-11-04 12:07] LABS: PTH INTACT 57.4 PG/ML (18.5-88.0)
== END ==
LOC: SKLAB7 07:00
PROVIDERS: ATTEND Internal Medicine
DX: D64.9 Anemia, unspecified (principal)

== ENCOUNTER → 2019-11-04 | Outpatient (CLI) | payer MEDICARE ==
[~2019-11-04] MED LIST changes: -AMIO200T FT; -AMIO200T PO; +AMIO200T3 FT; +AMIO200T3 PO; +AMLO1TAB24 FT; +AMLO1TAB24 PO; -AMLO5TAB6 FT; -AMLO5TAB6 PO; +BACT800T5 PO; +ISOVUE-300 61% 50ML VIAL As Ordered ONE; +LIDOCAINE 1% MDV 20ML VIAL As Ordered ONE; -LORA-674 FT; +LORA-674 PO; -MAGN400O53 PO; +MIDAZOLAM INJ 2MG/2ML VIAL (J2250 PER 1MG) As Ordered ONE; +MILKSUS22 PO; -MONT10TA4 FT; -PROT40IN4 FT; +PROT40IN4 PO; +TAMS1CAP17 PO; -THIA100T7 FT; +THIA100T7 PO; -XARE15TA FT; +ceFAZolin 1GM VIAL (J0690 PER 500MG) As Ordered ONE; +diphenhydrAMINE 50MG/ML VIAL (J1200) As Ordered ONE; +fentaNYL 100 MCG/2 ML INJECTION (J3010) As Ordered ONE
[2019-11-04 13:57] VITALS: BP 139/82
--- NOTE | 2019-11-10 11:05 | REP ---
IR fluoroscopy-guided gastrostomy check. IR gastrostomy unclogging. Clinical information: Gastrostomy. Aspiration. Gastrostomy catheter clogged. Physician: Dr. Moore. Procedure: The the patient's was advised of the benefits, risks and alternatives of the procedure and informed consent was obtained. The time-out was performed with verification of the patient's name, MRN, site of procedure and type of procedure to be performed. The patient was positioned in the supine position on the angiographic table. The site was prepped and draped in the usual sterile fashion. The physician spent 30 minutes of continuous face to face time with the patient. A waterproofer helper radiograph reveals a gastrostomy catheter in expected location. The catheter was injected with contrast which confirmed it's blocked. An Amplatz wire was advanced through the catheter into the stomach under fluoroscopy guidance. The wire was used to floss the gastrostomy catheter. The wire was removed. Contrast injected through the gastrostomy now flushes easily and demonstrates rugal folds of the stomach. The catheter was flushed with saline. The patient tolerated the procedure well and was returned to the PRU in stable condition. EBL: Less than 5 ml. Complications: None. Conclusion: 1. Gastrostomy catheter check confirms catheter is clogged. 2. Successful IR unclogging of gastrostomy catheter. Thank you this referral. Electronically Signed by Remedios Moore MD 11/10/2019 11:03 A
== END ==
LOC: M IRPRO 13:11
PROVIDERS: ATTEND Radiology Diagnostic Radiology
DX: K94.23 Gastrostomy malfunction (principal)
CPT/HCPCS: 49460; 99152; 99153; C1769; C1887; J0690; Q9967

== ENCOUNTER → 2019-11-05 | Outpatient (REF) ==
[~2019-11-05] MED LIST changes: +AMIO200T FT; +AMIO200T PO; -AMIO200T3 FT; -AMIO200T3 PO; -AMLO1TAB24 FT; -AMLO1TAB24 PO; +AMLO5TAB6 FT; +AMLO5TAB6 PO; -BACT800T5 PO; -ISOVUE-300 61% 50ML VIAL As Ordered ONE; -LIDOCAINE 1% MDV 20ML VIAL As Ordered ONE; +LORA-674 FT; -LORA-674 PO; +MAGN400O53 PO; -MIDAZOLAM INJ 2MG/2ML VIAL (J2250 PER 1MG) As Ordered ONE; -MILKSUS22 PO; +MONT10TA4 FT; +PROT40IN4 FT; -PROT40IN4 PO; -TAMS1CAP17 PO; +THIA100T7 FT; -THIA100T7 PO; +XARE15TA FT; -ceFAZolin 1GM VIAL (J0690 PER 500MG) As Ordered ONE; -diphenhydrAMINE 50MG/ML VIAL (J1200) As Ordered ONE; -fentaNYL 100 MCG/2 ML INJECTION (J3010) As Ordered ONE
[2019-11-05 08:01] LABS: HEMATOCRIT 39.4 % (42.0-52.0); HEMOGLOBIN 12.6 g/dl (13.5-17.5); MEAN CORPUSCULAR HEMOGLOBIN 33.5 pg (27.0-33.0); MEAN CORPUSCULAR VOLUME 104.8 fl (80.0-96.0); PLATELET COUNT, AUTOMATED 360 10^3/uL (150-450); RED BLOOD COUNT 3.76 10^6/uL (4.30-6.10); WHITE BLOOD COUNT 13.5 10^3/uL (4.0-10.0)
== END ==
LOC: SKLAB7 07:00
PROVIDERS: ATTEND Internal Medicine
DX: D72.829 Elevated white blood cell count, unspecified (principal)

== ENCOUNTER → 2019-11-08 | Outpatient (REF) ==
[2019-11-08 09:22] LABS: HEMATOCRIT 41.4 % (42.0-52.0); HEMOGLOBIN 13.3 g/dl (13.5-17.5); MEAN CORPUSCULAR HEMOGLOBIN 33.9 pg (27.0-33.0); MEAN CORPUSCULAR HGB CONC 32.1 g/dl (32.0-36.5); MEAN CORPUSCULAR VOLUME 105.6 fl (80.0-96.0); PLATELET COUNT, AUTOMATED 362 10^3/uL (150-450); RED BLOOD COUNT 3.92 10^6/uL (4.30-6.10); WHITE BLOOD COUNT 15.6 10^3/uL (4.0-10.0)
== END ==
LOC: SKLAB7 08:06
PROVIDERS: ATTEND Internal Medicine
DX: D72.829 Elevated white blood cell count, unspecified (principal)

== ENCOUNTER → 2019-11-09 | Outpatient (POV) | payer MEDICARE ==
[~2019-11-09] MED LIST changes: -AMIO200T FT; -AMIO200T PO; +AMIO200T3 FT; +AMIO200T3 PO; +AMLO1TAB24 FT; +AMLO1TAB24 PO; -AMLO5TAB6 FT; -AMLO5TAB6 PO; +BACT800T5 PO; -LORA-674 FT; +LORA-674 PO; -MAGN400O53 PO; +MILKSUS22 PO; -MONT10TA4 FT; -PROT40IN4 FT; +PROT40IN4 PO; +TAMS1CAP17 PO; -THIA100T7 FT; +THIA100T7 PO; -XARE15TA FT
--- NOTE | 2019-11-10 08:32 | IRPN ---
[facility] IR Progress Note IR Progress Note DATE: Nov 09, 2019 Patient's carer agreed to this telephone consultation. Duration of call was 5 minutes. FOLLOW-UP: Status post G tube placement patient tolerating nocturnal feeds well. No problems with flushing tube. Patient is taking medications by mouth, crushed in apple sauce. IMPRESSION: Doing well status post G tube placement. No further follow up sched uled unless initiated by patient's family/carers or referring provider. Thank you for this referral Allergies Coded Allergies: No Known Allergies (Unverified , 10/06/19) CHRISTIANO GERBER MD Nov 10, 2019 08:32
== END ==
LOC: M TMIRPOV 08:13
PROVIDERS: ATTEND Radiology Diagnostic Radiology
DX: Z93.1 Gastrostomy status (principal)

== ENCOUNTER → 2019-12-15 | Outpatient (REF) | payer MEDICARE, OTHER | LOC: M LAB REF 13:28 | PROVIDERS: ATTEND Physician Assistant | DX: L03.311 Cellulitis of abdominal wall (principal) ==

== ENCOUNTER 2020-01-02 18:44 | Emergency (ER) | payer MEDICARE, OTHER ==
[~2020-01-02] VITALS: Ht 154.9 cm; Wt 63.2 kg
[~2020-01-02 18:44] MED LIST changes: -BACT800T5 PO; -TAMS1CAP17 PO
[2020-01-02 18:45] VITALS: BP 150/82
[2020-01-02] MEDS ORDERED: TAMS1CAP17 PO (18:55)
[2020-01-02] MEDS ORDERED: LIDOCAINE 2% 5ML JELLY UROJET TOP ONE (19:45)
== END 2020-01-02 20:14 | disposition home or self-care (01) ==
LOC: M ED 18:44
DX: R31.0 Gross hematuria (principal); Z46.6 Encounter for fitting and adjustment of urinary device; I51.9 Heart disease, unspecified; I10 Essential (primary) hypertension; J44.9 Chronic obstructive pulmonary disease, unspecified; Z85.46 Personal history of malignant neoplasm of prostate; Z79.899 Other long term (current) drug therapy

== ENCOUNTER 2020-01-07 18:00 | Emergency (ER) | payer MEDICARE ==
[~2020-01-07] VITALS: Ht 154.9 cm; Wt 61.9 kg
[~2020-01-07 18:00] MED LIST changes: +TAMS1CAP17 PO
[2020-01-07 20:40] LABS: HEMATOCRIT 46.8 % (42.0-52.0); HEMOGLOBIN 16.2 g/dl (13.5-17.5); MEAN CORPUSCULAR HEMOGLOBIN 32.7 pg (27.0-33.0); MEAN CORPUSCULAR HGB CONC 34.6 g/dl (32.0-36.5); MEAN CORPUSCULAR VOLUME 94.4 fl (80.0-96.0); PLATELET COUNT, AUTOMATED 279 10^3/uL (150-450); RED BLOOD COUNT 4.96 10^6/uL (4.30-6.10); WHITE BLOOD COUNT 15.6 10^3/uL (4.0-10.0)
[2020-01-07] MEDS ORDERED: BACT800T5 PO (20:57)
[2020-01-07 21:01] LABS: CALCIUM LEVEL 8.8 MG/DL (8.8-10.2); CREATININE FOR GFR 1.34 MG/DL (0.70-1.30); GLOMERULAR FILTRATION RATE 54.3 (>35); POTASSIUM SERUM 3.7 MEQ/L (3.5-5.1)
[2020-01-07 21:07] VITALS: BP 130/74
[2020-01-07] MEDS ORDERED: BACTRIM 160MG/800MG DS TAB PO ONE (21:30)
== END 2020-01-07 21:28 | disposition home or self-care (01) ==
LOC: M ED 18:00
DX: N39.0 Urinary tract infection, site not specified (principal); R31.9 Hematuria, unspecified; I51.9 Heart disease, unspecified; I10 Essential (primary) hypertension; Z96.0 Presence of urogenital implants; Z79.899 Other long term (current) drug therapy

== ENCOUNTER 2020-01-18 16:07 | Emergency (ER) | payer MEDICARE ==
[~2020-01-18] VITALS: Ht 154.9 cm; Wt 60.7 kg
[~2020-01-18 16:07] MED LIST changes: +BACT800T5 PO
[2020-01-18 17:47] VITALS: BP 121/70
== END 2020-01-18 17:58 | disposition home or self-care (01) ==
LOC: M ED 16:07
DX: T83.098A Other mechanical complication of other urinary catheter, initial encounter (principal); Y92.9 Unspecified place or not applicable; Y93.9 Activity, unspecified; I48.91 Unspecified atrial fibrillation; I25.10 Atherosclerotic heart disease of native coronary artery without angina pectoris; I10 Essential (primary) hypertension; R13.10 Dysphagia, unspecified; Z93.1 Gastrostomy status; Z79.899 Other long term (current) drug therapy

== ENCOUNTER → 2020-01-27 | Outpatient (REF) | payer MEDICARE ==
[2020-01-27 16:43] LABS: BASO # 0.1 10^3/uL (0.0-0.2); BASO % 0.9 % (0.0-1.0); EOS # 0.2 10^3/uL (0.0-0.5); EOS % 1.5 % (0.0-3.0); HEMATOCRIT 48.2 % (42.0-52.0); HEMOGLOBIN 15.6 g/dl (13.5-17.5); LYMPH # 2.4 10^3/uL (1.5-5.0); LYMPH % 19.2 % (24.0-44.0); MEAN CORPUSCULAR HEMOGLOBIN 31.6 pg (27.0-33.0); MEAN CORPUSCULAR HGB CONC 32.4 g/dl (32.0-36.5); MEAN CORPUSCULAR VOLUME 97.8 fl (80.0-96.0); MONO # 1.4 10^3/uL (0.0-0.8); MONO % 11.4 % (0.0-5.0); NEUTROPHILS # 8.2 10^3/uL (1.5-8.5); PLATELET COUNT, AUTOMATED 334 10^3/uL (150-450); RED BLOOD COUNT 4.93 10^6/uL (4.30-6.10); WHITE BLOOD COUNT 12.5 10^3/uL (4.0-10.0)
[2020-01-27 16:50] LABS: AMORPHOUS SEDIMENT MODERATE (NEGATIVE); APPEARANCE, URINE TURBID (CLEAR); BACTERIA, URINE AUTO 2+ (NEGATIVE); BILIRUBIN, URINE AUTO NEGATIVE (NEGATIVE); BLOOD, URINE BLOOD 2+ (NEGATIVE); CALCIUM OXALATE CRYSTALS MODERATE; COLOR, URINE YELLOW (YELLOW); GLUCOSE, URINE (UA) AUTO NEGATIVE (NEGATIVE); KETONE, URINE AUTO NEGATIVE (NEGATIVE); LEUKOCYTE ESTERASE, URINE AUTO 3+ (NEGATIVE); NITRITE, URINE AUTO NEGATIVE (NEGATIVE); PROTEIN, URINE AUTO 2+ mg/dL (NEGATIVE); RBC, URINE AUTO 49 /HPF (0-3); SPECIFIC GRAVITY URINE AUTO 1.013 (1.002-1.035); SQUAMOUS EPITHELIAL CELL UR AU 0 /HPF (0-6); UROBILINOGEN, URINE AUTO 0.2 mg/dL (0.0-2.0); WBC, URINE AUTO TNTC /HPF (0-3)
[2020-01-27 17:05] LABS: CREATININE FOR GFR 1.67 MG/DL (0.70-1.30); GLOMERULAR FILTRATION RATE 42.1 (>35); PHOSPHORUS LEVEL 3.1 MG/DL (2.5-4.9); POTASSIUM SERUM 4.3 MEQ/L (3.5-5.1)
[2020-01-27 17:14] LABS: PTH INTACT 60.5 PG/ML (18.5-88.0)
== END ==
LOC: M LABDRWAD 16:05
PROVIDERS: ATTEND Internal Medicine Nephrology
DX: N17.8 Other acute kidney failure (principal); N13.9 Obstructive and reflux uropathy, unspecified; E87.2 Acidosis

== ENCOUNTER → 2020-01-28 | Outpatient (REF) | payer MEDICARE ==
[2020-01-28 18:10] LABS: APPEARANCE, URINE CLOUDY (CLEAR); BACTERIA, URINE AUTO 3+ (NEGATIVE); BILIRUBIN, URINE AUTO NEGATIVE (NEGATIVE); BLOOD, URINE BLOOD 3+ (NEGATIVE); COLOR, URINE YELLOW (YELLOW); GLUCOSE, URINE (UA) AUTO NEGATIVE (NEGATIVE); KETONE, URINE AUTO NEGATIVE (NEGATIVE); LEUKOCYTE ESTERASE, URINE AUTO 3+ (NEGATIVE); MUCUS, URINE SMALL (NEGATIVE); NITRITE, URINE AUTO NEGATIVE (NEGATIVE); PROTEIN, URINE AUTO 1+ mg/dL (NEGATIVE); RBC, URINE AUTO 79 /HPF (0-3); SPECIFIC GRAVITY URINE AUTO 1.008 (1.002-1.035); SQUAMOUS EPITHELIAL CELL UR AU 0 /HPF (0-6); UROBILINOGEN, URINE AUTO 0.2 mg/dL (0.0-2.0); WBC, URINE AUTO TNTC /HPF (0-3)
== END ==
LOC: M SMT 16:45
PROVIDERS: ATTEND Nurse Practitioner Family
DX: R30.0 Dysuria (principal)

== ENCOUNTER → 2020-03-24 | Outpatient (REF) | payer MEDICARE ==
[~2020-03-24] MED LIST changes: -MONT10TA4 PO; +MONT5TAB2 PO
[2020-03-24 16:10] LABS: APPEARANCE, URINE TURBID (CLEAR); BACTERIA, URINE AUTO 2+ (NEGATIVE); BILIRUBIN, URINE AUTO NEGATIVE (NEGATIVE); BLOOD, URINE BLOOD 2+ (NEGATIVE); COLOR, URINE AMBER (YELLOW); GLUCOSE, URINE (UA) AUTO NEGATIVE (NEGATIVE); KETONE, URINE AUTO NEGATIVE (NEGATIVE); LEUKOCYTE ESTERASE, URINE AUTO 3+ (NEGATIVE); NITRITE, URINE AUTO NEGATIVE (NEGATIVE); PROTEIN, URINE AUTO 1+ mg/dL (NEGATIVE); RBC, URINE AUTO 15 /HPF (0-3); SPECIFIC GRAVITY URINE AUTO 1.013 (1.002-1.035); SQUAMOUS EPITHELIAL CELL UR AU 0 /HPF (0-6); UROBILINOGEN, URINE AUTO 0.2 mg/dL (0.0-2.0); WBC, URINE AUTO TNTC /HPF (0-3)
== END ==
LOC: M SMT 13:31
PROVIDERS: ATTEND Nurse Practitioner Women's Health
DX: R33.9 Retention of urine, unspecified (principal)

== ENCOUNTER → 2020-08-23 | Outpatient (REF) | payer MEDICARE ==
[~2020-08-23] MED LIST changes: +MILK24002 PO; -MILKSUS22 PO; +MONT10TA10 PO; -MONT5TAB2 PO
== END ==
LOC: M LAB REF 17:20
PROVIDERS: ATTEND Physician Assistant
DX: C44.612 Basal cell carcinoma of skin of right upper limb, including shoulder (principal); C44.319 Basal cell carcinoma of skin of other parts of face

== ENCOUNTER → 2020-09-11 | Outpatient (REF) | payer MEDICARE | LOC: M SMT 14:42 | PROVIDERS: ATTEND Nurse Practitioner Family | DX: R33.9 Retention of urine, unspecified (principal) ==

== ENCOUNTER → 2020-10-10 | Outpatient (REF) | payer MEDICARE | LOC: M LAB REF 10:46 | PROVIDERS: ATTEND Dermatology | DX: C44.612 Basal cell carcinoma of skin of right upper limb, including shoulder (principal) ==

== ENCOUNTER → 2021-03-26 | Outpatient (REF) | payer MEDICARE, MEDICAID ==
[2021-03-26 13:01] LABS: HEMATOCRIT 44.4 % (42.0-52.0); HEMOGLOBIN 14.8 g/dl (13.5-17.5); MEAN CORPUSCULAR HEMOGLOBIN 31.9 pg (27.0-33.0); MEAN CORPUSCULAR HGB CONC 33.3 g/dl (32.0-36.5); MEAN CORPUSCULAR VOLUME 95.7 fl (80.0-96.0); PLATELET COUNT, AUTOMATED 292 10^3/uL (150-450); RED BLOOD COUNT 4.64 10^6/uL (4.30-6.10)
[2021-03-26 14:21] LABS: CALCIUM LEVEL 9.6 MG/DL (8.8-10.2); CREATININE FOR GFR 1.41 MG/DL (0.70-1.30); GLOMERULAR FILTRATION RATE 51.1 (>35); POTASSIUM SERUM 4.3 MEQ/L (3.5-5.1); THYROID STIMULATING HORMONE 2.13 uIU/ML (0.358-3.740)
== END ==
LOC: M LABDRWAD 12:33
PROVIDERS: ATTEND Nurse Practitioner Family
DX: I48.19 Other persistent atrial fibrillation (principal); Z79.899 Other long term (current) drug therapy

== ENCOUNTER → 2021-07-19 | Outpatient (REF) | payer MEDICARE, MEDICAID ==
[~2021-07-19] MED LIST changes: +AMIO100T3 PO; -AMIO200T3 FT; -AMIO200T3 PO; +AMIO200T49 FT; +AMIO200T49 PO; -APAP325T4 FT; +APAP325T4 PO; +CEFD300CAP PO; +COLA100C5 PO; -FOLI1TAB11 FT; +LEVO750T13 PO; +METO5TAB2 PO; -MONT10TA10 PO; +MONT10TA97 PO; +MUPI2OI TOP; +NORV5TAB PO; +PANT-23 PO; +PENI500T PO; +VENTAER INH
[2021-07-19 13:53] LABS: APPEARANCE, URINE MANUAL CLOUDY (CLEAR); COLOR, URINE MANUAL YELLOW (YELLOW)
[2021-07-19 13:54] LABS: BILIRUBIN, URINE MANUAL NEGATIVE (NEGATIVE); BLOOD URINE MANUAL POSITIVE (NEGATIVE); GLUCOSE, URINE (UA) MANUAL NEGATIVE (NEGATIVE); KETONE, URINE MANUAL NEGATIVE (NEGATIVE); LEUKOCYTE ESTERASE, URINE MAN POSITIVE (NEGATIVE); NITRITE, URINE MANUAL NEGATIVE (NEGATIVE); PROTEIN, URINE MANUAL 3+ mg/dL (NEGATIVE); UROBILINOGEN, URINE MANUAL NORMAL (NORMAL)
[2021-07-19 14:01] LABS: BACTERIA, URINE LARGE AMOUNT; HYALINE CAST, URINE NONE SEEN /lpf (0-1); MUCUS, URINE LARGE AMOUNT (NEGATIVE); SQUAMOUS EPITHELIAL CELL URINE NONE SEEN /hpf (SMALL AMT)
[2021-07-19 14:02] LABS: AMORPHOUS SEDIMENT, URINE LARGE AMOUNT (NEGATIVE)
== END ==
LOC: M SMT 12:46
PROVIDERS: ATTEND Urology
DX: R33.9 Retention of urine, unspecified (principal)

== ENCOUNTER 2021-07-20 12:57 | Inpatient (IN) | payer OTHER, MEDICARE, MEDICAID ==
[~2021-07-20 12:57] MED LIST changes: -LEVO750T13 PO; -MUPI2OI TOP; -NORV5TAB PO; -PENI500T PO
[2021-07-20] MEDS ORDERED: ACETAMINOPHEN TAB 650MG DOSE (2X325MG) PO PRN (14:05)
[2021-07-20 14:24] VITALS: BP 125/74
[2021-07-20] MEDS ORDERED: HOME MED LIST COMPLETE! XX SCH (14:30)
[2021-07-20] MEDS ORDERED: NS 1,000 ML IV SCH ×2 (14:30→16:00)
[2021-07-20] MEDS ORDERED: MUPI2OI TOP (14:30)
[2021-07-20 14:43] LABS: BASO # 0.1 10^3/uL (0.0-0.2); BASO % 0.3 % (0.0-1.0); HEMATOCRIT 44.2 % (42.0-52.0); HEMOGLOBIN 15.2 g/dl (13.5-17.5); LYMPH # 0.9 10^3/uL (1.5-5.0); LYMPH % 4.3 % (24.0-44.0); MEAN CORPUSCULAR HEMOGLOBIN 32.3 pg (27.0-33.0); MEAN CORPUSCULAR HGB CONC 34.4 g/dl (32.0-36.5); MONO # 1.5 10^3/uL (0.0-0.8); MONO % 6.8 % (2.0-8.0); NEUTROPHILS # 18.8 10^3/uL (1.5-8.5); NEUTROPHILS % 87.9 % (36.0-66.0); PLATELET COUNT, AUTOMATED 199 10^3/uL (150-450); WHITE BLOOD COUNT 21.4 10^3/uL (4.0-10.0)
[2021-07-20] MEDS ORDERED: NS 1,000 ML IV ONE (15:00)
[2021-07-20 15:07] LABS: ERYTHROCYTE SEDIMENTATION RATE 36 mm/hr (0-20)
[2021-07-20 15:13] LABS: CK-MB VALUE MASS < 1.0 NG/ML (<3.6); CPK CREATINE PHOSPHOKINASE 47 U/L (39-308); MB/CK RELATIVE INDEX 2.13 (< OR =4)
[2021-07-20 15:29] LABS: C REACTIVE PROTEIN QUANTITATIV 26.3 MG/DL (0.00-0.30); CALCIUM LEVEL 8.5 MG/DL (8.8-10.2); CREATININE FOR GFR 2.47 MG/DL (0.70-1.30); GLOMERULAR FILTRATION RATE 26.7 (>35); MAGNESIUM LEVEL 1.9 MG/DL (1.8-2.4); POTASSIUM SERUM 3.5 MEQ/L (3.5-5.1); THYROID STIMULATING HORMONE 0.774 uIU/ML (0.358-3.740); TOTAL PROTEIN 6.6 GM/DL (6.4-8.2)
[2021-07-20] MEDS: cefTRIAXone SOD 1 GM in D5W MINI-BAG PLUS 50 ML IV SCH (16:09)
[2021-07-20] MEDS ORDERED: ALBUTEROL 90 MCG/ACT 8GM HFA INHALER INH PRN (16:45)
[2021-07-20] MEDS ORDERED: DOCUSATE SODIUM 100MG CAPSULE PO PRN (16:45)
[2021-07-20] MEDS: **hydrALAZINE** 10 MG TAB PO SCH ×2 (18:00→23:53)
[2021-07-20] MEDS: RIVAROXABAN 15 MG TAB (XARELTO) PO SCH (18:29)
[2021-07-20] MEDS: LACTOBACILLUS ACIDOPHILUS CAP (BACID) PO SCH (18:29)
[2021-07-20 18:46] VITALS: BP 192/96
[2021-07-20] MEDS ORDERED: atenoloL 25 MG TAB PO ONE (18:50)
[2021-07-20 19:42] VITALS: BP 138/72
[2021-07-20] MEDS: MONTELUKAST 10 MG TAB PO SCH (20:26)
[2021-07-20] MEDS: METOCLOPRAMIDE 5 MG TAB PO SCH (20:26)
[2021-07-20] MEDS: PENICILLIN V POTASSIUM 500 MG TAB PO SCH ×2 (20:26→21:11)
[2021-07-20] MEDS: TAMSULOSIN 0.4 MG CAP PO SCH (20:26)
[2021-07-20] MEDS ORDERED: ACETAMINOPHEN *IV* 1,000 MG in IV 1 EA IV ONE (21:00)
[2021-07-20 21:01] VITALS: BP 108/60
[2021-07-20] MEDS: ISOSORBIDE DIN (ISORDIL) 10MG TAB PO SCH (21:16)
[2021-07-20 23:39] VITALS: BP 104/60
[2021-07-21 05:44] VITALS: BP 100/70
[2021-07-21] MEDS: **hydrALAZINE** 10 MG TAB PO SCH (06:00)
[2021-07-21] MEDS: ISOSORBIDE DIN (ISORDIL) 10MG TAB PO SCH (06:00)
[2021-07-21] MEDS: PENICILLIN V POTASSIUM 500 MG TAB PO SCH ×3 (06:17→22:00)
[2021-07-21 06:45] LABS: BASO # 0.1 10^3/uL (0.0-0.2); BASO % 0.3 % (0.0-1.0); EOS # 0.1 10^3/uL (0.0-0.5); EOS % 0.6 % (0.0-3.0); HEMATOCRIT 43.1 % (42.0-52.0); HEMOGLOBIN 14.6 g/dl (13.5-17.5); LYMPH # 1.6 10^3/uL (1.5-5.0); LYMPH % 10.6 % (24.0-44.0); MEAN CORPUSCULAR HEMOGLOBIN 32.7 pg (27.0-33.0); MEAN CORPUSCULAR HGB CONC 33.9 g/dl (32.0-36.5); MEAN CORPUSCULAR VOLUME 96.6 fl (80.0-96.0); MONO # 1.1 10^3/uL (0.0-0.8); MONO % 7.6 % (2.0-8.0); NEUTROPHILS # 11.9 10^3/uL (1.5-8.5); PLATELET COUNT, AUTOMATED 193 10^3/uL (150-450); RED BLOOD COUNT 4.46 10^6/uL (4.30-6.10); WHITE BLOOD COUNT 14.9 10^3/uL (4.0-10.0)
[2021-07-21 07:15] LABS: CALCIUM LEVEL 8.5 MG/DL (8.8-10.2); CREATININE FOR GFR 1.97 MG/DL (0.70-1.30); GLOMERULAR FILTRATION RATE 34.7 (>35)
[2021-07-21] MEDS ORDERED: ISOSORBIDE DIN (ISORDIL) 10MG TAB PO PRN (08:15)
[2021-07-21] MEDS: LACTOBACILLUS ACIDOPHILUS CAP (BACID) PO SCH ×2 (09:01→18:14)
[2021-07-21] MEDS: AMIODARONE 100MG TABLET (PACERONE) PO SCH (09:01)
[2021-07-21] MEDS: FOLIC ACID 1 MG TAB PO SCH (09:01)
[2021-07-21] MEDS: METOCLOPRAMIDE 5 MG TAB PO SCH ×3 (09:01→21:00)
[2021-07-21] MEDS: PANTOPRAZOLE 40MG TAB (PROTONIX) PO SCH (09:01)
[2021-07-21] MEDS ORDERED: **hydrALAZINE** 10 MG TAB PO PRN (12:00)
[2021-07-21 14:00] VITALS: BP 155/77
[2021-07-21] MEDS: cefTRIAXone SOD 1 GM in D5W MINI-BAG PLUS 50 ML IV SCH (15:19)
[2021-07-21] MEDS: RIVAROXABAN 15 MG TAB (XARELTO) PO SCH (18:14)
[2021-07-21] MEDS: MONTELUKAST 10 MG TAB PO SCH (21:00)
[2021-07-21] MEDS: TAMSULOSIN 0.4 MG CAP PO SCH (21:00)
[2021-07-21 22:00] VITALS: BP 153/77
[2021-07-22 06:00] VITALS: BP 138/75
[2021-07-22] MEDS: PENICILLIN V POTASSIUM 500 MG TAB PO SCH ×3 (06:01→20:09)
[2021-07-22 07:01] LABS: BASO # 0.1 10^3/uL (0.0-0.2); BASO % 0.5 % (0.0-1.0); EOS # 0.2 10^3/uL (0.0-0.5); EOS % 1.7 % (0.0-3.0); HEMATOCRIT 38.8 % (42.0-52.0); HEMOGLOBIN 13.3 g/dl (13.5-17.5); LYMPH # 1.1 10^3/uL (1.5-5.0); LYMPH % 9.3 % (24.0-44.0); MEAN CORPUSCULAR HEMOGLOBIN 32.3 pg (27.0-33.0); MEAN CORPUSCULAR HGB CONC 34.3 g/dl (32.0-36.5); MEAN CORPUSCULAR VOLUME 94.2 fl (80.0-96.0); MONO # 1.3 10^3/uL (0.0-0.8); MONO % 11.1 % (2.0-8.0); NEUTROPHILS # 8.7 10^3/uL (1.5-8.5); NEUTROPHILS % 76.7 % (36.0-66.0); PLATELET COUNT, AUTOMATED 202 10^3/uL (150-450); RED BLOOD COUNT 4.12 10^6/uL (4.30-6.10); WHITE BLOOD COUNT 11.4 10^3/uL (4.0-10.0)
[2021-07-22 07:29] LABS: CALCIUM LEVEL 8.1 MG/DL (8.8-10.2); CREATININE FOR GFR 1.6 MG/DL (0.70-1.30); GLOMERULAR FILTRATION RATE 44.1 (>35); POTASSIUM SERUM 3.5 MEQ/L (3.5-5.1)
[2021-07-22] MEDS ORDERED: LevoFLOXacin 750 MG TABLET PO SCH (08:00)
[2021-07-22] MEDS ORDERED: NS 1,000 ML IV SCH (09:00)
[2021-07-22] MEDS: FOLIC ACID 1 MG TAB PO SCH (09:05)
[2021-07-22] MEDS: PANTOPRAZOLE 40MG TAB (PROTONIX) PO SCH (09:06)
[2021-07-22] MEDS: LACTOBACILLUS ACIDOPHILUS CAP (BACID) PO SCH ×2 (09:06→17:20)
[2021-07-22] MEDS: AMIODARONE 100MG TABLET (PACERONE) PO SCH (09:06)
[2021-07-22] MEDS: METOCLOPRAMIDE 5 MG TAB PO SCH ×3 (09:06→20:09)
[2021-07-22 14:00] VITALS: BP 166/78
[2021-07-22] MEDS: RIVAROXABAN 15 MG TAB (XARELTO) PO SCH (17:20)
[2021-07-22 18:00] VITALS: BP 155/75
[2021-07-22] MEDS: TAMSULOSIN 0.4 MG CAP PO SCH (20:09)
[2021-07-22] MEDS: MONTELUKAST 10 MG TAB PO SCH (20:09)
[2021-07-23] MEDS: PENICILLIN V POTASSIUM 500 MG TAB PO SCH (05:59)
[2021-07-23 06:00] VITALS: BP 141/61
[2021-07-23 06:47] LABS: BASO # 0.1 10^3/uL (0.0-0.2); BASO % 0.7 % (0.0-1.0); EOS # 0.2 10^3/uL (0.0-0.5); EOS % 2.2 % (0.0-3.0); HEMATOCRIT 42.7 % (42.0-52.0); HEMOGLOBIN 14.6 g/dl (13.5-17.5); LYMPH # 1.6 10^3/uL (1.5-5.0); LYMPH % 16.4 % (24.0-44.0); MEAN CORPUSCULAR HEMOGLOBIN 32.4 pg (27.0-33.0); MEAN CORPUSCULAR HGB CONC 34.2 g/dl (32.0-36.5); MEAN CORPUSCULAR VOLUME 94.7 fl (80.0-96.0); MONO % 9.7 % (2.0-8.0); NEUTROPHILS % 69.9 % (36.0-66.0); PLATELET COUNT, AUTOMATED 245 10^3/uL (150-450); RED BLOOD COUNT 4.51 10^6/uL (4.30-6.10)
[2021-07-23 07:08] LABS: CALCIUM LEVEL 8.7 MG/DL (8.8-10.2); CREATININE FOR GFR 1.52 MG/DL (0.70-1.30); GLOMERULAR FILTRATION RATE 46.7 (>35); POTASSIUM SERUM 3.7 MEQ/L (3.5-5.1)
[2021-07-23] MEDS ORDERED: LEVO750T13 PO (08:04)
[2021-07-23] MEDS ORDERED: NORV5TAB PO (08:06)
[2021-07-23] MEDS ORDERED: PENI500T PO (08:24)
[2021-07-23 08:47] VITALS: BP 141/61
[2021-07-23] MEDS: FOLIC ACID 1 MG TAB PO SCH (08:47)
[2021-07-23] MEDS: PANTOPRAZOLE 40MG TAB (PROTONIX) PO SCH (08:47)
[2021-07-23] MEDS: METOCLOPRAMIDE 5 MG TAB PO SCH (08:48)
[2021-07-23] MEDS: LACTOBACILLUS ACIDOPHILUS CAP (BACID) PO SCH (08:48)
[2021-07-23] MEDS: AMIODARONE 100MG TABLET (PACERONE) PO SCH (08:48)
[2021-07-23] MEDS ORDERED: amLODIPine 5 MG TAB PO SCH (09:00)
== END 2021-07-23 11:35 | disposition home health service (06) | DRG 698 ==
LOC: M MSPAV 13:56
PROVIDERS: ADMIT Family Medicine; ATTEND General Practice
DX: T83.511A Infection and inflammatory reaction due to indwelling urethral catheter, initial encounter (principal); A41.9 Sepsis, unspecified organism; R65.20 Severe sepsis without septic shock; G92.8 Other toxic encephalopathy; I48.20 Chronic atrial fibrillation, unspecified; N17.9 Acute kidney failure, unspecified; Y84.6 Urinary catheterization as the cause of abnormal reaction of the patient, or of later complication, without mention of misadventure at the time of the procedure; B96.4 Proteus (mirabilis) (morganii) as the cause of diseases classified elsewhere; N18.30 Chronic kidney disease, stage 3 unspecified; K21.9 Gastro-esophageal reflux disease without esophagitis; B96.89 Other specified bacterial agents as the cause of diseases classified elsewhere; I16.0 Hypertensive urgency; B95.2 Enterococcus as the cause of diseases classified elsewhere; R13.10 Dysphagia, unspecified; Z93.1 Gastrostomy status; Z79.01 Long term (current) use of anticoagulants; Z79.899 Other long term (current) drug therapy

== ENCOUNTER → 2021-07-20 | Outpatient (REF) | payer MEDICARE, MEDICAID ==
[2021-07-20 13:39] LABS: LYMPHOCYTES 5 % (16-44); MONOCYTES 5 % (0-5); NEUTROPHILS 89 % (28-66); PLATELET ESTIMATE NORMAL (NORMAL)
== END ==
LOC: M LAB REF 10:12
PROVIDERS: ATTEND Internal Medicine
DX: R50.9 Fever, unspecified (principal); D72.829 Elevated white blood cell count, unspecified

== ENCOUNTER → 2022-01-06 | Outpatient (REF) | payer OTHER ==
[~2022-01-06] MED LIST changes: +LEVO1TAB40 PO; +MUPI2OI TOP; +NORV5TAB PO; +PENI500T PO
== END ==
LOC: M LAB REF 17:55
PROVIDERS: ATTEND Internal Medicine
DX: R30.0 Dysuria (principal)

== ENCOUNTER → 2022-06-20 | Outpatient (REF) | payer OTHER, MEDICAID ==
[2022-06-20 12:49] LABS: APPEARANCE, URINE MANUAL CLOUDY (CLEAR); COLOR, URINE MANUAL YELLOW (YELLOW)
[2022-06-20 12:50] LABS: BILIRUBIN, URINE MANUAL NEGATIVE (NEGATIVE); BLOOD URINE MANUAL POSITIVE (NEGATIVE); GLUCOSE, URINE (UA) MANUAL NEGATIVE (NEGATIVE); KETONE, URINE MANUAL NEGATIVE (NEGATIVE); LEUKOCYTE ESTERASE, URINE MAN POSITIVE (NEGATIVE); NITRITE, URINE MANUAL POSITIVE (NEGATIVE); PROTEIN, URINE MANUAL 2+ mg/dL (NEGATIVE); UROBILINOGEN, URINE MANUAL NORMAL (NORMAL)
[2022-06-20 13:03] LABS: WBC, URINE 30-40 /hpf (0-3)
[2022-06-20 13:05] LABS: BACTERIA, URINE MOD AMOUNT; SQUAMOUS EPITHELIAL CELL URINE NONE SEEN /hpf (SMALL AMT)
[2022-06-20 13:06] LABS: AMORPHOUS SEDIMENT, URINE SMALL AMOUNT (NEGATIVE); HYALINE CAST, URINE NONE SEEN /lpf (0-1)
== END ==
LOC: M SMT 10:18
PROVIDERS: ATTEND Physician Assistant
DX: R30.0 Dysuria (principal)

== ENCOUNTER → 2022-11-08 | Outpatient (CLI) | payer OTHER, MEDICAID, MEDICARE | LOC: M WUC 08:46 | PROVIDERS: ATTEND Internal Medicine | DX: R91.8 Other nonspecific abnormal finding of lung field (principal); Z79.899 Other long term (current) drug therapy ==

== ENCOUNTER → 2022-11-20 | Outpatient (REF) | payer OTHER, MEDICAID, MEDICARE ==
[2022-11-20 18:17] LABS: APPEARANCE, URINE HAZY (CLEAR); BACTERIA, URINE AUTO 1+ (NEGATIVE); BILIRUBIN, URINE AUTO NEGATIVE (NEGATIVE); BLOOD, URINE BLOOD 3+ (NEGATIVE); COLOR, URINE YELLOW (YELLOW); GLUCOSE, URINE (UA) AUTO NEGATIVE (NEGATIVE); KETONE, URINE AUTO NEGATIVE (NEGATIVE); LEUKOCYTE ESTERASE, URINE AUTO TRACE (NEGATIVE); MUCUS, URINE SMALL (NEGATIVE); NITRITE, URINE AUTO NEGATIVE (NEGATIVE); PROTEIN, URINE AUTO NEGATIVE (NEGATIVE); RBC, URINE AUTO 10 /HPF (0-3); SPECIFIC GRAVITY URINE AUTO 1.009 (1.002-1.035); SQUAMOUS EPITHELIAL CELL UR AU 0 /HPF (0-6); UROBILINOGEN, URINE AUTO 0.2 mg/dL (0.0-2.0); WBC, URINE AUTO 9 /HPF (0-3)
== END ==
LOC: M SMT 17:02
PROVIDERS: ATTEND Urology
DX: R33.9 Retention of urine, unspecified (principal)

== ENCOUNTER → 2022-11-27 | Outpatient (REF) | payer OTHER, MEDICAID | LOC: M LAB REF 16:07 | PROVIDERS: ATTEND Internal Medicine | DX: N39.0 Urinary tract infection, site not specified (principal); F02.818 Dementia in other diseases classified elsewhere, unspecified severity, with other behavioral disturbance ==

== ENCOUNTER → 2022-12-05 | Outpatient (CLI) | payer OTHER, MEDICAID, MEDICARE | LOC: M SOG 08:09 | PROVIDERS: ATTEND Orthopaedic Surgery | DX: M25.561 Pain in right knee (principal); M17.11 Unilateral primary osteoarthritis, right knee ==

== ENCOUNTER 2023-01-20 08:55 | Inpatient (IN) | payer OTHER, MEDICAID ==
[~2023-01-20] VITALS: Ht 149.9 cm; Wt 74.8 kg
[~2023-01-20 08:55] MED LIST changes: +AMIO100T11 PO; -AMIO100T3 PO; +LORA-1041 PO; -LORA-674 PO
[2023-01-20] MEDS: DOCUSATE SODIUM 100MG CAPSULE PO SCH ×2 (09:00→20:32)
[2023-01-20] MEDS ORDERED: PANTOPRAZOLE 40MG TAB (PROTONIX) PO SCH (09:00)
[2023-01-20] MEDS ORDERED: MULTIVITAMINS/MINERALS THERAP 1 TAB PO SCH (09:00)
[2023-01-20] MEDS ORDERED: FOLIC ACID 1MG TAB PO SCH (09:00)
[2023-01-20] MEDS ORDERED: THIAMINE 100 MG TAB PO SCH (09:00)
[2023-01-20] MEDS ORDERED: QUET50TA4 PO (09:12)
[2023-01-20] MEDS ORDERED: cefTRIAXone SOD 2 GM in D5W MINI-BAG PLUS 50 ML IV ONE (09:20)
[2023-01-20] MEDS ORDERED: NS 2,350 ML in IV 1 EA IV ONE (09:20)
[2023-01-20 09:38] LABS: ABG BASE EXCESS -11.8 (-2.0-2.0); ABG HCO3 12.9 MMOL/L (22.0-26.0); ABG O2 SATURATION 97.5 % (95.0-99.0); ABG PARTIAL PRESSURE CO2 27.4 mmHg (35.0-45.0); ABG PARTIAL PRESSURE O2 104.6 mmHg (75.0-100.0); ABG STANDARD HCO3 15.5 MMOL/L. (22.0-26.0); ABG TOTAL CO2 13.7 MMOL/L (23.0-31.0)
[2023-01-20 09:41] LABS: BASO % 0.2 % (0.0-1.0); HEMATOCRIT 50.4 % (42.0-52.0); HEMOGLOBIN 16.5 g/dl (13.5-17.5); LYMPH # 0.3 10^3/uL (1.5-5.0); LYMPH % 6.9 % (24.0-44.0); MEAN CORPUSCULAR HEMOGLOBIN 31.5 pg (27.0-33.0); MEAN CORPUSCULAR HGB CONC 32.7 g/dl (32.0-36.5); MEAN CORPUSCULAR VOLUME 96.2 fl (80.0-96.0); MONO % 0.9 % (2.0-8.0); NEUTROPHILS # 4.1 10^3/uL (1.5-8.5); NEUTROPHILS % 90.9 % (36.0-66.0); PLATELET COUNT, AUTOMATED 219 10^3/uL (150-450); RED BLOOD COUNT 5.24 10^6/uL (4.30-6.10); WHITE BLOOD COUNT 4.5 10^3/uL (4.0-10.0)
[2023-01-20] MEDS ORDERED: VANCOMYCIN HCL 1,500 MG in NS 250 ML IV ONE (09:50)
[2023-01-20 09:52] LABS: INR 1.69; PROTHROMBIN TIME 19.5 SECONDS (12.5-14.5)
[2023-01-20 09:53] LABS: PARTIAL THROMBOPLASTIN TIME 30.1 SECONDS (24.8-34.2)
[2023-01-20 10:03] LABS: C REACTIVE PROTEIN QUANTITATIV 11.3 MG/DL (<1.0)
[2023-01-20 10:05] LABS: ALBUMIN 2.9 G/DL (3.2-5.2); BILIRUBIN,DIRECT 0.7 MG/DL (<0.4); BILIRUBIN,TOTAL 1.7 MG/DL (0.3-1.2); CALCIUM LEVEL 8.7 MG/DL (8.3-10.6); CREATININE FOR GFR 2.53 MG/DL (0.70-1.30); GLOMERULAR FILTRATION RATE 25.9 (>35); POTASSIUM SERUM 4.2 MMOL/L (3.5-5.1); TOTAL PROTEIN 6.3 G/DL (5.7-8.2)
[2023-01-20 10:16] LABS: PROCALCITONIN 1.94 ng/ml
[2023-01-20 10:29] LABS: APPEARANCE, URINE TURBID (CLEAR); BACTERIA, URINE AUTO 2+ (NEGATIVE); BILIRUBIN, URINE AUTO NEGATIVE (NEGATIVE); BLOOD, URINE BLOOD 3+ (NEGATIVE); COLOR, URINE RED (YELLOW); GLUCOSE, URINE (UA) AUTO NEGATIVE (NEGATIVE); KETONE, URINE AUTO NEGATIVE (NEGATIVE); LEUKOCYTE ESTERASE, URINE AUTO 2+ (NEGATIVE); NITRITE, URINE AUTO NEGATIVE (NEGATIVE); PROTEIN, URINE AUTO 2+ mg/dL (NEGATIVE); RBC, URINE AUTO TNTC /HPF (0-3); SPECIFIC GRAVITY URINE AUTO 1.009 (1.002-1.035); SQUAMOUS EPITHELIAL CELL UR AU 0 /HPF (0-6); UROBILINOGEN, URINE AUTO 0.2 mg/dL (0.0-2.0); WBC, URINE AUTO TNTC /HPF (0-3)
[2023-01-20] MEDS ORDERED: VANCOMYCIN HCL 750 MG, VIAL MATE ADAPTER 1 EACH in D5W 250 ML IV ONE ×2 (10:30→11:30)
[2023-01-20] MEDS ORDERED: MOM 30ML SUSPENSION UDC PO PRN (12:50)
[2023-01-20] MEDS ORDERED: ACETAMINOPHEN TAB 650MG DOSE (2X325MG) PO PRN (12:50)
[2023-01-20] MEDS ORDERED: THIA100T7 PO (12:54)
[2023-01-20] MEDS ORDERED: AMIO100T4 PO (12:54)
[2023-01-20] MEDS ORDERED: NO ITAB PO (12:54)
[2023-01-20] MEDS ORDERED: MED REC IN PROGRESS XX SCH (12:55)
[2023-01-20] MEDS ORDERED: HOME MED LIST COMPLETE! XX SCH (12:55)
[2023-01-20] MEDS ORDERED: NYST1POW9 TOP (12:58)
[2023-01-20] MEDS ORDERED: ALBUTEROL 90 MCG/ACT 8GM HFA INHALER INH PRN (13:30)
[2023-01-20] MEDS ORDERED: VANCOMYCIN HCL 1,000 MG in IV FLUID PLACE HOLDER 1 EA IV SCH (13:40)
[2023-01-20] MEDS ORDERED: PIPERACILLIN/TAZOBACTAM SOD 4.5 GM in D5W MINI-BAG PLUS 50 ML IV SCH (14:00)
[2023-01-20] MEDS ORDERED: VANCOMYCIN INTERMITTENT/PULSE DOSING BY CLINICAL PHARMACIST PER DOSING PROTOCOL XX SCH (14:40)
[2023-01-20] MEDS ORDERED: CEFEPIME HCL 2 GM in D5W MINI-BAG PLUS 50 ML IV SCH (15:00)
[2023-01-20 15:41] VITALS: BP 138/70; TEMP 98.9; O2SAT 96
[2023-01-20 16:14] LABS: ABG BASE EXCESS -7.7 (-2.0-2.0); ABG HCO3 14.2 MMOL/L (22.0-26.0); ABG O2 SATURATION 94.2 % (95.0-99.0); ABG PARTIAL PRESSURE CO2 21.8 mmHg (35.0-45.0); ABG PARTIAL PRESSURE O2 67.7 mmHg (75.0-100.0); ABG STANDARD HCO3 18.3 MMOL/L. (22.0-26.0); ABG TOTAL CO2 14.8 MMOL/L (23.0-31.0); ABG pH (ARTERIAL) 7.431 UNITS (7.350-7.450)
[2023-01-20] MEDS: metroNIDAZOLE 500 MG in IV 1 EA IV SCH (16:36)
[2023-01-20 17:20] VITALS: BP 118/75; TEMP 98.8; O2SAT 94
[2023-01-20 19:21] VITALS: BP 104/68; TEMP 98.5; O2SAT 93
[2023-01-20 19:41] LABS: CALCIUM LEVEL 8.3 MG/DL (8.3-10.6); CREATININE FOR GFR 2.51 MG/DL (0.70-1.30); GLOMERULAR FILTRATION RATE 26.1 (>35); POTASSIUM SERUM 3.5 MMOL/L (3.5-5.1)
[2023-01-20] MEDS ORDERED: QUEtiapine FUMARATE 50MG TAB PO SCH (21:00)
[2023-01-20] MEDS ORDERED: MUPIROCIN 2% OINT 22 GM TUBE TOP SCH (21:00)
[2023-01-20] MEDS ORDERED: TAMSULOSIN 0.4 MG CAP PO SCH (21:00)
[2023-01-20 23:24] VITALS: BP 90/54; TEMP 98.2; O2SAT 95
[2023-01-21] MEDS: metroNIDAZOLE 500 MG in IV 1 EA IV SCH (00:34)
[2023-01-21 03:03] VITALS: BP 159/82; TEMP 98.1; O2SAT 96
[2023-01-21] MEDS ORDERED: METOPROLOL 5 MG/5 ML VIAL IV SCH (06:10)
[2023-01-21 06:14] LABS: HEMATOCRIT 45.2 % (42.0-52.0); HEMOGLOBIN 15.4 g/dl (13.5-17.5); MEAN CORPUSCULAR HEMOGLOBIN 32.5 pg (27.0-33.0); MEAN CORPUSCULAR HGB CONC 34.1 g/dl (32.0-36.5); MEAN CORPUSCULAR VOLUME 95.4 fl (80.0-96.0); PLATELET COUNT, AUTOMATED 149 10^3/uL (150-450); RED BLOOD COUNT 4.74 10^6/uL (4.30-6.10)
[2023-01-21 06:19] LABS: WHITE BLOOD COUNT 42.8 10^3/uL (4.0-10.0)
[2023-01-21 06:20] VITALS: BP 140/71
[2023-01-21 06:28] VITALS: BP 140/71
[2023-01-21 06:32] LABS: ALBUMIN 2.7 G/DL (3.2-5.2); BILIRUBIN,DIRECT 0.5 MG/DL (<0.4); CALCIUM LEVEL 8.7 MG/DL (8.3-10.6); CREATININE FOR GFR 2.69 MG/DL (0.70-1.30); GLOMERULAR FILTRATION RATE 24.1 (>35); POTASSIUM SERUM 4.7 MMOL/L (3.5-5.1); TOTAL PROTEIN 6.1 G/DL (5.7-8.2)
[2023-01-21 06:38] VITALS: BP_SYST 20
[2023-01-21 06:57] LABS: LYMPHOCYTES 5 % (16-44); MONOCYTES 8 % (0-5); NEUTROPHILS 71 % (28-66); PLATELET ESTIMATE NORMAL (NORMAL)
[2023-01-21 06:58] LABS: ANISOCYTOSIS 1+
[2023-01-21] MEDS ORDERED: METOPROLOL TART 25 MG TABLET PO ONE (07:00)
[2023-01-21] MEDS ORDERED: VANCOMYCIN HCL 750 MG, VIAL MATE ADAPTER 1 EACH in D5W 250 ML IV ONE (08:00)
== END 2023-01-21 06:52 | disposition expired | DRG 871 ==
LOC: M ED 08:55 → EDBD 08:55 → M ED INP 12:46 → M PCU 15:27
PROVIDERS: ADMIT Student in an Organized Health Care Education/Training Program; ATTEND Student in an Organized Health Care Education/Training Program
DX: A41.50 Gram-negative sepsis, unspecified (principal); I21.9 Acute myocardial infarction, unspecified; J96.01 Acute respiratory failure with hypoxia; G93.41 Metabolic encephalopathy; J15.69 Pneumonia due to other Gram-negative bacteria; N17.9 Acute kidney failure, unspecified; E87.20 Acidosis, unspecified; N13.30 Unspecified hydronephrosis; N39.0 Urinary tract infection, site not specified; T83.511A Infection and inflammatory reaction due to indwelling urethral catheter, initial encounter; N18.30 Chronic kidney disease, stage 3 unspecified; E11.22 Type 2 diabetes mellitus with diabetic chronic kidney disease; I48.91 Unspecified atrial fibrillation; R31.9 Hematuria, unspecified; F03.90 Unspecified dementia, unspecified severity, without behavioral disturbance, psychotic disturbance, mood disturbance, and anxiety; J45.909 Unspecified asthma, uncomplicated; K21.9 Gastro-esophageal reflux disease without esophagitis; K80.20 Calculus of gallbladder without cholecystitis without obstruction; R00.0 Tachycardia, unspecified; R33.9 Retention of urine, unspecified; Z66 Do not resuscitate; I46.9 Cardiac arrest, cause unspecified; R65.20 Severe sepsis without septic shock; Z79.01 Long term (current) use of anticoagulants; Z79.899 Other long term (current) drug therapy; Y84.6 Urinary catheterization as the cause of abnormal reaction of the patient, or of later complication, without mention of misadventure at the time of the procedure